=== PATIENT | female | born 1960 | race Caucasian/White ===

== ENCOUNTER 2018-09-18 18:58 | Emergency (ER) | payer OTHER ==
[2018-09-18 19:18] VITALS: BP 150/79; PULSE 96; RESP 16; TEMP 99.1
[2018-09-18] MEDS ORDERED: SODIUM CHLORIDE 0.9% 1,000 ML IV STA (19:29)
[2018-09-18 19:33] LABS: Glucose,Whole Blood 245 mg/dL (75-99)
[2018-09-18] MEDS ORDERED: MORPHINE SULFATE 4 MG/ML SYRINGE IV STA (19:56)
[2018-09-18 19:59] LABS: Basophils % (A) 1 %; Eosinophils # (A) 0.1 k/uL (0-0.7); Eosinophils % (A) 3 %; HCT 38.8 % (34.0-46.0); HGB 12.9 gm/dL (11.4-16.0); Lymphocytes # (A) 1.1 k/uL (1.0-4.8); Lymphocytes % (A) 27 %; MCH 29.6 pg (25.0-35.0); MCHC 33.2 g/dL (31.0-37.0); Mean Platelet Volume 8.7; Monocytes # (A) 0.3 k/uL (0-1.0); Monocytes % (A) 7 %; Neutrophils # (A) 2.4 k/uL (1.3-7.7); Neutrophils % (A) 61 %; Poikilocytosis Slight; RBC 4.36 m/uL (3.80-5.40); RDW 15.7 % (11.5-15.5)
[2018-09-18 20:00] LABS: Albumin 3.3 g/dL (3.5-5.0); Calcium 8.5 mg/dL (8.4-10.2); Total Bilirubin 2.8 mg/dL (0.2-1.3); Total Protein 7.2 g/dL (6.3-8.2)
--- NOTE | 2018-09-18 20:00 | ED ---
General Adult HPI - General Chief complaint: Extremity Injury, Lower Stated complaint: Cramping lower extremities Time Seen by Provider: 09/18/18 19:01 Source: patient, RN notes reviewed, old records reviewed Mode of arrival: EMS Limitations: no limitations - History of Present Illness Initial comments: 58-year-old female patient past medical history of type 2 diabetes, hyperlipidemia, hypertension, CKD presents to ED for bilateral cramping in her lower extremities distal to her knee. Patient denies any other complaints. Patient states that this is an ongoing for approximately 6 hours. Patient denies any previous history of any blood clots. Patient denies any chest pain, shortness breath, abdominal pain, nausea vomiting diarrhea, fevers chills. Systemic: Pt denies fatigue, fever/chills, rash. Pt denies weakness, night sweats, weight loss. Neuro: Pt denies headache, visual disturbances, syncope or pre-syncope. HEENT: Pt denies ocular discharge or irritation, otalgia, rhinorrhea, pharyngitis or notable lymphadenopathy. Cardiopulmonary: Pt denies chest pain, SOB, heart palpitations, dyspnea on exertion. Abdominal/GI: Pt denies abdominal pain, n/v/d. : Pt denies dysuria, burning w/ urination, frequency/urgency. Denies new onset urinary or bowel incontinence. MSK: Pt denies loss of strength or function in extremities. Neuro: Pt denies new onset weakness, paresthesias. - Related Data Home Medications Medication Instructions Recorded Confirmed Allopurinol [Zyloprim] 100 mg PO BID 09/18/18 09/18/18 Amitriptyline HCl [Elavil] 25 mg PO DAILY 09/18/18 09/18/18 Losartan [Cozaar] 50 mg PO DAILY 09/18/18 09/18/18 Simvastatin [Zocor] 20 mg PO HS 09/18/18 09/18/18 Previous Rx's Medication Instructions Recorded glyBURIDE [Diabeta] 5 mg PO Q12HR 14 Days #24 09/18/18 metFORMIN HCL [Glucophage] 500 mg PO BID 14 Days #28 tab 09/18/18 Allergies Allergy/AdvReac Type Severity Reaction Status Date / Time No Known Allergies Allergy Verified 09/18/18 20:35 Review of Systems ROS Statement: Those systems with pertinent positive or pertinent negative responses have been documented in the HPI. ROS Other: All systems not noted in ROS Statement are negative. Past Medical History Past Medical History: Diabetes Mellitus, Hyperlipidemia, Hypertension, Renal Disease History of Any Multi-Drug Resistant Organisms: None Reported Past Surgical History: Section Past Psychological History: No Psychological Hx Reported Smoking Status: Never smoker Past Alcohol Use History: None Reported Past Drug Use History: None Reported General Exam - General Exam Comments Initial Comments: Constitutional: NAD, AOX3, Pt has pleasant affect. HEENT: NC/AT, trachea midline, neck supple, no lymphadenopathy. Posterior pharynx non erythematous, without exudates. External ears appear normal, without discharge. Mucous membranes moist. Eyes PERRLA, EOM intact. There is no scleral icterus. No pallor noted. Cardiopulmonary: RRR, no murmurs, rubs or gallops, no JVD noted. Lungs CTAB in a nterior and posterior fregoso. No peripheral edema. Abdominal exam: Abdomen soft and non-distended. Abdomen non-tender to palpation in all 4 quadrants. Bowel sounds active in LLQ. No hepatosplenomegaly. No ecchymosis Neuro: CN II-XII grossly intact. No nuchal rigidity. MSK: Mild amount of posterior calf tenderness bilaterally. Posterior tibialis and radial pulse +2 bilaterally. Sensation intact in upper and lower extremities. Full active ROM in upper and lower extremities, 5/5 stregnth. Limitations: no limitations Course Vital Signs 09/18/18 19:12 Temperature 99.1 F Pulse Rate 96 Respiratory 16 Rate Blood Pressure 150/79 O2 Sat by Pulse 96 Oximetry Medical Decision Making - Medical Decision Making 58-year-old female patient past medical history of type 2 diabetes, hyperlipidemia, hypertension, CKD presents to ED for bilateral cramping in her lower extremities distal to her knee. Patient denies any other complaints. Pat ient states that this is an ongoing for approximately 6 hours. Patient denies any previous history of any blood clots. Patient denies any chest pain, shortness breath, abdominal pain, nausea vomiting diarrhea, fevers chills. Pt VSS, afebrile. Physical exam displayed: Mild amount of posterior calf tenderness bilaterally. Posterior tibialis and radial pulse +2 bilaterally. CBC nonimpressive. CMP displayed mildly elevated 1.28 Cr. Pt had mild hyperglycemia. Liver enzymes elevated. UA displayed +4 urine. Ultrasound of lower extremities bilaterally did not display any signs of DVT. Patient cramping resolved with the fluid administration, pain medication. Cramping likely secondary to dehydration. Patient was understanding. Patient also verbalizes that she is out her diabetes medication and her prior primary care provider in [place] will not refill them. Patient's medications refilled, patient assures that she will call her new pcp tomorrow. Patient to return to ER if new signs symptoms develop or condition worsens in any way. Case discussed in depth with Dr. Payne. - Lab Data Result diagrams: 09/18/18 19:32 09/18/18 19:32 Lab Results 09/18/18 09/18/18 09/18/18 Range/Units 19:30 19:32 19:32 WBC 4.0 (3.8-10.6) k/uL RBC 4.36 (3.80-5.40) m/uL Hgb 12.9 (11.4-16.0) gm/dL Hct 38.8 (34.0-46.0) % MCV 89.0 (80.0-100.0) fL MCH 29.6 (25.0-35.0) pg MCHC 33.2 (31.0-37.0) g/dL RDW 15.7 H (11.5-15.5) % Plt Count 86 L (150-450) k/uL Neutrophils % 61 % Lymphocytes % 27 % Monocytes % 7 % Eosinophils % 3 % Basophils % 1 % Neutrophils # 2.4 (1.3-7.7) k/uL Lymphocytes # 1.1 (1.0-4.8) k/uL Monocytes # 0.3 (0-1.0) k/uL Eosinophils # 0.1 (0-0.7) k/uL Basophils # 0.0 (0-0.2) k/uL Manual Slide Review Performed Poikilocytosis Slight Sodium 135 L (137-145) mmol/L Potassium 4.9 (3.5-5.1) mmol/L Chloride 103 (98-107) mmol/L Carbon Dioxide 22 (22-30) mmol/L Anion Gap 10 mmol/L BUN 20 H (7-17) mg/dL Creatinine 1.28 H (0.52-1.04) mg/dL Est GFR (CKD-EPI)AfAm 54 (>60 ml/min/1.73 sqM) Est GFR (CKD-EPI)NonAf 46 (>60 ml/min/1.73 sqM) Glucose 317 H (74-99) mg/dL POC Glucose (mg/dL) 245 H (75-99) mg/dL POC Glu Shell Assembler ID Yung Mast Calcium 8.5 (8.4-10.2) mg/dL Total Bilirubin 2.8 H (0.2-1.3) mg/dL AST 109 H (14-36) U/L ALT 72 H (9-52) U/L Alkaline Phosphatase 136 H (38-126) U/L Total Protein 7.2 (6.3-8.2) g/dL Albumin 3.3 L (3.5-5.0) g/dL Urine Color Urine Appearance (Clear) Urine pH (5.0-8.0) Ur Specific Manning (1.001-1.035) Urine Protein (Negative) Urine Glucose (UA) (Negative) Urine Ketones (Negative) Urine Blood (Negative) Urine Nitrite (Negative) Urine Bilirubin (Negative) Urine Urobilinogen (<2.0) mg/dL Ur Leukocyte Esterase (Negative) Acetone, Qual (Negative) 09/18/18 09/18/18 Range/Units 20:40 21:27 WBC (3.8-10.6) k/uL RBC (3.80-5.40) m/uL Hgb (11.4-16.0) gm/dL Hct (34.0-46.0) % MCV (80.0-100.0) fL MCH (25.0-35.0) pg MCHC (31.0-37.0) g/dL RDW (11.5-15.5) % Plt Count (150-450) k/uL Neutrophils % % Lymphocytes % % Monocytes % % Eosinophils % % Basophils % % Neutrophils # (1.3-7.7) k/uL Lymphocytes # (1.0-4.8) k/uL Monocytes # (0-1.0) k/uL Eosinophils # (0-0.7) k/uL Basophils # (0-0.2) k/uL Manual Slide Review Poikilocytosis Sodium (137-145) mmol/L Potassium (3.5-5.1) mmol/L Chloride (98-107) mmol/L Carbon Dioxide (22-30) mmol/L Anion Gap mmol/L BUN (7-17) mg/dL Creatinine (0.52-1.04) mg/dL Est GFR (CKD-EPI)AfAm (>60 ml/min/1.73 sqM) Est GFR (CKD-EPI)NonAf (>60 ml/min/1.73 sqM) Glucose (74-99) mg/dL POC Glucose (mg/dL) 255 H (75-99) mg/dL POC Glu Shell Assembler ID Yung Mast Calcium (8.4-10.2) mg/dL Total Bilirubin (0.2-1.3) mg/dL AST (14-36) U/L ALT (9-52) U/L Alkaline Phosphatase (38-126) U/L Total Protein (6.3-8.2) g/dL Albumin (3.5-5.0) g/dL Urine Color Yellow Urine Appearance Clear (Clear) Urine pH 6.0 (5.0-8.0) Ur Specific Manning 1.009 (1.001-1.035) Urine Protein Negative (Negative) Urine Glucose (UA) 4+ H (Negative) Urine Ketones Negative (Negative) Urine Blood Negative (Negative) Urine Nitrite Negative (Negative) Urine Bilirubin Negative (Negative) Urine Urobilinogen >12.0 (<2.0) mg/dL Ur Leukocyte Esterase Negative (Negative) Acetone, Qual (Negative) Disposition Clinical Impression: Myalgia, Muscle cramp Disposition: HOME SELF-CARE Condition: Stable Instructions (If sedation given, give patient instructions): Diabetic Hyperglycemia (ED) Additional Instructions: Patient to adhere to previously discussed treatment plan and will take medication(s) as directed. Patient to follow up with PCP in 1-2 days. Patient to return to ED if symptoms do not improve. Please call PCP tomorrow Prescriptions: glyBURIDE [Diabeta] 5 mg PO Q12HR 14 Days #24 metFORMIN HCL [Glucophage] 500 mg PO BID 14 Days #28 tab Is patient prescribed a controlled substance at d/c from ED?: No Referrals: Tmo Lucas MD [Primary Care Provider] - 1-2 days
[2018-09-18 20:01] LABS: Potassium 4.9 mmol/L (3.5-5.1)
[2018-09-18 20:18] LABS: Platelet Count 86 k/uL (150-450)
--- NOTE | 2018-09-18 20:30 | US ---
EXAMINATION TYPE: US venous doppler duplex LE DATE OF EXAM: 09/18/2018 8:15 PM COMPARISON: NONE CLINICAL HISTORY: Pain. pain, no hx of blood clots, not on blood thinners, no redness SIDE PERFORMED: Bilateral TECHNIQUE: The lower extremity deep venous system is examined utilizing real time linear array sonog mary with graded compression, doppler sonography and color-flow sonography. VESSELS IMAGED: External Iliac Vein (EIV) Common Femoral Vein Deep Femoral Vein Greater Saphenous Vein * Femoral Vein Popliteal Vein Small Saphenous Vein * Proximal Calf Veins (* superficial vessels) Limited exam due to patient body habitus Right Leg: Negative for acute DVT Left Leg: Negative for acute DVT IMPRESSION: No evidence of deep venous thrombosis in both legs.
[2018-09-18 20:51] LABS: Appearance,Urine Clear (Clear); Bilirubin,Urine Negative (Negative); Blood,Urine Negative (Negative); Color,Urine Yellow; Glucose,Urine (UA) 4+ (Negative); Ketones,Urine Negative (Negative); Leukocyte Esterase,Urine Negative (Negative); Nitrite,Urine Negative (Negative); Protein,Urine Negative (Negative); Specific Gravity,Urine 1.009 (1.001-1.035); Urobilinogen,Urine >12.0 mg/dL (<2.0)
[2018-09-18 21:28] LABS: Glucose,Whole Blood 255 mg/dL (75-99)
== END 2018-09-18 22:05 | disposition home or self-care (01) ==
LOC: EC 18:58
DX: M79.18 Myalgia, other site (principal); R79.89 Other specified abnormal findings of blood chemistry; Z76.0 Encounter for issue of repeat prescription; R74.8 Abnormal levels of other serum enzymes; E11.65 Type 2 diabetes mellitus with hyperglycemia; E78.5 Hyperlipidemia, unspecified; I12.9 Hypertensive chronic kidney disease with stage 1 through stage 4 chronic kidney disease, or unspecified chronic kidney disease; N18.9 Chronic kidney disease, unspecified; E11.22 Type 2 diabetes mellitus with diabetic chronic kidney disease; Z79.899 Other long term (current) drug therapy
CPT/HCPCS: 99285; 96374; 96361; 36415; 80053; 82009; 85025; 81003; 93970; J2270

== ENCOUNTER 2018-12-05 23:43 | Inpatient (IN) | payer OTHER ==
[2018-12-06 00:34] LABS: Basophils # (A) 0.1 k/uL (0-0.2); Basophils % (A) 1 %; Eosinophils # (A) 0.1 k/uL (0-0.7); Eosinophils % (A) 2 %; HCT 43.6 % (34.0-46.0); HGB 13.5 gm/dL (11.4-16.0); Hypochromasia Slight; Lymphocytes # (A) 1.2 k/uL (1.0-4.8); Lymphocytes % (A) 21 %; MCH 27.8 pg (25.0-35.0); MCV 89.6 fL (80.0-100.0); Mean Platelet Volume 8.4; Monocytes # (A) 0.3 k/uL (0-1.0); Monocytes % (A) 5 %; Neutrophils # (A) 4.1 k/uL (1.3-7.7); Neutrophils % (A) 70 %; Platelet Count 104 k/uL (150-450); Poikilocytosis Slight; RBC 4.86 m/uL (3.80-5.40); WBC 5.8 k/uL (3.8-10.6)
[2018-12-06 00:40] LABS: INR 1.1 (<1.2); Partial Thromboplastin Time 23.6 sec (22.0-30.0); Prothrombin Time 11.8 sec (9.0-12.0)
--- NOTE | 2018-12-06 00:53 | ED ---
General Adult HPI - General Source: patient, family, EMS, RN notes reviewed, old records reviewed Mode of arrival: EMS Limitations: physical limitation <Brandon Burch - Last Filed: 12/06/18 00:56> <Berhane Garcia - Last Filed: 12/06/18 08:51> - General Chief complaint: Fall Stated complaint: Hyperglycemia, Fall Time Seen by Provider: 12/06/18 00:28 - History of Present Illness Initial comments: If chief complaint and history of present illness a 58-year-old female brought in by ambulance because of having had either a syncopal episode then a seizure. Son reports that his mother was in the bathroom and called him because she wasn't feeling well. He said she was shaking then turned blue he started CPR she fell to the side into the bathtub. She denies any significant neck pain mild discomfort to her head. Patient denies any other pain. Patient reports that she's not been on her diabetic medications for several days. She takes glyburide and metformin. Yesterday's glucose was over 500. Patient states she's not good about a diabetic diet. (Brandon Burch) - Related Data Home Medications Medication Instructions Recorded Confirmed Allopurinol [Zyloprim] 100 mg PO BID 09/18/18 12/06/18 Amitriptyline HCl [Elavil] 25 mg PO DAILY 09/18/18 12/06/18 Losartan [Cozaar] 50 mg PO DAILY 09/18/18 12/06/18 Simvastatin [Zocor] 20 mg PO HS 09/18/18 12/06/18 Aspirin [Adult Low Dose Aspirin EC] 81 mg PO DAILY 12/06/18 12/06/18 Pregabalin [Lyrica] 100 mg PO BID 12/06/18 12/06/18 Previous Rx's Medication Instructions Recorded glyBURIDE [Diabeta] 5 mg PO Q12HR 14 Days #24 09/18/18 metFORMIN HCL [Glucophage] 500 mg PO BID 14 Days #28 tab 09/18/18 Allergies Allergy/AdvReac Type Severity Reaction Status Date / Time No Known Allergies Allergy Verified 12/05/18 23:50 Review of Systems ROS Other: All systems not noted in ROS Statement are negative. <Brandon Burch - Last Filed: 12/06/18 00:56> ROS Other: All systems not noted in ROS Statement are negative. <Berhane Garcia - Last Filed: 12/06/18 08:51> ROS Statement: Those systems with pertinent positive or pertinent negative responses have been documented in the HPI. Patient complains of mild headache. No visual acuity changes no neck pain. No chest pain shortness breath GI/ complaints or problems. Patient denies ever having had a seizure in the past or syncopal episode. States she's taking oral antidiabetic's only. Has not been on them for 4 days. Her blood sugars been elevated. The patient's other medical problems include hyperlipidemia hypertension and renal disease which she reports is improved over last year. Her surgeries include cataracts and . Family history of father had skin cancer. Patient denies smoking or drinking. Patient denies any ALLERGIES. (Brandon Burch) Past Medical History Past Medical History: Diabetes Mellitus, Hyperlipidemia, Hypertension, Renal Disease History of Any Multi-Drug Resistant Organisms: None Reported Past Surgical History: Section Past Psychological History: No Psychological Hx Reported Smoking Status: Never smoker Past Alcohol Use History: None Reported Past Drug Use History: None Reported <Brandon Burch - Last Filed: 12/06/18 00:56> - Past Family History Mother Family Medical History: Congestive Heart Failure (CHF), Hypertension <Berhane Garcia - Last Filed: 12/06/18 08:51> General Exam Limitations: physical limitation <Brandon Burch - Last Filed: 12/06/18 00:56> - General Exam Comments Initial Comments: General: The patient is awake and alert, in no distress, and does not appear acutely ill. Here because she had a syncopal episode followed by a seizure per her son who is an adult. He states he did CPR on her because her face looked purple. She has no recollection of the whole event. Eye: Pupils are equal, round and reactive to light, extra-ocular movements are intact; there is normal conjunctiva bilaterally. No signs of icterus. Patient has had cataract surgery. Ears, nose, mouth and throat: There are moist mucous membranes and no oral lesions. Neck: The neck is supple, there is no tenderness. Mild headache. No bumps or bruises noted. Cardiovascular: There is a regular rate and rhythm. No murmur, rub or gallop is appreciated. Respiratory: Lungs are clear to auscultation, respirations are non-labored, breath sounds are equal. No wheezes, stridor, rales, or rhonchi. Gastrointestinal: Mild tenderness along the right upper quadrant. No rebound or referred pain no organomegaly appreciated.. Back: There is no tenderness to palpation in the midline. There is no obvious deformity. No rashes noted. Musculoskeletal: Was upper or lower extremities but complains discomfort due to arthritic changes to her knee. Denies new injury or new pain.. Neurological: CN II-XII intact, There are no obvious motor or sensory deficits. Coordination appears grossly intact. Speech is normal. No focal or lateralizing findings. No focal or lateralizing findings Skin: Skin is warm and dry and no rashes or lesions are noted. Psychiatric: Cooperative, appropriate mood & affect, normal judgment. (Brandon Burch) Course Vital Signs 12/05/18 12/05/18 12/06/18 23:45 23:46 00:31 Temperature 100.4 F H Pulse Rate 128 H 128 H Respiratory 22 18 Rate Blood Pressure 156/90 143/74 O2 Sat by Pulse 96 97 97 Oximetry 12/06/18 12/06/18 12/06/18 02:36 04:06 04:41 Temperature 99.1 F 98.2 F 98.2 F Pulse Rate 115 H 102 H Respiratory 18 16 19 Rate Blood Pressure 137/70 159/86 O2 Sat by Pulse 96 95 98 Oximetry 12/06/18 12/06/18 05:00 05:01 Temperature 98.2 F 97.7 F Pulse Rate 101 H 101 H Respiratory 20 18 Rate Blood Pressure 121/66 126/67 O2 Sat by Pulse 94 L 93 L Oximetry EKG Findings - EKG Comments: EKG Findings:: EKG was done and reviewed it 2358 showing sinus tachycardia no acute ST elevation no ectopy. Patient's heart rate is 123 LA interval is 150 QRS 80 QT 322 QTc 460. No old EKG available to compare to at this time. <Brandon Burch - Last Filed: 12/06/18 00:56> Medical Decision Making - Lab Data Result diagrams: 12/05/18 23:50 <Brandon Burch - Last Filed: 12/06/18 00:56> - Lab Data Result diagrams: 12/05/18 23:50 12/06/18 08:27 <Berhane Garcia - Last Filed: 12/06/18 08:51> - Medical Decision Making Medical decision making; is a 58-year-old female who according to the son had what appeared to be a seizure and then fell off the toilet. At this time the patient is alert and oriented. She has no memory for the event. EMS reports that when they got there she was not postictal. Patient will be worked up with a CAT scan and cardiac evaluation as well. She also presents with a fever of 100.4 which was unknown to her. She denies any sore throat earache or cough. Case endorsed for final disposition to Dr. Garcia (Brandon Burch) Receive this case as a sign out pending the results of some patient's studies. The patient's studies reveal significant hyperglycemia as well as lactic acidosis, but acetone negative. Patient is started on fluids, insulin, she did receive a dose of antibiotics result of urine and also a blood culture. Case is discussed with Dr. Berman and history of recommendations are incorporated. (Berhane Garcia) - Lab Data Lab Results 12/05/18 12/05/18 12/05/18 Range/Units 23:50 23:50 23:50 WBC 5.8 (3.8-10.6) k/uL RBC 4.86 (3.80-5.40) m/uL Hgb 13.5 (11.4-16.0) gm/dL Hct 43.6 (34.0-46.0) % MCV 89.6 (80.0-100.0) fL MCH 27.8 (25.0-35.0) pg MCHC 31.0 (31.0-37.0) g/dL RDW 15.0 (11.5-15.5) % Plt Count 104 L (150-450) k/uL Neutrophils % 70 % Lymphocytes % 21 % Monocytes % 5 % Eosinophils % 2 % Basophils % 1 % Neutrophils # 4.1 (1.3-7.7) k/uL Lymphocytes # 1.2 (1.0-4.8) k/uL Monocytes # 0.3 (0-1.0) k/uL Eosinophils # 0.1 (0-0.7) k/uL Basophils # 0.1 (0-0.2) k/uL Hypochromasia Slight Poikilocytosis Slight PT (9.0-12.0) sec INR (<1.2) APTT (22.0-30.0) sec Sodium 130 L (137-145) mmol/L Potassium 3.8 (3.5-5.1) mmol/L Chloride 96 L (98-107) mmol/L Carbon Dioxide 17 L (22-30) mmol/L Anion Gap 17 mmol/L BUN 11 (7-17) mg/dL Creatinine 1.05 H (0.52-1.04) mg/dL Est GFR (CKD-EPI)AfAm 68 (>60 ml/min/1.73 sqM) Est GFR (CKD-EPI)NonAf 59 (>60 ml/min/1.73 sqM) Glucose 665 H* (74-99) mg/dL POC Glucose (mg/dL) (75-99) mg/dL POC Glu Child Care Team Lead ID Lactic Ac Sepsis Rflx Plasma Lactic Acid Raymundo (0.7-2.0) mmol/L Calcium 9.1 (8.4-10.2) mg/dL Total Bilirubin 1.8 H (0.2-1.3) mg/dL AST 47 H (14-36) U/L ALT 33 (9-52) U/L Alkaline Phosphatase 232 H (38-126) U/L Creatine Kinase (30-135) U/L CK-MB (CK-2) 0.3 (0.0-2.4) ng/mL Troponin I <0.012 (0.000-0.034) ng/mL Total Protein 7.2 (6.3-8.2) g/dL Albumin 3.5 (3.5-5.0) g/dL Acetone, Qual (Negative) 12/05/18 12/05/18 12/05/18 Range/Units 23:50 23:50 23:50 WBC (3.8-10.6) k/uL RBC (3.80-5.40) m/uL Hgb (11.4-16.0) gm/dL Hct (34.0-46.0) % MCV (80.0-100.0) fL MCH (25.0-35.0) pg MCHC (31.0-37.0) g/dL RDW (11.5-15.5) % Plt Count (150-450) k/uL Neutrophils % % Lymphocytes % % Monocytes % % Eosinophils % % Basophils % % Neutrophils # (1.3-7.7) k/uL Lymphocytes # (1.0-4.8) k/uL Monocytes # (0-1.0) k/uL Eosinophils # (0-0.7) k/uL Basophils # (0-0.2) k/uL Hypochromasia Poikilocytosis PT 11.8 (9.0-12.0) sec INR 1.1 (<1.2) APTT 23.6 (22.0-30.0) sec Sodium (137-145) mmol/L Potassium (3.5-5.1) mmol/L Chloride (98-107) mmol/L Carbon Dioxide (22-30) mmol/L Anion Gap mmol/L BUN (7-17) mg/dL Creatinine (0.52-1.04) mg/dL Est GFR (CKD-EPI)AfAm (>60 ml/min/1.73 sqM) Est GFR (CKD-EPI)NonAf (>60 ml/min/1.73 sqM) Glucose (74-99) mg/dL POC Glucose (mg/dL) (75-99) mg/dL POC Glu Child Care Team Lead ID Lactic Ac Sepsis Rflx Plasma Lactic Acid Raymundo 11.7 H* (0.7-2.0) mmol/L Calcium (8.4-10.2) mg/dL Total Bilirubin (0.2-1.3) mg/dL AST (14-36) U/L ALT (9-52) U/L Alkaline Phosphatase (38-126) U/L Creatine Kinase (30-135) U/L CK-MB (CK-2) (0.0-2.4) ng/mL Troponin I (0.000-0.034) ng/mL Total Protein (6.3-8.2) g/dL Albumin (3.5-5.0) g/dL Acetone, Qual Negative (Negative) 12/05/18 12/06/18 12/06/18 Range/Units 23:50 01:22 03:00 WBC (3.8-10.6) k/uL RBC (3.80-5.40) m/uL Hgb (11.4-16.0) gm/dL Hct (34.0-46.0) % MCV (80.0-100.0) fL MCH (25.0-35.0) pg MCHC (31.0-37.0) g/dL RDW (11.5-15.5) % Plt Count (150-450) k/uL Neutrophils % % Lymphocytes % % Monocytes % % Eosinophils % % Basophils % % Neutrophils # (1.3-7.7) k/uL Lymphocytes # (1.0-4.8) k/uL Monocytes # (0-1.0) k/uL Eosinophils # (0-0.7) k/uL Basophils # (0-0.2) k/uL Hypochromasia Poikilocytosis PT (9.0-12.0) sec INR (<1.2) APTT (22.0-30.0) sec Sodium (137-145) mmol/L Potassium (3.5-5.1) mmol/L Chloride (98-107) mmol/L Carbon Dioxide (22-30) mmol/L Anion Gap mmol/L BUN (7-17) mg/dL Creatinine (0.52-1.04) mg/dL Est GFR (CKD-EPI)AfAm (>60 ml/min/1.73 sqM) Est GFR (CKD-EPI)NonAf (>60 ml/min/1.73 sqM) Glucose (74-99) mg/dL POC Glucose (mg/dL) 467 H (75-99) mg/dL POC Glu Child Care Team Lead ID Louise Chandler Lactic Ac Sepsis Rflx Y Plasma Lactic Acid Raymundo (0.7-2.0) mmol/L Calcium (8.4-10.2) mg/dL Total Bilirubin (0.2-1.3) mg/dL AST (14-36) U/L ALT (9-52) U/L Alkaline Phosphatase (38-126) U/L Creatine Kinase 39 (30-135) U/L CK-MB (CK-2) (0.0-2.4) ng/mL Troponin I (0.000-0.034) ng/mL Total Protein (6.3-8.2) g/dL Albumin (3.5-5.0) g/dL Acetone, Qual (Negative) Critical Care Time Critical Care Time: Yes (35 minutes) <Trachy,Berhane - Last Filed: 12/06/18 08:51> Disposition <Brandon Burch - Last Filed: 12/06/18 00:56> Is patient prescribed a controlled substance at d/c from ED?: No <Berhane Garcia - Last Filed: 12/06/18 08:51> Clinical Impression: Syncope, Fall, Hyperglycemia, Lactic acidosis Disposition: ADMITTED IP TO THIS HOSP Condition: Serious
[2018-12-06] MEDS ORDERED: ACETAMINOPHEN TAB 500 MG TAB PO STA (00:56)
[2018-12-06 01:09] LABS: Albumin 3.5 g/dL (3.5-5.0); Calcium 9.1 mg/dL (8.4-10.2); Potassium 3.8 mmol/L (3.5-5.1); Total Bilirubin 1.8 mg/dL (0.2-1.3); Total Protein 7.2 g/dL (6.3-8.2)
[2018-12-06 01:18] LABS: Creatine Kinase MB 0.3 ng/mL (0.0-2.4); Troponin I <0.012 ng/mL (0.000-0.034)
[2018-12-06] MEDS ORDERED: SODIUM CHLORIDE 0.9% 2,000 ML IV ONE (01:58)
[2018-12-06] MEDS ORDERED: INSULIN REGULAR BOLUS (FROM DRIP BAG) IV ONE (01:59)
[2018-12-06] MEDS ORDERED: ONDANSETRON 4 MG/2 ML VIAL IVP STA (02:03)
[2018-12-06] MEDS: INSULIN REGULAR 100 UNIT in SODIUM CHLORIDE 0.9% 100 ML IV SCH ×2 (02:30→10:22)
[2018-12-06] MEDS ORDERED: cefTRIAXone IN SWFI 1,000 MG/10 ML SYRINGE IVP STA (02:36)
[2018-12-06 03:01] LABS: Glucose,Whole Blood 467 mg/dL (75-99)
--- NOTE | 2018-12-06 03:11 | CT ---
EXAM: CT Head Without Intravenous Contrast CLINICAL HISTORY: ITS.REASON CT Reason: Syncopal episode, bumped head TECHNIQUE: Axial computed tomography images of the head/brain without intravenous contrast. CTDI is 45 mGy and DLP is 1044 mGy-cm. This CT exam was performed using one or more of the following dose reduction techniques: automated exposure control, adjustment of the mA and/or kV according to patient size, and/or use of iterative reconstruction technique. COMPARISON: No relevant prior studies available. FINDINGS: Brain: No hemorrhage, large hypodensity, or mass effect. Ventricles: No hydrocephalus. Bones/joints: Unremarkable. Soft tissues: Unremarkable. Sinuses: Unremarkable. Mastoid air cells: Clear. IMPRESSION: No acute hemorrhage, hydrocephalus, or mass effect. EXAM: CT Cervical Spine Without Intravenous Contrast CLINICAL HISTORY: ITS.REASON CT Reason: Syncopal episode, bumped head TECHNIQUE: Axial computed tomography images of the cervical spine without intravenous contrast. CTDI is 37 mGy and DLP is 836 mGy-cm. This CT exam was performed using one or more of the following dose reduction techniques: automated exposure control, adjustment of the mA and/or kV according to patient size, and/or use of iterative reconstruction technique. COMPARISON: No relevant prior studies available. FINDINGS: Vertebrae: No acute fracture. Discs/spinal canal/neural foramina: No high grade spinal canal stenosis. Soft tissues: Unremarkable. IMPRESSION: No acute fracture or subluxation.
--- NOTE | 2018-12-06 03:12 | XR ---
EXAM: XR Chest, 2 Views CLINICAL HISTORY: ITS.REASON XR Reason: Pain TECHNIQUE: Frontal and lateral views of the chest. COMPARISON: No relevant prior studies available. FINDINGS: Lungs: No consolidation or mass. Pleural space: No effusion. Heart: No cardiomegaly. Mediastinum: Unremarkable. Bones/joints: No acute findings. IMPRESSION: No acute cardiopulmonary process.
[2018-12-06] MEDS ORDERED: ACETAMINOPHEN TAB 325 MG TAB PO PRN (03:22)
[2018-12-06] MEDS ORDERED: NALOXONE 0.4 MG/ML 1 ML VIAL IV PRN (03:22)
[2018-12-06 04:03] LABS: Glucose,Whole Blood 435 mg/dL (75-99)
[2018-12-06] MEDS: SODIUM CHLORIDE 0.9% 1,000 ML IV SCH ×5 (04:08→20:37)
[2018-12-06 05:01] LABS: Glucose,Whole Blood 372 mg/dL (75-99)
[2018-12-06 05:30] LABS: Anion Gap 5 mmol/L; Blood Urea Nitrogen 11 mg/dL (7-17); Carbon Dioxide 24 mmol/L (22-30); Chloride 104 mmol/L (98-107); Glucose 392 mg/dL (74-99); Phosphorus 2.8 mg/dL (2.5-4.5); Potassium 3.5 mmol/L (3.5-5.1); Sodium 133 mmol/L (137-145)
[2018-12-06 05:41] LABS: Glucose,Whole Blood 326 mg/dL (75-99)
[2018-12-06 06:17] LABS: Glucose,Whole Blood 305 mg/dL (75-99)
[2018-12-06 07:16] LABS: Glucose,Whole Blood 267 mg/dL (75-99)
[2018-12-06 08:21] LABS: Glucose,Whole Blood 299 mg/dL (75-99)
[2018-12-06 08:26] LABS: Appearance,Urine Clear (Clear); Bacteria,Urine Rare /hpf; Bilirubin,Urine Negative (Negative); Blood,Urine Small (Negative); Budding Yeast,Urine Occasional /hpf; Color,Urine Light Yellow; Glucose,Urine (UA) 4+ (Negative); Ketones,Urine Negative (Negative); Leukocyte Esterase,Urine Moderate (Negative); Mucus,Urine Rare /hpf; Nitrite,Urine Negative (Negative); Protein,Urine Negative (Negative); RBC,Urine 6 /hpf (0-5); Specific Gravity,Urine 1.035 (1.001-1.035); Squamous Epithelial Cell,Urine 3 /hpf (0-4)
[2018-12-06] MEDS: metFORMIN 500 MG TAB PO SCH ×2 (08:27→17:14)
[2018-12-06] MEDS: glipiZIDE 10 MG TAB PO SCH ×2 (08:27→17:14)
[2018-12-06] MEDS: ALLOPURINOL 100 MG TAB PO SCH ×2 (08:27→20:50)
[2018-12-06] MEDS: FAMOTIDINE 20 MG TAB PO SCH ×2 (08:27→20:50)
[2018-12-06] MEDS: LOSARTAN 50 MG TAB PO SCH (08:27)
[2018-12-06 08:39] LABS: VBG PH 7.35 (7.31-7.41)
[2018-12-06 08:50] LABS: Anion Gap 9 mmol/L; Blood Urea Nitrogen 11 mg/dL (7-17); Carbon Dioxide 22 mmol/L (22-30); Chloride 105 mmol/L (98-107); Glucose 278 mg/dL (74-99); Phosphorus 2.8 mg/dL (2.5-4.5); Potassium 3.5 mmol/L (3.5-5.1); Sodium 136 mmol/L (137-145)
[2018-12-06 09:16] LABS: Glucose,Whole Blood 245 mg/dL (75-99)
[2018-12-06 10:15] LABS: Glucose,Whole Blood 182 mg/dL (75-99)
[2018-12-06] MEDS ORDERED: Potassium Replacement Protocol 1 EACH MISC MISCELLANE PRN (10:39)
[2018-12-06 11:13] LABS: Glucose,Whole Blood 169 mg/dL (75-99)
[2018-12-06 11:58] LABS: Glucose,Whole Blood 148 mg/dL (75-99)
[2018-12-06] MEDS: POTASSIUM CHLORIDE ER 20 MEQ TAB.ER PO SCH ×2 (12:11→12:43)
[2018-12-06 12:15] VITALS: BMI 58.0
[2018-12-06 14:51] LABS: Glucose,Whole Blood >600 mg/dL (75-99)
[2018-12-06 17:09] LABS: Glucose,Whole Blood 223 mg/dL (75-99)
[2018-12-06] MEDS: INSULIN ASPART (NovoLOG) 100 UNIT/ML VIAL SQ SCH ×2 (17:18→20:53)
--- NOTE | 2018-12-06 20:11 | HP ---
HISTORY AND PHYSICAL CHIEF COMPLAINT: Uncontrolled diabetes and syncope. HISTORY OF PRESENT ILLNESS: This is another admission for this noncompliant, obese 58-year-old white female. She has not been on her medications for diabetes. She apparently had a syncopal episode at home and was brought to the emergency room. Her blood sugar was over 600. There may have been some seizure activity and it was described that she had some twitching in the left arm. Because her blood sugar and history of syncope, she was admitted. She has no complaints of history of headache, change in vision or hearing, chest pain, cough, hemoptysis, shortness of breath, orthopnea, PND, heart disease, murmurs, rheumatic fever, etc. She denies any abdominal pain, vomiting, diarrhea, hematemesis, melena, hematochezia, colitis, diverticulosis, diverticulitis, hemorrhoids, jaundice, dysuria, frequency, urgency, incontinence, etc. Past medical history, family history, personal and social histories reveal that she does not have any allergies. She does not smoke. MEDICATIONS AT HOME: Include Zyloprim 100 mg twice a day, Elavil 25 once a day, losartan 50 once a day, simvastatin 20 once a day, aspirin, and Lyrica 100 mg b.i.d. She is supposed to be on glyburide 5 mg b.i.d. and metformin 500 mg b.i.d. PHYSICAL EXAM: VITAL SIGNS: Temperature is 100.4 and pulse is 128, respirations are 22, and blood pressure 156/90. In general she appeared to be extremely overweight and slightly short of breath. Skin color is normal. Skin is warm, dry. Lymph nodes not enlarged. Head, ears, eyes, nose, mouth, and throat were normal. Neck veins are not distended. Thyroid was not enlarged. Chest is clear. Cardiac exam demonstrated normal sinus rhythm and no murmurs or extra sounds. The abdomen is protuberant and soft and nontender. There are no masses or visceromegaly. Extremities: Unremarkable. Neurologically she is intact. IMPRESSION: 1. Syncopal episode. 2. Uncontrolled diabetes. 3. Hypertension. 4. Obesity. 5. Elevated alkaline phosphatase. 6. Stage II CKD. PLAN: 1. Bed rest. 2. IV fluids. 3. Nasal oxygen. 4. Control diabetes. 5. Watch for any other neurologic episodes, seizure activity, etc. MMODL / IJN: [id number] /
[2018-12-06 20:50] LABS: Glucose,Whole Blood 222 mg/dL (75-99)
[2018-12-06] MEDS: AMITRIPTYLINE HCL 25 MG TAB PO SCH (20:50)
[2018-12-06] MEDS: ATORVASTATIN 10 MG TAB PO SCH (20:50)
[2018-12-07] MEDS: SODIUM CHLORIDE 0.9% 1,000 ML IV SCH ×5 (05:55→21:24)
[2018-12-07 06:06] LABS: Glucose,Whole Blood 196 mg/dL (75-99)
[2018-12-07] MEDS: glipiZIDE 10 MG TAB PO SCH ×2 (06:26→17:57)
[2018-12-07] MEDS: INSULIN ASPART (NovoLOG) 100 UNIT/ML VIAL SQ SCH ×4 (06:26→21:14)
[2018-12-07] MEDS: metFORMIN 500 MG TAB PO SCH ×2 (06:27→17:57)
[2018-12-07 06:44] LABS: HCT 37.9 % (34.0-46.0); HGB 11.9 gm/dL (11.4-16.0); Hypochromasia Slight; MCH 27.8 pg (25.0-35.0); MCHC 31.5 g/dL (31.0-37.0); MCV 88.2 fL (80.0-100.0); Mean Platelet Volume 8.2; Platelet Count 105 k/uL (150-450); Poikilocytosis Slight; RDW 15.5 % (11.5-15.5); WBC 5.4 k/uL (3.8-10.6)
[2018-12-07 06:56] LABS: Calcium 7.6 mg/dL (8.4-10.2); Potassium 3.7 mmol/L (3.5-5.1)
[2018-12-07] MEDS: FAMOTIDINE 20 MG TAB PO SCH ×2 (08:17→21:14)
[2018-12-07] MEDS: LOSARTAN 50 MG TAB PO SCH (08:17)
[2018-12-07] MEDS: ALLOPURINOL 100 MG TAB PO SCH ×2 (08:17→21:14)
[2018-12-07 11:35] LABS: Albumin 2.5 g/dL (3.5-5.0); Total Bilirubin 1.3 mg/dL (0.2-1.3); Total Protein 5.9 g/dL (6.3-8.2)
[2018-12-07 11:54] LABS: Glucose,Whole Blood 282 mg/dL (75-99)
[2018-12-07 12:25] LABS: Band Neutrophils % 1 %; Eosinophils # (M) 0.11 k/uL (0-0.7); Lymphocytes # (M) 1.46 k/uL (1.0-4.8); Monocytes # (M) 0.65 k/uL (0-1.0); Neutrophils % (M) 58 %; Nucleated Red Blood Cells 0 /100 WBC (0-0); Total Cells Counted 100
--- NOTE | 2018-12-07 12:49 | PN ---
PROGRESS NOTE CHIEF COMPLAINT: Syncope and uncontrolled diabetes. HISTORY OF PRESENT ILLNESS: This lady seems to be doing well and not having any problems now. She has no focal neurologic deficits, chest pain, palpitations, lightheadedness, etc. Blood sugars are coming down into acceptable range. PHYSICAL EXAM: Chest is clear. The cardiac exam is normal. The abdomen is soft and nontender. IMPRESSION: 1. Syncopal event, etiology unknown. 2. Uncontrolled diabetes with blood sugar over 600. PLAN: 1. Increase activity. 2. Monitor blood sugars over the next day and if everything remains stable, she can go home tomorrow. MMODL / IJN: [id number] /
[2018-12-07 14:10] LABS: Hemoglobin A1C 10.3 % (4.0-6.0)
[2018-12-07 16:54] LABS: Glucose,Whole Blood 265 mg/dL (75-99)
[2018-12-07 20:14] LABS: Glucose,Whole Blood 281 mg/dL (75-99)
[2018-12-07] MEDS: ATORVASTATIN 10 MG TAB PO SCH (21:14)
[2018-12-07] MEDS: AMITRIPTYLINE HCL 25 MG TAB PO SCH (21:14)
[2018-12-07 23:16] VITALS: RESP 18
[2018-12-08] MEDS: SODIUM CHLORIDE 0.9% 1,000 ML IV SCH ×2 (05:04→07:54)
[2018-12-08] MEDS: INSULIN ASPART (NovoLOG) 100 UNIT/ML VIAL SQ SCH ×2 (06:27→12:40)
[2018-12-08] MEDS: metFORMIN 500 MG TAB PO SCH (06:27)
[2018-12-08] MEDS: glipiZIDE 10 MG TAB PO SCH (06:27)
[2018-12-08 06:34] LABS: Glucose,Whole Blood 182 mg/dL (75-99)
[2018-12-08 07:39] VITALS: TEMP 98.1
[2018-12-08] MEDS: ALLOPURINOL 100 MG TAB PO SCH (08:23)
[2018-12-08] MEDS: FAMOTIDINE 20 MG TAB PO SCH (08:23)
[2018-12-08] MEDS: LOSARTAN 50 MG TAB PO SCH (08:23)
[2018-12-08 11:47] VITALS: BP 119/82; PULSE 91
--- NOTE | 2018-12-08 11:57 | CDI ---
Documentation Clarification Form Date: 12/08/2018 11:15:12 AM From: Liliya Langford RN, CCDS Admit Date: 12/06/2018 3:24:00 AM Patient Name: Jayla Wolff Visit Number: [id number] Discharge Date: ATTENTION: The Clinical Documentation Specialists (CDI) and [facility] Coding Staff appreciate your assistance in clarifying documentation. Please respond to the clarification below the line at the bottom and electronically sign. The CDI & [facility] Coding staff will review the response and follow-up if needed. Please note: Queries are made part of the Legal Health Record. If you have any questions, please contact the author of this message via ITS. Dr. Tom Lucas The patient has Uncontrolled diabetes, as indicated in your H/P and progress note 12/06/2018. History/Risk Factors: Diabetes Mellitus, Hypertension, CKD stage II, Obesity Clinical Indicators: 58 year-old female noncompliant with her medication for diabetes. Her blood sugar was over 600. Because of her blood sugar and history of syncope she was admitted. Labs: Glucose 665, 392, 278, Hemoglobin A1c 10.3 Treatment: Monitor blood sugars ([facility]) Glucotrol PO AC-BID Gluophage BID W/Meals In order to capture the severity of Illness and necessary documentation specificity, please clarify: DM Type 1, DM Type 2 Other, please specify Unable to Determine Please document any body system complications or specific uncontrolled DM clarify: Hyperglycemia Hypoglycemia Other condition (Last Revision: April 2017) MTDD
[2018-12-08 12:07] LABS: Glucose,Whole Blood 289 mg/dL (75-99)
--- NOTE | 2018-12-08 22:09 | DS ---
DISCHARGE SUMMARY CHIEF COMPLAINT: Fall with hyperglycemia. HISTORY OF PRESENT ILLNESS AND PHYSICAL EXAMINATION: Details of this lady's history and physical can be found in the initial workup. LABORATORY STUDIES: While she was in the hospital she had laboratory studies, details of which can be found in the laboratory section of her chart. COURSE IN THE HOSPITAL: After admission she was placed on bedrest, started on intravenous fluids and started on insulin management. Her blood sugars came down. She had no further difficulty to explain the fall and she was stabilized. Blood sugars were good. It was felt that she could go home. She will follow up in a few days. FINAL DIAGNOSES: 1. Fall. 2. Hyperglycemia. 3. Uncontrolled diabetes mellitus. 4. Morbid obesity. OPERATIONS: None. CONSULTATIONS: None. She is improved. ARACELIS / KATY: [id number] /
--- NOTE | 2018-12-10 12:58 | MISC ---
MISCELLANOUS REPORT Type 2 diabetes. Hyperglycemia. MMODL / IJN: [id number] /
== END 2018-12-08 12:58 | disposition home health service (06) | DRG 638 ==
LOC: EC 23:43 → 2SICU 12-06 03:24 → 3SCARD 12-06 11:57
PROVIDERS: ADMIT Family Medicine; ATTEND Family Medicine
DX: E11.65 Type 2 diabetes mellitus with hyperglycemia (principal); E87.2 Acidosis; Z68.44 Body mass index [BMI] 60.0-69.9, adult; E11.22 Type 2 diabetes mellitus with diabetic chronic kidney disease; E66.01 Morbid (severe) obesity due to excess calories; R74.8 Abnormal levels of other serum enzymes; R55 Syncope and collapse; E78.5 Hyperlipidemia, unspecified; I00 Rheumatic fever without heart involvement; I12.9 Hypertensive chronic kidney disease with stage 1 through stage 4 chronic kidney disease, or unspecified chronic kidney disease; N18.2 Chronic kidney disease, stage 2 (mild); Z79.82 Long term (current) use of aspirin; Z79.84 Long term (current) use of oral hypoglycemic drugs; Z82.49 Family history of ischemic heart disease and other diseases of the circulatory system; Z91.19 Patient's noncompliance with other medical treatment and regimen
CPT/HCPCS: 36415; 70450; 71046; 72125; 80051; 80053; 81001; 82009; 82550; 82553; 82565; 82803; 82947; 83036; 83605; 83930; 84100; 84484; 84520; 85025; 85027; 85610; 85730; 87040; 87086; 93005; 94760; 96361; 96374; 96375; 99291

== ENCOUNTER → 2019-03-29 | Outpatient (CLI) | payer OTHER ==
[2019-03-29 12:58] LABS: Anisocytosis Slight; HGB 11.9 gm/dL (11.4-16.0); MCH 31.7 pg (25.0-35.0); MCHC 33.1 g/dL (31.0-37.0); MCV 95.8 fL (80.0-100.0); Macrocytosis Slight; Mean Platelet Volume 9.9; RBC 3.76 m/uL (3.80-5.40); RDW 17.4 % (11.5-15.5); WBC 4.6 k/uL (3.8-10.6)
[2019-03-29 13:02] LABS: INR 1.1 (<1.2); Prothrombin Time 11.8 sec (9.0-12.0)
[2019-03-29 13:04] LABS: Platelet Count 77 k/uL (150-450)
[2019-03-29 19:20] LABS: Albumin 3.5 g/dL (3.80-4.90); Albumin/Globulin Ratio 1.13 (1.60-3.17); Bilirubin, Conjugated 0.6 mg/dL (0.20-0.40); Bilirubin,Unconjugated 0.8 mg/dL; Globulin 3.1 g/dL (1.6-3.3); Total Bilirubin 1.4 mg/dL (0.3-1.2); Total Protein 6.6 g/dL (6.2-8.2)
[2019-03-29 19:45] LABS: Alpha Fetoprotein, Tumor Mkr 10.4 ng/mL (0.0-7.9)
[2019-03-31 14:15] LABS: HCV Quant Log 6.71 (<1.08)
== END | disposition home or self-care (01) ==
LOC: LABWHC1 12:05
PROVIDERS: ATTEND Physician Assistant
DX: B18.2 Chronic viral hepatitis C (principal)
CPT/HCPCS: 36415; 80076; 82105; 82728; 83540; 83550; 85027; 85610; 86038; 87522

== ENCOUNTER → 2019-04-16 | Outpatient (CLI) | payer OTHER ==
--- NOTE | 2019-04-16 16:29 | US ---
EXAMINATION TYPE: US abdomen limited DATE OF EXAM: 04/16/2019 COMPARISON: NONE CLINICAL HISTORY: E18.2 Chronic viral Hepatitis C. Chronic Hep C EXAM MEASUREMENTS: Liver Length: 18.2 cm Gallbladder Wall: 0.2 cm CBD: 0.4 cm Right Kidney: 9.2 x 4.9 x 4.4 cm Pt severely, morbidly obese, limited visualization, GB only scanned supine Pancreas: Body wnl, head and tail obscured by overlying bowel gas Liver: Upper limits of normal for size Gallbladder: Multiple folds Evidence for sonographic Samuel's sign: No CBD: wnl Right Kidney: Cortical thinning IMPRESSION: 1. Exam limited due to patient body habitus. 2. Right upper quadrant ultrasound appears essentially within normal limits.
== END | disposition home or self-care (01) ==
LOC: RADUSWWP 08:52
PROVIDERS: ATTEND Internal Medicine Gastroenterology
DX: B18.2 Chronic viral hepatitis C (principal)
CPT/HCPCS: 76705

== ENCOUNTER → 2020-01-13 | Outpatient (CLI) | payer OTHER ==
[2020-01-13 13:40] LABS: Anisocytosis Slight; HCT 33.9 % (34.0-46.0); HGB 10.9 gm/dL (11.4-16.0); Hypochromasia Moderate; MCH 33.1 pg (25.0-35.0); MCHC 32.2 g/dL (31.0-37.0); MCV 102.7 fL (80.0-100.0); Macrocytosis Moderate; Mean Platelet Volume 9.3; RDW 16.5 % (11.5-15.5); WBC 3.9 k/uL (3.8-10.6)
[2020-01-13 13:49] LABS: INR 1.3 (<1.2); Platelet Count 63 k/uL (150-450); Prothrombin Time 12.7 sec (9.0-12.0)
[2020-01-13 14:53] LABS: Albumin 3.3 g/dL (3.5-5.0); Bilirubin, Delta 0.3 mg/dL (0.0-0.2); Bilirubin,Unconjugated 1.3 mg/dL (0.0-1.1); Total Bilirubin 1.6 mg/dL (0.2-1.3); Total Protein 7.5 g/dL (6.3-8.2)
[2020-01-13 18:45] LABS: Alpha Fetoprotein, Tumor Mkr 9.5 ng/mL (0.0-7.9)
== END | disposition home or self-care (01) ==
LOC: RADMRIMAIN 12:56
PROVIDERS: ATTEND Physician Assistant
DX: B18.2 Chronic viral hepatitis C (principal)
CPT/HCPCS: 80076; 82105; 85027; 85610; 87522

== ENCOUNTER → 2020-02-07 | Outpatient (CLI) | payer OTHER ==
[2020-02-07 21:03] LABS: African American GFR (CKD) 34.8 (60.0-200.0); Non-African American GFR(CKD) 30.1 (60.0-200.0)
== END | disposition home or self-care (01) ==
LOC: LABWHC1 11:40
PROVIDERS: ATTEND Physician Assistant
DX: B18.2 Chronic viral hepatitis C (principal)
CPT/HCPCS: 36415; 82565

== ENCOUNTER → 2020-02-23 | Outpatient (CLI) | payer OTHER ==
[2020-02-23 14:34] LABS: Anisocytosis Slight; HCT 28.8 % (34.0-46.0); Hypochromasia Slight; MCH 32.2 pg (25.0-35.0); MCHC 31.6 g/dL (31.0-37.0); MCV 102.1 fL (80.0-100.0); Macrocytosis Moderate; Mean Platelet Volume 10.7; RBC 2.82 m/uL (3.80-5.40); RDW 16.6 % (11.5-15.5); WBC 3.4 k/uL (3.8-10.6)
[2020-02-23 14:35] LABS: HGB 9.1 gm/dL (11.4-16.0)
[2020-02-23 14:46] LABS: Platelet Count 40 k/uL (150-450)
[2020-02-23 19:52] LABS: INR 1.17 (0.90-1.11); Prothrombin Time 12.4 sec (9.9-11.9)
[2020-02-23 19:56] LABS: Albumin 3.3 g/dL (3.80-4.90); Albumin/Globulin Ratio 0.97 (1.60-3.17); Bilirubin, Conjugated 0.5 mg/dL (0.20-0.40); Bilirubin,Unconjugated 0.4 mg/dL; Globulin 3.4 g/dL (1.6-3.3); Total Bilirubin 0.9 mg/dL (0.3-1.2); Total Protein 6.7 g/dL (6.2-8.2)
[2020-02-24 22:12] LABS: Hepatits C Virus RNA DETECTED (Not detected); Hepatits C Virus RNA, Quant 925 IU/mL (<12); LOG HCV IU/mL 2.97 (<1.08)
== END | disposition home or self-care (01) ==
LOC: LABWHC1 12:27
PROVIDERS: ATTEND Physician Assistant
DX: B18.2 Chronic viral hepatitis C (principal)
CPT/HCPCS: 36415; 80076; 85027; 85610; 87522

== ENCOUNTER → 2020-03-24 | Outpatient (CLI) | payer OTHER ==
[2020-03-24 15:05] LABS: Anisocytosis Slight; HCT 27.3 % (34.0-46.0); HGB 8.5 gm/dL (11.4-16.0); Hypochromasia Slight; MCH 31.1 pg (25.0-35.0); MCHC 31.1 g/dL (31.0-37.0); MCV 99.9 fL (80.0-100.0); Macrocytosis Slight; Mean Platelet Volume 10.9; RBC 2.73 m/uL (3.80-5.40); RDW 16.6 % (11.5-15.5); WBC 5.5 k/uL (3.8-10.6)
[2020-03-24 15:07] LABS: INR 1.2 (<1.2); Prothrombin Time 12.2 sec (9.0-12.0)
[2020-03-24 15:09] LABS: Albumin 3.2 g/dL (3.5-5.0); Bilirubin, Delta 0.4 mg/dL (0.0-0.2); Bilirubin,Unconjugated 0.7 mg/dL (0.0-1.1); Total Bilirubin 1.1 mg/dL (0.2-1.3); Total Protein 6.8 g/dL (6.3-8.2)
[2020-03-24 15:13] LABS: Platelet Count 62 k/uL (150-450)
[2020-03-24 20:44] LABS: Alpha Fetoprotein, Tumor Mkr 7.3 ng/mL (0.0-7.9)
== END | disposition home or self-care (01) ==
LOC: LABPAT 13:06
PROVIDERS: ATTEND Physician Assistant
DX: B18.2 Chronic viral hepatitis C (principal)
CPT/HCPCS: 80076; 82105; 85027; 85610; 87522

== ENCOUNTER 2020-04-24 11:13 | Inpatient (IN) | payer OTHER ==
[2020-04-24 11:19] LABS: Glucose,Whole Blood 90 mg/dL (75-99)
[2020-04-24] MEDS ORDERED: SODIUM CHLORIDE 0.9% 1,000 ML IV STA (11:27)
[2020-04-24 11:54] LABS: Anisocytosis Slight; Basophils % (A) 0 %; Eosinophils # (A) 0.1 k/uL (0-0.7); Eosinophils % (A) 1 %; HCT 20.1 % (34.0-46.0); Lymphocytes # (A) 0.8 k/uL (1.0-4.8); Lymphocytes % (A) 11 %; MCH 30.5 pg (25.0-35.0); MCHC 32.3 g/dL (31.0-37.0); MCV 94.6 fL (80.0-100.0); Mean Platelet Volume 9.9; Monocytes # (A) 0.3 k/uL (0-1.0); Monocytes % (A) 3 %; Neutrophils # (A) 6.5 k/uL (1.3-7.7); Neutrophils % (A) 84 %; Platelet Count 89 k/uL (150-450); RBC 2.12 m/uL (3.80-5.40); RDW 16.4 % (11.5-15.5); WBC 7.7 k/uL (3.8-10.6)
[2020-04-24 11:58] LABS: Albumin 2.5 g/dL (3.5-5.0); Calcium 7.7 mg/dL (8.4-10.2); Magnesium 2.1 mg/dL (1.6-2.3); Potassium 4.8 mmol/L (3.5-5.1); Total Bilirubin 0.8 mg/dL (0.2-1.3); Total Protein 5.7 g/dL (6.3-8.2)
[2020-04-24 12:00] LABS: INR 1.2 (<1.2); Partial Thromboplastin Time 35.1 sec (22.0-30.0)
[2020-04-24 12:02] LABS: HGB 6.5 gm/dL (11.4-16.0)
--- NOTE | 2020-04-24 12:18 | ED ---
General Adult HPI <Jayro Patel - Last Filed: 04/24/20 13:51> - General Source: patient, EMS, RN notes reviewed Mode of arrival: EMS Limitations: no limitations <Donnell Lizama - Last Filed: 04/24/20 13:58> - General Chief complaint: Recheck/Abnormal Lab/Rx Stated complaint: Low Blood Sugar Time Seen by Provider: 04/24/20 11:20 - History of Present Illness Initial comments: This a 60-year-old female presents emergency department via EMS chief complaint of generalized weakness. Patient states she's had occult the over the last week with her blood sugar. She states she's had recurrent low blood sugar. Today she found have blood sugar 44 given 1 amp of dextrose by EMS and blood sugar ca me up to 96. Patient states she still feels weak she's been shaky. Patient states her blood pressure also has been low. Patient denies any chest pain or shortness of breath are the usual. No current headache or dizziness. Patient also states that she's had some rectal bleeding during bowel movements. She states she's been straining. No dysuria no hematuria. (Donnell Lizama) - Related Data Home Medications Medication Instructions Recorded Confirmed Losartan [Cozaar] 50 mg PO DAILY 09/18/18 04/24/20 Simvastatin [Zocor] 20 mg PO HS 09/18/18 04/24/20 Albuterol Inhaler [Ventolin Hfa 1 - 2 puff INHALATION RT-QID PRN 04/24/2012/07 Inhaler] Aspirin EC [Ecotrin Low Dose] 81 mg PO DAILY 04/24/20 04/24/20 Ergocalciferol [Vitamin D2] 50,000 unit PO Q30D 04/24/20 04/24/20 Fluticasone Propion/Salmeterol 2 puff INHALATION RT-BID 04/24/20 04/24/20 [Wixela 250-50 Inhub] Furosemide [Lasix] 80 mg PO DAILY 04/24/20 04/24/20 Hydrocortisone Cream 1 applic TOPICAL QID PRN 04/24/20 04/24/20 [Hydrocortisone 2.5% Cream] Nystatin 1 applic TOPICAL QID PRN 04/24/20 04/24/20 Oxybutynin Chloride [Oxybutynin 15 mg PO DAILY 04/24/20 04/24/20 Chloride ER] Pregabalin [Lyrica] 100 mg PO BID 04/24/20 04/24/20 Sofosbuvir/Velpatasvir [Epclusa 1 tab PO DAILY 04/24/20 04/24/20 400 mg-100 mg Tablet] metOLazone [Zaroxolyn] 2.5 mg PO DAILY 04/24/20 04/24/20 traZODone HCL [Desyrel] 100 - 200 mg PO HS 04/24/20 04/24/20 Previous Rx's Medication Instructions Recorded Amitriptyline HCl [Elavil] 25 mg PO HS #30 tab 12/08/18 allopurinoL [Zyloprim] 100 mg PO BID #60 tab 12/08/18 glipiZIDE [Glucotrol] 10 mg PO AC-BID #60 tab 12/08/18 metFORMIN HCL [Glucophage] 500 mg PO BID-W/MEALS #60 tab 12/08/18 Allergies Allergy/AdvReac Type Severity Reaction Status Date / Time No Known Allergies Allergy Verified 04/24/20 11:44 Review of Systems ROS Other: All systems not noted in ROS Statement are negative. <Jayro Patel - Last Filed: 04/24/20 13:51> ROS Other: All systems not noted in ROS Statement are negative. <Donnell Lizama - Last Filed: 04/24/20 13:58> ROS Statement: Those systems with pertinent positive or pertinent negative responses have been documented in the HPI. Past Medical History Past Medical History: COPD, Diabetes Mellitus, Hyperlipidemia, Hypertension, Renal Disease History of Any Multi-Drug Resistant Organisms: None Reported Past Surgical History: Section Additional Past Surgical History / Comment(s): cataracts removed Past Psychological History: No Psychological Hx Reported Smoking Status: Never smoker Past Alcohol Use History: None Reported Past Drug Use History: None Reported - Past Family History Mother Family Medical History: Congestive Heart Failure (CHF), Hypertension <Donnell Lizama - Last Filed: 04/24/20 13:58> General Exam Limitations: no limitations General appearance: alert, in no apparent distress, obese Head exam: Present: atraumatic, normocephalic, normal inspection Neck exam: Present: normal inspection, full ROM. Absent: tenderness, meningismus, lymphadenopathy Respiratory exam: Present: normal lung sounds bilaterally. Absent: respiratory distress, wheezes, rales, rhonchi, stridor Cardiovascular Exam: Present: regular rate, normal rhythm, normal heart sounds. Absent: systolic murmur, diastolic murmur, rubs, gallop, clicks GI/Abdominal exam: Present: soft, normal bowel sounds. Absent: distended, tenderness, guarding, rebound, rigid Back exam: Absent: CVA tenderness (R), CVA tenderness (L) Neurological exam: Present: alert, oriented X3 Skin exam: Present: warm, dry, intact, normal color. Absent: rash <Donnell Lizama - Last Filed: 04/24/20 13:58> Course Vital Signs 04/24/20 04/24/20 04/24/20 11:14 12:18 13:00 Temperature 97.4 F L Pulse Rate 98 96 104 H Respiratory 18 18 18 Rate Blood Pressure 113/81 102/42 92/62 O2 Sat by Pulse 96 97 97 Oximetry 04/24/20 13:32 Temperature Pulse Rate 106 H Respiratory 18 Rate Blood Pressure 106/43 O2 Sat by Pulse 97 Oximetry EKG Findings - EKG Comments: EKG Findings:: EKG performed at 11:18 sinus rhythm with first-degree block rate of 97 [place] 214 QRS 96 QT status QTC 320/416 there is inverted T waves noted in V4 through V6. Nonspecific ST changes noted <Donnell Lizama - Last Filed: 04/24/20 13:58> Medical Decision Making - Lab Data Result diagrams: 04/24/20 12:56 04/24/20 12:56 <Jayro Patel - Last Filed: 04/24/20 13:51> - Lab Data Result diagrams: 04/24/20 12:56 04/24/20 12:56 <Donnell Lizama - Last Filed: 04/24/20 13:58> - Medical Decision Making 60-year-old female presenting with low blood sugar, low blood pressure and generalized weakness for several days. She is a known diabetic currently on oral hypoglycemics and metformin. She is hypoglycemic prior to arrival. She has a low blood pressure. Denies chest pain or abdominal pain. Denies focal numbness or weakness. Denies fever. Workup is initiated, showing significant lab abnormalities including anemia hemoglobin 6.5, thrombocytopenia she is baseline for this patient. She has hyponatremia sodium 108. She has a mild lactic acid of 2.8. She is in acute renal failure with an elevated serum creatinine and BUN. Her stool is heme positive. She is transfused 2 units of packed RBCs, started on Protonix. She is placed on maintenance fluid D5 0.9 at 75 an hour for both renal failure, hyponatremia, and hypoglycemia. Case is been discussed with Dr. Lucas who will admit, case discussed with the slat basket top maker Dr. Hobbs who will accept patient to the ICU. Gastroenterology, cardiology, nephrology involvement placed on consult. (Jayro Patel) - Lab Data Lab Results 04/24/20 04/24/20 04/24/20 Range/Units 11:17 11:32 11:32 WBC 7.7 (3.8-10.6) k/uL RBC 2.12 L (3.80-5.40) m/uL Hgb 6.5 L* D (11.4-16.0) gm/dL Hct 20.1 L (34.0-46.0) % MCV 94.6 D (80.0-100.0) fL MCH 30.5 (25.0-35.0) pg MCHC 32.3 (31.0-37.0) g/dL RDW 16.4 H (11.5-15.5) % Plt Count 89 L (150-450) k/uL Neutrophils % 84 % Lymphocytes % 11 % Monocytes % 3 % Eosinophils % 1 % Basophils % 0 % Neutrophils # 6.5 (1.3-7.7) k/uL Lymphocytes # 0.8 L (1.0-4.8) k/uL Monocytes # 0.3 (0-1.0) k/uL Eosinophils # 0.1 (0-0.7) k/uL Basophils # 0.0 (0-0.2) k/uL Manual Slide Review Performed Poikilocytosis (manual Present Basophilic Stippling Present Anisocytosis Slight PT 12.0 (9.0-12.0) sec INR 1.2 H (<1.2) APTT 35.1 H (22.0-30.0) sec Sodium (137-145) mmol/L Potassium (3.5-5.1) mmol/L Chloride (98-107) mmol/L Carbon Dioxide (22-30) mmol/L Anion Gap mmol/L BUN (7-17) mg/dL Creatinine (0.52-1.04) mg/dL Est GFR (CKD-EPI)AfAm (>60 ml/min/1.73 sqM) Est GFR (CKD-EPI)NonAf (>60 ml/min/1.73 sqM) Glucose (74-99) mg/dL POC Glucose (mg/dL) 90 (75-99) mg/dL POC Glu Cage Maker Henny Esqueda Plasma Lactic Acid Raymundo (0.7-2.0) mmol/L Calcium (8.4-10.2) mg/dL Magnesium (1.6-2.3) mg/dL Total Bilirubin (0.2-1.3) mg/dL AST (14-36) U/L ALT (4-34) U/L Alkaline Phosphatase (38-126) U/L Troponin I (0.000-0.034) ng/mL Total Protein (6.3-8.2) g/dL Albumin (3.5-5.0) g/dL Stool Occult Blood (Negative) 04/24/20 04/24/20 04/24/20 Range/Units 11:32 11:32 11:32 WBC (3.8-10.6) k/uL RBC (3.80-5.40) m/uL Hgb (11.4-16.0) gm/dL Hct (34.0-46.0) % MCV (80.0-100.0) fL MCH (25.0-35.0) pg MCHC (31.0-37.0) g/dL RDW (11.5-15.5) % Plt Count (150-450) k/uL Neutrophils % % Lymphocytes % % Monocytes % % Eosinophils % % Basophils % % Neutrophils # (1.3-7.7) k/uL Lymphocytes # (1.0-4.8) k/uL Monocytes # (0-1.0) k/uL Eosinophils # (0-0.7) k/uL Basophils # (0-0.2) k/uL Manual Slide Review Poikilocytosis (manual Basophilic Stippling Anisocytosis PT (9.0-12.0) sec INR (<1.2) APTT (22.0-30.0) sec Sodium 108 L* (137-145) mmol/L Potassium 4.8 (3.5-5.1) mmol/L Chloride 75 L (98-107) mmol/L Carbon Dioxide 23 (22-30) mmol/L Anion Gap 10 mmol/L BUN 116 H* (7-17) mg/dL Creatinine 3.27 H (0.52-1.04) mg/dL Est GFR (CKD-EPI)AfAm 17 (>60 ml/min/1.73 sqM) Est GFR (CKD-EPI)NonAf 15 (>60 ml/min/1.73 sqM) Glucose 73 L (74-99) mg/dL POC Glucose (mg/dL) (75-99) mg/dL POC Glu Cage Maker ID Plasma Lactic Acid Raymundo 2.8 H* (0.7-2.0) mmol/L Calcium 7.7 L (8.4-10.2) mg/dL Magnesium 2.1 (1.6-2.3) mg/dL Total Bilirubin 0.8 (0.2-1.3) mg/dL AST 57 H (14-36) U/L ALT 25 (4-34) U/L Alkaline Phosphatase 136 H (38-126) U/L Troponin I 0.551 H* (0.000-0.034) ng/mL Total Protein 5.7 L (6.3-8.2) g/dL Albumin 2.5 L (3.5-5.0) g/dL Stool Occult Blood (Negative) 04/24/20 04/24/20 04/24/20 Range/Units 12:18 12:25 12:56 WBC 7.2 (3.8-10.6) k/uL RBC 2.00 L (3.80-5.40) m/uL Hgb 6.1 L* (11.4-16.0) gm/dL Hct 18.7 L* (34.0-46.0) % MCV 93.1 (80.0-100.0) fL MCH 30.3 (25.0-35.0) pg MCHC 32.5 (31.0-37.0) g/dL RDW 15.9 H (11.5-15.5) % Plt Count 84 L (150-450) k/uL Neutrophils % 85 % Lymphocytes % 9 % Monocytes % 4 % Eosinophils % 1 % Basophils % 0 % Neutrophils # 6.2 (1.3-7.7) k/uL Lymphocytes # 0.7 L (1.0-4.8) k/uL Monocytes # 0.3 (0-1.0) k/uL Eosinophils # 0.1 (0-0.7) k/uL Basophils # 0.0 (0-0.2) k/uL Manual Slide Review Poikilocytosis (manual Basophilic Stippling Anisocytosis PT (9.0-12.0) sec INR (<1.2) APTT (22.0-30.0) sec Sodium (137-145) mmol/L Potassium (3.5-5.1) mmol/L Chloride (98-107) mmol/L Carbon Dioxide (22-30) mmol/L Anion Gap mmol/L BUN (7-17) mg/dL Creatinine (0.52-1.04) mg/dL Est GFR (CKD-EPI)AfAm (>60 ml/min/1.73 sqM) Est GFR (CKD-EPI)NonAf (>60 ml/min/1.73 sqM) Glucose (74-99) mg/dL POC Glucose (mg/dL) 67 L (75-99) mg/dL POC Glu Cage Maker ID Tiffanie Villanueva Plasma Lactic Acid Raymundo (0.7-2.0) mmol/L Calcium (8.4-10.2) mg/dL Magnesium (1.6-2.3) mg/dL Total Bilirubin (0.2-1.3) mg/dL AST (14-36) U/L ALT (4-34) U/L Alkaline Phosphatase (38-126) U/L Troponin I (0.000-0.034) ng/mL Total Protein (6.3-8.2) g/dL Albumin (3.5-5.0) g/dL Stool Occult Blood Positive H (Negative) 04/24/20 04/24/20 Range/Units 12:56 13:15 WBC (3.8-10.6) k/uL RBC (3.80-5.40) m/uL Hgb (11.4-16.0) gm/dL Hct (34.0-46.0) % MCV (80.0-100.0) fL MCH (25.0-35.0) pg MCHC (31.0-37.0) g/dL RDW (11.5-15.5) % Plt Count (150-450) k/uL Neutrophils % % Lymphocytes % % Monocytes % % Eosinophils % % Basophils % % Neutrophils # (1.3-7.7) k/uL Lymphocytes # (1.0-4.8) k/uL Monocytes # (0-1.0) k/uL Eosinophils # (0-0.7) k/uL Basophils # (0-0.2) k/uL Manual Slide Review Poikilocytosis (manual Basophilic Stippling Anisocytosis PT (9.0-12.0) sec INR (<1.2) APTT (22.0-30.0) sec Sodium 109 L* (137-145) mmol/L Potassium 4.6 (3.5-5.1) mmol/L Chloride 77 L (98-107) mmol/L Carbon Dioxide 23 (22-30) mmol/L Anion Gap 9 mmol/L BUN 114 H* (7-17) mg/dL Creatinine 3.11 H (0.52-1.04) mg/dL Est GFR (CKD-EPI)AfAm 18 (>60 ml/min/1.73 sqM) Est GFR (CKD-EPI)NonAf 16 (>60 ml/min/1.73 sqM) Glucose 110 H (74-99) mg/dL POC Glucose (mg/dL) 109 H (75-99) mg/dL POC Glu Cage Maker ID Elizabet Linton Plasma Lactic Acid Raymundo (0.7-2.0) mmol/L Calcium 7.4 L (8.4-10.2) mg/dL Magnesium (1.6-2.3) mg/dL Total Bilirubin 0.7 (0.2-1.3) mg/dL AST 54 H (14-36) U/L ALT 24 (4-34) U/L Alkaline Phosphatase 130 H (38-126) U/L Troponin I (0.000-0.034) ng/mL Total Protein 5.4 L (6.3-8.2) g/dL Albumin 2.3 L (3.5-5.0) g/dL Stool Occult Blood (Negative) Critical Care Time Critical Care Time: Yes Total Critical Care Time: 35 <Donnell Lizama - Last Filed: 04/24/20 13:58> Critical Care Time: 35 minutes of critical care used to initially evaluated the patient, reviewed past medical history, the vitals including of labs, EKG. Patient's found to be anemic with hemoglobin of 6.5 repeated at 6.1. Stool is melanotic MG Hemoccult positive. Patient was given Protonix. Type and screen was ordered with 2 units of blood. Patient found to have acute renal failure with hyponatremia. Patient also has hyperglycemia at this point patient was started on maintenance fluids of D5 normal at 75 miles per hour. Patient will have repeat CBC, repeat troponin as it's mildly elevated there is some acute changes from prior EKG. Cardiology will be consulted. GI will be consulted. Case discussed with ICU slat basket top maker Dr. Hobbs. Consult to GI for hyponatremic acute renal failure. (Donnell Lizama) Disposition <Jayro Patel - Last Filed: 04/24/20 13:51> <Donnell Lizama - Last Filed: 04/24/20 13:58> Clinical Impression: Anemia, Hypoglycemia, GI bleed, Elevated troponin, Acute renal failure, Hyponatremia, Hypochloremia, Lactic acidosis Disposition: ADMITTED IP TO THIS HOSP Condition: Serious Referrals: Tom Lucas MD [Primary Care Provider] - 1-2 days
[2020-04-24 12:19] LABS: Basophilic Stippling Present; Poikilocytosis (M) Present
[2020-04-24 12:27] LABS: Glucose,Whole Blood 67 mg/dL (75-99)
[2020-04-24] MEDS ORDERED: DEXTROSE 50% SYRINGE 50 ML IVP STA (12:29)
[2020-04-24] MEDS ORDERED: ONDANSETRON 4 MG/2 ML VIAL IVP STA (12:29)
[2020-04-24] MEDS ORDERED: PANTOPRAZOLE 40 MG/10 ML VIAL IVP STA (12:43)
[2020-04-24 13:18] LABS: Glucose,Whole Blood 109 mg/dL (75-99)
[2020-04-24] MEDS ORDERED: fentaNYL (PF) 50 MCG/ML 2 ML AMP IVP STA (13:25)
[2020-04-24 13:29] LABS: Basophils % (A) 0 %; Eosinophils # (A) 0.1 k/uL (0-0.7); Eosinophils % (A) 1 %; Lymphocytes # (A) 0.7 k/uL (1.0-4.8); Lymphocytes % (A) 9 %; MCH 30.3 pg (25.0-35.0); MCHC 32.5 g/dL (31.0-37.0); MCV 93.1 fL (80.0-100.0); Monocytes # (A) 0.3 k/uL (0-1.0); Monocytes % (A) 4 %; Neutrophils # (A) 6.2 k/uL (1.3-7.7); Neutrophils % (A) 85 %; RDW 15.9 % (11.5-15.5); WBC 7.2 k/uL (3.8-10.6)
[2020-04-24 13:34] LABS: Platelet Count 84 k/uL (150-450)
[2020-04-24 13:36] LABS: HCT 18.7 % (34.0-46.0); HGB 6.1 gm/dL (11.4-16.0)
[2020-04-24 13:40] LABS: Albumin 2.3 g/dL (3.5-5.0); Calcium 7.4 mg/dL (8.4-10.2); Potassium 4.6 mmol/L (3.5-5.1); Total Bilirubin 0.7 mg/dL (0.2-1.3); Total Protein 5.4 g/dL (6.3-8.2)
[2020-04-24] MEDS ORDERED: NALOXONE 0.4 MG/ML 1 ML VIAL IV PRN (13:51)
[2020-04-24] MEDS ORDERED: DEXTROSE 5%-0.9% NACL 1,000 ML IV SCH (14:00)
[2020-04-24 14:47] LABS: Appearance,Urine Clear (Clear); Bilirubin,Urine Negative (Negative); Blood,Urine Negative (Negative); Color,Urine Yellow; Glucose,Urine (UA) Negative (Negative); Ketones,Urine Negative (Negative); Leukocyte Esterase,Urine Negative (Negative); Nitrite,Urine Negative (Negative); Protein,Urine Negative (Negative); Urobilinogen,Urine <2.0 mg/dL (<2.0)
[2020-04-24] MEDS ORDERED: DEXTROSE 50% SYRINGE 50 ML IVP ONE (15:18)
[2020-04-24 15:20] LABS: Glucose,Whole Blood 58 mg/dL (75-99)
[2020-04-24 15:34] LABS: Glucose,Whole Blood 124 mg/dL (75-99)
[2020-04-24] MEDS: INSULIN ASPART (NovoLOG) 100 UNIT/ML VIAL SQ SCH ×2 (16:44→20:55)
--- NOTE | 2020-04-24 16:59 | XR ---
EXAMINATION TYPE: XR chest 1V portable DATE OF EXAM: 04/24/2020 HISTORY: Shortness of breath. COMPARISON: 12/06/2018 TECHNIQUE: Single view of the chest is submitted. FINDINGS: Demonstrated are scattered senescent parenchymal change. There is no evidence for focal infiltrate. The heart is stable. Hilar and mediastinal structures are within normal limits. Degenerative changes are seen of the dorsal spine. IMPRESSION: 1. Chronic changes without evidence for acute pulmonary disease.
--- NOTE | 2020-04-24 17:19 | P.CNPUL ---
History of Present Illness Consult date: 04/24/20 History of present illness: 64-year-old female patient presented to the ED because of generalized weakness and recurrent hypoglycemic events. She apparently was found to have a blood sugar of 44 at home and she received an amp of D50 by EMS and came to the scene and the patient's blood sugar came up to 96. At that time the patient was seen generalized weakness and tiredness and shakiness. No a activity has been noted. The patient was also noted to have low blood pressure. Denied having any shortness of breath. No headaches. No dizziness. No falls. No head trauma. She came into the ED and the patient was found to have a white cell count of 7.2 with a hemoglobin of 6.1 and a recent drop compared to a baseline of 9.1 from 02/23/2020. Her platelet count was at 84 and the patient suffers from chronic thrombocytopenia. Coagulation profile is within normal limits. The sodium level was 108 and this is another new finding with a chloride level of 77 kn owing that her most recent blood work showed normal sodium and chloride levels. The patient began with 114 and a creatinine of 3.11 knowing that her baseline creatinine from 02/07/2020 was 1.8. The patient also had a lactic acid level of 2.3, troponin of 0.468, AST of 54, ALT of 24, total protein of 5.4 with an albumin of 2.3. The patient was further found to be hypothermic with a temperature of 93.9. BNP was 74/33. She was on 2 L of oxygen by nasal cannula with a pulse ox of 97%. EKG showing a sinus rhythm with a first-degree AV block. A chest x-ray was not done. Past Medical History Past Medical History: COPD, Diabetes Mellitus, Hyperlipidemia, Hypertension, Renal Disease Additional Past Medical History / Comment(s): Obesity, hypertension, chronic stage III kidney disease, diabetes mellitus, hepatitis C currently on treatment, hyperlipidemia, History of Any Multi-Drug Resistant Organisms: None Reported Past Surgical History: Section Additional Past Surgical History / Comment(s): cataracts removed Past Psychological History: No Psychological Hx Reported Smoking Status: Never smoker Past Alcohol Use History: None Reported Past Drug Use History: None Reported - Past Family History Mother Family Medical History: Congestive Heart Failure (CHF), Hypertension Medications and Allergies Home Medications Medication Instructions Recorded Confirmed Type Losartan [Cozaar] 50 mg PO DAILY 09/18/18 04/24/20 History Simvastatin [Zocor] 20 mg PO HS 09/18/18 04/24/20 History Amitriptyline HCl [Elavil] 25 mg PO HS #30 tab 12/08/18 04/24/20 Rx allopurinoL [Zyloprim] 100 mg PO BID #60 tab 12/08/18 04/24/20 Rx glipiZIDE [Glucotrol] 10 mg PO AC-BID #60 tab 12/08/18 04/24/20 Rx metFORMIN HCL [Glucophage] 500 mg PO BID-W/MEALS #60 tab 12/08/18 04/24/20 Rx Albuterol Inhaler [Ventolin Hfa 1 - 2 puff INHALATION RT-QID PRN 04/24/20 04/24/20 History Inhaler] Aspirin EC [Ecotrin Low Dose] 81 mg PO DAILY 04/24/20 04/24/20 History Ergocalciferol [Vitamin D2] 50,000 unit PO Q30D 04/24/20 04/24/20 History Fluticasone Propion/Salmeterol 2 puff INHALATION RT-BID 04/24/20 04/24/20 History [Wixela 250-50 Inhub] Furosemide [Lasix] 80 mg PO DAILY 04/24/20 04/24/20 History Hydrocortisone Cream 1 applic TOPICAL QID PRN 04/24/20 04/24/20 History [Hydrocortisone 2.5% Cream] Nystatin 1 applic TOPICAL QID PRN 04/24/20 04/24/20 History Oxybutynin Chloride [Oxybutynin 15 mg PO DAILY 04/24/20 04/24/20 History Chloride ER] Pregabalin [Lyrica] 100 mg PO BID 04/24/20 04/24/20 History Sofosbuvir/Velpatasvir [Epclusa 1 tab PO DAILY 04/24/20 04/24/20 History 400 mg-100 mg Tablet] metOLazone [Zaroxolyn] 2.5 mg PO DAILY 04/24/20 04/24/20 History traZODone HCL [Desyrel] 100 - 200 mg PO HS 04/24/20 04/24/20 History Allergies Allergy/AdvReac Type Severity Reaction Status Date / Time No Known Allergies Allergy Verified 04/24/20 11:44 Physical Exam Vitals: Vital Signs Temp Pulse Resp BP Pulse Ox 04/24/20 16:14 93.9 F L 92 24 74/33 04/24/20 16:04 93.9 F L 93 12 70/35 93 L 04/24/20 14:00 95 18 96/36 97 04/24/20 13:32 106 H 18 106/43 97 04/24/20 13:00 104 H 18 92/62 97 04/24/20 12:18 96 18 102/42 97 04/24/20 11:14 97.4 F L 98 18 113/81 96 Intake and Output 04/24/20 04/24/20 04/24/20 06:59 14:59 22:59 Intake Total 0 Balance 0 Intake: Blood Product 0 Rc Pheresis As-3 Unit 0 [id number] Other: Weight 165.561 kg Results - Laboratory Findings CBC and BMP: 04/24/20 12:56 04/24/20 12:56 PT/INR, D-dimer PT 12.0 sec (9.0-12.0) 04/24/20 11:32 INR 1.2 (<1.2) H 04/24/20 11:32 Abnormal lab findings: Abnormal Labs 04/24/20 04/24/20 04/24/20 11:32 11:32 11:32 RBC 2.12 L Hgb 6.5 L* D Hct 20.1 L RDW 16.4 H Plt Count 89 L Lymphocytes # 0.8 L INR 1.2 H APTT 35.1 H Sodium 108 L* Chloride 75 L BUN 116 H* Creatinine 3.27 H Glucose 73 L POC Glucose (mg/dL) Plasma Lactic Acid Raymundo Calcium 7.7 L AST 57 H Alkaline Phosphatase 136 H Troponin I Total Protein 5.7 L Albumin 2.5 L Stool Occult Blood Crossmatch 04/24/20 04/24/20 04/24/20 11:32 11:32 12:18 RBC Hgb Hct RDW Plt Count Lymphocytes # INR APTT Sodium Chloride BUN Creatinine Glucose POC Glucose (mg/dL) Plasma Lactic Acid Raymundo 2.8 H* Calcium AST Alkaline Phosphatase Troponin I 0.551 H* Total Protein Albumin Stool Occult Blood Positive H Crossmatch 04/24/20 04/24/20 04/24/20 12:25 12:56 12:56 RBC 2.00 L Hgb 6.1 L* Hct 18.7 L* RDW 15.9 H Plt Count 84 L Lymphocytes # 0.7 L INR APTT Sodium 109 L* Chloride 77 L BUN 114 H* Creatinine 3.11 H Glucose 110 H POC Glucose (mg/dL) 67 L Plasma Lactic Acid Raymundo Calcium 7.4 L AST 54 H Alkaline Phosphatase 130 H Troponin I Total Protein 5.4 L Albumin 2.3 L Stool Occult Blood Crossmatch 04/24/20 04/24/20 04/24/20 13:15 13:17 14:43 RBC Hgb Hct RDW Plt Count Lymphocytes # INR APTT Sodium Chloride BUN Creatinine Glucose POC Glucose (mg/dL) 109 H Plasma Lactic Acid Raymundo Calcium AST Alkaline Phosphatase Troponin I 0.468 H* Total Protein Albumin Stool Occult Blood Crossmatch See Detail 04/24/20 04/24/20 04/24/20 14:43 15:17 15:33 RBC Hgb Hct RDW Plt Count Lymphocytes # INR APTT Sodium Chloride BUN Creatinine Glucose POC Glucose (mg/dL) 58 L 124 H Plasma Lactic Acid Raymundo 2.3 H* Calcium AST Alkaline Phosphatase Troponin I Total Protein Albumin Stool Occult Blood Crossmatch - Diagnostic Findings Chest x-ray: image reviewed Assessment and Plan Plan: 1 acute hypoglycemic events, likely secondary to chronic liver disease as the patient has been diagnosed having hepatitis C. 2 hypochloremic hyponatremia with a sodium level of 108 3 acute on chronic kidney disease and the patient has chronic stage III kidney disease at baseline with a creatinine of 1.8 4 acute hypothermia 5 acute blood loss anemia. Consider upper GI bleed as the patient's hemoglobin has dropped down to 6.1 with melanotic stools and Hemoccult positive 6 chronic liver disease/hepatitis C and the patient was receiving Epclusa on outpatient basis 7 diabetes mellitus maintained on oral hypoglycemics on outpatient basis 8 hypertension 9 generalized weakness secondary to above 10 mild lactic acidosis 11 troponin leak without any acute EKG changes 12 morbid obesity Plan We'll transfuse this patient with 2 units of packed RBC IV Protonix Start the patient on fluids with D5/normal saline at the rate of 75 mL an hour and monitor the patient's sodium level. The patient has already received a liter bolus of normal saline. Gradual correction of the sodium not to exceed 6- 8 mEq on a 24-hour basis and for that reason the sodium will be very closely monitored in ICU Monitor the blood sugars and use sliding scale coverage if needed Obtain a baseline chest x-ray External warming Assessment poorly catheter Monitor renal function Nephrology and GI consultation Hold metformin, Zaroxolyn and Lasix for now Check an ammonia level We'll continue to follow
--- NOTE | 2020-04-24 17:53 | US ---
EXAMINATION TYPE: US abdomen comp/pelvis limited DATE OF EXAM: 04/24/2020 COMPARISON: US 04/16/2019 CLINICAL HISTORY: abdominal pain. Patient is morbidly obese, cannot hold her breath or roll onto her sides. ICU patient. Non-diagnostic exam. 5ft 3 in, 365lbs EXAM MEASUREMENTS: Gallbladder Wall: 0.3 cm CBD: 0.6 cm Spleen: 13.9 cm Left Kidney: 4.1 cm Pancreas: Obscured by bowel gas, not well seen Liver: Obscured by overlying bowel gas, not well seen Gallbladder: No stones visualized CBD: wnl as visualized, distal portion obscured by bowel gas Spleen: Measuring upper limits of normal Right Kidney: Surgically absent Left Kidney: Only limited views visualized. No hydronephrosis visualized in limited view Upper IVC: wnl as visualized Abd Aorta: Obscured by overlying bowel gas Bladder: Not distended, patient has rosado IMPRESSION: Exam is limited by patient body habitus. Splenomegaly.
[2020-04-24 18:41] LABS: Glucose,Whole Blood 138 mg/dL (75-99)
[2020-04-24 19:09] LABS: Calcium 7.6 mg/dL (8.4-10.2); Potassium 4.8 mmol/L (3.5-5.1)
[2020-04-24] MEDS ORDERED: SODIUM CHLORIDE 3%(HYPERTONIC) 500 ML IV SCH (20:00)
[2020-04-24 20:56] LABS: Glucose,Whole Blood 82 mg/dL (75-99)
[2020-04-24] MEDS: PANTOPRAZOLE 40 MG/10 ML VIAL IVP SCH (21:35)
[2020-04-24 23:43] LABS: Anisocytosis Slight; Basophils % (A) 0 %; Eosinophils # (A) 0.2 k/uL (0-0.7); Eosinophils % (A) 2 %; HCT 23.5 % (34.0-46.0); Lymphocytes # (A) 1.2 k/uL (1.0-4.8); Lymphocytes % (A) 15 %; MCH 29.8 pg (25.0-35.0); MCHC 32.2 g/dL (31.0-37.0); MCV 92.6 fL (80.0-100.0); Mean Platelet Volume 9.9; Monocytes # (A) 0.3 k/uL (0-1.0); Monocytes % (A) 4 %; Neutrophils # (A) 6.2 k/uL (1.3-7.7); Neutrophils % (A) 77 %; RBC 2.54 m/uL (3.80-5.40); RDW 16.4 % (11.5-15.5); WBC 8.1 k/uL (3.8-10.6)
[2020-04-25 00:18] LABS: HGB 7.6 gm/dL (11.4-16.0); Platelet Count 87 k/uL (150-450)
[2020-04-25 00:33] LABS: Glucose,Whole Blood 67 mg/dL (75-99)
[2020-04-25] MEDS ORDERED: DEXTROSE 50% SYRINGE 50 ML IVP STA (00:34)
[2020-04-25] MEDS: INSULIN ASPART (NovoLOG) 100 UNIT/ML VIAL SQ SCH ×6 (00:46→20:00)
[2020-04-25 01:19] LABS: Glucose,Whole Blood 116 mg/dL (75-99)
[2020-04-25 01:19] LABS: Glucose,Whole Blood >600 mg/dL (75-99)
[2020-04-25] MEDS: NOREPINEPHRINE 4 MG in SODIUM CHLORIDE 0.9% 250 ML IV SCH ×2 (01:51→04:25)
[2020-04-25 02:23] LABS: Anisocytosis Slight; HCT 23.2 % (34.0-46.0); Hypochromasia Marked; MCH 31.2 pg (25.0-35.0); Macrocytosis Marked; Mean Platelet Volume 10.8; RBC 2.16 m/uL (3.80-5.40); RDW 16.6 % (11.5-15.5); WBC 6.5 k/uL (3.8-10.6)
[2020-04-25 02:27] LABS: HGB 6.7 gm/dL (11.4-16.0); MCV 107.3 fL (80.0-100.0); Platelet Count 78 k/uL (150-450)
[2020-04-25 03:44] LABS: Albumin 2.3 g/dL (3.5-5.0); Calcium 7.6 mg/dL (8.4-10.2); Potassium 5.2 mmol/L (3.5-5.1); Total Bilirubin 1.8 mg/dL (0.2-1.3); Total Protein 5.3 g/dL (6.3-8.2)
[2020-04-25 03:46] LABS: Anisocytosis Slight; Basophils % (A) 0 %; Eosinophils # (A) 0.2 k/uL (0-0.7); Eosinophils % (A) 2 %; HCT 23.6 % (34.0-46.0); Lymphocytes # (A) 1.3 k/uL (1.0-4.8); Lymphocytes % (A) 15 %; MCH 32.2 pg (25.0-35.0); Mean Platelet Volume 10.3; Monocytes # (A) 0.5 k/uL (0-1.0); Monocytes % (A) 6 %; Neutrophils # (A) 6.6 k/uL (1.3-7.7); Neutrophils % (A) 75 %; Platelet Count 102 k/uL (150-450); RBC 2.49 m/uL (3.80-5.40); RDW 16.3 % (11.5-15.5); WBC 8.8 k/uL (3.8-10.6)
[2020-04-25 03:47] LABS: MCV 94.7 fL (80.0-100.0)
[2020-04-25] MEDS ORDERED: SODIUM CHLORIDE 0.9% 1,000 ML IV ONE (05:08)
[2020-04-25] MEDS: ACETAMINOPHEN TAB 325 MG TAB PO PRN (05:14)
[2020-04-25 05:24] LABS: Glucose,Whole Blood 96 mg/dL (75-99)
[2020-04-25 05:36] LABS: Anisocytosis Slight; HCT 24.9 % (34.0-46.0); HGB 8.3 gm/dL (11.4-16.0); MCH 31.4 pg (25.0-35.0); MCHC 33.3 g/dL (31.0-37.0); MCV 94.4 fL (80.0-100.0); Mean Platelet Volume 10.2; Platelet Count 118 k/uL (150-450); RBC 2.64 m/uL (3.80-5.40); RDW 16.2 % (11.5-15.5)
[2020-04-25 06:24] LABS: ABG Base Excess -5.2 mmol/L; ABG HCO3 22 mmol/L (21-25); ABG Oxygen Saturation 99.5 % (94-97); ABG PCO2 49 mmHg (35-45); ABG PH 7.26 (7.35-7.45); ABG PO2 131 mmHg (83-108); ABG TCO2 23 mmol/L (19-24); Allen Test Performed? Yes
[2020-04-25] MEDS: SODIUM CHLORIDE 0.9% 1,000 ML IV SCH ×5 (07:18→23:38)
[2020-04-25] MEDS ORDERED: VANCOMYCIN IV PER PHARMACY 1 EACH MISC MISCELLANE PRN (07:49)
--- NOTE | 2020-04-25 08:11 | XR ---
EXAMINATION TYPE: XR chest 1V confirm line [facility] DATE OF EXAM: 04/25/2020 COMPARISON: 04/25/2020 INDICATION: Line placement TECHNIQUE: Single frontal view of the chest is obtained. FINDINGS: The heart size is mildly prominent. The pulmonary vasculature is upper limits of normal. Mild bibasilar infiltrates are present. This is nonspecific. Correlate for subsegmental atelectasis. There is been placement of a left central venous catheter, tip is in the distal superior vena cava re gion. No pneumothorax is evident. IMPRESSION: 1. No pneumothorax post line placement. Tip in distal superior vena cava region.
[2020-04-25] MEDS: SODIUM CHLORIDE 0.9% 50 ML with VASOPRESSIN 20 UNIT IVPB SCH ×4 (08:26→16:49)
[2020-04-25] MEDS: PIPERACILLIN-TAZOBACTAM 3.375 GM in SODIUM CHLORIDE 0.9% 100 ML IVPB SCH ×2 (08:37→20:00)
[2020-04-25] MEDS: HYDROCORTISONE SUCCINATE 100 MG/2 ML VIAL IV SCH ×2 (08:37→16:28)
[2020-04-25] MEDS: PANTOPRAZOLE 40 MG/10 ML VIAL IVP SCH ×2 (08:37→20:00)
--- NOTE | 2020-04-25 08:44 | XR ---
EXAMINATION TYPE: XR chest 1V portable DATE OF EXAM: 04/25/2020 COMPARISON: 04/24/2020 HISTORY: Shortness of breath TECHNIQUE: Single frontal view of the chest is obtained. FINDINGS: Coarsened interstitium with subsegmental consolidation. Tiny bilateral effusions. Heart pr ominent. No pneumothorax. Biapical pleural thickening. IMPRESSION: 1. Correlate for interstitial pneumonitis or mild venous congestion.
[2020-04-25] MEDS: NOREPINEPHRINE 32 MG in SODIUM CHLORIDE 0.9% 218 ML IV SCH ×2 (08:55→20:37)
[2020-04-25] MEDS ORDERED: VANCOMYCIN 2,500 MG in SODIUM CHLORIDE 0.9% 500 ML 500 ML IVPB ONE (09:00)
[2020-04-25 09:06] LABS: Glucose,Whole Blood 74 mg/dL (75-99)
[2020-04-25] MEDS ORDERED: SODIUM CHLORIDE 3%(HYPERTONIC) 500 ML IV SCH (09:15)
--- NOTE | 2020-04-25 10:02 | P.NPCON ---
History of Present Illness - Reason for Consult acute renal failure, hyponatremia - History of Present Illness Reason for consultation: Acute kidney injury and hyponatremia History of present illness: Patient is a 60-year-old female seen in consultation for acute kidney injury and hyponatremia. Patient presented to the hospital after she sustained a fall and had to call the ambulance to bring her to the hospital. She complains of generalized weakness. Patient states her blood sugars have also been running low. Her blood pressure has been in the systolic 60s to 80s this admission. She did receive 2 L bolus of normal saline and is currently maintained on normal saline at 1 30 mL an hour. Her sodium level was 108 on admission and was up to 111 this morning. She did receive short duration of 3% saline overnight. Hemoglobin was 6.7 on admission. Patient does admit to rectal bleeding. She has received 2 units of packed red cell transfusion. Hemoglobin improved. No active bleeding at this time. Creatinine was 3.27 on admission and is fairly stable at 3.19 this morning. Urine output is 30-50 mL an hour. She is currently on max dose Levophed as well as vasopressin. Denies chest pain or shortness of breath. She does have history of diabetes mellitus and was taking metformin at home. Also has long-standing history of high blood pressure and was maintained on medications including losartan. Additionally she was also taking Lasix 80 mg daily at home. Vital signs are stable. Not sure if the blood pressure is accurate. Currently on Levophed and vasopressin. General: The patient appeared well nourished and normally developed. HEENT: Head exam is unremarkable. Neck is without jugular venous distension. LUNGS: Breath sounds decreased. HEART: Rate and Rhythm are regular. ABDOMEN: Soft, nontender. EXTREMITITES: No edema. Past Medical History Past Medical History: COPD, Diabetes Mellitus, Hyperlipidemia, Hypertension, Renal Disease Additional Past Medical History / Comment(s): Obesity, hypertension, chronic stage III kidney disease, diabetes mellitus, hepatitis C currently on treatment, hyperlipidemia, History of Any Multi-Drug Resistant Organisms: None Reported Past Surgical History: Section Additional Past Surgical History / Comment(s): cataracts removed Past Psychological History: No Psychological Hx Reported Smoking Status: Never smoker Past Alcohol Use History: None Reported Past Drug Use History: None Reported - Past Family History Mother Family Medical History: Congestive Heart Failure (CHF), Hypertension Medications and Allergies Home Medications Medication Instructions Recorded Confirmed Type Losartan [Cozaar] 50 mg PO DAILY 09/18/18 04/24/20 History Simvastatin [Zocor] 20 mg PO HS 09/18/18 04/24/20 History Amitriptyline HCl [Elavil] 25 mg PO HS #30 tab 12/08/18 04/24/20 Rx allopurinoL [Zyloprim] 100 mg PO BID #60 tab 12/08/18 04/24/20 Rx glipiZIDE [Glucotrol] 10 mg PO AC-BID #60 tab 12/08/18 04/24/20 Rx metFORMIN HCL [Glucophage] 500 mg PO BID-W/MEALS #60 tab 12/08/18 04/24/20 Rx Albuterol Inhaler [Ventolin Hfa 1 - 2 puff INHALATION RT-QID PRN 04/24/20 04/24/20 History Inhaler] Aspirin EC [Ecotrin Low Dose] 81 mg PO DAILY 04/24/20 04/24/20 History Ergocalciferol [Vitamin D2] 50,000 unit PO Q30D 04/24/20 04/24/20 History Fluticasone Propion/Salmeterol 2 puff INHALATION RT-BID 04/24/20 04/24/20 History [Wixela 250-50 Inhub] Furosemide [Lasix] 80 mg PO DAILY 04/24/20 04/24/20 History Hydrocortisone Cream 1 applic TOPICAL QID PRN 04/24/20 04/24/20 History [Hydrocortisone 2.5% Cream] Nystatin 1 applic TOPICAL QID PRN 04/24/20 04/24/20 History Oxybutynin Chloride [Oxybutynin 15 mg PO DAILY 04/24/20 04/24/20 History Chloride ER] Pregabalin [Lyrica] 100 mg PO BID 04/24/20 04/24/20 History Sofosbuvir/Velpatasvir [Epclusa 1 tab PO DAILY 04/24/20 04/24/20 History 400 mg-100 mg Tablet] metOLazone [Zaroxolyn] 2.5 mg PO DAILY 04/24/20 04/24/20 History traZODone HCL [Desyrel] 100 - 200 mg PO HS 04/24/20 04/24/20 History Allergies Allergy/AdvReac Type Severity Reaction Status Date / Time No Known Allergies Allergy Verified 04/24/20 11:44 Physical Exam Vitals: Vital Signs Temp Pulse Resp BP Pulse Ox 04/25/20 09:30 115 H 15 88/46 99 04/25/20 09:15 117 H 5 L 93/55 98 04/25/20 09:00 114 H 6 L 67/41 98 04/25/20 08:45 120 H 11 L 99 04/25/20 08:30 129 H 35 H 85/43 98 04/25/20 08:15 123 H 6 L 96 04/25/20 08:00 97.2 F L 120 H 11 L 98 04/25/20 07:45 15 65/28 95 04/25/20 07:30 124 H 99 04/25/20 07:15 131 H 97/39 99 04/25/20 07:00 118 H 20 89/46 99 04/25/20 06:50 124 H 97/43 98 04/25/20 06:40 124 H 86/36 99 04/25/20 06:30 124 H 89/38 99 04/25/20 06:20 124 H 91/37 99 04/25/20 06:10 125 H 98/46 99 04/25/20 06:00 125 H 89/39 99 04/25/20 05:50 126 H 94/36 98 04/25/20 05:40 126 H 93/47 99 04/25/20 05:30 128 H 98/36 99 04/25/20 05:20 129 H 91/36 99 04/25/20 05:10 125 H 96/42 99 04/25/20 05:00 129 H 98/39 99 04/25/20 04:50 128 H 102/39 99 04/25/20 04:40 128 H 106/43 98 04/25/20 04:30 131 H 101/39 99 04/25/20 04:20 125 H 90/40 99 04/25/20 04:10 123 H 102/41 100 04/25/20 04:00 97.8 F 122 H 96/56 99 04/25/20 03:50 122 H 88/44 99 04/25/20 03:40 121 H 102/45 99 04/25/20 03:30 121 H 107/42 100 04/25/20 03:20 120 H 101/41 100 04/25/20 03:10 125 H 100/41 99 04/25/20 03:00 114 H 83/51 99 04/25/20 02:50 112 H 92/52 100 04/25/20 02:40 103 H 95/34 100 04/25/20 02:30 101 H 91/40 100 04/25/20 02:20 101 H 91/37 100 04/25/20 02:10 99 86/33 100 04/25/20 02:00 97.2 F L 93 75/35 100 04/25/20 01:50 93 74/30 100 04/25/20 01:40 87 69/30 100 04/25/20 01:30 86 75/28 100 04/25/20 01:20 90 74/31 100 04/25/20 01:10 88 78/21 100 04/25/20 01:00 96.3 F L 87 65/33 100 04/25/20 00:50 89 72/32 100 04/25/20 00:40 88 68/35 100 04/25/20 00:30 86 73/34 100 04/25/20 00:24 86 73/34 99 04/25/20 00:20 88 78/39 99 04/25/20 00:10 92 76/30 99 04/25/20 00:00 95.7 F L 90 82/36 100 04/24/20 23:50 92 87/42 97 04/24/20 23:40 101 H 14 80/39 91 L 04/24/20 23:30 95 11 L 90/34 93 L 04/24/20 23:20 97 11 L 90/33 91 L 04/24/20 23:10 106 H 13 101/35 91 L 04/24/20 23:00 95 F L 107 H 18 96/40 96 04/24/20 22:50 90 10 L 96 04/24/20 22:40 80 7 L 78/30 100 04/24/20 22:30 79 8 L 77/46 100 04/24/20 22:20 82 6 L 68/41 98 04/24/20 22:10 80 7 L 83/37 99 04/24/20 22:00 84 9 L 92/64 97 04/24/20 21:50 84 76/46 99 04/24/20 21:40 80 83/34 99 04/24/20 21:30 82 82/38 98 04/24/20 21:20 82 91/35 99 04/24/20 21:10 86 82/30 95 04/24/20 21:00 86 93/45 93 L 04/24/20 20:50 87 98/38 93 L 04/24/20 20:40 90 90/70 94 L 04/24/20 20:30 91 94/42 91 L 04/24/20 20:20 92 93/44 90 L 04/24/20 20:10 96 84/43 88 L 04/24/20 20:03 94.1 F L 85 12 78/43 94 L 04/24/20 20:00 93.9 F L 95 71/46 93 L 04/24/20 19:50 87 91/36 94 L 04/24/20 19:40 84 72/36 94 L 04/24/20 19:30 86 77/23 94 L 04/24/20 19:20 85 85/26 94 L 04/24/20 19:10 87 83/36 95 04/24/20 19:00 82 79/29 96 04/24/20 18:50 85 82/38 96 04/24/20 18:40 86 80/43 95 04/24/20 18:30 84 5 L 72/31 94 L 04/24/20 18:25 94.3 F L 85 15 80/43 94 L 04/24/20 18:20 86 8 L 73/33 96 04/24/20 18:10 82 10 L 73/35 89 L 04/24/20 18:00 94.3 F L 86 11 L 91/38 92 L 04/24/20 17:55 94.3 F L 84 14 82/30 94 L 04/24/20 17:50 92 8 L 59/40 90 L 04/24/20 17:45 94.3 F L 94 18 59/40 90 L 04/24/20 17:40 93 12 64/42 91 L 04/24/20 17:30 93 12 69/37 94 L 04/24/20 17:28 94.1 F L 92 18 70/37 94 L 04/24/20 17:20 92 17 61/48 91 L 04/24/20 17:10 93 10 L 72/38 92 L 04/24/20 17:00 96 13 94/40 92 L 04/24/20 16:50 92 9 L 80/52 94 L 04/24/20 16:44 94.1 F L 94 18 72/38 92 L 04/24/20 16:40 87 5 L 73/31 92 L 04/24/20 16:30 90 9 L 60/37 92 L 04/24/20 16:20 91 8 L 73/33 92 L 04/24/20 16:14 93.9 F L 92 24 74/33 04/24/20 16:10 92 9 L 70/35 94 L 04/24/20 16:04 93.9 F L 93 12 70/35 93 L 04/24/20 16:00 90 13 92 L 04/24/20 15:50 92 9 L 58/27 93 L 04/24/20 15:40 99 19 80/23 92 L 04/24/20 15:30 93.9 F L 98 13 81/62 92 L 04/24/20 15:20 93 11 L 81/62 79 L 04/24/20 15:12 97 18 96 04/24/20 14:00 95 18 96/36 97 04/24/20 13:32 106 H 18 106/43 97 04/24/20 13:00 104 H 18 92/62 97 04/24/20 12:18 96 18 102/42 97 04/24/20 11:14 97.4 F L 98 18 113/81 96 Intake and Output 04/24/20 04/25/20 04/25/20 22:59 06:59 14:59 Intake Total 1670 395.410 1316 Output Total 725 220 Balance 945 727.146 7751 Intake: IV 778 039 2147 Dextrose 5%-0.9% NaCl 1, 75 000 ml @ 75 mls/hr IV . [id number] [facility] Rx#:[id number] Sodium Chloride 0.9% 1, 1000 000 ml @ 999 mls/hr IV . Q1H1M [facility] Rx#:[id number] Sodium Chloride 3%( 25 200 Hypertonic) 500 ml @ 25 mls/hr IV .Q20H [facility] Rx#: [id number] Intake, IV Titration 300 254.000 Amount Dextrose 5%-0.9% NaCl 1, 300 000 ml @ 75 mls/hr IV . [id number] [facility] Rx#:[id number] Norepinephrine 4 mg In 254.000 Sodium Chloride 0.9% 250 ml @ 0.05 MCG/KG/MIN 31. 539 mls/hr IV .Q8H4M [facility] Rx#:[id number] Blood Product 1270 Rc As-1 Unit 310 [id number] Rc Pheresis As-3 Unit 310 [id number] Output: Urine 725 220 Other: Voiding Method Indwelling Catheter Indwelling Catheter Weight 170 kg ABP, PAP, CO, CI - Last 8 Hours Arterial Blood Pressure 58/21 Arterial Blood Pressure 68/22 Arterial Blood Pressure 63/21 Arterial Blood Pressure 53/19 Arterial Blood Pressure 52/28 Arterial Blood Pressure 65/22 Arterial Blood Pressure 70/22 Arterial Blood Pressure 74/33 Arterial Blood Pressure 72/29 Arterial Blood Pressure 74/30 Arterial Blood Pressure 67/24 Arterial Blood Pressure 67/24 Arterial Blood Pressure 64/23 Arterial Blood Pressure 65/24 Arterial Blood Pressure 65/24 Arterial Blood Pressure 68/24 Arterial Blood Pressure 67/25 Arterial Blood Pressure 69/25 Arterial Blood Pressure 70/35 Arterial Blood Pressure 69/36 Arterial Blood Pressure 135/28 Arterial Blood Pressure 74/35 Arterial Blood Pressure 75/36 Arterial Blood Pressure 80/37 Arterial Blood Pressure 77/36 Arterial Blood Pressure 92/44 Arterial Blood Pressure 78/30 Arterial Blood Pressure 74/29 Arterial Blood Pressure 69/30 Arterial Blood Pressure 76/30 Arterial Blood Pressure 71/29 Arterial Blood Pressure 81/31 Arterial Blood Pressure 92/32 Arterial Blood Pressure 109/17 Arterial Blood Pressure 103/30 Arterial Blood Pressure 110/33 Arterial Blood Pressure 96/28 Arterial Blood Pressure 92/31 Arterial Blood Pressure 95/32 Arterial Blood Pressure 87/32 Arterial Blood Pressure 72/30 Results - Lab Results Most recent lab results ABG pH 7.26 (7.35-7.45) L 04/25/20 06:20 ABG pCO2 49 mmHg (35-45) H 04/25/20 06:20 ABG pO2 131 mmHg (83-108) H 04/25/20 06:20 ABG HCO3 22 mmol/L (21-25) 04/25/20 06:20 ABG O2 Saturation 99.5 % (94-97) H 04/25/20 06:20 Calcium 7.6 mg/dL (8.4-10.2) L 04/25/20 03:13 Magnesium 2.1 mg/dL (1.6-2.3) 04/24/20 11:32 04/25/20 05:23 04/25/20 05:23 Assessment and Plan Plan: Assessment: 1. Acute kidney injury secondary to ATN secondary to septic shock. Creatinine 3.27 on admission and is 3.19 this morning. UA benign. Urine output 30-50 mL an hour. 2. Chronic kidney disease stage III. Patient's creatinine was near 1.8 in November 2018 and January 2020. 3. Hypovolemic hyponatremia. TSH and cortisol level normal. 4. Septic shock maintained on Levophed and vasopressin. Maintained on antibiotics. Also on IV steroids. 5. GI bleed status post 2 units blood transfusion. Hemoglobin improved. 6. Diabetes mellitus. Plan: Maintain normal saline. Start 3% at 25 mL an hour for the next 2 hours. Repeat sodium level at 11 AM. Wean vasopressors. Avoid nephrotoxins. Continue to monitor renal function and urine output closely. Check serum and urine osmolality. Check urine sodium. Check renal ultrasound. Follow-up echocardiogram Thank you for the consultation. I will continue to follow the patient with you during her hospital stay.
--- NOTE | 2020-04-25 10:23 | P.CRDCN ---
History of Present Illness History of present illness: HISTORY OF PRESENTING ILLNESS This is a pleasant 60-year-old female past medical history significant for diabetes mellitus, COPD, hypertension, dyslipidemia, hepatitis, chronic kid liv disease and morbid obesity. She denies prior history of coronary artery disease and does not follow with a ply cutter for any reason. We have been asked to see in consultation for elevated troponin. She presented to the hospital with symptoms of shortness of breath, generalized weakness, GI bleeding and hypoglycemia. She is seen and examined sitting up in bed in the intensive care unit. She continues to feel short of breath with minimal activity or exertion such as sitting forward in bed. Hemoglobin on admission was 6.5. She received 2 units of packed red blood cells. Hemoglobin this morning is up to 8.3. She has had no bowel movement since admission. She denies symptoms of ch est pain, dizziness or palpitations. Blood pressures running low since admission, currently on norepinephrine and vasopressin. DIAGNOSTICS EKG reveals sinus mechanism with first-degree AV block, T-wave inversions noted inferiorly laterally that appear new compared to previous EKG from last year. Chest xray reveals chronic changes with no evidence for an acute cardiopulmonary process. Repeat this morning reveals interstitial pneumonitis or mild venous congestion with biapical pleural thickening and tiny bilateral effusions. Abdominal ultrasound is unremarkable. Laboratory reviewed, WBC 13, hemoglobin 8.3, platelets 118, pH 7.26, pCO2 49, pO2 131, potassium 5.2, sodium 114, creatinine 3.19, TSH 3.66, cortisol 12, troponin 0.551, 0.468 and 0.400. Current cardiac medications include aspirin 81 mg daily, Lasix 80 mg daily, losartan 50 mg daily, simvastatin 20 mg daily and Zaroxolyn 2.5 mg daily. REVIEW OF SYSTEMS At the time of my exam: CONSTITUTIONAL: Denies fever or chills. CARDIOVASCULAR: Denies chest pain, shortness of breath, orthopnea, PND or palpitations. RESPIRATORY: Denies cough. GASTROINTESTINAL: Denies abdominal pain, diarrhea, constipation, nausea or vomiting. MUSCULOSKELETAL: Denies myalgias. NEUROLOGIC: Denies numbness, tingling or weakness. ENDOCRINE: Denies fatigue, weight change, polydipsia or polyurina. GENITOURINARY: Denies burning, hematuria or urgency with micturation. HEMATOLOGIC: Denies history of anemia or bleeding. PHYSICAL EXAMINATION Blood pressure 88/46 heart rate 115 afebrile and maintaining oxygen saturation on nasal cannula. CONSTITUTIONAL: No apparent distress. Morbidly obese. HEENT: Head is normocephalic. Pupils are equal, round. Sclerae anicteric. Mucous membranes of the mouth are moist. No JVD. No carotid bruit. CHEST EXAMINATION: Lungs are clear to auscultation. No chest wall tenderness is noted on palpation or with deep breathing. Diminished bilaterally. HEART EXAMINATION: Regular rate and rhythm. S1, S2 heard. No murmurs, gallops or rub. Distant heart sounds. ABDOMEN: Soft, nontender. Positive bowel sounds. EXTREMITIES: 2+ peripheral pulses, no lower extremity edema and no calf tenderness. NEUROLOGIC EXAMINATION: Patient is awake, alert and oriented x3. ASSESSMENT Troponin elevation secondary to supply demand mismatch, no acute coronary syndrome Acute anemia secondary to GI bleeding. Hypoglycemia Hyponatremia Hypotension Acute on chronic kidney disease Hepatitis C Diabetes mellitus COPD History of hypertension COPD Dyslipidemia PLAN Troponin elevation secondary to supply demand mismatch as well as acute kidney injury. Obtain 2-D echocardiogram and Doppler study to assess cardiac structure and function. Hold aspirin given GI bleeding. Await GI evaluation. Thank you kindly for this consultation. Nurse Practitioner note has been reviewed, I agree with a documented findings and plan of care. Patient was seen and examined. Past Medical History Past Medical History: COPD, Diabetes Mellitus, Hyperlipidemia, Hypertension, Renal Disease Additional Past Medical History / Comment(s): Obesity, hypertension, chronic stage III kidney disease, diabetes mellitus, hepatitis C currently on treatment, hyperlipidemia, History of Any Multi-Drug Resistant Organisms: None Reported Past Surgical History: Section Additional Past Surgical History / Comment(s): cataracts removed Past Psychological History: No Psychological Hx Reported Smoking Status: Never smoker Past Alcohol Use History: None Reported Past Drug Use History: None Reported - Past Family History Mother Family Medical History: Congestive Heart Failure (CHF), Hypertension Medications and Allergies Home Medications Medication Instructions Recorded Confirmed Type Losartan [Cozaar] 50 mg PO DAILY 09/18/18 04/24/20 History Simvastatin [Zocor] 20 mg PO HS 09/18/18 04/24/20 History Amitriptyline HCl [Elavil] 25 mg PO HS #30 tab 12/08/18 04/24/20 Rx allopurinoL [Zyloprim] 100 mg PO BID #60 tab 12/08/18 04/24/20 Rx glipiZIDE [Glucotrol] 10 mg PO AC-BID #60 tab 12/08/18 04/24/20 Rx metFORMIN HCL [Glucophage] 500 mg PO BID-W/MEALS #60 tab 12/08/18 04/24/20 Rx Albuterol Inhaler [Ventolin Hfa 1 - 2 puff INHALATION RT-QID PRN 04/24/20 04/24/20 History Inhaler] Aspirin EC [Ecotrin Low Dose] 81 mg PO DAILY 04/24/20 04/24/20 History Ergocalciferol [Vitamin D2] 50,000 unit PO Q30D 04/24/20 04/24/20 History Fluticasone Propion/Salmeterol 2 puff INHALATION RT-BID 04/24/20 04/24/20 History [Wixela 250-50 Inhub] Furosemide [Lasix] 80 mg PO DAILY 04/24/20 04/24/20 History Hydrocortisone Cream 1 applic TOPICAL QID PRN 04/24/20 04/24/20 History [Hydrocortisone 2.5% Cream] Nystatin 1 applic TOPICAL QID PRN 04/24/20 04/24/20 History Oxybutynin Chloride [Oxybutynin 15 mg PO DAILY 04/24/20 04/24/20 History Chloride ER] Pregabalin [Lyrica] 100 mg PO BID 04/24/20 04/24/20 History Sofosbuvir/Velpatasvir [Epclusa 1 tab PO DAILY 04/24/20 04/24/20 History 400 mg-100 mg Tablet] metOLazone [Zaroxolyn] 2.5 mg PO DAILY 04/24/20 04/24/20 History traZODone HCL [Desyrel] 100 - 200 mg PO HS 04/24/20 04/24/20 History Allergies Allergy/AdvReac Type Severity Reaction Status Date / Time No Known Allergies Allergy Verified 04/24/20 11:44 Physical Exam Vitals: Vital Signs Temp Pulse Resp BP Pulse Ox 04/25/20 07:00 118 H 20 89/46 99 04/25/20 06:50 124 H 97/43 98 04/25/20 06:40 124 H 86/36 99 04/25/20 06:30 124 H 89/38 99 04/25/20 06:20 124 H 91/37 99 04/25/20 06:10 125 H 98/46 99 04/25/20 06:00 125 H 89/39 99 04/25/20 05:50 126 H 94/36 98 04/25/20 05:40 126 H 93/47 99 04/25/20 05:30 128 H 98/36 99 04/25/20 05:20 129 H 91/36 99 04/25/20 05:10 125 H 96/42 99 04/25/20 05:00 129 H 98/39 99 04/25/20 04:50 128 H 102/39 99 04/25/20 04:40 128 H 106/43 98 04/25/20 04:30 131 H 101/39 99 04/25/20 04:20 125 H 90/40 99 04/25/20 04:10 123 H 102/41 100 04/25/20 04:00 97.8 F 122 H 96/56 99 04/25/20 03:50 122 H 88/44 99 04/25/20 03:40 121 H 102/45 99 04/25/20 03:30 121 H 107/42 100 04/25/20 03:20 120 H 101/41 100 04/25/20 03:10 125 H 100/41 99 04/25/20 03:00 114 H 83/51 99 04/25/20 02:50 112 H 92/52 100 04/25/20 02:40 103 H 95/34 100 04/25/20 02:30 101 H 91/40 100 04/25/20 02:20 101 H 91/37 100 04/25/20 02:10 99 86/33 100 04/25/20 02:00 97.2 F L 93 75/35 100 04/25/20 01:50 93 74/30 100 04/25/20 01:40 87 69/30 100 04/25/20 01:30 86 75/28 100 04/25/20 01:20 90 74/31 100 04/25/20 01:10 88 78/21 100 04/25/20 01:00 96.3 F L 87 65/33 100 04/25/20 00:50 89 72/32 100 04/25/20 00:40 88 68/35 100 04/25/20 00:30 86 73/34 100 04/25/20 00:24 86 73/34 99 04/25/20 00:20 88 78/39 99 04/25/20 00:10 92 76/30 99 04/25/20 00:00 95.7 F L 90 82/36 100 04/24/20 23:50 92 87/42 97 04/24/20 23:40 101 H 14 80/39 91 L 04/24/20 23:30 95 11 L 90/34 93 L 04/24/20 23:20 97 11 L 90/33 91 L 04/24/20 23:10 106 H 13 101/35 91 L 04/24/20 23:00 95 F L 107 H 18 96/40 96 04/24/20 22:50 90 10 L 96 04/24/20 22:40 80 7 L 78/30 100 04/24/20 22:30 79 8 L 77/46 100 04/24/20 22:20 82 6 L 68/41 98 04/24/20 22:10 80 7 L 83/37 99 04/24/20 22:00 84 9 L 92/64 97 04/24/20 21:50 84 76/46 99 04/24/20 21:40 80 83/34 99 04/24/20 21:30 82 82/38 98 04/24/20 21:20 82 91/35 99 04/24/20 21:10 86 82/30 95 04/24/20 21:00 86 93/45 93 L 04/24/20 20:50 87 98/38 93 L 04/24/20 20:40 90 90/70 94 L 04/24/20 20:30 91 94/42 91 L 04/24/20 20:20 92 93/44 90 L 04/24/20 20:10 96 84/43 88 L 04/24/20 20:03 94.1 F L 85 12 78/43 94 L 04/24/20 20:00 93.9 F L 95 71/46 93 L 04/24/20 19:50 87 91/36 94 L 04/24/20 19:40 84 72/36 94 L 04/24/20 19:30 86 77/23 94 L 04/24/20 19:20 85 85/26 94 L 04/24/20 19:10 87 83/36 95 04/24/20 19:00 82 79/29 96 04/24/20 18:50 85 82/38 96 04/24/20 18:40 86 80/43 95 04/24/20 18:30 84 5 L 72/31 94 L 04/24/20 18:25 94.3 F L 85 15 80/43 94 L 04/24/20 18:20 86 8 L 73/33 96 04/24/20 18:10 82 10 L 73/35 89 L 04/24/20 18:00 94.3 F L 86 11 L 91/38 92 L 04/24/20 17:55 94.3 F L 84 14 82/30 94 L 04/24/20 17:50 92 8 L 59/40 90 L 04/24/20 17:45 94.3 F L 94 18 59/40 90 L 04/24/20 17:40 93 12 64/42 91 L 04/24/20 17:30 93 12 69/37 94 L 04/24/20 17:28 94.1 F L 92 18 70/37 94 L 04/24/20 17:20 92 17 61/48 91 L 04/24/20 17:10 93 10 L 72/38 92 L 04/24/20 17:00 96 13 94/40 92 L 04/24/20 16:50 92 9 L 80/52 94 L 04/24/20 16:44 94.1 F L 94 18 72/38 92 L 04/24/20 16:40 87 5 L 73/31 92 L 04/24/20 16:30 90 9 L 60/37 92 L 04/24/20 16:20 91 8 L 73/33 92 L 04/24/20 16:14 93.9 F L 92 24 74/33 04/24/20 16:10 92 9 L 70/35 94 L 04/24/20 16:04 93.9 F L 93 12 70/35 93 L 04/24/20 16:00 90 13 92 L 04/24/20 15:50 92 9 L 58/27 93 L 04/24/20 15:40 99 19 80/23 92 L 04/24/20 15:30 93.9 F L 98 13 81/62 92 L 04/24/20 15:20 93 11 L 81/62 79 L 04/24/20 15:12 97 18 96 10/05/20 14:00 95 18 96/36 97 04/24/20 13:32 106 H 18 106/43 97 04/24/20 13:00 104 H 18 92/62 97 04/24/20 12:18 96 18 102/42 97 04/24/20 11:14 97.4 F L 98 18 113/81 96 Intake and Output 04/24/20 04/25/20 04/25/20 22:59 06:59 14:59 Intake Total 1670 726.381 0062 Output Total 725 220 Balance 945 993.343 8300 Intake: IV 519 205 8301 Dextrose 5%-0.9% NaCl 1, 75 000 ml @ 75 mls/hr IV . [id number] [facility] Rx#:[id number] Sodium Chloride 0.9% 1, 1000 000 ml @ 999 mls/hr IV . Q1H1M [facility] Rx#:[id number] Sodium Chloride 3%( 25 200 Hypertonic) 500 ml @ 25 mls/hr IV .Q20H [facility] Rx#: [id number] Intake, IV Titration 300 254.000 Amount Dextrose 5%-0.9% NaCl 1, 300 000 ml @ 75 mls/hr IV . [id number] [facility] Rx#:[id number] Norepinephrine 4 mg In 254.000 Sodium Chloride 0.9% 250 ml @ 0.05 MCG/KG/MIN 31. 539 mls/hr IV .Q8H4M [facility] Rx#:[id number] Blood Product 1270 Rc As-1 Unit 310 [id number] Rc Pheresis As-3 Unit 310 [id number] Output: Urine 725 220 Other: Voiding Method Indwelling Catheter Indwelling Catheter Weight 170 kg ABP, PAP, CO, CI - Last 8 Hours Arterial Blood Pressure 67/24 Arterial Blood Pressure 67/24 Arterial Blood Pressure 64/23 Arterial Blood Pressure 65/24 Arterial Blood Pressure 65/24 Arterial Blood Pressure 68/24 Arterial Blood Pressure 67/25 Arterial Blood Pressure 69/25 Arterial Blood Pressure 70/35 Arterial Blood Pressure 69/36 Arterial Blood Pressure 135/28 Arterial Blood Pressure 74/35 Arterial Blood Pressure 75/36 Arterial Blood Pressure 80/37 Arterial Blood Pressure 77/36 Arterial Blood Pressure 92/44 Arterial Blood Pressure 78/30 Arterial Blood Pressure 74/29 Arterial Blood Pressure 69/30 Arterial Blood Pressure 76/30 Arterial Blood Pressure 71/29 Arterial Blood Pressure 81/31 Arterial Blood Pressure 92/32 Arterial Blood Pressure 109/17 Arterial Blood Pressure 103/30 Arterial Blood Pressure 110/33 Arterial Blood Pressure 96/28 Arterial Blood Pressure 92/31 Arterial Blood Pressure 95/32 Arterial Blood Pressure 87/32 Arterial Blood Pressure 72/30 Results 04/25/20 05:23 04/25/20 09:30 Cardiac Enzymes 04/24/20 04/24/20 04/24/20 Range/Units 11:32 11:32 12:56 AST 57 H 54 H (14-36) U/L Troponin I 0.551 H* (0.000-0.034) ng/mL 04/24/20 04/24/20 04/25/20 Range/Units 14:43 23:30 03:13 AST 54 H (14-36) U/L Troponin I 0.468 H* 0.400 H* (0.000-0.034) ng/mL Coagulation 04/24/20 Range/Units 11:32 PT 12.0 (9.0-12.0) sec APTT 35.1 H (22.0-30.0) sec CBC 04/24/20 04/24/20 04/24/20 Range/Units 11:32 12:56 23:30 WBC 7.7 7.2 8.1 (3.8-10.6) k/uL RBC 2.12 L 2.00 L 2.54 L (3.80-5.40) m/uL Hgb 6.5 L* D 6.1 L* 7.6 L D (11.4-16.0) gm/dL Hct 20.1 L 18.7 L* 23.5 L (34.0-46.0) % Plt Count 89 L 84 L 87 L (150-450) k/uL 04/25/20 04/25/20 04/25/20 Range/Units 01:20 03:13 05:23 WBC 6.5 8.8 13.0 H (3.8-10.6) k/uL RBC 2.16 L 2.49 L 2.64 L (3.80-5.40) m/uL Hgb 6.7 L* 8.0 L 8.3 L (11.4-16.0) gm/dL Hct 23.2 L 23.6 L 24.9 L (34.0-46.0) % Plt Count 78 L 102 L 118 L (150-450) k/uL Comprehensive Metabolic Panel 04/24/20 04/24/20 04/24/20 Range/Units 11:32 12:56 18:36 Sodium 108 L* 109 L* 109 L* (137-145) mmol/L Potassium 4.8 4.6 4.8 (3.5-5.1) mmol/L Chloride 75 L 77 L 80 L (98-107) mmol/L Carbon Dioxide 23 23 20 L (22-30) mmol/L BUN 116 H* 114 H* 114 H* (7-17) mg/dL Creatinine 3.27 H 3.11 H 3.03 H (0.52-1.04) mg/dL Glucose 73 L 110 H 90 (74-99) mg/dL Calcium 7.7 L 7.4 L 7.6 L (8.4-10.2) mg/dL AST 57 H 54 H (14-36) U/L ALT 25 24 (4-34) U/L Alkaline Phosphatase 136 H 130 H (38-126) U/L Total Protein 5.7 L 5.4 L (6.3-8.2) g/dL Albumin 2.5 L 2.3 L (3.5-5.0) g/dL 04/24/20 04/25/20 04/25/20 Range/Units 23:30 03:13 05:23 Sodium 109 L* 111 L* 111 L* (137-145) mmol/L Potassium 5.2 H (3.5-5.1) mmol/L Chloride 80 L (98-107) mmol/L Carbon Dioxide 24 (22-30) mmol/L BUN 112 H* (7-17) mg/dL Creatinine 3.19 H (0.52-1.04) mg/dL Glucose 90 (74-99) mg/dL Calcium 7.6 L (8.4-10.2) mg/dL AST 54 H (14-36) U/L ALT 25 (4-34) U/L Alkaline Phosphatase 129 H (38-126) U/L Total Protein 5.3 L (6.3-8.2) g/dL Albumin 2.3 L (3.5-5.0) g/dL Current Medications Generic Name Dose Route Start Last Admin Trade Name Freq PRN Reason Stop Dose Admin Acetaminophen 650 mg 04/24/20 13:51 04/25/20 05:14 Acetaminophen Tab 325 Mg Tab PO 650 mg Q4HR PRN Administration Fever and/or Mild Pain Hydrocortisone Sodium Succinate 100 mg 04/25/20 08:00 Hydrocortisone Succinate 100 Mg/2 Ml Vial IV Q8HR [facility] Norepinephrine Bitartrate 4 mg 254 mls @ 31.539 mls/hr 04/25/20 01:45 04/25/20 04:25 / Sodium Chloride IV 0.3 mcg/kg/min .Q8H4M [facility] 189.236 mls/hr Administration Protocol 0.05 MCG/KG/MIN Sodium Chloride 1,000 mls @ 999 mls/hr 04/25/20 06:50 04/25/20 07:18 Saline 0.9% IV 04/25/20 08:50 999 mls/hr .Q1H1M [facility] Administration Piperacillin Sod/Tazobactam 100 mls @ 25 mls/hr 04/25/20 09:00 Sod 3.375 gm/ Sodium Chloride IVPB Q12HR [facility] Vasopressin 20 unit/ Sodium 51 mls @ 4.59 mls/hr 04/25/20 08:00 Chloride IVPB .Q11H7M [facility] 0.03 UNITS/MIN Sodium Chloride 1,000 mls @ 130 mls/hr 04/25/20 08:00 Saline 0.9% IV .Q7H42M [facility] Vancomycin HCl 2,500 mg/ 500 mls @ 167 mls/hr 04/25/20 09:00 Sodium Chloride IVPB 04/25/20 11:59 ONCE ONE Vancomycin HCl 2,500 mg/ 500 mls @ 167 mls/hr 04/26/20 08:00 Sodium Chloride IVPB 04/26/20 10:59 ONCE ONE Insulin Aspart 0 unit 04/24/20 16:45 04/25/20 05:26 Insulin Aspart (Novolog) 100 Unit/Ml Vial SQ Not Given Q4H [facility] Protocol Miscellaneous Information 1 each 04/25/20 07:49 Vancomycin Iv Per Pharmacy 1 Each Misc MISCELLANE DIRECTED PRN Per Protocol Protocol Naloxone HCl 0.2 mg 04/24/20 13:51 Naloxone 0.4 Mg/Ml 1 Ml Vial IV Q2M PRN Opioid Reversal Pantoprazole Sodium 40 mg 04/24/20 21:00 04/24/20 21:35 Pantoprazole 40 Mg/10 Ml Vial IVP 40 mg BID [facility] Administration Intake and Output 04/24/20 04/25/20 04/25/20 22:59 06:59 14:59 Intake Total 1670 819.333 6747 Output Total 725 220 Balance 945 064.549 2230 Intake: IV 439 301 5084 Dextrose 5%-0.9% NaCl 1, 75 000 ml @ 75 mls/hr IV . [id number] [facility] Rx#:[id number] Sodium Chloride 0.9% 1, 1000 000 ml @ 999 mls/hr IV . Q1H1M [facility] Rx#:[id number] Sodium Chloride 3%( 25 200 Hypertonic) 500 ml @ 25 mls/hr IV .Q20H [facility] Rx#: [id number] Intake, IV Titration 300 254.000 Amount Dextrose 5%-0.9% NaCl 1, 300 000 ml @ 75 mls/hr IV . [id number] [facility] Rx#:[id number] Norepinephrine 4 mg In 254.000 Sodium Chloride 0.9% 250 ml @ 0.05 MCG/KG/MIN 31. 539 mls/hr IV .Q8H4M [facility] Rx#:[id number] Blood Product 1270 As-1 Unit 310 [id number] Pheresis As-3 Unit 310 [id number] Output: Urine 725 220 Other: Voiding Method Indwelling Catheter Indwelling Catheter Weight 170 kg 04/25/20 05:23 04/25/20 05:23
--- NOTE | 2020-04-25 11:42 | ECHOF ---
Referral Reason:elev trop, ekg changes MEASUREMENTS -------- HEIGHT: 152.4 cm WEIGHT: 165.6 kg BP: RVIDd: 3.6 cm (< 3.3) IVSd: 1.3 cm (0.6 - 1.1) LVIDd: 4.4 cm (3.9 - 5.3) LVPWd: 1.2 cm (0.6 - 1.1) IVSs: 1.6 cm LVIDs: 2.4 cm LVPWs: 1.9 cm MV E Hudson: 1.85 m/s MV DecT: 189 ms MV A Hudson: 2.54 m/s MV E/A Ratio: 0.73 AV maxP.73 mmHg AV maxP.73 mmHg AV meanP.24 mmHg FINDINGS -------- Undetermined rhythm. Morbid Obesity This was a techncally difficult study with suboptimal views, , Lumason utilized for enhancement of im ages. The left ventricular size is normal. There is mild concentric left ventricular hypertrophy. Overa ll left ventricular systolic function is normal with, an EF between 60 - 65 %. The right ventricle is normal in size. The left atrial size is normal. The right atrial size is normal. 5.0mg OF Lumason UTLIZED: 2 OR MORE WALL SEGMENTS NOT VISUALIZED. The aortic valve was not well visualized. There is mild aortic stenosis present. Peak/mean gradie nt across the Aortic Valve is 26.73mmHg / 15.24mmHg. The mitral valve was not well visualized. The peak and mean MV gradients are 24.55mmHg 9.57mmHg as measured by doppler. The tricuspid valve was not well visualized. Unable to estimate RVSP due to inadequate TR jet spect ral doppler profile. The pulmonic valve was not well visualized. The aortic root size is normal. There is no pericardial effusion. CONCLUSIONS -------- 1. Morbid Obesity 2. This was a techncally difficult study with suboptimal views, , Lumason utilized for enhancement of images. 3. The left ventricular size is normal. 4. There is mild concentric left ventricular hypertrophy. 5. Overall left ventricular systolic function is normal with, an EF between 60 - 65 %. 6. The right ventricle is normal in size. 7. The left atrial size is normal. 8. The right atrial size is normal. 9. 5.0mg OF Lumason UTLIZED: 2 OR MORE WALL SEGMENTS NOT VISUALIZED. 10. The aortic valve was not well visualized. 11. There is mild aortic stenosis present. 12. Peak/mean gradient across the Aortic Valve is 26.73mmHg / 15.24mmHg. 13. The mitral valve was not well visualized. 14. The peak and mean MV gradients are 24.55mmHg 9.57mmHg as measured by doppler. 15. The tricuspid valve was not well visualized. 16. Unable to estimate RVSP due to inadequate TR jet spectral doppler profile. 17. The pulmonic valve was not well visualized. 18. There is no pericardial effusion. LAUNDRY OPERATOR: Tereza Rock RDCS
--- NOTE | 2020-04-25 11:55 | P.PN ---
Subjective Progress Note Date: 04/25/20 64-year-old female patient presented to the ED because of generalized weakness and recurrent hypoglycemic events. She apparently was found to have a blood sugar of 44 at home and she received an amp of D50 by EMS and came to the scene and the patient's blood sugar came up to 96. At that time the patient was seen generalized weakness and tiredness and shakiness. No a activity has been noted. The patient was also noted to have low blood pressure. Denied having any shortness of breath. No headaches. No dizziness. No falls. No head trauma. She came into the ED and the patient was found to have a white cell count of 7.2 with a hemoglobin of 6.1 and a recent drop compared to a baseline of 9.1 from 02/23/2020. Her platelet count was at 84 and the patient suffers from chronic thrombocytopenia. Coagulation profile is within normal limits. The sodium level was 108 and this is another new finding with a chloride level of 77 knowing that her most recent blood work showed normal sodium and chloride levels. The patient began with 114 and a creatinine of 3.11 knowing that her baseline creatinine from 02/07/2020 was 1.8. The patient also had a lactic acid level of 2.3, troponin of 0.468, AST of 54, ALT of 24, total protein of 5.4 with an albumin of 2.3. The patient was further found to be hypothermic with a temperature of 93.9. BNP was 74/33. She was on 2 L of oxygen by nasal cannula with a pulse ox of 97%. EKG showing a sinus rhythm with a first-degree AV block. A chest x-ray was not done. On 04/25/2020, the patient is being seen for a follow-up in the intensive care unit. Note that the patient was seen yesterday and overnight it has been significant changes condition mainly significant drop in her blood pressure. Mother the patient presented to us with a suspicion of GI bleed in addition to hyponatremia. The patient got transfused with a total of 2 units of packed RBC. I initially had the patient on normal saline infusion for fluid resuscitation. However, overnight the patient was placed at 3% normal saline by nephrology. The patient was getting minimal amount of volume. The patient became hypotensive. The patient was started on pressors and earlier this morning the norepinephrine infusion was running at 0.3 g per KG per minute which is quite a high dose. At that point, immediately start the patient on normal saline infusion at 2 L of bolus was given. Serum cortisol was low at 12. The patient was started on IV hydrocortisone. The patient was also started on vasopressin. A triple lumen catheter was inserted and the patient's CVP was only a 6 via triple lumen catheter that was inserted in left IJ. The patient is afebrile. White cell count is 13.0 with a hemoglobin of 8.3. Platelet count is at 118. The sodium level is up to 116. The patient also had no major improvement in renal failure and the creatinine was at 3.19 with a BUN of 112. Troponin is a 0.4. Liver function tests showed an AST of 54, ALT of 25, alk phos is at 129. The echocardiogram showed a preserved LV function with an EF of around 60-65%. The ultrasound of the abdomen showed no significant abnormalities. There is splenomegaly. No signs of any cholecystitis. Gallbladder and the common bile duct were all within normal limits. Objective - Vital Signs Vital signs: Vital Signs Temp 97.2 F L 04/25/20 08:00 Pulse 123 H 04/25/20 11:00 Resp 10 L 04/25/20 11:00 BP 87/45 04/25/20 11:00 Pulse Ox 99 04/25/20 11:00 Intake & Output 04/24/20 04/25/20 04/25/20 18:59 06:59 18:59 Intake Total 1185 769.465 7268.514 Output Total 600 345 40 Balance 585 205.524 6914.514 Weight 165.561 kg 170 kg Intake: IV 300 2310 Dextrose 5%-0.9% NaCl 1, 75 000 ml @ 75 mls/hr IV . [id number] [facility] Rx#:[id number] Sodium Chloride 0.9% 1, 260 000 ml @ 130 mls/hr IV . Q7H42M [facility] Rx#:[id number] Sodium Chloride 0.9% 1, 2000 000 ml @ 999 mls/hr IV . Q1H1M ONE Rx#:[id number] Sodium Chloride 3%( 225 50 Hypertonic) 500 ml @ 25 mls/hr IV .Q20H [facility] Rx#: [id number] Intake, IV Titration 225 329.000 35.514 Amount Dextrose 5%-0.9% NaCl 1, 225 75 000 ml @ 75 mls/hr IV . [id number] [facility] Rx#:[id number] Norepinephrine 32 mg In 35.514 Sodium Chloride 0.9% 218 ml @ 0.05 MCG/KG/MIN 3. 984 mls/hr IV .Q24H [facility] Rx#:[id number] Norepinephrine 4 mg In 254.000 Sodium Chloride 0.9% 250 ml @ 0.05 MCG/KG/MIN 31. 539 mls/hr IV .Q8H4M [facility] Rx#:[id number] Blood Product 960 310 Rc As-1 Unit 0 310 [id number] Rc Pheresis As-3 Unit 310 [id number] Output: Urine 600 345 40 Other: Voiding Method Indwelling Catheter Indwelling Catheter Indwelling Catheter ABP, PAP, CO, CI - Last Documented Arterial Blood Pressure 63/24 - Exam Gen. appearance morbidly obese, comfortable and the patient is not in acute respiratory distress, the patient has a left IJ triple-lumen catheter in place. Head exam was generally normal. There was no scleral icterus or corneal arcus. Mucous membranes were moist. Neck was supple and without jugular venous distension, thyromegaly, or carotid bruits. Carotids were easily palpable bilaterally. There was no adenopathy. Mallampati class IV lung sounds are diminished bilaterally especially lung bases otherwise clear. Cardiac exam revealed the PMI to be normally situated and sized. The rhythm was regular and no extrasystoles were noted during several minutes of auscultation. The first and second heart sounds were normal and physiologic splitting of the second heart sound was noted. There were no murmurs, rubs, clicks, or gallops. abdomen is morbidly obese soft nontender. There is no ascites. Organs cannot be accurately palpated as the patient has morbid obesity. No direct tenderness. No rebound tenderness. No guarding. Extremities revealed trace edema and there is no cyanosis or clubbing. Neurological awake and alert and is no focal neurological deficits. The patient has a Artline catheter in the left radial artery. - Labs CBC & Chem 7: 04/25/20 05:23 04/25/20 09:30 Labs: Abnormal Lab Results - Last 24 Hours (Table) 04/24/20 04/24/20 04/24/20 Range/Units 11:32 11:32 11:32 WBC (3.8-10.6) k/uL RBC 2.12 L (3.80-5.40) m/uL Hgb 6.5 L* D (11.4-16.0) gm/dL Hct 20.1 L (34.0-46.0) % MCV (80.0-100.0) fL MCHC (31.0-37.0) g/dL RDW 16.4 H (11.5-15.5) % Plt Count 89 L (150-450) k/uL Lymphocytes # 0.8 L (1.0-4.8) k/uL Macrocytosis INR 1.2 H (<1.2) APTT 35.1 H (22.0-30.0) sec ABG pH (7.35-7.45) ABG pCO2 (35-45) mmHg ABG pO2 (83-108) mmHg ABG O2 Saturation (94-97) % Sodium 108 L* (137-145) mmol/L Potassium (3.5-5.1) mmol/L Chloride 75 L (98-107) mmol/L Carbon Dioxide (22-30) mmol/L BUN 116 H* (7-17) mg/dL Creatinine 3.27 H (0.52-1.04) mg/dL Glucose 73 L (74-99) mg/dL POC Glucose (mg/dL) (75-99) mg/dL Osmolality (280-301) mosm/kg Plasma Lactic Acid Raymundo (0.7-2.0) mmol/L Calcium 7.7 L (8.4-10.2) mg/dL Total Bilirubin (0.2-1.3) mg/dL AST 57 H (14-36) U/L Alkaline Phosphatase 136 H (38-126) U/L Troponin I (0.000-0.034) ng/mL Total Protein 5.7 L (6.3-8.2) g/dL Albumin 2.5 L (3.5-5.0) g/dL Stool Occult Blood (Negative) Crossmatch 04/24/20 04/24/20 04/24/20 Range/Units 11:32 11:32 12:18 WBC (3.8-10.6) k/uL RBC (3.80-5.40) m/uL Hgb (11.4-16.0) gm/dL Hct (34.0-46.0) % MCV (80.0-100.0) fL MCHC (31.0-37.0) g/dL RDW (11.5-15.5) % Plt Count (150-450) k/uL Lymphocytes # (1.0-4.8) k/uL Macrocytosis INR (<1.2) APTT (22.0-30.0) sec ABG pH (7.35-7.45) ABG pCO2 (35-45) mmHg ABG pO2 (83-108) mmHg ABG O2 Saturation (94-97) % Sodium (137-145) mmol/L Potassium (3.5-5.1) mmol/L Chloride (98-107) mmol/L Carbon Dioxide (22-30) mmol/L BUN (7-17) mg/dL Creatinine (0.52-1.04) mg/dL Glucose (74-99) mg/dL POC Glucose (mg/dL) (75-99) mg/dL Osmolality (280-301) mosm/kg Plasma Lactic Acid Raymundo 2.8 H* (0.7-2.0) mmol/L Calcium (8.4-10.2) mg/dL Total Bilirubin (0.2-1.3) mg/dL AST (14-36) U/L Alkaline Phosphatase (38-126) U/L Troponin I 0.551 H* (0.000-0.034) ng/mL Total Protein (6.3-8.2) g/dL Albumin (3.5-5.0) g/dL Stool Occult Blood Positive H (Negative) Crossmatch 04/24/20 04/24/20 04/24/20 Range/Units 12:25 12:56 12:56 WBC (3.8-10.6) k/uL RBC 2.00 L (3.80-5.40) m/uL Hgb 6.1 L* (11.4-16.0) gm/dL Hct 18.7 L* (34.0-46.0) % MCV (80.0-100.0) fL MCHC (31.0-37.0) g/dL RDW 15.9 H (11.5-15.5) % Plt Count 84 L (150-450) k/uL Lymphocytes # 0.7 L (1.0-4.8) k/uL Macrocytosis INR (<1.2) APTT (22.0-30.0) sec ABG pH (7.35-7.45) ABG pCO2 (35-45) mmHg ABG pO2 (83-108) mmHg ABG O2 Saturation (94-97) % Sodium 109 L* (137-145) mmol/L Potassium (3.5-5.1) mmol/L Chloride 77 L (98-107) mmol/L Carbon Dioxide (22-30) mmol/L BUN 114 H* (7-17) mg/dL Creatinine 3.11 H (0.52-1.04) mg/dL Glucose 110 H (74-99) mg/dL POC Glucose (mg/dL) 67 L (75-99) mg/dL Osmolality (280-301) mosm/kg Plasma Lactic Acid Raymundo (0.7-2.0) mmol/L Calcium 7.4 L (8.4-10.2) mg/dL Total Bilirubin (0.2-1.3) mg/dL AST 54 H (14-36) U/L Alkaline Phosphatase 130 H (38-126) U/L Troponin I (0.000-0.034) ng/mL Total Protein 5.4 L (6.3-8.2) g/dL Albumin 2.3 L (3.5-5.0) g/dL Stool Occult Blood (Negative) Crossmatch 04/24/20 04/24/20 04/24/20 Range/Units 13:15 13:17 14:43 WBC (3.8-10.6) k/uL RBC (3.80-5.40) m/uL Hgb (11.4-16.0) gm/dL Hct (34.0-46.0) % MCV (80.0-100.0) fL MCHC (31.0-37.0) g/dL RDW (11.5-15.5) % Plt Count (150-450) k/uL Lymphocytes # (1.0-4.8) k/uL Macrocytosis INR (<1.2) APTT (22.0-30.0) sec ABG pH (7.35-7.45) ABG pCO2 (35-45) mmHg ABG pO2 (83-108) mmHg ABG O2 Saturation (94-97) % Sodium (137-145) mmol/L Potassium (3.5-5.1) mmol/L Chloride (98-107) mmol/L Carbon Dioxide (22-30) mmol/L BUN (7-17) mg/dL Creatinine (0.52-1.04) mg/dL Glucose (74-99) mg/dL POC Glucose (mg/dL) 109 H (75-99) mg/dL Osmolality (280-301) mosm/kg Plasma Lactic Acid Raymundo (0.7-2.0) mmol/L Calcium (8.4-10.2) mg/dL Total Bilirubin (0.2-1.3) mg/dL AST (14-36) U/L Alkaline Phosphatase (38-126) U/L Troponin I 0.468 H* (0.000-0.034) ng/mL Total Protein (6.3-8.2) g/dL Albumin (3.5-5.0) g/dL Stool Occult Blood (Negative) Crossmatch See Detail 04/24/20 04/24/20 04/24/20 Range/Units 14:43 15:17 15:33 WBC (3.8-10.6) k/uL RBC (3.80-5.40) m/uL Hgb (11.4-16.0) gm/dL Hct (34.0-46.0) % MCV (80.0-100.0) fL MCHC (31.0-37.0) g/dL RDW (11.5-15.5) % Plt Count (150-450) k/uL Lymphocytes # (1.0-4.8) k/uL Macrocytosis INR (<1.2) APTT (22.0-30.0) sec ABG pH (7.35-7.45) ABG pCO2 (35-45) mmHg ABG pO2 (83-108) mmHg ABG O2 Saturation (94-97) % Sodium (137-145) mmol/L Potassium (3.5-5.1) mmol/L Chloride (98-107) mmol/L Carbon Dioxide (22-30) mmol/L BUN (7-17) mg/dL Creatinine (0.52-1.04) mg/dL Glucose (74-99) mg/dL POC Glucose (mg/dL) 58 L 124 H (75-99) mg/dL Osmolality (280-301) mosm/kg Plasma Lactic Acid Raymundo 2.3 H* (0.7-2.0) mmol/L Calcium (8.4-10.2) mg/dL Total Bilirubin (0.2-1.3) mg/dL AST (14-36) U/L Alkaline Phosphatase (38-126) U/L Troponin I (0.000-0.034) ng/mL Total Protein (6.3-8.2) g/dL Albumin (3.5-5.0) g/dL Stool Occult Blood (Negative) Crossmatch 04/24/20 04/24/20 04/24/20 Range/Units 18:36 18:40 23:30 WBC (3.8-10.6) k/uL RBC (3.80-5.40) m/uL Hgb (11.4-16.0) gm/dL Hct (34.0-46.0) % MCV (80.0-100.0) fL MCHC (31.0-37.0) g/dL RDW (11.5-15.5) % Plt Count (150-450) k/uL Lymphocytes # (1.0-4.8) k/uL Macrocytosis INR (<1.2) APTT (22.0-30.0) sec ABG pH (7.35-7.45) ABG pCO2 (35-45) mmHg ABG pO2 (83-108) mmHg ABG O2 Saturation (94-97) % Sodium 109 L* (137-145) mmol/L Potassium (3.5-5.1) mmol/L Chloride 80 L (98-107) mmol/L Carbon Dioxide 20 L (22-30) mmol/L BUN 114 H* (7-17) mg/dL Creatinine 3.03 H (0.52-1.04) mg/dL Glucose (74-99) mg/dL POC Glucose (mg/dL) 138 H (75-99) mg/dL Osmolality (280-301) mosm/kg Plasma Lactic Acid Raymundo (0.7-2.0) mmol/L Calcium 7.6 L (8.4-10.2) mg/dL Total Bilirubin (0.2-1.3) mg/dL AST (14-36) U/L Alkaline Phosphatase (38-126) U/L Troponin I 0.400 H* (0.000-0.034) ng/mL Total Protein (6.3-8.2) g/dL Albumin (3.5-5.0) g/dL Stool Occult Blood (Negative) Crossmatch 04/24/20 04/24/20 04/25/20 Range/Units 23:30 23:30 00:32 WBC (3.8-10.6) k/uL RBC 2.54 L (3.80-5.40) m/uL Hgb 7.6 L D (11.4-16.0) gm/dL Hct 23.5 L (34.0-46.0) % MCV (80.0-100.0) fL MCHC (31.0-37.0) g/dL RDW 16.4 H (11.5-15.5) % Plt Count 87 L (150-450) k/uL Lymphocytes # (1.0-4.8) k/uL Macrocytosis INR (<1.2) APTT (22.0-30.0) sec ABG pH (7.35-7.45) ABG pCO2 (35-45) mmHg ABG pO2 (83-108) mmHg ABG O2 Saturation (94-97) % Sodium 109 L* (137-145) mmol/L Potassium (3.5-5.1) mmol/L Chloride (98-107) mmol/L Carbon Dioxide (22-30) mmol/L BUN (7-17) mg/dL Creatinine (0.52-1.04) mg/dL Glucose (74-99) mg/dL POC Glucose (mg/dL) 67 L (75-99) mg/dL Osmolality (280-301) mosm/kg Plasma Lactic Acid Raymundo (0.7-2.0) mmol/L Calcium (8.4-10.2) mg/dL Total Bilirubin (0.2-1.3) mg/dL AST (14-36) U/L Alkaline Phosphatase (38-126) U/L Troponin I (0.000-0.034) ng/mL Total Protein (6.3-8.2) g/dL Albumin (3.5-5.0) g/dL Stool Occult Blood (Negative) Crossmatch 04/25/20 04/25/20 04/25/20 Range/Units 01:13 01:17 01:20 WBC (3.8-10.6) k/uL RBC 2.16 L (3.80-5.40) m/uL Hgb 6.7 L* (11.4-16.0) gm/dL Hct 23.2 L (34.0-46.0) % MCV 107.3 H D (80.0-100.0) fL MCHC 29.0 L (31.0-37.0) g/dL RDW 16.6 H (11.5-15.5) % Plt Count 78 L (150-450) k/uL Lymphocytes # (1.0-4.8) k/uL Macrocytosis Marked A INR (<1.2) APTT (22.0-30.0) sec ABG pH (7.35-7.45) ABG pCO2 (35-45) mmHg ABG pO2 (83-108) mmHg ABG O2 Saturation (94-97) % Sodium (137-145) mmol/L Potassium (3.5-5.1) mmol/L Chloride (98-107) mmol/L Carbon Dioxide (22-30) mmol/L BUN (7-17) mg/dL Creatinine (0.52-1.04) mg/dL Glucose (74-99) mg/dL POC Glucose (mg/dL) >600 H 116 H (75-99) mg/dL Osmolality (280-301) mosm/kg Plasma Lactic Acid Raymundo (0.7-2.0) mmol/L Calcium (8.4-10.2) mg/dL Total Bilirubin (0.2-1.3) mg/dL AST (14-36) U/L Alkaline Phosphatase (38-126) U/L Troponin I (0.000-0.034) ng/mL Total Protein (6.3-8.2) g/dL Albumin (3.5-5.0) g/dL Stool Occult Blood (Negative) Crossmatch 10/06/20 10/06/20 10/06/20 Range/Units 03:13 03:13 05:23 WBC (3.8-10.6) k/uL RBC 2.49 L (3.80-5.40) m/uL Hgb 8.0 L (11.4-16.0) gm/dL Hct 23.6 L (34.0-46.0) % MCV (80.0-100.0) fL MCHC (31.0-37.0) g/dL RDW 16.3 H (11.5-15.5) % Plt Count 102 L (150-450) k/uL Lymphocytes # (1.0-4.8) k/uL Macrocytosis INR (<1.2) APTT (22.0-30.0) sec ABG pH (7.35-7.45) ABG pCO2 (35-45) mmHg ABG pO2 (83-108) mmHg ABG O2 Saturation (94-97) % Sodium 111 L* 111 L* (137-145) mmol/L Potassium 5.2 H (3.5-5.1) mmol/L Chloride 80 L (98-107) mmol/L Carbon Dioxide (22-30) mmol/L BUN 112 H* (7-17) mg/dL Creatinine 3.19 H (0.52-1.04) mg/dL Glucose (74-99) mg/dL POC Glucose (mg/dL) (75-99) mg/dL Osmolality (280-301) mosm/kg Plasma Lactic Acid Raymundo (0.7-2.0) mmol/L Calcium 7.6 L (8.4-10.2) mg/dL Total Bilirubin 1.8 H (0.2-1.3) mg/dL AST 54 H (14-36) U/L Alkaline Phosphatase 129 H (38-126) U/L Troponin I (0.000-0.034) ng/mL Total Protein 5.3 L (6.3-8.2) g/dL Albumin 2.3 L (3.5-5.0) g/dL Stool Occult Blood (Negative) Crossmatch 04/25/20 04/25/20 04/25/20 Range/Units 05:23 06:20 09:05 WBC 13.0 H (3.8-10.6) k/uL RBC 2.64 L (3.80-5.40) m/uL Hgb 8.3 L (11.4-16.0) gm/dL Hct 24.9 L (34.0-46.0) % MCV (80.0-100.0) fL MCHC (31.0-37.0) g/dL RDW 16.2 H (11.5-15.5) % Plt Count 118 L (150-450) k/uL Lymphocytes # (1.0-4.8) k/uL Macrocytosis INR (<1.2) APTT (22.0-30.0) sec ABG pH 7.26 L (7.35-7.45) ABG pCO2 49 H (35-45) mmHg ABG pO2 131 H (83-108) mmHg ABG O2 Saturation 99.5 H (94-97) % Sodium (137-145) mmol/L Potassium (3.5-5.1) mmol/L Chloride (98-107) mmol/L Carbon Dioxide (22-30) mmol/L BUN (7-17) mg/dL Creatinine (0.52-1.04) mg/dL Glucose (74-99) mg/dL POC Glucose (mg/dL) 74 L (75-99) mg/dL Osmolality (280-301) mosm/kg Plasma Lactic Acid Raymundo (0.7-2.0) mmol/L Calcium (8.4-10.2) mg/dL Total Bilirubin (0.2-1.3) mg/dL AST (14-36) U/L Alkaline Phosphatase (38-126) U/L Troponin I (0.000-0.034) ng/mL Total Protein (6.3-8.2) g/dL Albumin (3.5-5.0) g/dL Stool Occult Blood (Negative) Crossmatch 04/25/20 04/25/20 Range/Units 09:30 09:30 WBC (3.8-10.6) k/uL RBC (3.80-5.40) m/uL Hgb (11.4-16.0) gm/dL Hct (34.0-46.0) % MCV (80.0-100.0) fL MCHC (31.0-37.0) g/dL RDW (11.5-15.5) % Plt Count (150-450) k/uL Lymphocytes # (1.0-4.8) k/uL Macrocytosis INR (<1.2) APTT (22.0-30.0) sec ABG pH (7.35-7.45) ABG pCO2 (35-45) mmHg ABG pO2 (83-108) mmHg ABG O2 Saturation (94-97) % Sodium 114 L* (137-145) mmol/L Potassium (3.5-5.1) mmol/L Chloride (98-107) mmol/L Carbon Dioxide (22-30) mmol/L BUN (7-17) mg/dL Creatinine (0.52-1.04) mg/dL Glucose (74-99) mg/dL POC Glucose (mg/dL) (75-99) mg/dL Osmolality 279 L (280-301) mosm/kg Plasma Lactic Acid Raymundo (0.7-2.0) mmol/L Calcium (8.4-10.2) mg/dL Total Bilirubin (0.2-1.3) mg/dL AST (14-36) U/L Alkaline Phosphatase (38-126) U/L Troponin I (0.000-0.034) ng/mL Total Protein (6.3-8.2) g/dL Albumin (3.5-5.0) g/dL Stool Occult Blood (Negative) Crossmatch Assessment and Plan Plan: 1 acute hypotension with significant drop in blood pressure overnight. Rule out intravascular volume depletion/dehydration and possibly component of sepsis. The patient was suspected IV fluids. The patient was given a total of 2 units of packed RBC. The patient is in the process of getting 2 L of normal saline at this point in time. The patient is on high-dose pressors. Serum cortisol is low. Vasopressin will be also added to augment the blood pressure. Central line was established and the patient's CVP is at 6. Artline Was also established. 2 hypochloremic hyponatremia with a sodium level is gradually improving 3 acute on chronic kidney disease and the patient has chronic stage III kidney disease at baseline with a creatinine of 1.8 4 acute hypothermia, improved 5 acute blood loss anemia. Consider upper GI bleed as the patient's hemoglobin has dropped down to 6.1 with melanotic stools and Hemoccult positive, the patient has not had any further episodes of GI bleeding and the patient got transfused with a 2 units of packed RBC. 6 chronic liver disease/hepatitis C and the patient was receiving Epclusa on outpatient basis, and the patient was having episodes of hypoglycemia, but admission. 7 diabetes mellitus maintained on oral hypoglycemics on outpatient basis 8 hypertension 9 generalized weakness secondary to above 10 mild lactic acidosis 11 troponin leak without any acute EKG changes 12 morbid obesity Plan Give 2 L of normal saline infusion and a formidable bolus. The patient will also be maintained on IV fluids at the rate of 130 she is an hour. Monitor the sodium level and gradually raise the sodium level not to exceed 6-8 mEq on a daily basis. Echocardiogram showed no evidence of any LV dysfunction Robison catheter is in place *Patient a combination of Zosyn and Achromycin Start the patient IV hydrocortisone Start the patient on vasopressin physiologic dose to augment the blood pressure Triple-lumen catheter is in established Monitor the blood sugars and use sliding scale coverage if needed Condition remains critical. We'll continue to follow
--- NOTE | 2020-04-25 11:56 | P.PCN ---
Date of Procedure: 04/25/20 Preoperative Diagnosis: Hypotension Postoperative Diagnosis: Hypotension Procedure(s) Performed: Insertion of a triple-lumen catheter Anesthesia: local Surgeon: Chel Hobbs Estimated Blood Loss (ml): 0 Pathology: none sent Condition: critical Disposition: ICU Operative Findings: Indication: Hemodynamic monitoring/Intravenous access. A time-out was completed verifying correct patient, procedure, site, positioning, and implant(s) or special equipment if applicable. The patient was placed in a dependent position appropriate for central line placement based on the vein to be cannulated. The patients left neck [or right/left] groin was prepped and draped in sterile fashion. 1% Lidocaine was used to anesthetize the surrounding skin area. A triple lumen 9F Cordis catheter was introduced into the left internal jugular vein using Seldinger technique. The catheter was threaded smoothly over the guide wire and appropriate blood return was obtained. Each lumen of the catheter was evacuated of air and flushed with sterile saline. The catheter was then sutured in place to the skin and a sterile dressing applied. Perfusion to the extremity distal to the point of catheter insertion was checked and found to be adequate. The patient tolerated the procedure well and there were no complications.
[2020-04-25 12:15] LABS: Glucose,Whole Blood 86 mg/dL (75-99)
[2020-04-25 12:57] LABS: Glucose,Whole Blood 81 mg/dL (75-99)
[2020-04-25 14:10] LABS: Hemoglobin A1C 4.9 % (4.0-6.0)
--- NOTE | 2020-04-25 14:33 | US ---
EXAMINATION TYPE: US kidneys/renal and bladder DATE OF EXAM: 04/25/2020 COMPARISON: US CLINICAL HISTORY: [email or web address] US exam is technically limited due to large patient body habitus and patient's inability to move. EXAM MEASUREMENTS: Right Kidney: 10.0 x 5.4 x 5.2 cm Left Kidney: 9.2 x 4.4 x 4.9 cm Post Void Residual Volume: not assessed Right Kidney: No hydronephrosis or masses seen Left Kidney: No hydronephrosis or masses seen Bladder: not seen; Robison catheter bag present at bedside. IMPRESSION: No hydronephrosis or nephrolithiasis. Cortical thinning on the right suggest chronic medical renal di sease correlate clinically.
[2020-04-25 15:35] LABS: Calcium 7.7 mg/dL (8.4-10.2); Potassium 5.5 mmol/L (3.5-5.1)
[2020-04-25 16:26] LABS: Glucose,Whole Blood 109 mg/dL (75-99)
[2020-04-25 19:39] LABS: Glucose,Whole Blood 145 mg/dL (75-99)
--- NOTE | 2020-04-25 20:10 | HP ---
HISTORY AND PHYSICAL CHIEF COMPLAINT: Hypotension, anemia, elevated troponin and GI bleed. HISTORY OF PRESENT ILLNESS: This is another admission for this morbidly obese 60-year-old white female. She presented to the emergency room with weakness and had a hemoglobin of 6. She had a positive FOB. Creatinine was 3.27 and her troponin was elevated. Lactic acid was also up. EKG demonstrated some ischemic changes. Her sodium was 108. REVIEW OF SYSTEMS: She is somewhat lethargic, but she denies headaches, neurologic problems, chest pain, shortness of breath, abdominal pain, etc. Past medical history, family history, and personal and social histories reveal that she is on trazodone, low-dose aspirin, allopurinol 100 mg twice a day, simvastatin 20 mg once a day, oxybutynin extended-release 15 mg once a day, glipizide 10 mg twice a day, losartan 50 mg once a day, amitriptyline 25 mg at bedtime, metolazone 2.5 mg once a day, furosemide 80 in the morning and 40 at night, updrafts with albuterol, vitamin D and Lyrica 100 mg twice a day. Because of her obesity, she has been being followed for congestive heart failure. She has been very noncompliant about coming in, especially during the COVID-19 epidemic, and has been getting most of her care through [facility]. In January she had laboratory studies revealing GFR of 30, BUN of 80 and creatinine of 2.05. At that time her hemoglobin was 10. PHYSICAL EXAMINATION: Blood pressure is 90/40 with a pulse of 85 and regular, respirations of 33, and she is afebrile. In general she appeared to be morbidly obese, but she was awake and alert. Head, ears, eyes, nose, mouth and throat were normal. Neck veins could not be assessed. Breath sounds were decreased on both sides with scattered rales and rhonchi. Cardiac exam demonstrated sinus rhythm and there was no murmur heard. The abdomen was protuberant, soft and nontender. Extremities were unremarkable except for some stasis edema and cellulitis. Neurologically she was intact. She was admitted to the hospital with the diagnoses: 1. Gastrointestinal bleed. 2. Blood-loss anemia. 3. Chronic renal failure. 4. Elevated troponin. 5. Hyponatremia. PLAN: 1. Bed rest. 2. Treatment and care in ICU. 3. Consult with investigative research specialist. 4. GI consult. 5. Cardiology consult. MMRADHAL / IJN: [id number] /
--- NOTE | 2020-04-25 20:16 | PN ---
PROGRESS NOTE DATE OF SERVICE: 04/25/2020 CHIEF COMPLAINT: Blood-loss anemia, hypotension, elevated troponin, renal failure. HISTORY OF PRESENT ILLNESS: This lady is on pressors at this time but remains awake and alert. She is being followed by Cardiology and Intensive Medicine. PHYSICAL EXAMINATION: Blood pressure is running around 100 systolically. She remains awake and alert. Skin color is normal and skin is dry. Head, ears, eyes, nose and mouth are normal. Breath sounds are heard on both sides with scattered rales. Cardiac exam demonstrates sinus rhythm and no definite extra sounds. Abdomen is protuberant soft without masses. Extremities are normal. IMPRESSION: 1. Hypotension. 2. Gastrointestinal bleed. 3. Blood-loss anemia. 4. Renal failure. 5. Elevated troponin. 6. Congestive heart failure. 7. Morbid obesity. 8. Electrolyte imbalance. PLAN: Continue to follow in ICU with software product manager and Cardiology until she stabilizes. MMODL / IJN: [id number] /
[2020-04-26 00:12] LABS: Glucose,Whole Blood 170 mg/dL (75-99)
[2020-04-26] MEDS: HYDROCORTISONE SUCCINATE 100 MG/2 ML VIAL IV SCH ×4 (00:22→23:55)
[2020-04-26] MEDS: INSULIN ASPART (NovoLOG) 100 UNIT/ML VIAL SQ SCH ×7 (00:22→23:55)
[2020-04-26 04:28] LABS: Glucose,Whole Blood 199 mg/dL (75-99)
[2020-04-26 04:44] LABS: INR 1.3 (<1.2); Prothrombin Time 12.9 sec (9.0-12.0)
[2020-04-26] MEDS: SODIUM CHLORIDE 0.9% 50 ML with VASOPRESSIN 20 UNIT IVPB SCH ×4 (06:19→16:35)
[2020-04-26] MEDS: SODIUM CHLORIDE 0.9% 1,000 ML IV SCH ×2 (06:49→15:48)
--- NOTE | 2020-04-26 07:58 | XR ---
EXAMINATION TYPE: XR chest 1V portable DATE OF EXAM: 04/26/2020 CLINICAL HISTORY: Pneumonia. ICU management. TECHNIQUE: Semiupright portable view of the chest COMPARISON: 04/25/2020 chest radiograph FINDINGS: Low lung volumes. Left-sided internal jugular central venous catheter distal tip over the c avoatrial junction. Cardiomegaly. Pulmonary vascular congestion redemonstrated. Small bilateral pleur al effusions and bibasilar airspace opacities. No pneumothorax. IMPRESSION: Cardiomegaly, pulmonary vascular congestion, and small bilateral pleural effusions.
[2020-04-26] MEDS ORDERED: VANCOMYCIN 2,500 MG in SODIUM CHLORIDE 0.9% 500 ML 500 ML IVPB ONE (08:00)
[2020-04-26 08:22] LABS: Anisocytosis Slight; HGB 7.9 gm/dL (11.4-16.0); Hypochromasia Slight; MCH 30.3 pg (25.0-35.0); MCHC 31.5 g/dL (31.0-37.0); MCV 96.2 fL (80.0-100.0); Mean Platelet Volume 11.5; Platelet Count 138 k/uL (150-450); RDW 16.5 % (11.5-15.5); WBC 18.3 k/uL (3.8-10.6)
[2020-04-26 08:35] LABS: Albumin 2.3 g/dL (3.5-5.0); Calcium 8.1 mg/dL (8.4-10.2); Potassium 5.8 mmol/L (3.5-5.1); Total Protein 5.4 g/dL (6.3-8.2)
[2020-04-26] MEDS: EPINEPHrine 4 MG in DEXTROSE 5% IN WATER 250 ML IV SCH ×12 (08:56→23:10)
[2020-04-26 09:08] LABS: Glucose,Whole Blood 194 mg/dL (75-99)
[2020-04-26] MEDS: PANTOPRAZOLE 40 MG/10 ML VIAL IVP SCH ×2 (09:10→20:12)
[2020-04-26] MEDS: PIPERACILLIN-TAZOBACTAM 3.375 GM in SODIUM CHLORIDE 0.9% 100 ML IVPB SCH ×2 (09:10→20:10)
[2020-04-26] MEDS: LACTULOSE 20 GM/30 ML CUP PO SCH ×2 (09:10→20:06)
[2020-04-26] MEDS ORDERED: FUROSEMIDE 10 MG/ML 10 ML VIAL IV STA (09:24)
[2020-04-26] MEDS ORDERED: SODIUM BICARB 8.4% 50 ML SYR (1 MEQ/ML) IV STA ×2 (09:27→15:43)
[2020-04-26] MEDS ORDERED: INSULIN REGULAR 100 UNIT/ML VIAL IV ONE ×2 (09:28→15:37)
[2020-04-26] MEDS ORDERED: DEXTROSE 50% SYRINGE 50 ML IVP STA (09:28)
--- NOTE | 2020-04-26 09:34 | P.PN ---
Subjective HISTORY OF PRESENTING ILLNESS This is a pleasant 60-year-old female past medical history significant for diabetes mellitus, COPD, hypertension, dyslipidemia, hepatitis, chronic kidney disease and morbid obesity. She denies prior history of coronary artery disease and does not follow with a rigger for any reason. She is seen and examined sitting up sleeping comfortably in bed. She is arousable but more lethargic today. She states she is having intermittent stabbing pain in he chest that is reproducible on palpation. She denies shortness of breath, dizziness or palpitations. Blood pressure has remained low all night, current reading on art line 65/35, cuff pressure 81/42. Doubt accuracy of the arterial line pressure. CVP is 11. Heart rates 115-120 and regular. Laboratory data reviewed, WBC 18.3, hemoglobin 7.9, INR 1.3, sodium 118, potassium 5.8, creatinine 3.13 and ammonia 109. Echocardiogram revealed preserved LV systolic function with ejection fraction 60-65%, mild aortic stenosis with a mean gradient of 15 mmHg and a gradient across the mitral valve of 9 mmHg, tricuspid valve not well visualized and unable to estimate RVSP. Chest x-ray this morning reveals pulmonary vascular congestion with small bilateral pleural effusions. She continues to be on vasopressin and norepinephrine for blood pressure support. She is also receiving IV fluids and IV antibiotics. She has a positive fluid balance of over 4K. PHYSICAL EXAMINATION CONSTITUTIONAL: No apparent distress. Morbidly obese. HEENT: Head is normocephalic. Pupils are equal, round. Sclerae anicteric. Mucous membranes of the mouth are moist. No JVD. No carotid bruit. CHEST EXAMINATION: Lungs are clear to auscultation. No chest wall tenderness is noted on palpation or with deep breathing. Diminished bilaterally. HEART EXAMINATION: Regular rate and rhythm. S1, S2 heard. No murmurs, gallops or rub. Distant heart sounds. EXTREMITIES: 2+ peripheral pulses, no lower extremity edema and no calf tenderness. ASSESSMENT Troponin elevation secondary to supply demand mismatch, no acute coronary syndrome Acute anemia secondary to GI bleeding. Hypoglycemia Hyponatremia Hypotension Acute on chronic kidney disease Hepatitis C Diabetes mellitus COPD History of hypertension COPD Dyslipidemia PLAN Recommend decreasing her fluid intake and possibly a dose of diuretic. We will defer to nephrology for specific orders given her significant electrolyte imbalance and renal impairment. Consider replacing her arterial line. Nurse Practitioner note has been reviewed, I agree with a documented findings and plan of care. Patient was seen and examined. Objective - Vital Signs Vital signs: Vital Signs Temp 98.2 F 04/26/20 08:00 Pulse 116 H 04/26/20 09:00 Resp 9 L 04/26/20 09:00 BP 81/42 04/26/20 09:00 Pulse Ox 99 04/26/20 09:00 Intake & Output 04/25/20 04/26/20 04/26/20 18:59 06:59 18:59 Intake Total 3540.505 1598.048 155 Output Total 395 355 45 Balance 3145.505 1243.048 110 Weight 172 kg Intake: IV 3350 1530 130 Piperacillin-Tazobactam 3 100 .375 gm In Sodium Chloride 0.9% 100 ml @ 25 mls/hr IVPB Q12HR [facility] Rx #:[id number] Sodium Chloride 0.9% 1, 1300 1430 130 000 ml @ 130 mls/hr IV . Q7H42M [facility] Rx#:[id number] Sodium Chloride 0.9% 1, 2000 000 ml @ 999 mls/hr IV . Q1H1M ONE Rx#:[id number] Sodium Chloride 3%( 50 Hypertonic) 500 ml @ 25 mls/hr IV .Q20H [facility] Rx#: [id number] Intake, IV Titration 190.505 68.048 25 Amount Norepinephrine 32 mg In 190.505 68.048 Sodium Chloride 0.9% 218 ml @ 0.05 MCG/KG/MIN 3. 984 mls/hr IV .Q24H [facility] Rx#:[id number] Sodium Chloride 3%( 25 Hypertonic) 500 ml @ 25 mls/hr IV .Q20H [facility] Rx#: [id number] Output: Urine 395 355 45 Other: Voiding Method Indwelling Catheter Indwelling Catheter Indwelling Catheter ABP, PAP, CO, CI - Last Documented Arterial Blood Pressure 70/37 - Labs CBC & Chem 7: 04/26/20 04:25 04/26/20 04:25 Labs: Abnormal Lab Results - Last 24 Hours (Table) 04/25/20 04/25/20 04/25/20 Range/Units 09:30 09:30 15:13 WBC (3.8-10.6) k/uL RBC (3.80-5.40) m/uL Hgb (11.4-16.0) gm/dL Hct (34.0-46.0) % RDW (11.5-15.5) % Plt Count (150-450) k/uL PT (9.0-12.0) sec INR (<1.2) Sodium 114 L* 115 L* (137-145) mmol/L Potassium 5.5 H (3.5-5.1) mmol/L Chloride 88 L (98-107) mmol/L Carbon Dioxide 19 L (22-30) mmol/L BUN 105 H* (7-17) mg/dL Creatinine 3.08 H (0.52-1.04) mg/dL Glucose 122 H (74-99) mg/dL POC Glucose (mg/dL) (75-99) mg/dL Osmolality 279 L (280-301) mosm/kg Calcium 7.7 L (8.4-10.2) mg/dL AST (14-36) U/L Ammonia (<30) umol/L Total Protein (6.3-8.2) g/dL Albumin (3.5-5.0) g/dL 04/25/20 04/25/20 04/25/20 Range/Units 16:23 18:50 19:37 WBC (3.8-10.6) k/uL RBC (3.80-5.40) m/uL Hgb (11.4-16.0) gm/dL Hct (34.0-46.0) % RDW (11.5-15.5) % Plt Count (150-450) k/uL PT (9.0-12.0) sec INR (<1.2) Sodium 114 L* (137-145) mmol/L Potassium (3.5-5.1) mmol/L Chloride (98-107) mmol/L Carbon Dioxide (22-30) mmol/L BUN (7-17) mg/dL Creatinine (0.52-1.04) mg/dL Glucose (74-99) mg/dL POC Glucose (mg/dL) 109 H 145 H (75-99) mg/dL Osmolality (280-301) mosm/kg Calcium (8.4-10.2) mg/dL AST (14-36) U/L Ammonia (<30) umol/L Total Protein (6.3-8.2) g/dL Albumin (3.5-5.0) g/dL 04/26/20 04/26/20 04/26/20 Range/Units 00:09 00:15 04:25 WBC (3.8-10.6) k/uL RBC (3.80-5.40) m/uL Hgb (11.4-16.0) gm/dL Hct (34.0-46.0) % RDW (11.5-15.5) % Plt Count (150-450) k/uL PT 12.9 H (9.0-12.0) sec INR 1.3 H (<1.2) Sodium 116 L* (137-145) mmol/L Potassium (3.5-5.1) mmol/L Chloride (98-107) mmol/L Carbon Dioxide (22-30) mmol/L BUN (7-17) mg/dL Creatinine (0.52-1.04) mg/dL Glucose (74-99) mg/dL POC Glucose (mg/dL) 170 H (75-99) mg/dL Osmolality (280-301) mosm/kg Calcium (8.4-10.2) mg/dL AST (14-36) U/L Ammonia (<30) umol/L Total Protein (6.3-8.2) g/dL Albumin (3.5-5.0) g/dL 04/26/20 04/26/20 04/26/20 Range/Units 04:25 04:25 04:25 WBC 18.3 H (3.8-10.6) k/uL RBC 2.60 L (3.80-5.40) m/uL Hgb 7.9 L (11.4-16.0) gm/dL Hct 25.0 L (34.0-46.0) % RDW 16.5 H (11.5-15.5) % Plt Count 138 L (150-450) k/uL PT (9.0-12.0) sec INR (<1.2) Sodium 118 L* (137-145) mmol/L Potassium 5.8 H (3.5-5.1) mmol/L Chloride 92 L (98-107) mmol/L Carbon Dioxide 16 L (22-30) mmol/L BUN 106 H* (7-17) mg/dL Creatinine 3.13 H (0.52-1.04) mg/dL Glucose 171 H (74-99) mg/dL POC Glucose (mg/dL) (75-99) mg/dL Osmolality (280-301) mosm/kg Calcium 8.1 L (8.4-10.2) mg/dL AST 47 H (14-36) U/L Ammonia 109 H (<30) umol/L Total Protein 5.4 L (6.3-8.2) g/dL Albumin 2.3 L (3.5-5.0) g/dL 04/26/20 04/26/20 Range/Units 04:27 09:06 WBC (3.8-10.6) k/uL RBC (3.80-5.40) m/uL Hgb (11.4-16.0) gm/dL Hct (34.0-46.0) % RDW (11.5-15.5) % Plt Count (150-450) k/uL PT (9.0-12.0) sec INR (<1.2) Sodium (137-145) mmol/L Potassium (3.5-5.1) mmol/L Chloride (98-107) mmol/L Carbon Dioxide (22-30) mmol/L BUN (7-17) mg/dL Creatinine (0.52-1.04) mg/dL Glucose (74-99) mg/dL POC Glucose (mg/dL) 199 H 194 H (75-99) mg/dL Osmolality (280-301) mosm/kg Calcium (8.4-10.2) mg/dL AST (14-36) U/L Ammonia (<30) umol/L Total Protein (6.3-8.2) g/dL Albumin (3.5-5.0) g/dL
--- NOTE | 2020-04-26 09:45 | P.CONS ---
History of Present Illness - Reason for Consult Consult date: 04/25/20 Anemia Requesting physician: Tom Lucas - Chief Complaint Weakness and low blood sugars - History of Present Illness 64-year-old female with a medical history significant for hepatitis C currently receiving antiviral therapy, dyslipidemia, chronic thrombocytopenia, GERD, obesity, COPD, chronic kidney disease and diabetes mellitus who presented to the hospital due to weakness and recurrent episodes of low blood sugars. The patient reported weakness, tiredness and fatigue. She had been having episodes of hypoglycemia at home. Patient was found to have acute worsening of creatinine on presentation with hyponatremia, hypotension and concerns for possible sepsis. Patient also had an acute fall in her hemoglobin found to be 6.1 on presentation currently 8.3 after transfusion of PRBCs. Patient had stool testing which was positive for occult blood. She denies any gross bleeding either in vomitus or per rectum but had been noting intermittent episodes of maroon-colored stool over the past few months. She denies any history of peptic ulcer disease. She denies any NSAID use, abdominal pain or prior upper endoscopies. She believes her last colonoscopy was approximately 5 years ago. She is seen in the GI clinic for hepatitis C and is receiving antiviral therapy for which she is completed approximately 2 months of therapy. Currently she is in the ICU requiring vasopressor support and broad-spectrum antibiotic therapy. Review of Systems REVIEW OF SYSTEMS: CONSTITUTIONAL: Denies any weight change but does report fatigue and weakness. CARDIOVASCULAR: Denies any chest pain, palpitations high or low blood pressures RESPIRATORY: Denies any shortness of breath, hemoptysis or cough. GENITOURINARY: No dysuria or hematuria. MUSCULOSKELETAL: No focal weakness reported. SKIN: Denies any new rashes or lesions, jaundice or pallor. PSYCHIATRIC: Denies any depression or anxiety. NEUROLOGY: Denies headache, denies any new focal deficits. EARS/NOSE/THROAT: No recent hearing change, congestion, nasal discharge or sore throat. EYES: No pain in eyes, discharge or change in vision. GASTROINTESTINAL: As per HPI. Past Medical History Past Medical History: COPD, Diabetes Mellitus, Hyperlipidemia, Hypertension, Renal Disease Additional Past Medical History / Comment(s): Obesity, hypertension, chronic st age III kidney disease, diabetes mellitus, hepatitis C currently on treatment, hyperlipidemia, History of Any Multi-Drug Resistant Organisms: None Reported Past Surgical History: Section Additional Past Surgical History / Comment(s): cataracts removed Past Psychological History: No Psychological Hx Reported Smoking Status: Never smoker Past Alcohol Use History: None Reported Past Drug Use History: None Reported - Past Family History Mother Family Medical History: Congestive Heart Failure (CHF), Hypertension Medications and Allergies Home Medications Medication Instructions Recorded Confirmed Type Losartan [Cozaar] 50 mg PO DAILY 09/18/18 04/24/20 History Simvastatin [Zocor] 20 mg PO HS 09/18/18 04/24/20 History Amitriptyline HCl [Elavil] 25 mg PO HS #30 tab 12/08/18 04/24/20 Rx allopurinoL [Zyloprim] 100 mg PO BID #60 tab 12/08/18 04/24/20 Rx glipiZIDE [Glucotrol] 10 mg PO AC-BID #60 tab 12/08/18 04/24/20 Rx metFORMIN HCL [Glucophage] 500 mg PO BID-W/MEALS #60 tab 12/08/18 04/24/20 Rx Albuterol Inhaler [Ventolin Hfa 1 - 2 puff INHALATION RT-QID PRN 04/24/20 04/24/20 History Inhaler] Aspirin EC [Ecotrin Low Dose] 81 mg PO DAILY 04/24/20 04/24/20 History Ergocalciferol [Vitamin D2] 50,000 unit PO Q30D 04/24/20 04/24/20 History Fluticasone Propion/Salmeterol 2 puff INHALATION RT-BID 04/24/20 04/24/20 History [Wixela 250-50 Inhub] Furosemide [Lasix] 80 mg PO DAILY 04/24/20 04/24/20 History Hydrocortisone Cream 1 applic TOPICAL QID PRN 04/24/20 04/24/20 History [Hydrocortisone 2.5% Cream] Nystatin 1 applic TOPICAL QID PRN 04/24/20 04/24/20 History Oxybutynin Chloride [Oxybutynin 15 mg PO DAILY 04/24/20 04/24/20 History Chloride ER] Pregabalin [Lyrica] 100 mg PO BID 04/24/20 04/24/20 History Sofosbuvir/Velpatasvir [Epclusa 1 tab PO DAILY 04/24/20 04/24/20 History 400 mg-100 mg Tablet] metOLazone [Zaroxolyn] 2.5 mg PO DAILY 04/24/20 04/24/20 History traZODone HCL [Desyrel] 100 - 200 mg PO HS 04/24/20 04/24/20 History Allergies Allergy/AdvReac Type Severity Reaction Status Date / Time No Known Allergies Allergy Verified 04/24/20 11:44 Physical Exam Vitals: Vital Signs Temp Pulse Resp BP Pulse Ox 04/25/20 11:00 123 H 10 L 87/45 99 04/25/20 10:45 122 H 11 L 81/43 99 04/25/20 10:30 118 H 10 L 80/39 99 04/25/20 10:15 121 H 10 L 84/45 99 04/25/20 10:00 122 H 4 L 82/48 99 04/25/20 09:45 120 H 6 L 83/53 99 04/25/20 09:30 115 H 15 88/46 99 04/25/20 09:15 117 H 5 L 93/55 98 04/25/20 09:00 114 H 6 L 67/41 98 04/25/20 08:45 120 H 11 L 99 04/25/20 08:30 129 H 35 H 85/43 98 04/25/20 08:15 123 H 6 L 96 04/25/20 08:00 97.2 F L 120 H 11 L 98 04/25/20 07:45 15 65/28 95 04/25/20 07:30 124 H 99 04/25/20 07:15 131 H 97/39 99 04/25/20 07:00 118 H 20 89/46 99 04/25/20 06:50 124 H 97/43 98 04/25/20 06:40 124 H 86/36 99 04/25/20 06:30 124 H 89/38 99 04/25/20 06:20 124 H 91/37 99 04/25/20 06:10 125 H 98/46 99 04/25/20 06:00 125 H 89/39 99 04/25/20 05:50 126 H 94/36 98 04/25/20 05:40 126 H 93/47 99 04/25/20 05:30 128 H 98/36 99 04/25/20 05:20 129 H 91/36 99 04/25/20 05:10 125 H 96/42 99 04/25/20 05:00 129 H 98/39 99 04/25/20 04:50 128 H 102/39 99 04/25/20 04:40 128 H 106/43 98 04/25/20 04:30 131 H 101/39 99 04/25/20 04:20 125 H 90/40 99 04/25/20 04:10 123 H 102/41 100 04/25/20 04:00 97.8 F 122 H 96/56 99 04/25/20 03:50 122 H 88/44 99 04/25/20 03:40 121 H 102/45 99 04/25/20 03:30 121 H 107/42 100 04/25/20 03:20 120 H 101/41 100 04/25/20 03:10 125 H 100/41 99 04/25/20 03:00 114 H 83/51 99 04/25/20 02:50 112 H 92/52 100 04/25/20 02:40 103 H 95/34 100 04/25/20 02:30 101 H 91/40 100 04/25/20 02:20 101 H 91/37 100 04/25/20 02:10 99 86/33 100 04/25/20 02:00 97.2 F L 93 75/35 100 04/25/20 01:50 93 74/30 100 04/25/20 01:40 87 69/30 100 04/25/20 01:30 86 75/28 100 04/25/20 01:20 90 74/31 100 04/25/20 01:10 88 78/21 100 04/25/20 01:00 96.3 F L 87 65/33 100 04/25/20 00:50 89 72/32 100 04/25/20 00:40 88 68/35 100 04/25/20 00:30 86 73/34 100 04/25/20 00:24 86 73/34 99 04/25/20 00:20 88 78/39 99 04/25/20 00:10 92 76/30 99 04/25/20 00:00 95.7 F L 90 82/36 100 04/24/20 23:50 92 87/42 97 04/24/20 23:40 101 H 14 80/39 91 L 04/24/20 23:30 95 11 L 90/34 93 L 04/24/20 23:20 97 11 L 90/33 91 L 04/24/20 23:10 106 H 13 101/35 91 L 04/24/20 23:00 95 F L 107 H 18 96/40 96 04/24/20 22:50 90 10 L 96 04/24/20 22:40 80 7 L 78/30 100 04/24/20 22:30 79 8 L 77/46 100 04/24/20 22:20 82 6 L 68/41 98 04/24/20 22:10 80 7 L 83/37 99 04/24/20 22:00 84 9 L 92/64 97 04/24/20 21:50 84 76/46 99 04/24/20 21:40 80 83/34 99 04/24/20 21:30 82 82/38 98 04/24/20 21:20 82 91/35 99 04/24/20 21:10 86 82/30 95 04/24/20 21:00 86 93/45 93 L 04/24/20 20:50 87 98/38 93 L 04/24/20 20:40 90 90/70 94 L 04/24/20 20:30 91 94/42 91 L 04/24/20 20:20 92 93/44 90 L 04/24/20 20:10 96 84/43 88 L 04/24/20 20:03 94.1 F L 85 12 78/43 94 L 04/24/20 20:00 93.9 F L 95 71/46 93 L 04/24/20 19:50 87 91/36 94 L 04/24/20 19:40 84 72/36 94 L 04/24/20 19:30 86 77/23 94 L 04/24/20 19:20 85 85/26 94 L 04/24/20 19:10 87 83/36 95 04/24/20 19:00 82 79/29 96 04/24/20 18:50 85 82/38 96 04/24/20 18:40 86 80/43 95 04/24/20 18:30 84 5 L 72/31 94 L 04/24/20 18:25 94.3 F L 85 15 80/43 94 L 04/24/20 18:20 86 8 L 73/33 96 04/24/20 18:10 82 10 L 73/35 89 L 04/24/20 18:00 94.3 F L 86 11 L 91/38 92 L 04/24/20 17:55 94.3 F L 84 14 82/30 94 L 04/24/20 17:50 92 8 L 59/40 90 L 04/24/20 17:45 94.3 F L 94 18 59/40 90 L 04/24/20 17:40 93 12 64/42 91 L 04/24/20 17:30 93 12 69/37 94 L 04/24/20 17:28 94.1 F L 92 18 70/37 94 L 04/24/20 17:20 92 17 61/48 91 L 04/24/20 17:10 93 10 L 72/38 92 L 04/24/20 17:00 96 13 94/40 92 L 04/24/20 16:50 92 9 L 80/52 94 L 04/24/20 16:44 94.1 F L 94 18 72/38 92 L 04/24/20 16:40 87 5 L 73/31 92 L 04/24/20 16:30 90 9 L 60/37 92 L 04/24/20 16:20 91 8 L 73/33 92 L 04/24/20 16:14 93.9 F L 92 24 74/33 04/24/20 16:10 92 9 L 70/35 94 L 04/24/20 16:04 93.9 F L 93 12 70/35 93 L 04/24/20 16:00 90 13 92 L 04/24/20 15:50 92 9 L 58/27 93 L 04/24/20 15:40 99 19 80/23 92 L 04/24/20 15:30 93.9 F L 98 13 81/62 92 L 04/24/20 15:20 93 11 L 81/62 79 L 04/24/20 15:12 97 18 96 Intake and Output 04/24/20 04/25/20 04/25/20 22:59 06:59 14:59 Intake Total 1670 058.197 0623.514 Output Total 725 220 40 Balance 945 632.187 0631.514 Intake: IV 293 351 9771 Dextrose 5%-0.9% NaCl 1, 75 000 ml @ 75 mls/hr IV . [id number] [facility] Rx#:[id number] Sodium Chloride 0.9% 1, 260 000 ml @ 130 mls/hr IV . Q7H42M [facility] Rx#:[id number] Sodium Chloride 0.9% 1, 2000 000 ml @ 999 mls/hr IV . Q1H1M [facility] Rx#:[id number] Sodium Chloride 3%( 25 200 50 Hypertonic) 500 ml @ 25 mls/hr IV .Q20H [facility] Rx#: [id number] Intake, IV Titration 300 254.000 35.514 Amount Dextrose 5%-0.9% NaCl 1, 300 000 ml @ 75 mls/hr IV . [id number] [facility] Rx#:[id number] Norepinephrine 32 mg In 35.514 Sodium Chloride 0.9% 218 ml @ 0.05 MCG/KG/MIN 3. 984 mls/hr IV .Q24H [facility] Rx#:[id number] Norepinephrine 4 mg In 254.000 Sodium Chloride 0.9% 250 ml @ 0.05 MCG/KG/MIN 31. 539 mls/hr IV .Q8H4M [facility] Rx#:[id number] Blood Product 1270 Rc As-1 Unit 310 [id number] Rc Pheresis As-3 Unit 310 [id number] Output: Urine 725 220 40 Other: Voiding Method Indwelling Catheter Indwelling Catheter Indwelling Catheter Weight 170 kg ABP, PAP, CO, CI - Last 8 Hours Arterial Blood Pressure 63/24 Arterial Blood Pressure 67/25 Arterial Blood Pressure 64/23 Arterial Blood Pressure 62/23 Arterial Blood Pressure 58/25 Arterial Blood Pressure 63/22 Arterial Blood Pressure 58/21 Arterial Blood Pressure 68/22 Arterial Blood Pressure 63/21 Arterial Blood Pressure 53/19 Arterial Blood Pressure 52/28 Arterial Blood Pressure 65/22 Arterial Blood Pressure 70/22 Arterial Blood Pressure 74/33 Arterial Blood Pressure 72/29 Arterial Blood Pressure 74/30 Arterial Blood Pressure 67/24 On physical examination, patient appears comfortable in no apparent distress. HEAD: Normocephalic, atraumatic. EYES: No scleral icterus. No conjunctival injection. MOUTH: No lesions, tongue midline. NECK: Trachea midline, no gross abnormalities. CHEST: Decreased air entry in all lung fregoso. HEART: S1S2 appreciated. ABDOMEN: Soft, obese. Bowel sounds are positive. No organomegaly. No guarding or rigidity. EXTREMITIES: No pedal edema. SKIN: No rashes, no jaundice. NEUROLOGIC: Alert and oriented. No focal deficits. Results CBC & Chem 7: 04/26/20 04:25 04/26/20 04:25 Labs: Abnormal Lab Results - Last 24 Hours (Table) 04/24/20 04/24/20 04/24/20 Range/Units 13:17 14:43 14:43 WBC (3.8-10.6) k/uL RBC (3.80-5.40) m/uL Hgb (11.4-16.0) gm/dL Hct (34.0-46.0) % MCV (80.0-100.0) fL MCHC (31.0-37.0) g/dL RDW (11.5-15.5) % Plt Count (150-450) k/uL Macrocytosis ABG pH (7.35-7.45) ABG pCO2 (35-45) mmHg ABG pO2 (83-108) mmHg ABG O2 Saturation (94-97) % Sodium (137-145) mmol/L Potassium (3.5-5.1) mmol/L Chloride (98-107) mmol/L Carbon Dioxide (22-30) mmol/L BUN (7-17) mg/dL Creatinine (0.52-1.04) mg/dL POC Glucose (mg/dL) (75-99) mg/dL Osmolality (280-301) mosm/kg Plasma Lactic Acid Raymundo 2.3 H* (0.7-2.0) mmol/L Calcium (8.4-10.2) mg/dL Total Bilirubin (0.2-1.3) mg/dL AST (14-36) U/L Alkaline Phosphatase (38-126) U/L Troponin I 0.468 H* (0.000-0.034) ng/mL Total Protein (6.3-8.2) g/dL Albumin (3.5-5.0) g/dL Crossmatch See Detail 04/24/20 04/24/20 04/24/20 Range/Units 15:17 15:33 18:36 WBC (3.8-10.6) k/uL RBC (3.80-5.40) m/uL Hgb (11.4-16.0) gm/dL Hct (34.0-46.0) % MCV (80.0-100.0) fL MCHC (31.0-37.0) g/dL RDW (11.5-15.5) % Plt Count (150-450) k/uL Macrocytosis ABG pH (7.35-7.45) ABG pCO2 (35-45) mmHg ABG pO2 (83-108) mmHg ABG O2 Saturation (94-97) % Sodium 109 L* (137-145) mmol/L Potassium (3.5-5.1) mmol/L Chloride 80 L (98-107) mmol/L Carbon Dioxide 20 L (22-30) mmol/L BUN 114 H* (7-17) mg/dL Creatinine 3.03 H (0.52-1.04) mg/dL POC Glucose (mg/dL) 58 L 124 H (75-99) mg/dL Osmolality (280-301) mosm/kg Plasma Lactic Acid Raymundo (0.7-2.0) mmol/L Calcium 7.6 L (8.4-10.2) mg/dL Total Bilirubin (0.2-1.3) mg/dL AST (14-36) U/L Alkaline Phosphatase (38-126) U/L Troponin I (0.000-0.034) ng/mL Total Protein (6.3-8.2) g/dL Albumin (3.5-5.0) g/dL Crossmatch 04/24/20 04/24/20 04/24/20 Range/Units 18:40 23:30 23:30 WBC (3.8-10.6) k/uL RBC 2.54 L (3.80-5.40) m/uL Hgb 7.6 L D (11.4-16.0) gm/dL Hct 23.5 L (34.0-46.0) % MCV (80.0-100.0) fL MCHC (31.0-37.0) g/dL RDW 16.4 H (11.5-15.5) % Plt Count 87 L (150-450) k/uL Macrocytosis ABG pH (7.35-7.45) ABG pCO2 (35-45) mmHg ABG pO2 (83-108) mmHg ABG O2 Saturation (94-97) % Sodium (137-145) mmol/L Potassium (3.5-5.1) mmol/L Chloride (98-107) mmol/L Carbon Dioxide (22-30) mmol/L BUN (7-17) mg/dL Creatinine (0.52-1.04) mg/dL POC Glucose (mg/dL) 138 H (75-99) mg/dL Osmolality (280-301) mosm/kg Plasma Lactic Acid Raymundo (0.7-2.0) mmol/L Calcium (8.4-10.2) mg/dL Total Bilirubin (0.2-1.3) mg/dL AST (14-36) U/L Alkaline Phosphatase (38-126) U/L Troponin I 0.400 H* (0.000-0.034) ng/mL Total Protein (6.3-8.2) g/dL Albumin (3.5-5.0) g/dL Crossmatch 04/24/20 04/25/20 04/25/20 Range/Units 23:30 00:32 01:13 WBC (3.8-10.6) k/uL RBC (3.80-5.40) m/uL Hgb (11.4-16.0) gm/dL Hct (34.0-46.0) % MCV (80.0-100.0) fL MCHC (31.0-37.0) g/dL RDW (11.5-15.5) % Plt Count (150-450) k/uL Macrocytosis ABG pH (7.35-7.45) ABG pCO2 (35-45) mmHg ABG pO2 (83-108) mmHg ABG O2 Saturation (94-97) % Sodium 109 L* (137-145) mmol/L Potassium (3.5-5.1) mmol/L Chloride (98-107) mmol/L Carbon Dioxide (22-30) mmol/L BUN (7-17) mg/dL Creatinine (0.52-1.04) mg/dL POC Glucose (mg/dL) 67 L >600 H (75-99) mg/dL Osmolality (280-301) mosm/kg Plasma Lactic Acid Raymundo (0.7-2.0) mmol/L Calcium (8.4-10.2) mg/dL Total Bilirubin (0.2-1.3) mg/dL AST (14-36) U/L Alkaline Phosphatase (38-126) U/L Troponin I (0.000-0.034) ng/mL Total Protein (6.3-8.2) g/dL Albumin (3.5-5.0) g/dL Crossmatch 04/25/20 04/25/20 04/25/20 Range/Units 01:17 01:20 03:13 WBC (3.8-10.6) k/uL RBC 2.16 L (3.80-5.40) m/uL Hgb 6.7 L* (11.4-16.0) gm/dL Hct 23.2 L (34.0-46.0) % MCV 107.3 H D (80.0-100.0) fL MCHC 29.0 L (31.0-37.0) g/dL RDW 16.6 H (11.5-15.5) % Plt Count 78 L (150-450) k/uL Macrocytosis Marked A ABG pH (7.35-7.45) ABG pCO2 (35-45) mmHg ABG pO2 (83-108) mmHg ABG O2 Saturation (94-97) % Sodium 111 L* (137-145) mmol/L Potassium 5.2 H (3.5-5.1) mmol/L Chloride 80 L (98-107) mmol/L Carbon Dioxide (22-30) mmol/L BUN 112 H* (7-17) mg/dL Creatinine 3.19 H (0.52-1.04) mg/dL POC Glucose (mg/dL) 116 H (75-99) mg/dL Osmolality (280-301) mosm/kg Plasma Lactic Acid Raymundo (0.7-2.0) mmol/L Calcium 7.6 L (8.4-10.2) mg/dL Total Bilirubin 1.8 H (0.2-1.3) mg/dL AST 54 H (14-36) U/L Alkaline Phosphatase 129 H (38-126) U/L Troponin I (0.000-0.034) ng/mL Total Protein 5.3 L (6.3-8.2) g/dL Albumin 2.3 L (3.5-5.0) g/dL Crossmatch 04/25/20 04/25/20 04/25/20 Range/Units 03:13 05:23 05:23 WBC 13.0 H (3.8-10.6) k/uL RBC 2.49 L 2.64 L (3.80-5.40) m/uL Hgb 8.0 L 8.3 L (11.4-16.0) gm/dL Hct 23.6 L 24.9 L (34.0-46.0) % MCV (80.0-100.0) fL MCHC (31.0-37.0) g/dL RDW 16.3 H 16.2 H (11.5-15.5) % Plt Count 102 L 118 L (150-450) k/uL Macrocytosis ABG pH (7.35-7.45) ABG pCO2 (35-45) mmHg ABG pO2 (83-108) mmHg ABG O2 Saturation (94-97) % Sodium 111 L* (137-145) mmol/L Potassium (3.5-5.1) mmol/L Chloride (98-107) mmol/L Carbon Dioxide (22-30) mmol/L BUN (7-17) mg/dL Creatinine (0.52-1.04) mg/dL POC Glucose (mg/dL) (75-99) mg/dL Osmolality (280-301) mosm/kg Plasma Lactic Acid Raymundo (0.7-2.0) mmol/L Calcium (8.4-10.2) mg/dL Total Bilirubin (0.2-1.3) mg/dL AST (14-36) U/L Alkaline Phosphatase (38-126) U/L Troponin I (0.000-0.034) ng/mL Total Protein (6.3-8.2) g/dL Albumin (3.5-5.0) g/dL Crossmatch 04/25/20 04/25/20 04/25/20 Range/Units 06:20 09:05 09:30 WBC (3.8-10.6) k/uL RBC (3.80-5.40) m/uL Hgb (11.4-16.0) gm/dL Hct (34.0-46.0) % MCV (80.0-100.0) fL MCHC (31.0-37.0) g/dL RDW (11.5-15.5) % Plt Count (150-450) k/uL Macrocytosis ABG pH 7.26 L (7.35-7.45) ABG pCO2 49 H (35-45) mmHg ABG pO2 131 H (83-108) mmHg ABG O2 Saturation 99.5 H (94-97) % Sodium 114 L* (137-145) mmol/L Potassium (3.5-5.1) mmol/L Chloride (98-107) mmol/L Carbon Dioxide (22-30) mmol/L BUN (7-17) mg/dL Creatinine (0.52-1.04) mg/dL POC Glucose (mg/dL) 74 L (75-99) mg/dL Osmolality (280-301) mosm/kg Plasma Lactic Acid Raymundo (0.7-2.0) mmol/L Calcium (8.4-10.2) mg/dL Total Bilirubin (0.2-1.3) mg/dL AST (14-36) U/L Alkaline Phosphatase (38-126) U/L Troponin I (0.000-0.034) ng/mL Total Protein (6.3-8.2) g/dL Albumin (3.5-5.0) g/dL Crossmatch 04/25/20 Range/Units 09:30 WBC (3.8-10.6) k/uL RBC (3.80-5.40) m/uL Hgb (11.4-16.0) gm/dL Hct (34.0-46.0) % MCV (80.0-100.0) fL MCHC (31.0-37.0) g/dL RDW (11.5-15.5) % Plt Count (150-450) k/uL Macrocytosis ABG pH (7.35-7.45) ABG pCO2 (35-45) mmHg ABG pO2 (83-108) mmHg ABG O2 Saturation (94-97) % Sodium (137-145) mmol/L Potassium (3.5-5.1) mmol/L Chloride (98-107) mmol/L Carbon Dioxide (22-30) mmol/L BUN (7-17) mg/dL Creatinine (0.52-1.04) mg/dL POC Glucose (mg/dL) (75-99) mg/dL Osmolality 279 L (280-301) mosm/kg Plasma Lactic Acid Raymundo (0.7-2.0) mmol/L Calcium (8.4-10.2) mg/dL Total Bilirubin (0.2-1.3) mg/dL AST (14-36) U/L Alkaline Phosphatase (38-126) U/L Troponin I (0.000-0.034) ng/mL Total Protein (6.3-8.2) g/dL Albumin (3.5-5.0) g/dL Crossmatch US - abdomen: report reviewed (Splenomegaly and limited exam on US due to body habitus) Assessment and Plan (1) Anemia, normocytic normochromic Narrative/Plan: 60-year-old female with multiple medical comorbidities who presented to the hospital due to weakness and low blood sugars. Patient found to be hyponatremic, hypochloremic with elevated creatinine from baseline currently being treated for the stated as well as possible sepsis. She is being managed in ICU. No signs or symptoms of GI bleeding since presentation. She denies any history of peptic ulcer disease, excessive NSAID use, abdominal pain, prior EGD with last colonoscopy approximately 5 years ago. She had been noting intermittent blood in stools over the past few months. She was found to be anemic on presentation with a hemoglobin of 6.7 with normochromic, normocytic indices. Stool testing was positive for blood. Hemoglobin currently stable status post transfusion. Patient has a known history of hepatitis C currently receiving treatment. Unclear cause of anemia but likely multifactorial given chronic kidney disease/anemia of chronic disease, cannot rule out a component of acute GI bleed given symptoms of maroon-colored stool and positive testing for occult blood with differential including peptic ulcer disease, portal hypertensive gastropathy, AVM or other etiology. Current Visit: Yes Status: Acute Code(s): D64.9 - ANEMIA, UNSPECIFIED SNOMED Code(s): 42310296 (2) Hypochloremia Current Visit: Yes Status: Acute Code(s): E87.8 - OTH DISORDERS OF ELECTROLYTE AND FLUID BALANCE, NEC SNOMED Code(s): 60604342 (3) Hyponatremia Current Visit: Yes Status: Acute Code(s): E87.1 - HYPO-OSMOLALITY AND HYPONATREMIA SNOMED Code(s): 83710275 Plan: Supportive care Okay for diet as tolerated Continue Protonix therapy Continue to monitor hemoglobin and hematocrit and transfuse as needed Continue broad-spectrum antibiotic therapy Nephrology service following for acute kidney injury as well as hypo-natremia and hypokalemia ICU management by the cardroom attendant service Anemia laboratory investigation ordered Continue to monitor for signs or symptoms of GI bleed Patient high risk for endoscopic evaluation at this time given multiple electrolyte dyscrasias, hypotension and overall clinical status, will consider e valuation when medically stable or if precipitous drop in hemoglobin Thank you for allowing us to participate in the care of the patient
[2020-04-26] MEDS: DEXTROSE 5% IN WATER 1,000 ML with SODIUM BICARB (1 MEQ/ML) 150 ML IV ONE (09:52)
--- NOTE | 2020-04-26 10:13 | P.PN ---
Subjective patient is seen in follow-up for acute kidney injury and hyponatremia. Sodium level up to 118 this morning. Urine output 30-50 mL an hour. Currently maintained on normal saline at 50 mL an hour. potassium level 5.8 and also acidotic with bicarbonate level of 16. she remains on high-dose Levophed and vasopressin. Epinephrine was added this morning. patient is currently sleeping. Vital sign: blood pressure low.on multiple vasopressors. General: The patient appeared well nourished and normally developed. HEENT: Head exam is unremarkable. Neck is without jugular venous distension. LUNGS: Breath sounds decreased. HEART: tachycardic. ABDOMEN: soft, nontender. Obese. EXTREMITITES: 1+ edema. Objective - Vital Signs Vital signs: Vital Signs Temp 98.2 F 04/26/20 08:00 Pulse 116 H 04/26/20 09:00 Resp 9 L 04/26/20 09:00 BP 81/42 04/26/20 09:00 Pulse Ox 99 04/26/20 09:00 Intake & Output 04/25/20 04/26/20 04/26/20 18:59 06:59 18:59 Intake Total 3540.505 1598.048 158.762 Output Total 395 355 45 Balance 3145.505 1243.048 113.762 Weight 172 kg Intake: IV 3350 1530 130 Piperacillin-Tazobactam 3 100 .375 gm In Sodium Chloride 0.9% 100 ml @ 25 mls/hr IVPB Q12HR [facility] Rx #:[id number] Sodium Chloride 0.9% 1, 1300 1430 130 000 ml @ 130 mls/hr IV . Q7H42M [facility] Rx#:[id number] Sodium Chloride 0.9% 1, 2000 000 ml @ 999 mls/hr IV . Q1H1M [facility] Rx#:[id number] Sodium Chloride 3%( 50 Hypertonic) 500 ml @ 25 mls/hr IV .Q20H [facility] Rx#: [id number] Intake, IV Titration 190.505 68.048 28.762 Amount EPINEPHrine 4 mg In 3.762 Dextrose 5% in Water 250 ml @ 0.01 MCG/KG/MIN 6.45 mls/hr IV .Q24H [facility] Rx#: [id number] Norepinephrine 32 mg In 190.505 68.048 Sodium Chloride 0.9% 218 ml @ 0.05 MCG/KG/MIN 3. 984 mls/hr IV .Q24H [facility] Rx#:[id number] Sodium Chloride 3%( 25 Hypertonic) 500 ml @ 25 mls/hr IV .Q20H [facility] Rx#: [id number] Output: Urine 395 355 45 Other: Voiding Method Indwelling Catheter Indwelling Catheter Indwelling Catheter ABP, PAP, CO, CI - Last Documented Arterial Blood Pressure 70/37 - Labs CBC & Chem 7: 04/26/20 04:25 04/26/20 04:25 Labs: Abnormal Lab Results - Last 24 Hours (Table) 04/25/20 04/25/20 04/25/20 Range/Units 09:30 09:30 15:13 WBC (3.8-10.6) k/uL RBC (3.80-5.40) m/uL Hgb (11.4-16.0) gm/dL Hct (34.0-46.0) % RDW (11.5-15.5) % Plt Count (150-450) k/uL PT (9.0-12.0) sec INR (<1.2) Sodium 114 L* 115 L* (137-145) mmol/L Potassium 5.5 H (3.5-5.1) mmol/L Chloride 88 L (98-107) mmol/L Carbon Dioxide 19 L (22-30) mmol/L BUN 105 H* (7-17) mg/dL Creatinine 3.08 H (0.52-1.04) mg/dL Glucose 122 H (74-99) mg/dL POC Glucose (mg/dL) (75-99) mg/dL Osmolality 279 L (280-301) mosm/kg Calcium 7.7 L (8.4-10.2) mg/dL AST (14-36) U/L Ammonia (<30) umol/L Total Protein (6.3-8.2) g/dL Albumin (3.5-5.0) g/dL 04/25/20 04/25/20 04/25/20 Range/Units 16:23 18:50 19:37 WBC (3.8-10.6) k/uL RBC (3.80-5.40) m/uL Hgb (11.4-16.0) gm/dL Hct (34.0-46.0) % RDW (11.5-15.5) % Plt Count (150-450) k/uL PT (9.0-12.0) sec INR (<1.2) Sodium 114 L* (137-145) mmol/L Potassium (3.5-5.1) mmol/L Chloride (98-107) mmol/L Carbon Dioxide (22-30) mmol/L BUN (7-17) mg/dL Creatinine (0.52-1.04) mg/dL Glucose (74-99) mg/dL POC Glucose (mg/dL) 109 H 145 H (75-99) mg/dL Osmolality (280-301) mosm/kg Calcium (8.4-10.2) mg/dL AST (14-36) U/L Ammonia (<30) umol/L Total Protein (6.3-8.2) g/dL Albumin (3.5-5.0) g/dL 04/26/20 04/26/20 04/26/20 Range/Units 00:09 00:15 04:25 WBC (3.8-10.6) k/uL RBC (3.80-5.40) m/uL Hgb (11.4-16.0) gm/dL Hct (34.0-46.0) % RDW (11.5-15.5) % Plt Count (150-450) k/uL PT 12.9 H (9.0-12.0) sec INR 1.3 H (<1.2) Sodium 116 L* (137-145) mmol/L Potassium (3.5-5.1) mmol/L Chloride (98-107) mmol/L Carbon Dioxide (22-30) mmol/L BUN (7-17) mg/dL Creatinine (0.52-1.04) mg/dL Glucose (74-99) mg/dL POC Glucose (mg/dL) 170 H (75-99) mg/dL Osmolality (280-301) mosm/kg Calcium (8.4-10.2) mg/dL AST (14-36) U/L Ammonia (<30) umol/L Total Protein (6.3-8.2) g/dL Albumin (3.5-5.0) g/dL 04/26/20 04/26/2020 Range/Units 04:25 04:25 04:25 WBC 18.3 H (3.8-10.6) k/uL RBC 2.60 L (3.80-5.40) m/uL Hgb 7.9 L (11.4-16.0) gm/dL Hct 25.0 L (34.0-46.0) % RDW 16.5 H (11.5-15.5) % Plt Count 138 L (150-450) k/uL PT (9.0-12.0) sec INR (<1.2) Sodium 118 L* (137-145) mmol/L Potassium 5.8 H (3.5-5.1) mmol/L Chloride 92 L (98-107) mmol/L Carbon Dioxide 16 L (22-30) mmol/L BUN 106 H* (7-17) mg/dL Creatinine 3.13 H (0.52-1.04) mg/dL Glucose 171 H (74-99) mg/dL POC Glucose (mg/dL) (75-99) mg/dL Osmolality (280-301) mosm/kg Calcium 8.1 L (8.4-10.2) mg/dL AST 47 H (14-36) U/L Ammonia 109 H (<30) umol/L Total Protein 5.4 L (6.3-8.2) g/dL Albumin 2.3 L (3.5-5.0) g/dL 04/26/20 04/26/20 Range/Units 04:27 09:06 WBC (3.8-10.6) k/uL RBC (3.80-5.40) m/uL Hgb (11.4-16.0) gm/dL Hct (34.0-46.0) % RDW (11.5-15.5) % Plt Count (150-450) k/uL PT (9.0-12.0) sec INR (<1.2) Sodium (137-145) mmol/L Potassium (3.5-5.1) mmol/L Chloride (98-107) mmol/L Carbon Dioxide (22-30) mmol/L BUN (7-17) mg/dL Creatinine (0.52-1.04) mg/dL Glucose (74-99) mg/dL POC Glucose (mg/dL) 199 H 194 H (75-99) mg/dL Osmolality (280-301) mosm/kg Calcium (8.4-10.2) mg/dL AST (14-36) U/L Ammonia (<30) umol/L Total Protein (6.3-8.2) g/dL Albumin (3.5-5.0) g/dL Assessment and Plan Plan: Assessment: 1. Acute kidney injury secondary to ATN secondary to septic shock. Creatinine 3.27 on admission and is 3.13 this morning. UA benign. no hydronephrosis noted on kidney ultrasound. Urine output 30-50 mL an hour. 2. Chronic kidney disease stage III. Patient's creatinine was near 1.8 in November 2018 and January 2020. 3. Hypovolemic hyponatremia initially, but now hypervolemic. TSH and cortisol level normal. urine sodium less than 10 and urine osmolality 304. 4. Septic shock maintained on Levophed and vasopressin. epinephrine added this morning. Maintained on antibiotics. Also on IV steroids. 5. GI bleed status post 2 units blood transfusion. Hemoglobin improved. 6. Diabetes mellitus. 7. Hyperkalemia secondary to acute kidney injury and metabolic acidosis. 8. Volume overload. Plan: Stop normal saline. Start isotonic bicarbonate drip to be run at 50 mL an hour. Lasix 80 mg IV once today. 10 units IV regular insulin with an amp of D50 now. 2 A of sodium bicarbonate IV push now. add oral sodium bicarb. Wean vasopressors. Avoid nephrotoxins. Continue to monitor renal function and urine output closely. hold 3% for now. Repeat labs pending. Continue to assess daily for need for renal replacement therapy.
[2020-04-26 11:32] LABS: ABG Base Excess -12.9 mmol/L; ABG HCO3 16 mmol/L (21-25); ABG Oxygen Saturation 98.1 % (94-97); ABG PCO2 50 mmHg (35-45); ABG PO2 104 mmHg (83-108); ABG TCO2 18 mmol/L (19-24)
--- NOTE | 2020-04-26 11:32 | P.PN ---
Subjective Progress Note Date: 04/26/20 Principal diagnosis: Weakness and low blood sugar This is a 64-year-old female with an extensive past medical history with multiple comorbidities. The patient presented to the emergency department due to weakness and recurrent episodes of low blood sugars. The patient was admi tted into the ICU, she is status post 1 unit of packed red blood cell transfusion. She had been having intermittent episodes of maroon colored stool over the past few months. She has had no reported bowel movements or nausea or vomiting this admission. She is being followed by Nadeen Parrish for recent diagnosis of hepatitis C and is currently receiving antiviral therapy. The patient seen and examined. She is very drowsy and fatigued, but arousable. She states she does have some abdominal pain, however when palpating and abdomen the patient is falling asleep. She continues to require vasopressor support and broad-spectrum antibiotic therapy. Epinephrine was added this morning. Nephrology is following patient for acute kidney injury and hyponatremia. The patient has a Robison catheter placed with blood tinged urine. Objective - Vital Signs Vital signs: Vital Signs Temp 98.2 F 04/26/20 08:00 Pulse 129 H 04/26/20 10:30 Resp 11 L 04/26/20 10:30 BP 82/37 04/26/20 10:30 Pulse Ox 98 04/26/20 10:30 Intake & Output 04/25/20 04/26/20 04/26/20 18:59 06:59 18:59 Intake Total 3540.505 1598.048 987.219 Output Total 395 355 135 Balance 3145.505 1243.048 852.219 Weight 172 kg Intake: IV 3350 1530 280 Piperacillin-Tazobactam 3 100 100 .375 gm In Sodium Chloride 0.9% 100 ml @ 25 mls/hr IVPB Q12HR [facility] Rx #:[id number] Sodium Chloride 0.9% 1, 1300 1430 180 000 ml @ 50 mls/hr IV . Q20H [facility] Rx#:[id number] Sodium Chloride 0.9% 1, 2000 000 ml @ 999 mls/hr IV . Q1H1M [facility] Rx#:[id number] Sodium Chloride 3%( 50 Hypertonic) 500 ml @ 25 mls/hr IV .Q20H [facility] Rx#: [id number] Intake, IV Titration 190.505 68.048 707.219 Amount Dextrose 5% in Water 1, 100 000 ml @ 50 mls/hr IV . Q23H [facility] with Sodium Bicarb (1 Meq/ml) 150 ml Rx#:[id number] EPINEPHrine 4 mg In 6.772 Dextrose 5% in Water 250 ml @ 0.01 MCG/KG/MIN 6.45 mls/hr IV .Q24H [facility] Rx#: [id number] Norepinephrine 32 mg In 190.505 68.048 241.447 Sodium Chloride 0.9% 218 ml @ 0.05 MCG/KG/MIN 3. 984 mls/hr IV .Q24H [facility] Rx#:[id number] Sodium Chloride 3%( 25 Hypertonic) 500 ml @ 25 mls/hr IV .Q20H [facility] Rx#: [id number] Vancomycin 2,500 mg In 334 Sodium Chloride 0.9% 500 ml 500 ml @ 167 mls/hr IVPB ONCE [facility] Rx#: [id number] Output: Urine 395 355 135 Other: Voiding Method Indwelling Catheter Indwelling Catheter Indwelling Catheter ABP, PAP, CO, CI - Last Documented Arterial Blood Pressure 66/36 - Exam General appearance: The patient is droswy and asleep but arousable, oriented, in no acute distress. Morbidly obese HET: Head is normocephalic and atraumatic. Conjunctiva pink. Sclera and icteric. Neck: Supple without lymphadenopathy. Abdomen: Soft, obeses, nontender, nondistended with bowel sounds. No guarding or rigidity. Extremities: Normal skin color and turgor. No pedal edema Neurological: No focal deficits. Alert and oriented 3. - Labs CBC & Chem 7: 04/26/20 04:25 04/26/20 09:20 Labs: Abnormal Lab Results - Last 24 Hours (Table) 04/25/20 04/25/20 04/25/20 Range/Units 15:13 16:23 18:50 WBC (3.8-10.6) k/uL RBC (3.80-5.40) m/uL Hgb (11.4-16.0) gm/dL Hct (34.0-46.0) % RDW (11.5-15.5) % Plt Count (150-450) k/uL PT (9.0-12.0) sec INR (<1.2) Sodium 115 L* 114 L* (137-145) mmol/L Potassium 5.5 H (3.5-5.1) mmol/L Chloride 88 L (98-107) mmol/L Carbon Dioxide 19 L (22-30) mmol/L BUN 105 H* (7-17) mg/dL Creatinine 3.08 H (0.52-1.04) mg/dL Glucose 122 H (74-99) mg/dL POC Glucose (mg/dL) 109 H (75-99) mg/dL Calcium 7.7 L (8.4-10.2) mg/dL AST (14-36) U/L Ammonia (<30) umol/L Total Protein (6.3-8.2) g/dL Albumin (3.5-5.0) g/dL 04/25/20 04/26/20 04/26/20 Range/Units 19:37 00:09 00:15 WBC (3.8-10.6) k/uL RBC (3.80-5.40) m/uL Hgb (11.4-16.0) gm/dL Hct (34.0-46.0) % RDW (11.5-15.5) % Plt Count (150-450) k/uL PT (9.0-12.0) sec INR (<1.2) Sodium 116 L* (137-145) mmol/L Potassium (3.5-5.1) mmol/L Chloride (98-107) mmol/L Carbon Dioxide (22-30) mmol/L BUN (7-17) mg/dL Creatinine (0.52-1.04) mg/dL Glucose (74-99) mg/dL POC Glucose (mg/dL) 145 H 170 H (75-99) mg/dL Calcium (8.4-10.2) mg/dL AST (14-36) U/L Ammonia (<30) umol/L Total Protein (6.3-8.2) g/dL Albumin (3.5-5.0) g/dL 04/26/20 04/26/20 04/26/20 Range/Units 04:25 04:25 04:25 WBC 18.3 H (3.8-10.6) k/uL RBC 2.60 L (3.80-5.40) m/uL Hgb 7.9 L (11.4-16.0) gm/dL Hct 25.0 L (34.0-46.0) % RDW 16.5 H (11.5-15.5) % Plt Count 138 L (150-450) k/uL PT 12.9 H (9.0-12.0) sec INR 1.3 H (<1.2) Sodium (137-145) mmol/L Potassium (3.5-5.1) mmol/L Chloride (98-107) mmol/L Carbon Dioxide (22-30) mmol/L BUN (7-17) mg/dL Creatinine (0.52-1.04) mg/dL Glucose (74-99) mg/dL POC Glucose (mg/dL) (75-99) mg/dL Calcium (8.4-10.2) mg/dL AST (14-36) U/L Ammonia 109 H (<30) umol/L Total Protein (6.3-8.2) g/dL Albumin (3.5-5.0) g/dL 04/26/20 04/26/20 04/26/20 Range/Units 04:25 04:27 09:06 WBC (3.8-10.6) k/uL RBC (3.80-5.40) m/uL Hgb (11.4-16.0) gm/dL Hct (34.0-46.0) % RDW (11.5-15.5) % Plt Count (150-450) k/uL PT (9.0-12.0) sec INR (<1.2) Sodium 118 L* (137-145) mmol/L Potassium 5.8 H (3.5-5.1) mmol/L Chloride 92 L (98-107) mmol/L Carbon Dioxide 16 L (22-30) mmol/L BUN 106 H* (7-17) mg/dL Creatinine 3.13 H (0.52-1.04) mg/dL Glucose 171 H (74-99) mg/dL POC Glucose (mg/dL) 199 H 194 H (75-99) mg/dL Calcium 8.1 L (8.4-10.2) mg/dL AST 47 H (14-36) U/L Ammonia (<30) umol/L Total Protein 5.4 L (6.3-8.2) g/dL Albumin 2.3 L (3.5-5.0) g/dL 04/26/20 Range/Units 09:20 WBC (3.8-10.6) k/uL RBC (3.80-5.40) m/uL Hgb (11.4-16.0) gm/dL Hct (34.0-46.0) % RDW (11.5-15.5) % Plt Count (150-450) k/uL PT (9.0-12.0) sec INR (<1.2) Sodium 119 L* (137-145) mmol/L Potassium (3.5-5.1) mmol/L Chloride (98-107) mmol/L Carbon Dioxide (22-30) mmol/L BUN (7-17) mg/dL Creatinine (0.52-1.04) mg/dL Glucose (74-99) mg/dL POC Glucose (mg/dL) (75-99) mg/dL Calcium (8.4-10.2) mg/dL AST (14-36) U/L Ammonia (<30) umol/L Total Protein (6.3-8.2) g/dL Albumin (3.5-5.0) g/dL Assessment and Plan (1) Anemia, normocytic normochromic Narrative/Plan: 60-year-old female with multiple medical comorbidities who presented to the hospital due to weakness and low blood sugars. Patient found to be hyponatremic, hypochloremic with elevated creatinine from baseline currently being treated for the stated as well as possible sepsis. She is being managed in ICU. No signs or symptoms of GI bleeding since presentation. She denies any history of peptic ulcer disease, excessive NSAID use, abdominal pain, prior EGD with last colonoscopy approximately 5 years ago. She had been noting intermittent blood in stools over the past few months. She was found to be anemic on presentation with a hemoglobin of 6.7 with normochromic, normocytic indices. Stool testing was positive for blood. Hemoglobin currently stable status post transfusion. Patient has a known history of hepatitis C currently receiving treatment. Unclear cause of anemia but likely multifactorial given chronic kidney disease/anemia of chronic disease, cannot rule out a component of acute GI bleed given symptoms of maroon-colored stool and positive testing for occult blood with differential including peptic ulcer disease, portal hypertensive gastropathy, AVM or other etiology. Current Visit: Yes Status: Acute Code(s): D64.9 - ANEMIA, UNSPECIFIED SNOMED Code(s): 31816373 Plan: Supportive care Okay for diet as tolerated Continue Protonix therapy Continue to monitor hemoglobin and hematocrit and transfuse as needed Continue broad-spectrum antibiotic therapy Nephrology service following for acute kidney injury as well as hypo-natremia and hypokalemia ICU management by the [employer] developer service Anemia laboratory investigation ordered Continue to monitor for signs or symptoms of GI bleed Patient high risk for endoscopic evaluation at this time given multiple electrolyte dyscrasias, hypotension and overall clinical status, will consider evaluation when medically stable or if precipitous drop in hemoglobin Thank you for allowing us to participate in the care of the patient
[2020-04-26 11:36] LABS: ABG PH 7.12 (7.35-7.45); Allen Test Performed? No
[2020-04-26] MEDS ORDERED: propofoL 100 ML IV ONE (11:38)
--- NOTE | 2020-04-26 12:54 | P.PN ---
Subjective Progress Note Date: 04/26/20 64-year-old female patient presented to the ED because of generalized weakness and recurrent hypoglycemic events. She apparently was found to have a blood sugar of 44 at home and she received an amp of D50 by EMS and came to the scene and the patient's blood sugar came up to 96. At that time the patient was seen generalized weakness and tiredness and shakiness. No a activity has been noted. The patient was also noted to have low blood pressure. Denied having any shortness of breath. No headaches. No dizziness. No falls. No head trauma. She came into the ED and the patient was found to have a white cell count of 7.2 with a hemoglobin of 6.1 and a recent drop compared to a baseline of 9.1 from 02/23/2020. Her platelet count was at 84 and the patient suffers from chronic thrombocytopenia. Coagulation profile is within normal limits. The sodium level was 108 and this is another new finding with a chloride level of 77 knowing that her most recent blood work showed normal sodium and chloride levels. The patient began with 114 and a creatinine of 3.11 knowing that her baseline creatinine from 02/07/2020 was 1.8. The patient also had a lactic acid level of 2.3, troponin of 0.468, AST of 54, ALT of 24, total protein of 5.4 with an albumin of 2.3. The patient was further found to be hypothermic with a temperature of 93.9. BNP was 74/33. She was on 2 L of oxygen by nasal cannula with a pulse ox of 97%. EKG showing a sinus rhythm with a first-degree AV block. A chest x-ray was not done. On 04/25/2020, the patient is being seen for a follow-up in the intensive care unit. Note that the patient was seen yesterday and overnight it has been significant changes condition mainly significant drop in her blood pressure. Mother the patient presented to us with a suspicion of GI bleed in addition to hyponatremia. The patient got transfused with a total of 2 units of packed RBC. I initially had the patient on normal saline infusion for fluid resuscitation. However, overnight the patient was placed at 3% normal saline by nephrology. The patient was getting minimal amount of volume. The patient became hypotensive. The patient was started on pressors and earlier this morning the norepinephrine infusion was running at 0.3 g per KG per minute which is quite a high dose. At that point, immediately start patient on normal saline infusion at 2 L of bolus was given. Serum cortisol was low at 12. The patient was started on IV hydrocortisone. The patient was also started on vasopressin. A triple lumen catheter was inserted and the patient's CVP was only a 6 via triple lumen catheter that was inserted in left IJ. The patient is afebrile. White cell count is 13.0 with a hemoglobin of 8.3. Platelet count is at 118. The sodium level is up to 116. The patient also had no major improvement in renal failure and the creatinine was at 3.19 with a BUN of 112. Troponin is a 0.4. Liver function tests showed an AST of 54, ALT of 25, alk phos is at 129. The echocardiogram showed a preserved LV function with an EF of around 60-65%. The ultrasound of the abdomen showed no significant abnormalities. There is splenomegaly. No signs of any cholecystitis. Gallbladder and the common bile duct were all within normal limits. 04/26/2020, the patient is being seen for follow-up in the intensive care unit. The patient is awake although I feel that she is a bit more somnolent compared to yesterday. Unfortunately, I'm still unable to get an accurate blood pressure reading. I think the blood pressure cuff and Artline are quite accurate. I have the patient on high-dose norepinephrine infusion for blood pressure support and norepinephrine is running at 0.29 g per KG per minute. She is also on vasopressin physiologic dose at 0.03 units per minute. The patient is also on stress dose hydrocortisone. The patient is on normal saline at rate of 130s is an hour. She is also receiving 3% hypertonic saline solution per nephrology with a rate of 25 mL an hour. The patient's most recent sodium level is at 160. BP is at 70/39. CVP is at 18. Chest x-ray showing mild pulmonary vascular congestion. I was concerned that the patient may be going into fluid overload especially with her urine output remains low. I cut down the IV fluids to 50 mL an hour. No fever. No chills. She is on broad-spectrum antibiotics for now and she is on a combination of Zosyn and vancomycin. The blood cultures been negative for now. I was informed of the later stages the patient had a blood gas that showed a pH of 7.12 with a pCO2 of 50 and pO2 of 104. This was done and FiO2 28%. At that point, the IV fluids was switched to a bicarb infusion. Subsequent sodium level came in 119. The white cell count is at 18.3 with a hemoglobin of 7.9. Is very much likely the patient would require intubation mechanical ventilation at the later stage. I'm unable to establish a good arterial blood pressure reading his patient. Obviously the femoral arteries can not be used as the patient is morbidly obese and she has a very huge abdominal apron setting over her thighs. The current Artline is in the left radial. We'll may be able to insert a right radial artery for another confirmation of the blood pressure reading. The patient is arousable and she is awake yet somnolence. The patient is not fluid balance over the past 24 hours has been +4.3 L. Objective - Vital Signs Vital signs: Vital Signs Temp 98.2 F 04/26/20 08:00 Pulse 116 H 04/26/20 11:45 Resp 8 L 04/26/20 11:45 BP 64/34 04/26/20 11:45 Pulse Ox 99 04/26/20 11:45 Intake & Output 04/25/20 04/26/20 04/26/20 18:59 06:59 18:59 Intake Total 3540.505 5087.539 4939.219 Output Total 395 355 155 Balance 3145.505 1243.048 882.219 Weight 172 kg Intake: IV 3350 1530 330 Piperacillin-Tazobactam 3 100 150 .375 gm In Sodium Chloride 0.9% 100 ml @ 25 mls/hr IVPB Q12HR [facility] Rx #:[id number] Sodium Chloride 0.9% 1, 1300 1430 180 000 ml @ 50 mls/hr IV . Q20H [facility] Rx#:[id number] Sodium Chloride 0.9% 1, 2000 000 ml @ 999 mls/hr IV . Q1H1M [facility] Rx#:[id number] Sodium Chloride 3%( 50 Hypertonic) 500 ml @ 25 mls/hr IV .Q20H [facility] Rx#: [id number] Intake, IV Titration 190.505 68.048 707.219 Amount Dextrose 5% in Water 1, 100 000 ml @ 50 mls/hr IV . Q23H [facility] with Sodium Bicarb (1 Meq/ml) 150 ml Rx#:[id number] EPINEPHrine 4 mg In 6.772 Dextrose 5% in Water 250 ml @ 0.01 MCG/KG/MIN 6.45 mls/hr IV .Q24H [facility] Rx#: [id number] Norepinephrine 32 mg In 190.505 68.048 241.447 Sodium Chloride 0.9% 218 ml @ 0.05 MCG/KG/MIN 3. 984 mls/hr IV .Q24H [facility] Rx#:[id number] Sodium Chloride 3%( 25 Hypertonic) 500 ml @ 25 mls/hr IV .Q20H [facility] Rx#: [id number] Vancomycin 2,500 mg In 334 Sodium Chloride 0.9% 500 ml 500 ml @ 167 mls/hr IVPB ONCE [facility] Rx#: [id number] Output: Urine 395 355 155 Other: Voiding Method Indwelling Catheter Indwelling Catheter Indwelling Catheter ABP, PAP, CO, CI - Last Documented Arterial Blood Pressure 64/32 - Exam Gen. appearance morbidly obese, comfortable and the patient is not in acute respiratory distress, the patient has a left IJ triple-lumen catheter in place. Head exam was generally normal. There was no scleral icterus or corneal arcus. Mucous membranes were moist. Neck was supple and without jugular venous distension, thyromegaly, or carotid bruits. Carotids were easily palpable bilaterally. There was no adenopathy. Ma llampati class IV lung sounds are diminished bilaterally especially lung bases otherwise clear. Cardiac exam revealed the PMI to be normally situated and sized. The rhythm was regular and no extrasystoles were noted during several minutes of auscultation. The first and second heart sounds were normal and physiologic splitting of the second heart sound was noted. There were no murmurs, rubs, clicks, or gallops. abdomen is morbidly obese soft nontender. There is no ascites. Organs cannot be accurately palpated as the patient has morbid obesity. No direct tenderness. No rebound tenderness. No guarding. Extremities revealed trace edema and there is no cyanosis or clubbing. Neurological awake and alert and is no focal neurological deficits. The patient has a Artline catheter in the left radial artery. - Labs CBC & Chem 7: 04/26/20 04:25 04/26/20 09:20 Labs: Abnormal Lab Results - Last 24 Hours (Table) 1004/25/20 04/25/20 Range/Units 15:13 16:23 18:50 WBC (3.8-10.6) k/uL RBC (3.80-5.40) m/uL Hgb (11.4-16.0) gm/dL Hct (34.0-46.0) % RDW (11.5-15.5) % Plt Count (150-450) k/uL Retic Count (0.5-2.0) % PT (9.0-12.0) sec INR (<1.2) ABG pH (7.35-7.45) ABG pCO2 (35-45) mmHg ABG HCO3 (21-25) mmol/L ABG Total CO2 (19-24) mmol/L ABG O2 Saturation (94-97) % Sodium 115 L* 114 L* (137-145) mmol/L Potassium 5.5 H (3.5-5.1) mmol/L Chloride 88 L (98-107) mmol/L Carbon Dioxide 19 L (22-30) mmol/L BUN 105 H* (7-17) mg/dL Creatinine 3.08 H (0.52-1.04) mg/dL Glucose 122 H (74-99) mg/dL POC Glucose (mg/dL) 109 H (75-99) mg/dL Calcium 7.7 L (8.4-10.2) mg/dL AST (14-36) U/L Ammonia (<30) umol/L Total Protein (6.3-8.2) g/dL Albumin (3.5-5.0) g/dL 04/25/20 04/26/20 04/26/20 Range/Units 19:37 00:09 00:15 WBC (3.8-10.6) k/uL RBC (3.80-5.40) m/uL Hgb (11.4-16.0) gm/dL Hct (34.0-46.0) % RDW (11.5-15.5) % Plt Count (150-450) k/uL Retic Count (0.5-2.0) % PT (9.0-12.0) sec INR (<1.2) ABG pH (7.35-7.45) ABG pCO2 (35-45) mmHg ABG HCO3 (21-25) mmol/L ABG Total CO2 (19-24) mmol/L ABG O2 Saturation (94-97) % Sodium 116 L* (137-145) mmol/L Potassium (3.5-5.1) mmol/L Chloride (98-107) mmol/L Carbon Dioxide (22-30) mmol/L BUN (7-17) mg/dL Creatinine (0.52-1.04) mg/dL Glucose (74-99) mg/dL POC Glucose (mg/dL) 145 H 170 H (75-99) mg/dL Calcium (8.4-10.2) mg/dL AST (14-36) U/L Ammonia (<30) umol/L Total Protein (6.3-8.2) g/dL Albumin (3.5-5.0) g/dL 04/26/20 04/26/20 04/26/20 Range/Units 04:25 04:25 04:25 WBC 18.3 H (3.8-10.6) k/uL RBC 2.60 L (3.80-5.40) m/uL Hgb 7.9 L (11.4-16.0) gm/dL Hct 25.0 L (34.0-46.0) % RDW 16.5 H (11.5-15.5) % Plt Count 138 L (150-450) k/uL Retic Count (0.5-2.0) % PT 12.9 H (9.0-12.0) sec INR 1.3 H (<1.2) ABG pH (7.35-7.45) ABG pCO2 (35-45) mmHg ABG HCO3 (21-25) mmol/L ABG Total CO2 (19-24) mmol/L ABG O2 Saturation (94-97) % Sodium (137-145) mmol/L Potassium (3.5-5.1) mmol/L Chloride (98-107) mmol/L Carbon Dioxide (22-30) mmol/L BUN (7-17) mg/dL Creatinine (0.52-1.04) mg/dL Glucose (74-99) mg/dL POC Glucose (mg/dL) (75-99) mg/dL Calcium (8.4-10.2) mg/dL AST (14-36) U/L Ammonia 109 H (<30) umol/L Total Protein (6.3-8.2) g/dL Albumin (3.5-5.0) g/dL 04/26/20 04/26/20 04/26/20 Range/Units 04:25 04:25 04:27 WBC (3.8-10.6) k/uL RBC (3.80-5.40) m/uL Hgb (11.4-16.0) gm/dL Hct (34.0-46.0) % RDW (11.5-15.5) % Plt Count (150-450) k/uL Retic Count 6.0 H (0.5-2.0) % PT (9.0-12.0) sec INR (<1.2) ABG pH (7.35-7.45) ABG pCO2 (35-45) mmHg ABG HCO3 (21-25) mmol/L ABG Total CO2 (19-24) mmol/L ABG O2 Saturation (94-97) % Sodium 118 L* (137-145) mmol/L Potassium 5.8 H (3.5-5.1) mmol/L Chloride 92 L (98-107) mmol/L Carbon Dioxide 16 L (22-30) mmol/L BUN 106 H* (7-17) mg/dL Creatinine 3.13 H (0.52-1.04) mg/dL Glucose 171 H (74-99) mg/dL POC Glucose (mg/dL) 199 H (75-99) mg/dL Calcium 8.1 L (8.4-10.2) mg/dL AST 47 H (14-36) U/L Ammonia (<30) umol/L Total Protein 5.4 L (6.3-8.2) g/dL Albumin 2.3 L (3.5-5.0) g/dL 04/26/20 04/26/20 04/26/20 Range/Units 09:06 09:20 11:30 WBC (3.8-10.6) k/uL RBC (3.80-5.40) m/uL Hgb (11.4-16.0) gm/dL Hct (34.0-46.0) % RDW (11.5-15.5) % Plt Count (150-450) k/uL Retic Count (0.5-2.0) % PT (9.0-12.0) sec INR (<1.2) ABG pH 7.12 L* (7.35-7.45) ABG pCO2 50 H (35-45) mmHg ABG HCO3 16 L (21-25) mmol/L ABG Total CO2 18 L (19-24) mmol/L ABG O2 Saturation 98.1 H (94-97) % Sodium 119 L* (137-145) mmol/L Potassium (3.5-5.1) mmol/L Chloride (98-107) mmol/L Carbon Dioxide (22-30) mmol/L BUN (7-17) mg/dL Creatinine (0.52-1.04) mg/dL Glucose (74-99) mg/dL POC Glucose (mg/dL) 194 H (75-99) mg/dL Calcium (8.4-10.2) mg/dL AST (14-36) U/L Ammonia (<30) umol/L Total Protein (6.3-8.2) g/dL Albumin (3.5-5.0) g/dL Assessment and Plan Plan: 1 severe shock/hypotension with significant drop in blood pressure. The exact cause is not absolutely clear to me.. Rule out intravascular volume depletion/dehydration and possibly component of sepsis. The patient aggressively resuscitated IV fluids and she is in a positive fluid balance of 4.3 L pH is also on physiologic dose vasopressin and she is also on high-dose norepinephrine infusion. BP remains low. CVP has come up to 16. Cultures of been negative for now. The patient is not showing any signs of GI bleed and the hemoglobin is stable for now.. The most recent hemoglobin level is at 7.9. 2 hypochloremic hyponatremia with a sodium level is gradually improving, and the patient is receiving normal saline in addition to hypertonic saline solution. The patient's sodium level is at 119. The saline solution was switched to bicarb infusion as the patient's serum bicarb is down to 16 and the patient had a component of respiratory and metabolic acidosis. 3 acute on chronic kidney disease and the patient has chronic stage III kidney disease at baseline with a creatinine of 1.8 4 acute hypothermia, improved 5 acute blood loss anemia. Consider upper GI bleed as the patient's hemoglobin has dropped down to 6.1 with melanotic stools and Hemoccult positive, the patient has not had any further episodes of GI bleeding and the patient got transfused with a 2 units of packed RBC. 6 chronic liver disease/hepatitis C and the patient was receiving Epclusa on outpatient basis, and the patient was having episodes of hypoglycemia, but admission. The ammonia level is noted to be elevated today and the patient may have a component of hepatic encephalopathy and she'll restart also on lactulose. 7 diabetes mellitus maintained on oral hypoglycemics on outpatient basis 8 hypertension 9 generalized weakness secondary to above 10 mild lactic acidosis 11 troponin leak without any acute EKG changes 12 morbid obesity 13 leukocytosis 14 metabolic/respiratory acidosis based on the most recent blood gas. Plan Switch this patient's IV fluids to bicarb infusion at the rate of 50 mL an hour Echocardiogram showed no evidence of any LV dysfunction Robison catheter is in place Continue Zosyn and vancomycin Start the patient IV hydrocortisone Start the patient on vasopressin physiologic dose to augment the blood pressure The patient is currently off the hypertonic saline solution. Most recent sodium level isn't 119. Triple-lumen catheter is in established Monitor the blood sugars and use sliding scale coverage if needed add lactulose for the possibility of hepatic encephalopathy and monitor the ammonia level. Condition remains critical. We'll continue to follow. The condition is critical. It's very likely the patient may and output requiring intubation mechanical ventilation. We'll continue to follow.The condition is critical and this evaluation was done and more than 30 minutes. Time with Patient: Greater than 30
--- NOTE | 2020-04-26 13:15 | CDI ---
Documentation Clarification Form Date: 04/26/2020 12:22:47 PM From: Analisa Randall RN CCDS Admit Date: 04/24/2020 01:50:00 PM Patient Name: Jayla Wolff Visit Number: [id number] Discharge Date: ATTENTION: The Clinical Documentation Specialists (CDI) and [facility] Coding Staff appreciate your assistance in clarifying documentation. Please respond to the clarification below the line at the bottom and electronically sign. The CDI & [facility] Coding staff will review the response and follow-up if needed. Please note: Queries are made part of the Legal Health Record. If you have any questions, please contact the author of this message via ITS. Dr. Tom Lucas Acute kidney injury secondary to ATN secondary to Septic Shock documented in Nephrology consult 04/25 History/Risk Factors: 60-year-old female presents to the ED via EMS for generalized weakness, rectal bleeding during bowel movements and low blood sugar. Medical History: COPD; DM; HLD; Renal disease and HTN Clinical Indicators: 04/24 LABS: Wbc 7.7; Hgb 6.5; Na 108; Bun 116; Cr 3.27; Glucose 73; Lactic acid 2.8; Calcium 7.7; Troponin 0.551; 04/26 LABS: Wbc 18.3; Hgb 7.9; Na 118; Bun 106; Cr 3.13, Calcium 8.1; AST 47; Ammonia 109; 04/24 11:14 Vital signs on admission: B/P: 113/81; HR: 98; Temp: 97.4 F Oral; RR: 18; Spo2: 96% 2L nasal cannula 04/24 15:30 B/P: 81/62; Temp: 93.9 F Core; RR: 13; Spo2: 92% 4L nasal cannula 04/24 Abd Ultrasound: Splenomegaly 04/26 CXR: Cardiomegaly, pulmonary vascular congestion and small bilateral pleural effusions. 04/25 Critical Care progress note: Rule out intravascular volume depletion/dehydration and possibly component of sepsis. Treatment: IV Bolus: 04/24 0.9ns 1L bolus; 04/25 0.9ns 3L bolus; Other: 04/24 D50 Ivp x 1;04/24 D5Ns 75cc/hr d/c 04/25; 04/24 Sodium Chl Saline 3% 25 cc/hr for 20 hours; 04/25 Solu Cortef 100mg IV Q 8hr; 10 Norepinephrine IV; 04/25 Zosyn Ivpb Q 12/hr; 04/25 Vancomycin Ivpb ; Epinephrine Ivpb; 04/26 Lasix 80mg Iv x1; 04/26 Dextrose /Water Sodium Bicarb 50cc/hr 23 hours,04/26 Sodium bicarb Iv x1; 04/26 D50 Ivp x1; 04/26 Humulin R 10 units In your professional opinion, please clarify if these findings signify one of the following conditions, whether the condition is POA, and cause, if known: Sepsis POA (please specify source) Severe Sepsis POA (please specify source) Septic Shock POA (please specify source) Sepsis Ruled Out Other, please specify Unable to determine Identify the (suspected) organism Link or clarify if there is associated (due to/with): Organ failure Shock SIRS Criteria (2 or more of the following may indicate SIRS): -Temperature < 96.8F (36C) or > 101.0F (38.3C) -Heart Rate > 90 bpm -Respiratory Rate > 20 breaths/min or PaCO2 < 32 mmHg -White Blood Cell Count > 12,000 or < 4,000 cells/mm3 or > 10% bands -Lactate >2.0 mmol/L (>4.0 is equivalent to septic shock) Documented on [facility] Note 04/27 Severe Sepsis with septic shock, source unknown. Dr. Lucas. (Last Revision: October 2017) PRIMO
[2020-04-26 13:35] LABS: Glucose,Whole Blood 237 mg/dL (75-99)
[2020-04-26] MEDS: SODIUM BICARBONATE TAB 650 MG TAB PO SCH ×2 (13:37→20:06)
--- NOTE | 2020-04-26 13:59 | CDI ---
Documentation Clarification Form Date: 04/26/2020 01:42:10 PM From: Analisa Randall RN CCDS Admit Date: 04/24/2020 01:50:00 PM Patient Name: Jayla Wolff Visit Number: [id number] Discharge Date: ATTENTION: The Clinical Documentation Specialists (CDI) and [facility] Coding Staff appreciate your assistance in clarifying documentation. Please respond to the clarification below the line at the bottom and electronically sign. The CDI & [facility] Coding staff will review the response and follow-up if needed. Please note: Queries are made part of the Legal Health Record. If you have any questions, please contact the author of this message via ITS. Dr. Tom Lucas, Congestive Heart Failure is documented in the H&P 04/25 History/Risk Factors: 60-year-old female presents to the ED via EMS for shortness of breath, generalized weakness, rectal bleeding during bowel movements and low blood sugar. Medical History: COPD; DM; HLD; CHF; Renal disease and HTN Home Meds; Losartan 50mg daily; Lasix 80mg po AM, 40mg HS Clinical Indicators: 04/26 VS/Pulse OX: B/P: 83/46; HR: 124; Temp: 96.4F Core: RR: 13; SpO2 99% 2L nasal cannula BNP: Not available 04/25 Echocardiogram Results: mild concentric left ventricular hypertrophy. Overall left ventricular systolic function is normal with an EF between 60-65% 04/26 Chest X Ray: Cardiomegaly, pulmonary vascular congestion and small bilateral pleural effusions. Treatment: Epinephrine 6.45mls/hr IV; Lasix 80mg Iv x1; In your professional opinion, can you please clarify the acuity of CHF if known? Chronic Diastolic Heart Failure Acute on Chronic Diastolic Heart Failure Unable to Determine Other, please specify Documented on [facility] Note 04/27/20 Acute on chronic diastolic heart failure by Dr. Lucas (Last Revision: October 2017) DINORAD
--- NOTE | 2020-04-26 14:03 | CDI ---
Documentation Clarification Form Date: 04/26/2020 01:15:35 PM From: Analisa Randall RN CCDS Admit Date: 04/24/2020 01:50:00 PM Patient Name: Jayla Wolff Visit Number: [id number] Discharge Date: ATTENTION: The Clinical Documentation Specialists (CDI) and [facility] Coding Staff appreciate your assistance in clarifying documentation. Please respond to the clarification below the line at the bottom and electronically sign. The CDI & [facility] Coding staff will review the response and follow-up if needed. Please note: Queries are made part of the Legal Health Record. If you have any questions, please contact the author of this message via ITS. Dr. Juan C Hess Troponin elevation secondary to supply demand mismatch as well as acute kidney injury is documented in the Cardiology consult 04/25 History/Risk Factors: 60-year-old female presents to the ED via EMS for shortness of breath, generalized weakness, rectal bleeding during bowel movements and low blood sugar. Medical History: COPD; DM; HLD; CHF; Renal disease and HTN Clinical Indicators: 04/24 Troponin: 0.551; 0.468; 0.400 04/24 Creatinine 3.27 04/24 EKG Results: Sinus rhythm with 1st degree AV block; ST & T wave abnormality; consider inferolateral ischemia 04/24 Cardiology progress note: EKG reveals sinus mechanism with first-degree AV block, T-wave inversions noted inferiorly laterally that appear new compared to previous EKG from last year. Treatment: IV Bolus: 04/24 0.9ns 1L bolus; 04/25 0.9ns 3L bolus; 04/24 D50 Ivp x 1;04/24 D5Ns 75cc/hr d/c 04/25; 04/24 Sodium Chl Saline 3% 25 cc/hr for 20 hours;04/25 Solu Cortef 100mg IV Q 8hr; 04/25 Norepinephrine IV In your professional opinion, can you please clarify the clinical significance of the Troponins? Type 2 AL secondary to Acute Kidney Injury Type 2 AL secondary to (please specify) Type 2 AL ruled out Unable to determine Other Condition, please specify (Last Revision: July 2019) Type 2 AL secondary to JUDITH and anemia MTDD
[2020-04-26 14:38] LABS: Calcium 8.4 mg/dL (8.4-10.2); Potassium 5.5 mmol/L (3.5-5.1)
[2020-04-26] MEDS ORDERED: DEXTROSE 50% SYRINGE 50 ML IVP ONE (15:37)
[2020-04-26 15:40] LABS: ABG HCO3 17 mmol/L (21-25); ABG Oxygen Saturation 97.9 % (94-97); ABG PCO2 48 mmHg (35-45); ABG PO2 99 mmHg (83-108); ABG TCO2 18 mmol/L (19-24)
[2020-04-26 15:42] LABS: ABG PH 7.15 (7.35-7.45); Allen Test Performed? no
[2020-04-26] MEDS ORDERED: SODIUM CHLORIDE 3%(HYPERTONIC) 500 ML IV SCH (15:45)
--- NOTE | 2020-04-26 16:23 | P.PCN ---
Date of Procedure: 04/26/20 Preoperative Diagnosis: Shock Postoperative Diagnosis: Shock Procedure(s) Performed: Arterial line Anesthesia: local Surgeon: Chel Hobbs [employer] Manager #1: Molly Grant Estimated Blood Loss (ml): 0 Pathology: other Condition: critical Disposition: ICU Operative Findings: Indication: Hemodynamic monitoring. A time-out was completed verifying correct patient, procedure, site, positioning, and implant(s) or special equipment if applicable. Allens test was performed to ensure adequate perfusion. The patients right arm was prepped and draped in sterile fashion. 1% Lidocaine was used to anesthetize the area. An 18G Arrow arterial line was introduced into the right brachial artery. The catheter was threaded over the guide wire and the needle was removed with appropriate pulsatile blood return. Blood loss was minimal. The catheter was then sutured in place to the skin and a sterile dressing applied. Perfusion to the extremity distal to the point of catheter insertion was checked and found to be adequate. The patient tolerated the procedure well and there were no complications.
[2020-04-26] MEDS ORDERED: SODIUM CHLORIDE 0.9% 2,000 ML IV ONE (16:44)
[2020-04-26] MEDS: NOREPINEPHRINE 32 MG in SODIUM CHLORIDE 0.9% 218 ML IV SCH (16:54)
[2020-04-26 17:11] LABS: Glucose,Whole Blood 268 mg/dL (75-99)
--- NOTE | 2020-04-26 18:24 | PN ---
PROGRESS NOTE DATE OF SERVICE: 04/26/2020 CHIEF COMPLAINT: Hypotension, GI bleed, congestive heart failure, hyperammonemia, electrolyte imbalance and renal failure. HISTORY OF PRESENT ILLNESS: This lady is just about the same. Clinically she seems more stable than her blood pressure would suggest. There is a question as to whether or not blood pressures being obtained are reliable. She is being followed by GI and Cardiology. PHYSICAL EXAMINATION: Blood pressure 72/39 according to the monitor. Hydration seems adequate. Skin color is normal. She does not seem to be in respiratory distress. Breath sounds are heard bilaterally. Cardiac exam is unremarkable, with no murmurs. The abdomen is protuberant. Extremities are normal. IMPRESSION: 1. Hypotension. 2. Gastrointestinal bleed. 3. Blood loss anemia. 4. Renal failure. 5. Elevated troponin. 6. Electrolyte imbalance. 7. Renal failure. 8. Congestive heart failure. PLAN: Continue to follow with Intensive Medicine, Cardiology and GI. MMODL / IJN: [id number] /
[2020-04-26 19:06] LABS: Calcium 7.9 mg/dL (8.4-10.2); Potassium 4.9 mmol/L (3.5-5.1)
[2020-04-26 19:55] LABS: Glucose,Whole Blood 273 mg/dL (75-99)
[2020-04-26] MEDS ORDERED: CHLORHEXIDINE GLUCONATE 15 ML CUP MUCOUS MEM SCH (21:00)
[2020-04-26 23:17] LABS: Hepatitis B Surface AB- Quant 3.5 mIU/mL; Hepatitis B Surface Antibody Non-Reactive (Non-Reactive); Hepatitis B Surface Antigen Non-Reactive (Non-Reactive)
[2020-04-27 00:43] LABS: % Iron Saturation 10.8 (12.00-45.00)
[2020-04-27 00:52] LABS: Ferritin 102.1 ng/mL (10.0-291.0); Folate, Serum 6.5 ng/mL
[2020-04-27] MEDS ORDERED: LORazepam 2 MG/ML INJ IV PRN (02:07)
[2020-04-27] MEDS ORDERED: HALOPERIDOL LACTATE 5 MG/ML 1 ML VIAL IM PRN (02:07)
[2020-04-27] MEDS ORDERED: INSULIN REGULAR 100 UNIT in SODIUM CHLORIDE 0.9% 100 ML IV SCH (02:15)
[2020-04-27] MEDS ORDERED: INSULIN DETEMIR (LEVEMIR) 100 UNIT/ML SYR SQ STA (02:15)
[2020-04-27 02:29] LABS: Glucose,Whole Blood 315 mg/dL (75-99)
[2020-04-27] MEDS: EPINEPHrine 4 MG in DEXTROSE 5% IN WATER 250 ML IV SCH ×4 (02:31→10:55)
[2020-04-27 03:01] LABS: Glucose,Whole Blood 302 mg/dL (75-99)
[2020-04-27 04:03] LABS: Glucose,Whole Blood 259 mg/dL (75-99)
[2020-04-27] MEDS: SODIUM CHLORIDE 0.9% 50 ML with VASOPRESSIN 20 UNIT IVPB SCH ×4 (04:07→15:47)
[2020-04-27 05:03] LABS: Glucose,Whole Blood 238 mg/dL (75-99)
[2020-04-27 05:13] LABS: Anisocytosis Slight; HCT 25.1 % (34.0-46.0); HGB 7.9 gm/dL (11.4-16.0); Hypochromasia Slight; MCHC 31.5 g/dL (31.0-37.0); MCV 95.2 fL (80.0-100.0); Mean Platelet Volume 9.4; Platelet Count 109 k/uL (150-450); RBC 2.63 m/uL (3.80-5.40); RDW 16.5 % (11.5-15.5); WBC 16.3 k/uL (3.8-10.6)
[2020-04-27] MEDS: NOREPINEPHRINE 32 MG in SODIUM CHLORIDE 0.9% 218 ML IV SCH ×2 (05:17→19:06)
[2020-04-27 05:24] LABS: Albumin 2.5 g/dL (3.5-5.0); Calcium 8.1 mg/dL (8.4-10.2); Potassium 4.7 mmol/L (3.5-5.1); Total Protein 5.6 g/dL (6.3-8.2)
[2020-04-27 05:29] LABS: Vancomycin,Random 26.4 ug/mL
[2020-04-27 05:57] LABS: Glucose,Whole Blood 212 mg/dL (75-99)
[2020-04-27] MEDS ORDERED: SODIUM CHLORIDE 3%(HYPERTONIC) 500 ML IV SCH (06:15)
[2020-04-27] MEDS: DEXTROSE 5% IN WATER 1,000 ML with SODIUM BICARB (1 MEQ/ML) 150 ML IV ONE (06:28)
[2020-04-27 07:16] LABS: Glucose,Whole Blood 170 mg/dL (75-99)
[2020-04-27] MEDS ORDERED: SODIUM CHLORIDE 0.9% 2,000 ML IV ONE (08:55)
[2020-04-27 09:01] LABS: ABG Base Excess -4.2 mmol/L; ABG HCO3 22 mmol/L (21-25); ABG Oxygen Saturation 98.5 % (94-97); ABG PCO2 45 mmHg (35-45); ABG PO2 119 mmHg (83-108); ABG TCO2 24 mmol/L (19-24)
[2020-04-27 09:04] LABS: Allen Test Performed? no
[2020-04-27 09:16] LABS: Glucose,Whole Blood 157 mg/dL (75-99)
--- NOTE | 2020-04-27 10:35 | P.PN ---
Subjective patient is seen in follow-up for acute kidney injury and hyponatremia. Sodium level up to 122 this morning. Urine output starting to improve. This last hour she made 150 mL of urine. currently on BiPAP. She is maintained on epinephrine, Levophed as well as vasopressin. blood pressure improved. Vital sign: blood pressure stable. on multiple vasopressors. General: The patient appeared well nourished and normally developed. on BiPAP. HEENT: Head exam is unremarkable. Neck is without jugular venous distension. LUNGS: Breath sounds decreased. HEART: tachycardic. ABDOMEN: soft, nontender. Obese. EXTREMITITES: 1+ edema. Objective - Vital Signs Vital signs: Vital Signs Temp 97.5 F L 04/27/20 07:00 Pulse 117 H 04/27/20 07:00 Resp 19 04/27/20 07:00 BP 104/60 04/27/20 06:00 Pulse Ox 96 04/27/20 07:00 Intake & Output 04/26/20 04/27/20 04/27/20 18:59 06:59 18:59 Intake Total 4019.122 1930.592 281.125 Output Total 390 435 60 Balance 3629.122 1495.592 221.125 Weight 180 kg Intake: IV 2730 625 50 Dextrose 5% in Water 1, 450 400 50 000 ml @ 50 mls/hr IV . Q23H ONE with Sodium Bicarb (1 Meq/ml) 150 ml Rx#:[id number] Piperacillin-Tazobactam 3 100 75 .375 gm In Sodium Chloride 0.9% 100 ml @ 25 mls/hr IVPB Q12HR [facility] Rx #:[id number] Sodium Chloride 0.9% 1, 2180 150 000 ml @ 50 mls/hr IV . Q20H [facility] Rx#:[id number] Intake, IV Titration 9347.150 5174.592 231.125 Amount Dextrose 5% in Water 1, 300 000 ml @ 50 mls/hr IV . Q23H ONE with Sodium Bicarb (1 Meq/ml) 150 ml Rx#:[id number] EPINEPHrine 4 mg In 824.692 6797.175 218.825 Dextrose 5% in Water 250 ml @ 0.01 MCG/KG/MIN 6.45 mls/hr IV .Q24H [facility] Rx#: [id number] Insulin Regular 100 unit 21.417 12.3 In Sodium Chloride 0.9% 100 ml @ Per Protocol IV .Q0M [facility] Rx#:[id number] Norepinephrine 32 mg In 241.447 250.000 Sodium Chloride 0.9% 218 ml @ 0.05 MCG/KG/MIN 3. 984 mls/hr IV .Q24H [facility] Rx#:[id number] Sodium Chloride 3%( 25 Hypertonic) 500 ml @ 25 mls/hr IV .Q20H [facility] Rx#: [id number] Vancomycin 2,500 mg In 334 Sodium Chloride 0.9% 500 ml 500 ml @ 167 mls/hr IVPB ONCE ONE Rx#: [id number] Tube Feeding 3 Output: Urine 390 435 60 Other: Voiding Method Indwelling Catheter Indwelling Catheter ABP, PAP, CO, CI - Last Documented Arterial Blood Pressure 98/42 - Labs CBC & Chem 7: 04/27/20 05:00 04/27/20 05:00 Labs: Abnormal Lab Results - Last 24 Hours (Table) 04/26/20 04/26/20 04/26/20 Range/Units 04:25 04:25 04:25 WBC (3.8-10.6) k/uL RBC (3.80-5.40) m/uL Hgb (11.4-16.0) gm/dL Hct (34.0-46.0) % RDW (11.5-15.5) % Plt Count (150-450) k/uL Retic Count 6.0 H (0.5-2.0) % ABG pH (7.35-7.45) ABG pCO2 (35-45) mmHg ABG pO2 (83-108) mmHg ABG HCO3 (21-25) mmol/L ABG Total CO2 (19-24) mmol/L ABG O2 Saturation (94-97) % Sodium (137-145) mmol/L Potassium (3.5-5.1) mmol/L Chloride (98-107) mmol/L Carbon Dioxide (22-30) mmol/L BUN (7-17) mg/dL Creatinine (0.52-1.04) mg/dL Glucose (74-99) mg/dL POC Glucose (mg/dL) (75-99) mg/dL Calcium (8.4-10.2) mg/dL Iron 35 L (50-170) ug/dL % Saturation 10.80 L (12.00-45.00) AST (14-36) U/L Total Protein (6.3-8.2) g/dL Albumin (3.5-5.0) g/dL Vitamin B12 1172.0 H (200.0-944.0) pg/mL Procalcitonin 0.78 H (0.02-0.09) ng/mL 04/26/20 04/26/20 04/26/20 Range/Units 09:20 11:30 13:32 WBC (3.8-10.6) k/uL RBC (3.80-5.40) m/uL Hgb (11.4-16.0) gm/dL Hct (34.0-46.0) % RDW (11.5-15.5) % Plt Count (150-450) k/uL Retic Count (0.5-2.0) % ABG pH 7.12 L* (7.35-7.45) ABG pCO2 50 H (35-45) mmHg ABG pO2 (83-108) mmHg ABG HCO3 16 L (21-25) mmol/L ABG Total CO2 18 L (19-24) mmol/L ABG O2 Saturation 98.1 H (94-97) % Sodium 119 L* (137-145) mmol/L Potassium (3.5-5.1) mmol/L Chloride (98-107) mmol/L Carbon Dioxide (22-30) mmol/L BUN (7-17) mg/dL Creatinine (0.52-1.04) mg/dL Glucose (74-99) mg/dL POC Glucose (mg/dL) 237 H (75-99) mg/dL Calcium (8.4-10.2) mg/dL Iron (50-170) ug/dL % Saturation (12.00-45.00) AST (14-36) U/L Total Protein (6.3-8.2) g/dL Albumin (3.5-5.0) g/dL Vitamin B12 (200.0-944.0) pg/mL Procalcitonin (0.02-0.09) ng/mL 04/26/20 04/26/20 04/26/20 Range/Units 14:15 15:37 17:10 WBC (3.8-10.6) k/uL RBC (3.80-5.40) m/uL Hgb (11.4-16.0) gm/dL Hct (34.0-46.0) % RDW (11.5-15.5) % Plt Count (150-450) k/uL Retic Count (0.5-2.0) % ABG pH 7.15 L* (7.35-7.45) ABG pCO2 48 H (35-45) mmHg ABG pO2 (83-108) mmHg ABG HCO3 17 L (21-25) mmol/L ABG Total CO2 18 L (19-24) mmol/L ABG O2 Saturation 97.9 H (94-97) % Sodium 120 L (137-145) mmol/L Potassium 5.5 H (3.5-5.1) mmol/L Chloride 92 L (98-107) mmol/L Carbon Dioxide 16 L (22-30) mmol/L BUN 111 H* (7-17) mg/dL Creatinine 3.22 H (0.52-1.04) mg/dL Glucose 229 H (74-99) mg/dL POC Glucose (mg/dL) 268 H (75-99) mg/dL Calcium (8.4-10.2) mg/dL Iron (50-170) ug/dL % Saturation (12.00-45.00) AST (14-36) U/L Total Protein (6.3-8.2) g/dL Albumin (3.5-5.0) g/dL Vitamin B12 (200.0-944.0) pg/mL Procalcitonin (0.02-0.09) ng/mL 04/26/20 04/26/20 04/27/20 Range/Units 18:40 19:55 02:27 WBC (3.8-10.6) k/uL RBC (3.80-5.40) m/uL Hgb (11.4-16.0) gm/dL Hct (34.0-46.0) % RDW (11.5-15.5) % Plt Count (150-450) k/uL Retic Count (0.5-2.0) % ABG pH (7.35-7.45) ABG pCO2 (35-45) mmHg ABG pO2 (83-108) mmHg ABG HCO3 (21-25) mmol/L ABG Total CO2 (19-24) mmol/L ABG O2 Saturation (94-97) % Sodium 122 L (137-145) mmol/L Potassium (3.5-5.1) mmol/L Chloride 93 L (98-107) mmol/L Carbon Dioxide 17 L (22-30) mmol/L BUN 108 H* (7-17) mg/dL Creatinine 3.13 H (0.52-1.04) mg/dL Glucose 264 H (74-99) mg/dL POC Glucose (mg/dL) 273 H 315 H (75-99) mg/dL Calcium 7.9 L (8.4-10.2) mg/dL Iron (50-170) ug/dL % Saturation (12.00-45.00) AST (14-36) U/L Total Protein (6.3-8.2) g/dL Albumin (3.5-5.0) g/dL Vitamin B12 (200.0-944.0) pg/mL Procalcitonin (0.02-0.09) ng/mL 04/27/20 04/27/20 04/27/20 Range/Units 02:59 04:00 05:00 WBC (3.8-10.6) k/uL RBC (3.80-5.40) m/uL Hgb (11.4-16.0) gm/dL Hct (34.0-46.0) % RDW (11.5-15.5) % Plt Count (150-450) k/uL Retic Count (0.5-2.0) % ABG pH (7.35-7.45) ABG pCO2 (35-45) mmHg ABG pO2 (83-108) mmHg ABG HCO3 (21-25) mmol/L ABG Total CO2 (19-24) mmol/L ABG O2 Saturation (94-97) % Sodium 122 L (137-145) mmol/L Potassium (3.5-5.1) mmol/L Chloride 93 L (98-107) mmol/L Carbon Dioxide 20 L (22-30) mmol/L BUN 107 H* (7-17) mg/dL Creatinine 3.21 H (0.52-1.04) mg/dL Glucose 219 H (74-99) mg/dL POC Glucose (mg/dL) 302 H 259 H (75-99) mg/dL Calcium 8.1 L (8.4-10.2) mg/dL Iron (50-170) ug/dL % Saturation (12.00-45.00) AST 51 H (14-36) U/L Total Protein 5.6 L (6.3-8.2) g/dL Albumin 2.5 L (3.5-5.0) g/dL Vitamin B12 (200.0-944.0) pg/mL Procalcitonin (0.02-0.09) ng/mL 04/27/20 04/27/20 04/27/20 Range/Units 05:00 05:00 05:55 WBC 16.3 H (3.8-10.6) k/uL RBC 2.63 L (3.80-5.40) m/uL Hgb 7.9 L (11.4-16.0) gm/dL Hct 25.1 L (34.0-46.0) % RDW 16.5 H (11.5-15.5) % Plt Count 109 L (150-450) k/uL Retic Count (0.5-2.0) % ABG pH (7.35-7.45) ABG pCO2 (35-45) mmHg ABG pO2 (83-108) mmHg ABG HCO3 (21-25) mmol/L ABG Total CO2 (19-24) mmol/L ABG O2 Saturation (94-97) % Sodium (137-145) mmol/L Potassium (3.5-5.1) mmol/L Chloride (98-107) mmol/L Carbon Dioxide (22-30) mmol/L BUN (7-17) mg/dL Creatinine (0.52-1.04) mg/dL Glucose (74-99) mg/dL POC Glucose (mg/dL) 238 H 212 H (75-99) mg/dL Calcium (8.4-10.2) mg/dL Iron (50-170) ug/dL % Saturation (12.00-45.00) AST (14-36) U/L Total Protein (6.3-8.2) g/dL Albumin (3.5-5.0) g/dL Vitamin B12 (200.0-944.0) pg/mL Procalcitonin (0.02-0.09) ng/mL 04/27/20 04/27/20 04/27/20 Range/Units 07:04 08:59 09:14 WBC (3.8-10.6) k/uL RBC (3.80-5.40) m/uL Hgb (11.4-16.0) gm/dL Hct (34.0-46.0) % RDW (11.5-15.5) % Plt Count (150-450) k/uL Retic Count (0.5-2.0) % ABG pH 7.30 L (7.35-7.45) ABG pCO2 (35-45) mmHg ABG pO2 119 H (83-108) mmHg ABG HCO3 (21-25) mmol/L ABG Total CO2 (19-24) mmol/L ABG O2 Saturation 98.5 H (94-97) % Sodium (137-145) mmol/L Potassium (3.5-5.1) mmol/L Chloride (98-107) mmol/L Carbon Dioxide (22-30) mmol/L BUN (7-17) mg/dL Creatinine (0.52-1.04) mg/dL Glucose (74-99) mg/dL POC Glucose (mg/dL) 170 H 157 H (75-99) mg/dL Calcium (8.4-10.2) mg/dL Iron (50-170) ug/dL % Saturation (12.00-45.00) AST (14-36) U/L Total Protein (6.3-8.2) g/dL Albumin (3.5-5.0) g/dL Vitamin B12 (200.0-944.0) pg/mL Procalcitonin (0.02-0.09) ng/mL Assessment and Plan Plan: Assessment: 1. Acute kidney injury secondary to ATN secondary to septic shock. Creatinine 3.27 on admission and is 3.21 this morning. UA benign. no hydronephrosis noted on kidney ultrasound. nonoliguric. Urine output improving - status post IV Lasix 80 mgonce April 26. 2. Chronic kidney disease stage III. Patient's creatinine was near 1.8 in November 2018 and January 2020. 3. Hypovolemic hyponatremia initially, but now hypervolemic. TSH and cortisol level normal. urine sodium less than 10 and urine osmolality 304. 4. Septic shock maintained on epinephrine,Levophed and vasopressin. Maintained on antibiotics. Also on IV steroids. 5. GI bleed status post 2 units blood transfusion. Hemoglobin improved. 6. Diabetes mellitus. 7. Hyperkalemia secondary to acute kidney injury and metabolic acidosis. improved with medical management. 8. Volume overload. Plan: maintain isotonic bicarbonate drip to be run at 50 mL an hour. Wean vasopressors. Avoid nephrotoxins. Continue to monitor renal function and urine output closely. hold 3% for now. Repeat labs pending. sodium level correcting gradually. Continue to assess daily for need for renal replacement therapy - No urgent need at this time. patient is currently hemodynamically very unstable to tolerate oral replacement therapy. case discussed with the family. Hospice being considered.
[2020-04-27] MEDS: LACTULOSE 20 GM/30 ML CUP PO SCH ×2 (10:54→20:46)
[2020-04-27] MEDS: PIPERACILLIN-TAZOBACTAM 3.375 GM in SODIUM CHLORIDE 0.9% 100 ML IVPB SCH ×2 (11:04→20:46)
[2020-04-27] MEDS: HYDROCORTISONE SUCCINATE 100 MG/2 ML VIAL IV SCH ×2 (11:04→17:47)
[2020-04-27] MEDS: PANTOPRAZOLE 40 MG/10 ML VIAL IVP SCH ×2 (11:04→20:46)
--- NOTE | 2020-04-27 11:06 | P.PN ---
Subjective HISTORY OF PRESENTING ILLNESS This is a pleasant 60-year-old female past medical history significant for diabetes mellitus, COPD, hypertension, dyslipidemia, hepatitis, chronic kidney disease and morbid obesity. She denies prior history of coronary artery disease and does not follow with a aligner for any reason. She is seen and examined sleeping in bed with BiPap in place. She is obtunded and not responding to verbal stimuli. Dr. Hobbs is aware of the decline and they are considering hospice with the family. Blood pressure 98/42 heart rate 117 for temperature 97.5F. Laboratory data reviewed, WBC 16.3, hemoglobin 7.9, platelets 109, pH 7.38, pCO2 119, sodium 122, potassium 4.7, creatinine 3.21. She continues to be sinus tach on the monitor. PHYSICAL EXAMINATION CONSTITUTIONAL: No apparent distress. Morbidly obese. HEENT: Head is normocephalic. Pupils are equal, round. Sclerae anicteric. Mucous membranes of the mouth are moist. No JVD. No carotid bruit. CHEST EXAMINATION: Lungs are clear to auscultation. No chest wall tenderness is noted on palpation or with deep breathing. Diminished bilaterally. HEART EXAMINATION: Regular rate and rhythm. S1, S2 heard. No murmurs, gallops or rub. Distant heart sounds. EXTREMITIES: 2+ peripheral pulses, no lower extremity edema and no calf tenderness. ASSESSMENT Troponin elevation secondary to supply demand mismatch. Type II GA. Acute anemia secondary to GI bleeding. Hypoglycemia Hyponatremia Hypotension Acute on chronic kidney disease Hepatitis C Diabetes mellitus COPD History of hypertension COPD Dyslipidemia PLAN No wall motion abnormalities noted. Ongoing medical management. Prognosis guarded. We will follow along as needed. Nurse Practitioner note has been reviewed, I agree with a documented findings and plan of care. Patient was seen and examined. Objective - Vital Signs Vital signs: Vital Signs Temp 97.5 F L 04/27/20 07:00 Pulse 117 H 04/27/20 07:00 Resp 19 04/27/20 07:00 BP 104/60 04/27/20 06:00 Pulse Ox 96 04/27/20 07:00 Intake & Output 04/26/20 04/27/20 04/27/20 18:59 06:59 18:59 Intake Total 4019.122 1930.592 281.233 Output Total 390 435 60 Balance 3629.122 1495.592 221.233 Weight 180 kg Intake: IV 2730 625 50 Dextrose 5% in Water 1, 450 400 50 000 ml @ 50 mls/hr IV . Q23H ONE with Sodium Bicarb (1 Meq/ml) 150 ml Rx#:[id number] Piperacillin-Tazobactam 3 100 75 .375 gm In Sodium Chloride 0.9% 100 ml @ 25 mls/hr IVPB Q12HR [facility] Rx #:[id number] Sodium Chloride 0.9% 1, 2180 150 000 ml @ 50 mls/hr IV . Q20H [facility] Rx#:[id number] Intake, IV Titration 6483.824 9369.592 231.233 Amount Dextrose 5% in Water 1, 300 000 ml @ 50 mls/hr IV . Q23H ONE with Sodium Bicarb (1 Meq/ml) 150 ml Rx#:[id number] EPINEPHrine 4 mg In 459.244 8932.175 218.933 Dextrose 5% in Water 250 ml @ 0.01 MCG/KG/MIN 6.45 mls/hr IV .Q24H [facility] Rx#: [id number] Insulin Regular 100 unit 21.417 12.3 In Sodium Chloride 0.9% 100 ml @ Per Protocol IV .Q0M [facility] Rx#:[id number] Norepinephrine 32 mg In 241.447 250.000 Sodium Chloride 0.9% 218 ml @ 0.05 MCG/KG/MIN 3. 984 mls/hr IV .Q24H [facility] Rx#:[id number] Sodium Chloride 3%( 25 Hypertonic) 500 ml @ 25 mls/hr IV .Q20H [facility] Rx#: [id number] Vancomycin 2,500 mg In 334 Sodium Chloride 0.9% 500 ml 500 ml @ 167 mls/hr IVPB ONCE ONE Rx#: [id number] Tube Feeding 3 Output: Urine 390 435 60 Other: Voiding Method Indwelling Catheter Indwelling Catheter ABP, PAP, CO, CI - Last Documented Arterial Blood Pressure 98/42 - Labs CBC & Chem 7: 04/27/20 05:00 04/27/20 05:00 Labs: Abnormal Lab Results - Last 24 Hours (Table) 04/26/20 04/26/20 04/26/20 Range/Units 04:25 04:25 04:25 WBC (3.8-10.6) k/uL RBC (3.80-5.40) m/uL Hgb (11.4-16.0) gm/dL Hct (34.0-46.0) % RDW (11.5-15.5) % Plt Count (150-450) k/uL Retic Count 6.0 H (0.5-2.0) % ABG pH (7.35-7.45) ABG pCO2 (35-45) mmHg ABG pO2 (83-108) mmHg ABG HCO3 (21-25) mmol/L ABG Total CO2 (19-24) mmol/L ABG O2 Saturation (94-97) % Sodium (137-145) mmol/L Potassium (3.5-5.1) mmol/L Chloride (98-107) mmol/L Carbon Dioxide (22-30) mmol/L BUN (7-17) mg/dL Creatinine (0.52-1.04) mg/dL Glucose (74-99) mg/dL POC Glucose (mg/dL) (75-99) mg/dL Calcium (8.4-10.2) mg/dL Iron 35 L (50-170) ug/dL % Saturation 10.80 L (12.00-45.00) AST (14-36) U/L Total Protein (6.3-8.2) g/dL Albumin (3.5-5.0) g/dL Vitamin B12 1172.0 H (200.0-944.0) pg/mL Procalcitonin 0.78 H (0.02-0.09) ng/mL 04/26/20 04/26/20 04/26/20 Range/Units 11:30 13:32 14:15 WBC (3.8-10.6) k/uL RBC (3.80-5.40) m/uL Hgb (11.4-16.0) gm/dL Hct (34.0-46.0) % RDW (11.5-15.5) % Plt Count (150-450) k/uL Retic Count (0.5-2.0) % ABG pH 7.12 L* (7.35-7.45) ABG pCO2 50 H (35-45) mmHg ABG pO2 (83-108) mmHg ABG HCO3 16 L (21-25) mmol/L ABG Total CO2 18 L (19-24) mmol/L ABG O2 Saturation 98.1 H (94-97) % Sodium 120 L (137-145) mmol/L Potassium 5.5 H (3.5-5.1) mmol/L Chloride 92 L (98-107) mmol/L Carbon Dioxide 16 L (22-30) mmol/L BUN 111 H* (7-17) mg/dL Creatinine 3.22 H (0.52-1.04) mg/dL Glucose 229 H (74-99) mg/dL POC Glucose (mg/dL) 237 H (75-99) mg/dL Calcium (8.4-10.2) mg/dL Iron (50-170) ug/dL % Saturation (12.00-45.00) AST (14-36) U/L Total Protein (6.3-8.2) g/dL Albumin (3.5-5.0) g/dL Vitamin B12 (200.0-944.0) pg/mL Procalcitonin (0.02-0.09) ng/mL 04/26/20 04/26/20 04/26/20 Range/Units 15:37 17:10 18:40 WBC (3.8-10.6) k/uL RBC (3.80-5.40) m/uL Hgb (11.4-16.0) gm/dL Hct (34.0-46.0) % RDW (11.5-15.5) % Plt Count (150-450) k/uL Retic Count (0.5-2.0) % ABG pH 7.15 L* (7.35-7.45) ABG pCO2 48 H (35-45) mmHg ABG pO2 (83-108) mmHg ABG HCO3 17 L (21-25) mmol/L ABG Total CO2 18 L (19-24) mmol/L ABG O2 Saturation 97.9 H (94-97) % Sodium 122 L (137-145) mmol/L Potassium (3.5-5.1) mmol/L Chloride 93 L (98-107) mmol/L Carbon Dioxide 17 L (22-30) mmol/L BUN 108 H* (7-17) mg/dL Creatinine 3.13 H (0.52-1.04) mg/dL Glucose 264 H (74-99) mg/dL POC Glucose (mg/dL) 268 H (75-99) mg/dL Calcium 7.9 L (8.4-10.2) mg/dL Iron (50-170) ug/dL % Saturation (12.00-45.00) AST (14-36) U/L Total Protein (6.3-8.2) g/dL Albumin (3.5-5.0) g/dL Vitamin B12 (200.0-944.0) pg/mL Procalcitonin (0.02-0.09) ng/mL 04/26/20 04/27/20 04/27/20 Range/Units 19:55 02:27 02:59 WBC (3.8-10.6) k/uL RBC (3.80-5.40) m/uL Hgb (11.4-16.0) gm/dL Hct (34.0-46.0) % RDW (11.5-15.5) % Plt Count (150-450) k/uL Retic Count (0.5-2.0) % ABG pH (7.35-7.45) ABG pCO2 (35-45) mmHg ABG pO2 (83-108) mmHg ABG HCO3 (21-25) mmol/L ABG Total CO2 (19-24) mmol/L ABG O2 Saturation (94-97) % Sodium (137-145) mmol/L Potassium (3.5-5.1) mmol/L Chloride (98-107) mmol/L Carbon Dioxide (22-30) mmol/L BUN (7-17) mg/dL Creatinine (0.52-1.04) mg/dL Glucose (74-99) mg/dL POC Glucose (mg/dL) 273 H 315 H 302 H (75-99) mg/dL Calcium (8.4-10.2) mg/dL Iron (50-170) ug/dL % Saturation (12.00-45.00) AST (14-36) U/L Total Protein (6.3-8.2) g/dL Albumin (3.5-5.0) g/dL Vitamin B12 (200.0-944.0) pg/mL Procalcitonin (0.02-0.09) ng/mL 04/27/20 04/27/20 04/27/20 Range/Units 04:00 05:00 05:00 WBC (3.8-10.6) k/uL RBC (3.80-5.40) m/uL Hgb (11.4-16.0) gm/dL Hct (34.0-46.0) % RDW (11.5-15.5) % Plt Count (150-450) k/uL Retic Count (0.5-2.0) % ABG pH (7.35-7.45) ABG pCO2 (35-45) mmHg ABG pO2 (83-108) mmHg ABG HCO3 (21-25) mmol/L ABG Total CO2 (19-24) mmol/L ABG O2 Saturation (94-97) % Sodium 122 L (137-145) mmol/L Potassium (3.5-5.1) mmol/L Chloride 93 L (98-107) mmol/L Carbon Dioxide 20 L (22-30) mmol/L BUN 107 H* (7-17) mg/dL Creatinine 3.21 H (0.52-1.04) mg/dL Glucose 219 H (74-99) mg/dL POC Glucose (mg/dL) 259 H 238 H (75-99) mg/dL Calcium 8.1 L (8.4-10.2) mg/dL Iron (50-170) ug/dL % Saturation (12.00-45.00) AST 51 H (14-36) U/L Total Protein 5.6 L (6.3-8.2) g/dL Albumin 2.5 L (3.5-5.0) g/dL Vitamin B12 (200.0-944.0) pg/mL Procalcitonin (0.02-0.09) ng/mL 04/27/20 04/27/20 04/27/20 Range/Units 05:00 05:55 07:04 WBC 16.3 H (3.8-10.6) k/uL RBC 2.63 L (3.80-5.40) m/uL Hgb 7.9 L (11.4-16.0) gm/dL Hct 25.1 L (34.0-46.0) % RDW 16.5 H (11.5-15.5) % Plt Count 109 L (150-450) k/uL Retic Count (0.5-2.0) % ABG pH (7.35-7.45) ABG pCO2 (35-45) mmHg ABG pO2 (83-108) mmHg ABG HCO3 (21-25) mmol/L ABG Total CO2 (19-24) mmol/L ABG O2 Saturation (94-97) % Sodium (137-145) mmol/L Potassium (3.5-5.1) mmol/L Chloride (98-107) mmol/L Carbon Dioxide (22-30) mmol/L BUN (7-17) mg/dL Creatinine (0.52-1.04) mg/dL Glucose (74-99) mg/dL POC Glucose (mg/dL) 212 H 170 H (75-99) mg/dL Calcium (8.4-10.2) mg/dL Iron (50-170) ug/dL % Saturation (12.00-45.00) AST (14-36) U/L Total Protein (6.3-8.2) g/dL Albumin (3.5-5.0) g/dL Vitamin B12 (200.0-944.0) pg/mL Procalcitonin (0.02-0.09) ng/mL 04/27/20 04/27/20 Range/Units 08:59 09:14 WBC (3.8-10.6) k/uL RBC (3.80-5.40) m/uL Hgb (11.4-16.0) gm/dL Hct (34.0-46.0) % RDW (11.5-15.5) % Plt Count (150-450) k/uL Retic Count (0.5-2.0) % ABG pH 7.30 L (7.35-7.45) ABG pCO2 (35-45) mmHg ABG pO2 119 H (83-108) mmHg ABG HCO3 (21-25) mmol/L ABG Total CO2 (19-24) mmol/L ABG O2 Saturation 98.5 H (94-97) % Sodium (137-145) mmol/L Potassium (3.5-5.1) mmol/L Chloride (98-107) mmol/L Carbon Dioxide (22-30) mmol/L BUN (7-17) mg/dL Creatinine (0.52-1.04) mg/dL Glucose (74-99) mg/dL POC Glucose (mg/dL) 157 H (75-99) mg/dL Calcium (8.4-10.2) mg/dL Iron (50-170) ug/dL % Saturation (12.00-45.00) AST (14-36) U/L Total Protein (6.3-8.2) g/dL Albumin (3.5-5.0) g/dL Vitamin B12 (200.0-944.0) pg/mL Procalcitonin (0.02-0.09) ng/mL
[2020-04-27 11:14] LABS: Glucose,Whole Blood 148 mg/dL (75-99)
[2020-04-27 11:19] LABS: Magnesium 1.9 mg/dL (1.6-2.3); Potassium 4.7 mmol/L (3.5-5.1)
--- NOTE | 2020-04-27 12:42 | P.PN ---
Subjective Progress Note Date: 04/27/20 Principal diagnosis: Weakness and low blood sugar This is a 64-year-old female with an extensive past medical history with multiple comorbidities. The patient presented to the emergency department due to weakness and recurrent episodes of low blood sugars. The patient was admi tted into the ICU, she is status post 1 unit of packed red blood cell transfusion. She had been having intermittent episodes of maroon colored stool over the past few months. She is being followed by Nadeen Parrish for recent diagnosis of hepatitis C and is currently receiving antiviral therapy. The patient seen and examined with Bipap on. She is obtunded, no response with deep abdominal palpation. She continues to require pressor support and broad- spectrum antibiotic therapy. Dr. Hobbs is aware of the decline and they are considering hospice with the family. Blood pressure 98/42 heart rate 117 for temperature 97.5F. Laboratory data reviewed, WBC 16.3, hemoglobin 7.9, platelets 109, pH 7.38, pCO2 119, sodium 122, potassium 4.7, creatinine 3.21. She continues to be sinus tach on the monitor. No reports of any rectal bleeding, melena, or hematemesis. Objective - Vital Signs Vital signs: Vital Signs Temp 96.2 F L 04/27/20 12:00 Pulse 116 H 04/27/20 12:00 Resp 18 04/27/20 12:00 BP 103/61 04/27/20 09:00 Pulse Ox 96 04/27/20 12:00 Intake & Output 04/26/20 04/27/20 04/27/20 18:59 06:59 18:59 Intake Total 4019.122 1930.592 393.583 Output Total 390 435 185 Balance 3629.122 1495.592 208.583 Weight 180 kg Intake: IV 2730 625 150 Dextrose 5% in Water 1, 450 400 100 000 ml @ 50 mls/hr IV . Q23H ONE with Sodium Bicarb (1 Meq/ml) 150 ml Rx#:[id number] Piperacillin-Tazobactam 3 100 75 .375 gm In Sodium Chloride 0.9% 100 ml @ 25 mls/hr IVPB Q12HR [facility] Rx #:[id number] Sodium Chloride 0.9% 1, 2180 150 50 000 ml @ 50 mls/hr IV . Q20H [facility] Rx#:[id number] Intake, IV Titration 6032.218 3874.592 243.583 Amount Dextrose 5% in Water 1, 300 000 ml @ 50 mls/hr IV . Q23H ONE with Sodium Bicarb (1 Meq/ml) 150 ml Rx#:[id number] EPINEPHrine 4 mg In 588.887 1938.175 218.933 Dextrose 5% in Water 250 ml @ 0.01 MCG/KG/MIN 6.45 mls/hr IV .Q24H [facility] Rx#: [id number] Insulin Regular 100 unit 21.417 24.65 In Sodium Chloride 0.9% 100 ml @ Per Protocol IV .Q0M [facility] Rx#:[id number] Norepinephrine 32 mg In 241.447 250.000 Sodium Chloride 0.9% 218 ml @ 0.05 MCG/KG/MIN 3. 984 mls/hr IV .Q24H [facility] Rx#:[id number] Sodium Chloride 3%( 25 Hypertonic) 500 ml @ 25 mls/hr IV .Q20H [facility] Rx#: [id number] Vancomycin 2,500 mg In 334 Sodium Chloride 0.9% 500 ml 500 ml @ 167 mls/hr IVPB ONCE ONE Rx#: [id number] Tube Feeding 3 Output: Urine 390 435 185 Other: Voiding Method Indwelling Catheter Indwelling Catheter ABP, PAP, CO, CI - Last Documented Arterial Blood Pressure 111/44 - Exam General appearance: The patient is obtunded with Bipap in place. Morbidly obese HET: Head is normocephalic and atraumatic. Conjunctiva pink. Sclera and icteric. Neck: Supple without lymphadenopathy. Abdomen: Soft, obeses, nontender, nondistended with bowel sounds. No guarding or rigidity. Extremities: Normal skin color and turgor. Pedal edema Neurological: Obtunded. - Labs CBC & Chem 7: 04/27/20 05:00 04/27/20 10:55 Labs: Abnormal Lab Results - Last 24 Hours (Table) 04/26/20 04/26/20 04/26/20 Range/Units 04:25 04:25 13:32 WBC (3.8-10.6) k/uL RBC (3.80-5.40) m/uL Hgb (11.4-16.0) gm/dL Hct (34.0-46.0) % RDW (11.5-15.5) % Plt Count (150-450) k/uL ABG pH (7.35-7.45) ABG pCO2 (35-45) mmHg ABG pO2 (83-108) mmHg ABG HCO3 (21-25) mmol/L ABG Total CO2 (19-24) mmol/L ABG O2 Saturation (94-97) % Sodium (137-145) mmol/L Potassium (3.5-5.1) mmol/L Chloride (98-107) mmol/L Carbon Dioxide (22-30) mmol/L BUN (7-17) mg/dL Creatinine (0.52-1.04) mg/dL Glucose (74-99) mg/dL POC Glucose (mg/dL) 237 H (75-99) mg/dL Calcium (8.4-10.2) mg/dL Iron 35 L (50-170) ug/dL % Saturation 10.80 L (12.00-45.00) AST (14-36) U/L Total Protein (6.3-8.2) g/dL Albumin (3.5-5.0) g/dL Vitamin B12 1172.0 H (200.0-944.0) pg/mL Procalcitonin 0.78 H (0.02-0.09) ng/mL 04/26/20 04/26/20 04/26/20 Range/Units 14:15 15:37 17:10 WBC (3.8-10.6) k/uL RBC (3.80-5.40) m/uL Hgb (11.4-16.0) gm/dL Hct (34.0-46.0) % RDW (11.5-15.5) % Plt Count (150-450) k/uL ABG pH 7.15 L* (7.35-7.45) ABG pCO2 48 H (35-45) mmHg ABG pO2 (83-108) mmHg ABG HCO3 17 L (21-25) mmol/L ABG Total CO2 18 L (19-24) mmol/L ABG O2 Saturation 97.9 H (94-97) % Sodium 120 L (137-145) mmol/L Potassium 5.5 H (3.5-5.1) mmol/L Chloride 92 L (98-107) mmol/L Carbon Dioxide 16 L (22-30) mmol/L BUN 111 H* (7-17) mg/dL Creatinine 3.22 H (0.52-1.04) mg/dL Glucose 229 H (74-99) mg/dL POC Glucose (mg/dL) 268 H (75-99) mg/dL Calcium (8.4-10.2) mg/dL Iron (50-170) ug/dL % Saturation (12.00-45.00) AST (14-36) U/L Total Protein (6.3-8.2) g/dL Albumin (3.5-5.0) g/dL Vitamin B12 (200.0-944.0) pg/mL Procalcitonin (0.02-0.09) ng/mL 04/26/20 04/26/20 04/27/20 Range/Units 18:40 19:55 02:27 WBC (3.8-10.6) k/uL RBC (3.80-5.40) m/uL Hgb (11.4-16.0) gm/dL Hct (34.0-46.0) % RDW (11.5-15.5) % Plt Count (150-450) k/uL ABG pH (7.35-7.45) ABG pCO2 (35-45) mmHg ABG pO2 (83-108) mmHg ABG HCO3 (21-25) mmol/L ABG Total CO2 (19-24) mmol/L ABG O2 Saturation (94-97) % Sodium 122 L (137-145) mmol/L Potassium (3.5-5.1) mmol/L Chloride 93 L (98-107) mmol/L Carbon Dioxide 17 L (22-30) mmol/L BUN 108 H* (7-17) mg/dL Creatinine 3.13 H (0.52-1.04) mg/dL Glucose 264 H (74-99) mg/dL POC Glucose (mg/dL) 273 H 315 H (75-99) mg/dL Calcium 7.9 L (8.4-10.2) mg/dL Iron (50-170) ug/dL % Saturation (12.00-45.00) AST (14-36) U/L Total Protein (6.3-8.2) g/dL Albumin (3.5-5.0) g/dL Vitamin B12 (200.0-944.0) pg/mL Procalcitonin (0.02-0.09) ng/mL 04/27/20 04/27/20 04/27/20 Range/Units 02:59 04:00 05:00 WBC (3.8-10.6) k/uL RBC (3.80-5.40) m/uL Hgb (11.4-16.0) gm/dL Hct (34.0-46.0) % RDW (11.5-15.5) % Plt Count (150-450) k/uL ABG pH (7.35-7.45) ABG pCO2 (35-45) mmHg ABG pO2 (83-108) mmHg ABG HCO3 (21-25) mmol/L ABG Total CO2 (19-24) mmol/L ABG O2 Saturation (94-97) % Sodium 122 L (137-145) mmol/L Potassium (3.5-5.1) mmol/L Chloride 93 L (98-107) mmol/L Carbon Dioxide 20 L (22-30) mmol/L BUN 107 H* (7-17) mg/dL Creatinine 3.21 H (0.52-1.04) mg/dL Glucose 219 H (74-99) mg/dL POC Glucose (mg/dL) 302 H 259 H (75-99) mg/dL Calcium 8.1 L (8.4-10.2) mg/dL Iron (50-170) ug/dL % Saturation (12.00-45.00) AST 51 H (14-36) U/L Total Protein 5.6 L (6.3-8.2) g/dL Albumin 2.5 L (3.5-5.0) g/dL Vitamin B12 (200.0-944.0) pg/mL Procalcitonin (0.02-0.09) ng/mL 04/27/20 04/27/20 04/27/20 Range/Units 05:00 05:00 05:55 WBC 16.3 H (3.8-10.6) k/uL RBC 2.63 L (3.80-5.40) m/uL Hgb 7.9 L (11.4-16.0) gm/dL Hct 25.1 L (34.0-46.0) % RDW 16.5 H (11.5-15.5) % Plt Count 109 L (150-450) k/uL ABG pH (7.35-7.45) ABG pCO2 (35-45) mmHg ABG pO2 (83-108) mmHg ABG HCO3 (21-25) mmol/L ABG Total CO2 (19-24) mmol/L ABG O2 Saturation (94-97) % Sodium (137-145) mmol/L Potassium (3.5-5.1) mmol/L Chloride (98-107) mmol/L Carbon Dioxide (22-30) mmol/L BUN (7-17) mg/dL Creatinine (0.52-1.04) mg/dL Glucose (74-99) mg/dL POC Glucose (mg/dL) 238 H 212 H (75-99) mg/dL Calcium (8.4-10.2) mg/dL Iron (50-170) ug/dL % Saturation (12.00-45.00) AST (14-36) U/L Total Protein (6.3-8.2) g/dL Albumin (3.5-5.0) g/dL Vitamin B12 (200.0-944.0) pg/mL Procalcitonin (0.02-0.09) ng/mL 04/27/20 04/27/20 04/27/20 Range/Units 07:04 08:59 09:14 WBC (3.8-10.6) k/uL RBC (3.80-5.40) m/uL Hgb (11.4-16.0) gm/dL Hct (34.0-46.0) % RDW (11.5-15.5) % Plt Count (150-450) k/uL ABG pH 7.30 L (7.35-7.45) ABG pCO2 (35-45) mmHg ABG pO2 119 H (83-108) mmHg ABG HCO3 (21-25) mmol/L ABG Total CO2 (19-24) mmol/L ABG O2 Saturation 98.5 H (94-97) % Sodium (137-145) mmol/L Potassium (3.5-5.1) mmol/L Chloride (98-107) mmol/L Carbon Dioxide (22-30) mmol/L BUN (7-17) mg/dL Creatinine (0.52-1.04) mg/dL Glucose (74-99) mg/dL POC Glucose (mg/dL) 170 H 157 H (75-99) mg/dL Calcium (8.4-10.2) mg/dL Iron (50-170) ug/dL % Saturation (12.00-45.00) AST (14-36) U/L Total Protein (6.3-8.2) g/dL Albumin (3.5-5.0) g/dL Vitamin B12 (200.0-944.0) pg/mL Procalcitonin (0.02-0.09) ng/mL 04/27/20 04/27/20 Range/Units 10:55 11:11 WBC (3.8-10.6) k/uL RBC (3.80-5.40) m/uL Hgb (11.4-16.0) gm/dL Hct (34.0-46.0) % RDW (11.5-15.5) % Plt Count (150-450) k/uL ABG pH (7.35-7.45) ABG pCO2 (35-45) mmHg ABG pO2 (83-108) mmHg ABG HCO3 (21-25) mmol/L ABG Total CO2 (19-24) mmol/L ABG O2 Saturation (94-97) % Sodium 125 L (137-145) mmol/L Potassium (3.5-5.1) mmol/L Chloride (98-107) mmol/L Carbon Dioxide (22-30) mmol/L BUN (7-17) mg/dL Creatinine (0.52-1.04) mg/dL Glucose (74-99) mg/dL POC Glucose (mg/dL) 148 H (75-99) mg/dL Calcium (8.4-10.2) mg/dL Iron (50-170) ug/dL % Saturation (12.00-45.00) AST (14-36) U/L Total Protein (6.3-8.2) g/dL Albumin (3.5-5.0) g/dL Vitamin B12 (200.0-944.0) pg/mL Procalcitonin (0.02-0.09) ng/mL Assessment and Plan (1) Anemia, normocytic normochromic Narrative/Plan: 60-year-old female with multiple medical comorbidities who presented to the hospital due to weakness and low blood sugars. Patient found to be hyponatremic, hypochloremic with elevated creatinine from baseline currently being treated for the stated as well as possible sepsis. She is being managed in ICU. No signs or symptoms of GI bleeding since presentation. She denies any history of peptic ulcer disease, excessive NSAID use, abdominal pain, prior EGD with last colonoscopy approximately 5 years ago. She had been noting intermittent blood in stools over the past few months. She was found to be anemic on presentation with a hemoglobin of 6.7 with normochromic, normocytic indices. Stool testing was positive for blood. Hemoglobin currently stable status post transfusion. Patient has a known history of hepatitis C currently receiving treatment. Unclear cause of anemia but likely multifactorial given chronic kidney disease/anemia of chronic disease, cannot rule out a component of acute GI bleed given symptoms of maroon-colored stool and positive testing for occult blood with differential including peptic ulcer disease, portal hypertensive gastropathy, AVM or other etiology. Current Visit: Yes Status: Acute Code(s): D64.9 - ANEMIA, UNSPECIFIED SNOMED Code(s): 65082019 Plan: Supportive care Okay for diet as tolerated Continue Protonix therapy Continue to monitor hemoglobin and hematocrit and transfuse as needed Continue broad-spectrum antibiotic therapy Nephrology service following for acute kidney injury as well as hypo-natremia and hypokalemia ICU management by the ui developer with angular js service Anemia laboratory investigation ordered Continue to monitor for signs or symptoms of GI bleed Patient high risk for endoscopic evaluation at this time given multiple electrolyte dyscrasias, hypotension and overall clinical status, will consider evaluation when medically stable or if precipitous drop in hemoglobin, however there is discussion regarding family possibly making the patient Hopsice. Thank you for allowing us to participate in the care of the patient The impression and plan of care has been dictated as directed. I performed a history and examination of this patient, discussed the same with the dictator. I agree with the dictator's note ,documented as a scribe. Any additional findings or plans will be noted.
--- NOTE | 2020-04-27 13:53 | P.PN ---
Subjective Progress Note Date: 04/27/20 64-year-old female patient presented to the ED because of generalized weakness and recurrent hypoglycemic events. She apparently was found to have a blood sugar of 44 at home and she received an amp of D50 by EMS and came to the scene and the patient's blood sugar came up to 96. At that time the patient was seen generalized weakness and tiredness and shakiness. No a activity has been noted. The patient was also noted to have low blood pressure. Denied having any shortness of breath. No headaches. No dizziness. No falls. No head trauma. She came into the ED and the patient was found to have a white cell count of 7.2 with a hemoglobin of 6.1 and a recent drop compared to a baseline of 9.1 from 02/23/2020. Her platelet count was at 84 and the patient suffers from chronic thrombocytopenia. Coagulation profile is within normal limits. The sodium level was 108 and this is another new finding with a chloride level of 77 knowing that her most recent blood work showed normal sodium and chloride levels. The patient began with 114 and a creatinine of 3.11 knowing that her baseline creatinine from 02/07/2020 was 1.8. The patient also had a lactic acid level of 2.3, troponin of 0.468, AST of 54, ALT of 24, total protein of 5.4 with an albumin of 2.3. The patient was further found to be hypothermic with a temperature of 93.9. BNP was 74/33. She was on 2 L of oxygen by nasal cannula with a pulse ox of 97%. EKG showing a sinus rhythm with a first-degree AV block. A chest x-ray was not done. On 04/25/2020, the patient is being seen for a follow-up in the intensive care unit. Note that the patient was seen yesterday and overnight it has been significant changes condition mainly significant drop in her blood pressure. Mother the patient presented to us with a suspicion of GI bleed in addition to hyponatremia. The patient got transfused with a total of 2 units of packed RBC. I initially had the patient on normal saline infusion for fluid resuscitation. However, overnight the patient was placed at 3% normal saline by nephrology. The patient was getting minimal amount of volume. The patient became hypotensive. The patient was started on pressors and earlier this morning the norepinephrine infusion was running at 0.3 g per KG per minute which is quite a high dose. At that point, immediately start patient on normal saline infusion at 2 L of bolus was given. Serum cortisol was low at 12. The patient was started on IV hydrocortisone. The patient was also started on vasopressin. A triple lumen catheter was inserted and the patient's CVP was only a 6 via triple lumen catheter that was inserted in left IJ. The patient is afebrile. White cell count is 13.0 with a hemoglobin of 8.3. Platelet count is at 118. The sodium level is up to 116. The patient also had no major improvement in renal failure and the creatinine was at 3.19 with a BUN of 112. Troponin is a 0.4. Liver function tests showed an AST of 54, ALT of 25, alk phos is at 129. The echocardiogram showed a preserved LV function with an EF of around 60-65%. The ultrasound of the abdomen showed no significant abnormalities. There is splenomegaly. No signs of any cholecystitis. Gallbladder and the common bile duct were all within normal limits. 04/26/2020, the patient is being seen for follow-up in the intensive care unit. The patient is awake although I feel that she is a bit more somnolent compared to yesterday. Unfortunately, I'm still unable to get an accurate blood pressure reading. I think the blood pressure cuff and Artline are quite accurate. I have the patient on high-dose norepinephrine infusion for blood pressure support and norepinephrine is running at 0.29 g per KG per minute. She is also on vasopressin physiologic dose at 0.03 units per minute. The patient is also on stress dose hydrocortisone. The patient is on normal saline at rate of 130s is an hour. She is also receiving 3% hypertonic saline solution per nephrology with a rate of 25 mL an hour. The patient's most recent sodium level is at 160. BP is at 70/39. CVP is at 18. Chest x-ray showing mild pulmonary vascular congestion. I was concerned that the patient may be going into fluid overload especially with her urine output remains low. I cut down the IV fluids to 50 mL an hour. No fever. No chills. She is on broad-spectrum antibiotics for now and she is on a combination of Zosyn and vancomycin. The blood cultures been negative for now. I was informed of the later stages the patient had a blood gas that showed a pH of 7.12 with a pCO2 of 50 and pO2 of 104. This was done and FiO2 28%. At that point, the IV fluids was switched to a bicarb infusion. Subsequent sodium level came in 119. The white cell count is at 18.3 with a hemoglobin of 7.9. Is very much likely the patient would require intubation mechanical ventilation at the later stage. I'm unable to establish a good arterial blood pressure reading his patient. Obviously the femoral arteries can not be used as the patient is morbidly obese and she has a very huge abdominal apron setting over her thighs. The current Artline is in the left radial. We'll may be able to insert a right radial artery for another confirmation of the blood pressure reading. The patient is arousable and she is awake yet somnolence. The patient is not fluid balance over the past 24 hours has been +4.3 L. On 04/27/2020, I'm seeing the patient for a follow-up. The patient is doing poorly still in the patient remains in a shock state. The patient remains profoundly hypotensive. She has been aggressively resuscitated with IV fluids. Note that she was on a combination of pressors in addition to fluids. I had to give her an additional 2 L of bolus yesterday to improve some of her blood pressure and earlier this morning the patient is still on a combination of levo fed running at 54 g per minute, epinephrine running at 10 g per minute and vasopressin at physiologic dose of 0.03 units per minute. The patient has a low urine output. There is not fluid balance has been 3.1 L over the past 24 hours. Nevertheless, the patient has been able to come off the higher dose of epinephrine which was being utilized yesterday for hemodynamic support. The morning labs show a white cell count of 16.3 with a hemoglobin of 7.9 and there is no evidence of any significant drop in the patient's hemoglobin. The blood gas showed a pH of 7.2 to pCO2 of 45 and pO2 of 119 and this was done while the patient being on a BiPAP at a pressure of 10/5 cm of water and FiO2 of 35%. The sodium level is up to 125. BUN is at 107 with a creatinine of 3.2. Serum bicarbs at 20. The maintenance IV fluids in the form of bicarb infusion at the rate of 50 mL an hour of 150 mEq of sodium bicarb. The patient is also on an insulin drip at 3 units an hour. Nephrology opted to add a 30% hypertonic saline to gradually build up her sodium which is currently up to 125. The patient is lethargic. She is quite obtunded. I had a lengthy discussion with the children and based on the patient's wishes, she'll be a DNR/DNI CODE STATUS. Meanwhile, we'll continue our efforts to resuscitate the patient with understanding that she is quite ill and she has signs of multisystem organ failure. Echo has been within normal limits. No significant LV dysfunction. Cultures of been negative. She remains on broad-spectrum antibiotics. Pro- calcitonin level was at 0.78. Objective - Vital Signs Vital signs: Vital Signs Temp 96.2 F L 04/27/20 12:00 Pulse 116 H 04/27/20 12:00 Resp 18 04/27/20 12:00 BP 103/61 04/27/20 09:00 Pulse Ox 96 04/27/20 12:00 Intake & Output 04/26/20 04/27/20 04/27/20 18:59 06:59 18:59 Intake Total 4019.122 1930.592 943.583 Output Total 390 435 510 Balance 3629.122 1495.592 433.583 Weight 180 kg Intake: IV 2730 625 350 Dextrose 5% in Water 1, 450 400 200 000 ml @ 50 mls/hr IV . Q23H ONE with Sodium Bicarb (1 Meq/ml) 150 ml Rx#:[id number] Piperacillin-Tazobactam 3 100 75 100 .375 gm In Sodium Chloride 0.9% 100 ml @ 25 mls/hr IVPB Q12HR [facility] Rx #:[id number] Sodium Chloride 0.9% 1, 2180 150 50 000 ml @ 50 mls/hr IV . Q20H [facility] Rx#:[id number] Intake, IV Titration 3513.521 5932.592 243.583 Amount Dextrose 5% in Water 1, 300 000 ml @ 50 mls/hr IV . Q23H ONE with Sodium Bicarb (1 Meq/ml) 150 ml Rx#:[id number] EPINEPHrine 4 mg In 929.067 6695.175 218.933 Dextrose 5% in Water 250 ml @ 0.01 MCG/KG/MIN 6.45 mls/hr IV .Q24H [facility] Rx#: [id number] Insulin Regular 100 unit 21.417 24.65 In Sodium Chloride 0.9% 100 ml @ Per Protocol IV .Q0M [facility] Rx#:[id number] Norepinephrine 32 mg In 241.447 250.000 Sodium Chloride 0.9% 218 ml @ 0.05 MCG/KG/MIN 3. 984 mls/hr IV .Q24H [facility] Rx#:[id number] Sodium Chloride 3%( 25 Hypertonic) 500 ml @ 25 mls/hr IV .Q20H [facility] Rx#: [id number] Vancomycin 2,500 mg In 334 Sodium Chloride 0.9% 500 ml 500 ml @ 167 mls/hr IVPB ONCE ONE Rx#: [id number] Oral 350 Tube Feeding 3 Output: Urine 390 435 510 Other: Voiding Method Indwelling Catheter Indwelling Catheter ABP, PAP, CO, CI - Last Documented Arterial Blood Pressure 111/44 - Exam Gen. appearance morbidly obese, comfortable and the patient quite obtunded and a currently she is on a BiPAP at a pressure of 10/5 cm of water and she is able to tolerate a full face BiPAP mask without any major difficulties the patient has a left IJ triple-lumen catheter in place. The patient withdraws to painful stimulation pH is not communicating at this point in time. Overnight she became quite restless and she was given a dose of Ativan. Head exam was generally normal. There was no scleral icterus or corneal arcus. Mucous membranes were moist. Neck was supple and without jugular venous distension, thyromegaly, or carotid bruits. Carotids were easily palpable bilaterally. There was no adenopathy. Mallampati class IV lung sounds are diminished bilaterally especially lung bases otherwise clear. Cardiac exam revealed the PMI to be normally situated and sized. The rhythm was regular and no extrasystoles were noted during several minutes of auscultation. The first and second heart sounds were normal and physiologic splitting of the second heart sound was noted. There were no murmurs, rubs, clicks, or gallops. abdomen is morbidly obese soft nontender. There is no ascites. Organs cannot be accurately palpated as the patient has morbid obesity. No direct tenderness. No rebound tenderness. No guarding. Extremities revealed trace edema and there is no cyanosis or clubbing. The patient has an arterial line in the right brachial artery. She has also developed some edema in lower extremities bilaterally. She has trace edema. Pulses are quite diminished in lower extremities bilaterally. No cyanosis. No clubbing. Neurological the patient seems to quite obtunded. Withdraws to painful stimulation. Not communicating this morning. - Labs CBC & Chem 7: 04/27/20 05:00 04/27/20 10:55 Labs: Abnormal Lab Results - Last 24 Hours (Table) 04/26/20 04/26/20 04/26/20 Range/Units 04:25 04:25 14:15 WBC (3.8-10.6) k/uL RBC (3.80-5.40) m/uL Hgb (11.4-16.0) gm/dL Hct (34.0-46.0) % RDW (11.5-15.5) % Plt Count (150-450) k/uL ABG pH (7.35-7.45) ABG pCO2 (35-45) mmHg ABG pO2 (83-108) mmHg ABG HCO3 (21-25) mmol/L ABG Total CO2 (19-24) mmol/L ABG O2 Saturation (94-97) % Sodium 120 L (137-145) mmol/L Potassium 5.5 H (3.5-5.1) mmol/L Chloride 92 L (98-107) mmol/L Carbon Dioxide 16 L (22-30) mmol/L BUN 111 H* (7-17) mg/dL Creatinine 3.22 H (0.52-1.04) mg/dL Glucose 229 H (74-99) mg/dL POC Glucose (mg/dL) (75-99) mg/dL Calcium (8.4-10.2) mg/dL Iron 35 L (50-170) ug/dL % Saturation 10.80 L (12.00-45.00) AST (14-36) U/L Total Protein (6.3-8.2) g/dL Albumin (3.5-5.0) g/dL Vitamin B12 1172.0 H (200.0-944.0) pg/mL Procalcitonin 0.78 H (0.02-0.09) ng/mL 04/26/20 04/26/20 04/26/20 Range/Units 15:37 17:10 18:40 WBC (3.8-10.6) k/uL RBC (3.80-5.40) m/uL Hgb (11.4-16.0) gm/dL Hct (34.0-46.0) % RDW (11.5-15.5) % Plt Count (150-450) k/uL ABG pH 7.15 L* (7.35-7.45) ABG pCO2 48 H (35-45) mmHg ABG pO2 (83-108) mmHg ABG HCO3 17 L (21-25) mmol/L ABG Total CO2 18 L (19-24) mmol/L ABG O2 Saturation 97.9 H (94-97) % Sodium 122 L (137-145) mmol/L Potassium (3.5-5.1) mmol/L Chloride 93 L (98-107) mmol/L Carbon Dioxide 17 L (22-30) mmol/L BUN 108 H* (7-17) mg/dL Creatinine 3.13 H (0.52-1.04) mg/dL Glucose 264 H (74-99) mg/dL POC Glucose (mg/dL) 268 H (75-99) mg/dL Calcium 7.9 L (8.4-10.2) mg/dL Iron (50-170) ug/dL % Saturation (12.00-45.00) AST (14-36) U/L Total Protein (6.3-8.2) g/dL Albumin (3.5-5.0) g/dL Vitamin B12 (200.0-944.0) pg/mL Procalcitonin (0.02-0.09) ng/mL 04/26/20 04/27/20 04/27/20 Range/Units 19:55 02:27 02:59 WBC (3.8-10.6) k/uL RBC (3.80-5.40) m/uL Hgb (11.4-16.0) gm/dL Hct (34.0-46.0) % RDW (11.5-15.5) % Plt Count (150-450) k/uL ABG pH (7.35-7.45) ABG pCO2 (35-45) mmHg ABG pO2 (83-108) mmHg ABG HCO3 (21-25) mmol/L ABG Total CO2 (19-24) mmol/L ABG O2 Saturation (94-97) % Sodium (137-145) mmol/L Potassium (3.5-5.1) mmol/L Chloride (98-107) mmol/L Carbon Dioxide (22-30) mmol/L BUN (7-17) mg/dL Creatinine (0.52-1.04) mg/dL Glucose (74-99) mg/dL POC Glucose (mg/dL) 273 H 315 H 302 H (75-99) mg/dL Calcium (8.4-10.2) mg/dL Iron (50-170) ug/dL % Saturation (12.00-45.00) AST (14-36) U/L Total Protein (6.3-8.2) g/dL Albumin (3.5-5.0) g/dL Vitamin B12 (200.0-944.0) pg/mL Procalcitonin (0.02-0.09) ng/mL 04/27/20 04/27/20 04/27/20 Range/Units 04:00 05:00 05:00 WBC (3.8-10.6) k/uL RBC (3.80-5.40) m/uL Hgb (11.4-16.0) gm/dL Hct (34.0-46.0) % RDW (11.5-15.5) % Plt Count (150-450) k/uL ABG pH (7.35-7.45) ABG pCO2 (35-45) mmHg ABG pO2 (83-108) mmHg ABG HCO3 (21-25) mmol/L ABG Total CO2 (19-24) mmol/L ABG O2 Saturation (94-97) % Sodium 122 L (137-145) mmol/L Potassium (3.5-5.1) mmol/L Chloride 93 L (98-107) mmol/L Carbon Dioxide 20 L (22-30) mmol/L BUN 107 H* (7-17) mg/dL Creatinine 3.21 H (0.52-1.04) mg/dL Glucose 219 H (74-99) mg/dL POC Glucose (mg/dL) 259 H 238 H (75-99) mg/dL Calcium 8.1 L (8.4-10.2) mg/dL Iron (50-170) ug/dL % Saturation (12.00-45.00) AST 51 H (14-36) U/L Total Protein 5.6 L (6.3-8.2) g/dL Albumin 2.5 L (3.5-5.0) g/dL Vitamin B12 (200.0-944.0) pg/mL Procalcitonin (0.02-0.09) ng/mL 04/27/20 04/27/20 04/27/20 Range/Units 05:00 05:55 07:04 WBC 16.3 H (3.8-10.6) k/uL RBC 2.63 L (3.80-5.40) m/uL Hgb 7.9 L (11.4-16.0) gm/dL Hct 25.1 L (34.0-46.0) % RDW 16.5 H (11.5-15.5) % Plt Count 109 L (150-450) k/uL ABG pH (7.35-7.45) ABG pCO2 (35-45) mmHg ABG pO2 (83-108) mmHg ABG HCO3 (21-25) mmol/L ABG Total CO2 (19-24) mmol/L ABG O2 Saturation (94-97) % Sodium (137-145) mmol/L Potassium (3.5-5.1) mmol/L Chloride (98-107) mmol/L Carbon Dioxide (22-30) mmol/L BUN (7-17) mg/dL Creatinine (0.52-1.04) mg/dL Glucose (74-99) mg/dL POC Glucose (mg/dL) 212 H 170 H (75-99) mg/dL Calcium (8.4-10.2) mg/dL Iron (50-170) ug/dL % Saturation (12.00-45.00) AST (14-36) U/L Total Protein (6.3-8.2) g/dL Albumin (3.5-5.0) g/dL Vitamin B12 (200.0-944.0) pg/mL Procalcitonin (0.02-0.09) ng/mL 04/27/20 04/27/20 04/27/20 Range/Units 08:59 09:14 10:55 WBC (3.8-10.6) k/uL RBC (3.80-5.40) m/uL Hgb (11.4-16.0) gm/dL Hct (34.0-46.0) % RDW (11.5-15.5) % Plt Count (150-450) k/uL ABG pH 7.30 L (7.35-7.45) ABG pCO2 (35-45) mmHg ABG pO2 119 H (83-108) mmHg ABG HCO3 (21-25) mmol/L ABG Total CO2 (19-24) mmol/L ABG O2 Saturation 98.5 H (94-97) % Sodium 125 L (137-145) mmol/L Potassium (3.5-5.1) mmol/L Chloride (98-107) mmol/L Carbon Dioxide (22-30) mmol/L BUN (7-17) mg/dL Creatinine (0.52-1.04) mg/dL Glucose (74-99) mg/dL POC Glucose (mg/dL) 157 H (75-99) mg/dL Calcium (8.4-10.2) mg/dL Iron (50-170) ug/dL % Saturation (12.00-45.00) AST (14-36) U/L Total Protein (6.3-8.2) g/dL Albumin (3.5-5.0) g/dL Vitamin B12 (200.0-944.0) pg/mL Procalcitonin (0.02-0.09) ng/mL 04/27/20 Range/Units 11:11 WBC (3.8-10.6) k/uL RBC (3.80-5.40) m/uL Hgb (11.4-16.0) gm/dL Hct (34.0-46.0) % RDW (11.5-15.5) % Plt Count (150-450) k/uL ABG pH (7.35-7.45) ABG pCO2 (35-45) mmHg ABG pO2 (83-108) mmHg ABG HCO3 (21-25) mmol/L ABG Total CO2 (19-24) mmol/L ABG O2 Saturation (94-97) % Sodium (137-145) mmol/L Potassium (3.5-5.1) mmol/L Chloride (98-107) mmol/L Carbon Dioxide (22-30) mmol/L BUN (7-17) mg/dL Creatinine (0.52-1.04) mg/dL Glucose (74-99) mg/dL POC Glucose (mg/dL) 148 H (75-99) mg/dL Calcium (8.4-10.2) mg/dL Iron (50-170) ug/dL % Saturation (12.00-45.00) AST (14-36) U/L Total Protein (6.3-8.2) g/dL Albumin (3.5-5.0) g/dL Vitamin B12 (200.0-944.0) pg/mL Procalcitonin (0.02-0.09) ng/mL Assessment and Plan Plan: 1 severe shock/hypotension currently on a combination of pressors. Patient in itially presented with a hypovolemic shock and subsequently she was suspected to have a septic shock. She is being treated for both. Focused on is mildly elevated. She is receiving IV fluids aggressively and a sense and she is on a combination of pressors. Echocardiogram has been within normal limits. She has a preserved LV function. 2 hypochloremic hyponatremia with a sodium level is gradually improving, and his sodium level is up to 125 3 acute on chronic kidney disease and the patient has chronic stage III kidney disease at baseline with a creatinine of 1.8 4 acute hypothermia, improved 5 acute blood loss anemia. Consider upper GI bleed as the patient's hemoglobin has dropped down to 6.1 with melanotic stools and Hemoccult positive, the patient has not had any further episodes of GI bleeding and the patient got transfused with a 2 units of packed RBC. 6 chronic liver disease/hepatitis C and the patient was receiving Epclusa on outpatient basis, and the patient was having episodes of hypoglycemia, but admission. The ammonia level is noted to be elevated today and the patient may have a component of hepatic encephalopathy and she'll restart also on lactulose. The ammonia level is at 109 and there may be a component of hepatic encephalopathy causing diminished level of consciousness. 7 diabetes mellitus maintained on oral hypoglycemics on outpatient basis, curre ntly on insulin drip for blood sugar control 8 hypertension 9 diminished level of consciousness with possibility of metabolic/hepatic encephalopathy secondary to above-mentioned comorbidities. 10 mild lactic acidosis, recovered 11 troponin leak without any acute EKG changes 12 morbid obesity 13 leukocytosis, white cell count is at 16 14 metabolic/respiratory acidosis based on the most recent blood gas. The metabolic acidosis is improved compared to yesterday and the pH is up to 7.3 Plan We'll give the patient an additional 2 L normal saline Continue the hypertonic saline solution Continue the bicarb infusion Continue the combination of pressors and the patient is currently on a com bination of levo fed and epinephrine. We'll try to gradually wean off the epinephrine. Continue the physiologic vasopressin dose. Echocardiogram showed no evidence of any LV dysfunction Robison catheter is in place Continue Zosyn and vancomycin Start the patient IV hydrocortisone Start the patient on vasopressin physiologic dose to augment the blood pressure DNR/DNI CODE STATUS. Family is at the bedside. Had a lengthy discussion with them. We will not intubate the patient. Will not offer any form of CPR or defibrillation should she go into cardio pulmonary arrest. We'll continue the supportive care for now. Condition remains critical. We'll continue to follow. The condition is critical. We'll continue to follow.The condition is critical and this evaluation was done and more than 30 minutes.
[2020-04-27 15:32] LABS: ABG Base Excess -3.4 mmol/L; ABG HCO3 23 mmol/L (21-25); ABG Oxygen Saturation 99.4 % (94-97); ABG PCO2 45 mmHg (35-45); ABG PH 7.32 (7.35-7.45); ABG PO2 126 mmHg (83-108); ABG TCO2 24 mmol/L (19-24)
[2020-04-27 15:38] LABS: Allen Test Performed? yes
[2020-04-27 15:44] LABS: Anisocytosis Slight; HCT 25.3 % (34.0-46.0); HGB 8.4 gm/dL (11.4-16.0); MCH 31.9 pg (25.0-35.0); MCHC 33.2 g/dL (31.0-37.0); MCV 96.3 fL (80.0-100.0); RBC 2.63 m/uL (3.80-5.40); RDW 16.1 % (11.5-15.5); WBC 10.1 k/uL (3.8-10.6)
[2020-04-27 15:46] LABS: Glucose,Whole Blood 162 mg/dL (75-99)
[2020-04-27 15:52] LABS: Lactic Acid, Venous 1.5 mmol/L (0.7-2.0)
[2020-04-27 15:54] LABS: Albumin 2.5 g/dL (3.5-5.0); Magnesium 1.8 mg/dL (1.6-2.3); Potassium 4.8 mmol/L (3.5-5.1); Total Protein 5.5 g/dL (6.3-8.2)
[2020-04-27 16:47] LABS: Platelet Count 85 k/uL (150-450)
--- NOTE | 2020-04-27 17:00 | XR ---
EXAMINATION TYPE: XR chest 1V portable DATE OF EXAM: 04/27/2020 CLINICAL HISTORY: Shortness of breath had to be intubated. TECHNIQUE: Single AP portable semiupright view of the chest is obtained. COMPARISON: Chest x-ray from one day earlier. FINDINGS: New endotracheal tube projects past jersey into right mainstem bronchus, advise pulling ba ck 5 cm. Stable left internal jugular central venous catheter. Persistent low lung volumes and patchy bibasilar opacities. Cardiac silhouette size stable and within normal limits. Osseous structures are intact. IMPRESSION: 1. New endotracheal tube low lying just past jersey, advise pulling back 5 cm. 2. Low lung volumes with patchy bibasilar atelectasis and/or infiltrate redemonstrated, slightly impr reji from one day earlier.
--- NOTE | 2020-04-27 17:01 | XR ---
EXAMINATION TYPE: XR abdomen 1V DATE OF EXAM: 04/27/2020 4:55 PM CLINICAL HISTORY: OG tube placement TECHNIQUE: Single portable supine view of the abdomen is obtained. COMPARISON: None. FINDINGS: Orogastric tube projects below diaphragm. Only portion of the upper and mid abdomen seen. S uboptimal evaluation due to portable technique and patient's large body habitus. Low-lying endotrache al tube redemonstrated. IMPRESSION: As above.
--- NOTE | 2020-04-27 17:02 | PN ---
PROGRESS NOTE DATE OF SERVICE: 04/27/2020 CHIEF COMPLAINT: 1. Blood-loss anemia. 2. GI bleed. 3. Elevated troponin. 4. Congestive heart failure. 5. Respiratory failure. 6. Hypotension. HISTORY OF PRESENT ILLNESS: This lady has deteriorated. Family has requested that she not be intubated. She may be receiving a hospice consult. PHYSICAL EXAM: She remains hypotensive. She is not responsive. She has developed generalized edema and anasarca. Breath sounds are heard on both sides of the chest, but poorly. There has been no change in the abdominal exam or extremities. IMPRESSION: 1. Blood-loss anemia. 2. GI bleed. 3. Hypotension. 4. Renal failure. 5. Congestive heart failure. 6. Chronic obstructive pulmonary disease. 7. Elevated troponin. PLAN: Family will be talking to hospice today and she may be made comfort measures only. ARACELIS / KATY: [id number] /
[2020-04-27 17:20] LABS: ABG Base Excess -2.6 mmol/L; ABG HCO3 23 mmol/L (21-25); ABG PCO2 38 mmHg (35-45); ABG PH 7.38 (7.35-7.45); ABG PO2 >400 mmHg (83-108); ABG TCO2 24 mmol/L (19-24); Allen Test Performed? Yes
[2020-04-27] MEDS: SODIUM CHLORIDE 0.9% 1,000 ML IV SCH (17:47)
[2020-04-27] MEDS: INSULIN ASPART (NovoLOG) 100 UNIT/ML VIAL SQ SCH ×2 (17:49→20:46)
[2020-04-27 17:50] LABS: Glucose,Whole Blood 172 mg/dL (75-99)
[2020-04-27 20:50] LABS: Glucose,Whole Blood 165 mg/dL (75-99)
[2020-04-28] MEDS: HYDROCORTISONE SUCCINATE 100 MG/2 ML VIAL IV SCH ×3 (00:09→16:00)
--- NOTE | 2020-04-28 01:45 | MISC ---
MISCELLANOUS REPORT QUERY: Severe sepsis with septic shock, source unknown. Acute on chronic diastolic heart failure. MMODL / IJN: [id number] /
[2020-04-28 02:00] LABS: Glucose,Whole Blood 185 mg/dL (75-99)
[2020-04-28] MEDS ORDERED: DEXTROSE 5% IN WATER 1,000 ML with SODIUM BICARB (1 MEQ/ML) 150 ML IV SCH (02:00)
[2020-04-28] MEDS: NOREPINEPHRINE 32 MG in SODIUM CHLORIDE 0.9% 218 ML IV SCH ×2 (03:09→20:33)
[2020-04-28] MEDS: SODIUM CHLORIDE 0.9% 50 ML with VASOPRESSIN 20 UNIT IVPB SCH ×2 (03:10)
[2020-04-28 05:09] LABS: ABG Base Excess 0.8 mmol/L; ABG HCO3 24 mmol/L (21-25); ABG Oxygen Saturation 98.9 % (94-97); ABG PCO2 32 mmHg (35-45); ABG PH 7.48 (7.35-7.45); ABG PO2 156 mmHg (83-108); ABG TCO2 25 mmol/L (19-24); Allen Test Performed? Yes
[2020-04-28 05:43] LABS: Anisocytosis Slight; Basophils % (A) 0 %; Eosinophils % (A) 0 %; HCT 26.4 % (34.0-46.0); HGB 8.5 gm/dL (11.4-16.0); Lymphocytes # (A) 0.6 k/uL (1.0-4.8); Lymphocytes % (A) 7 %; MCH 29.6 pg (25.0-35.0); MCHC 32.2 g/dL (31.0-37.0); MCV 92.1 fL (80.0-100.0); Mean Platelet Volume 8.5; Monocytes # (A) 0.3 k/uL (0-1.0); Monocytes % (A) 3 %; Neutrophils # (A) 7.6 k/uL (1.3-7.7); Neutrophils % (A) 89 %; RBC 2.87 m/uL (3.80-5.40); RDW 16.7 % (11.5-15.5); WBC 8.6 k/uL (3.8-10.6)
[2020-04-28 05:44] LABS: Platelet Count 79 k/uL (150-450)
[2020-04-28] MEDS: INSULIN ASPART (NovoLOG) 100 UNIT/ML VIAL SQ SCH ×4 (06:55→20:32)
[2020-04-28] MEDS: SODIUM CHLORIDE 0.9% 1,000 ML IV SCH (06:56)
[2020-04-28 07:02] LABS: Glucose,Whole Blood 203 mg/dL (75-99)
[2020-04-28 07:30] LABS: Albumin 2.5 g/dL (3.5-5.0); Calcium 8.6 mg/dL (8.4-10.2); Total Bilirubin 1.4 mg/dL (0.2-1.3); Total Protein 5.5 g/dL (6.3-8.2)
--- NOTE | 2020-04-28 08:14 | XR ---
EXAMINATION TYPE: XR chest 1V portable DATE OF EXAM: 04/28/2020 COMPARISON: Prior chest x-ray 04/27/2020 HISTORY: Intubated TECHNIQUE: Single frontal view of the chest is obtained. FINDINGS: Endotracheal tube, left jugular central venous catheter, orogastric tube are again noted a nd are overlying appropriate positions. Heart appears prominently although patient is rotated. Lung v olumes are low. Central vascularity and interstitium are increased. There is no pneumothorax. Bibasil ar increased attenuation may reflect edema versus atelectasis, difficult to exclude effusion, pneumon ia. IMPRESSION: Correlate for congestive heart failure.
[2020-04-28] MEDS: PIPERACILLIN-TAZOBACTAM 3.375 GM in SODIUM CHLORIDE 0.9% 100 ML IVPB SCH ×2 (08:39→20:32)
[2020-04-28] MEDS: PANTOPRAZOLE 40 MG/10 ML VIAL IVP SCH ×2 (08:39→20:31)
[2020-04-28] MEDS: LACTULOSE 20 GM/30 ML CUP PO SCH ×2 (08:39→20:32)
[2020-04-28] MEDS ORDERED: VANCOMYCIN 2,500 MG in SODIUM CHLORIDE 0.9% 500 ML 500 ML IVPB ONE (09:00)
--- NOTE | 2020-04-28 10:27 | P.PN ---
Subjective patient is seen in follow-up for acute kidney injury and hyponatremia. Sodium level up to 131 this morning. urine output significantly improved. Now making about 200 mL an hour of urine.. currently intubated. Off epinephrine and vasopressin. Remains on Levophed which is being weaned. Vital sign: blood pressure stable. on Levophed. General: The patient appeared well nourished and normally developed. intubated. HEENT: Head exam is unremarkable. Neck is without jugular venous distension. LUNGS: Breath sounds decreased. HEART: tachycardic. ABDOMEN: soft, nontender. Obese. EXTREMITITES: 1+ edema. Objective - Vital Signs Vital signs: Vital Signs Temp 97.5 F L 04/28/20 10:00 Pulse 113 H 04/28/20 10:00 Resp 26 H 04/28/20 10:00 BP 126/66 04/28/20 07:00 Pulse Ox 98 04/28/20 10:00 Intake & Output 04/27/20 04/28/20 04/28/20 18:59 06:59 18:59 Intake Total 3623.913 904.837 373.408 Output Total 1364 2250 685 Balance 2259.913 -1345.163 -311.592 Weight 180 kg 177.3 kg Intake: IV 350 650 245 Dextrose 5% in Water 1, 200 300 50 000 ml @ 50 mls/hr IV . Q23H ONE with Sodium Bicarb (1 Meq/ml) 150 ml Rx#:[id number] Piperacillin-Tazobactam 3 100 100 .375 gm In Sodium Chloride 0.9% 100 ml @ 25 mls/hr IVPB Q12HR [facility] Rx #:[id number] Sodium Chloride 0.9% 1, 50 350 95 000 ml @ 75 mls/hr IV . [id number] [facility] Rx#:[id number] Intake, IV Titration 2923.913 254.837 68.408 Amount Dextrose 5% in Water 1, 50 000 ml @ 50 mls/hr IV . Q23H [facility] with Sodium Bicarb (1 Meq/ml) 150 ml Rx#:[id number] EPINEPHrine 4 mg In 218.933 Dextrose 5% in Water 250 ml @ 0.01 MCG/KG/MIN 6.45 mls/hr IV .Q24H [facility] Rx#: [id number] Insulin Regular 100 unit 24.65 In Sodium Chloride 0.9% 100 ml @ Per Protocol IV .Q0M [facility] Rx#:[id number] Norepinephrine 32 mg In 180.330 254.837 18.408 Sodium Chloride 0.9% 218 ml @ 0.05 MCG/KG/MIN 3. 984 mls/hr IV .Q24H [facility] Rx#:[id number] Sodium Chloride 0.9% 2, 2500 000 ml @ 999 mls/hr IV . Q2H1M [facility] Rx#:[id number] Oral 350 Other 60 Output: Urine 1364 2250 685 Other: Voiding Method Indwelling Catheter Indwelling Catheter ABP, PAP, CO, CI - Last Documented Arterial Blood Pressure 112/48 - Labs CBC & Chem 7: 04/28/20 05:35 04/28/20 05:35 Labs: Abnormal Lab Results - Last 24 Hours (Table) 04/27/20 04/27/20 04/27/20 Range/Units 10:18 10:55 11:11 RBC (3.80-5.40) m/uL Hgb (11.4-16.0) gm/dL Hct (34.0-46.0) % RDW (11.5-15.5) % Plt Count (150-450) k/uL Lymphocytes # (1.0-4.8) k/uL ABG pH (7.35-7.45) ABG pCO2 (35-45) mmHg ABG pO2 (83-108) mmHg ABG Total CO2 (19-24) mmol/L ABG O2 Saturation (94-97) % Sodium 127 L 125 L (137-145) mmol/L Chloride (98-107) mmol/L BUN (7-17) mg/dL Creatinine (0.52-1.04) mg/dL Glucose (74-99) mg/dL POC Glucose (mg/dL) 148 H (75-99) mg/dL Calcium (8.4-10.2) mg/dL Total Bilirubin (0.2-1.3) mg/dL AST (14-36) U/L ALT (4-34) U/L Ammonia (<30) umol/L Total Protein (6.3-8.2) g/dL Albumin (3.5-5.0) g/dL 04/27/20 04/27/20 04/27/20 Range/Units 15:29 15:38 15:38 RBC (3.80-5.40) m/uL Hgb (11.4-16.0) gm/dL Hct (34.0-46.0) % RDW (11.5-15.5) % Plt Count (150-450) k/uL Lymphocytes # (1.0-4.8) k/uL ABG pH 7.32 L (7.35-7.45) ABG pCO2 (35-45) mmHg ABG pO2 126 H (83-108) mmHg ABG Total CO2 (19-24) mmol/L ABG O2 Saturation 99.4 H (94-97) % Sodium 125 L (137-145) mmol/L Chloride 96 L (98-107) mmol/L BUN 102 H* (7-17) mg/dL Creatinine 2.77 H (0.52-1.04) mg/dL Glucose 156 H (74-99) mg/dL POC Glucose (mg/dL) (75-99) mg/dL Calcium 8.0 L (8.4-10.2) mg/dL Total Bilirubin (0.2-1.3) mg/dL AST 56 H (14-36) U/L ALT (4-34) U/L Ammonia 370 H (<30) umol/L Total Protein 5.5 L (6.3-8.2) g/dL Albumin 2.5 L (3.5-5.0) g/dL 04/27/20 04/27/20 04/27/20 Range/Units 15:38 15:45 17:15 RBC 2.63 L (3.80-5.40) m/uL Hgb 8.4 L (11.4-16.0) gm/dL Hct 25.3 L (34.0-46.0) % RDW 16.1 H (11.5-15.5) % Plt Count 85 L (150-450) k/uL Lymphocytes # (1.0-4.8) k/uL ABG pH (7.35-7.45) ABG pCO2 (35-45) mmHg ABG pO2 >400 H (83-108) mmHg ABG Total CO2 (19-24) mmol/L ABG O2 Saturation 100.0 H (94-97) % Sodium (137-145) mmol/L Chloride (98-107) mmol/L BUN (7-17) mg/dL Creatinine (0.52-1.04) mg/dL Glucose (74-99) mg/dL POC Glucose (mg/dL) 162 H (75-99) mg/dL Calcium (8.4-10.2) mg/dL Total Bilirubin (0.2-1.3) mg/dL AST (14-36) U/L ALT (4-34) U/L Ammonia (<30) umol/L Total Protein (6.3-8.2) g/dL Albumin (3.5-5.0) g/dL 04/27/20 04/27/20 04/27/20 Range/Units 17:48 20:38 22:00 RBC (3.80-5.40) m/uL Hgb (11.4-16.0) gm/dL Hct (34.0-46.0) % RDW (11.5-15.5) % Plt Count (150-450) k/uL Lymphocytes # (1.0-4.8) k/uL ABG pH (7.35-7.45) ABG pCO2 (35-45) mmHg ABG pO2 (83-108) mmHg ABG Total CO2 (19-24) mmol/L ABG O2 Saturation (94-97) % Sodium 127 L (137-145) mmol/L Chloride (98-107) mmol/L BUN (7-17) mg/dL Creatinine (0.52-1.04) mg/dL Glucose (74-99) mg/dL POC Glucose (mg/dL) 172 H 165 H (75-99) mg/dL Calcium (8.4-10.2) mg/dL Total Bilirubin (0.2-1.3) mg/dL AST (14-36) U/L ALT (4-34) U/L Ammonia (<30) umol/L Total Protein (6.3-8.2) g/dL Albumin (3.5-5.0) g/dL 04/28/20 04/28/20 04/28/20 Range/Units 01:48 05:04 05:35 RBC 2.87 L (3.80-5.40) m/uL Hgb 8.5 L (11.4-16.0) gm/dL Hct 26.4 L (34.0-46.0) % RDW 16.7 H (11.5-15.5) % Plt Count 79 L (150-450) k/uL Lymphocytes # 0.6 L (1.0-4.8) k/uL ABG pH 7.48 H (7.35-7.45) ABG pCO2 32 L (35-45) mmHg ABG pO2 156 H (83-108) mmHg ABG Total CO2 25 H (19-24) mmol/L ABG O2 Saturation 98.9 H (94-97) % Sodium (137-145) mmol/L Chloride (98-107) mmol/L BUN (7-17) mg/dL Creatinine (0.52-1.04) mg/dL Glucose (74-99) mg/dL POC Glucose (mg/dL) 185 H (75-99) mg/dL Calcium (8.4-10.2) mg/dL Total Bilirubin (0.2-1.3) mg/dL AST (14-36) U/L ALT (4-34) U/L Ammonia (<30) umol/L Total Protein (6.3-8.2) g/dL Albumin (3.5-5.0) g/dL 04/28/20 04/28/20 04/28/20 Range/Units 05:35 05:35 06:51 RBC (3.80-5.40) m/uL Hgb (11.4-16.0) gm/dL Hct (34.0-46.0) % RDW (11.5-15.5) % Plt Count (150-450) k/uL Lymphocytes # (1.0-4.8) k/uL ABG pH (7.35-7.45) ABG pCO2 (35-45) mmHg ABG pO2 (83-108) mmHg ABG Total CO2 (19-24) mmol/L ABG O2 Saturation (94-97) % Sodium 131 L (137-145) mmol/L Chloride 97 L (98-107) mmol/L BUN 99 H (7-17) mg/dL Creatinine 2.48 H (0.52-1.04) mg/dL Glucose 193 H (74-99) mg/dL POC Glucose (mg/dL) 203 H (75-99) mg/dL Calcium (8.4-10.2) mg/dL Total Bilirubin 1.4 H (0.2-1.3) mg/dL AST 52 H (14-36) U/L ALT 35 H (4-34) U/L Ammonia 101 H (<30) umol/L Total Protein 5.5 L (6.3-8.2) g/dL Albumin 2.5 L (3.5-5.0) g/dL Assessment and Plan Plan: Assessment: 1. Acute kidney injury secondary to ATN secondary to septic shock. Creatinine 3.27 on admission and is 2.48 this morning. UA benign. no hydronephrosis noted on kidney ultrasound. nonoliguric. nonoliguric. 2. Chronic kidney disease stage III. Patient's creatinine was near 1.8 in November 2018 and January 2020. 3. Hypovolemic hyponatremia. TSH and cortisol level normal. urine sodium less than 10 and urine osmolality 304. improving. 4. Septic shock maintained on Levophed. Maintained on antibiotics. Also on IV steroids. 5. GI bleed status post 2 units blood transfusion. Hemoglobin improved. 6. Diabetes mellitus. 7. Hyperkalemia secondary to acute kidney injury and metabolic acidosis. improved with medical management. 8. Metabolic acidosis secondary to acute kidney injury status post bicarbonate drip. Improved. Plan: Wean vasopressors and FiO2. Avoid nephrotoxins. Continue to monitor renal function and urine output closely. no urgent need for renal replacement therapy. off bicarb drip. Now on normal saline.
--- NOTE | 2020-04-28 11:13 | MISC ---
MISCELLANOUS REPORT QUERY: Severe sepsis on admission, source unknown. Acute on chronic diastolic. MMODL / IJN: [id number] /
[2020-04-28 12:10] LABS: Glucose,Whole Blood 190 mg/dL (75-99)
--- NOTE | 2020-04-28 12:16 | P.PN ---
Subjective Progress Note Date: 04/28/20 Principal diagnosis: Weakness and low blood sugar This is a 64-year-old female with an extensive past medical history with multiple comorbidities. The patient presented to the emergency department due to weakness and recurrent episodes of low blood sugars. The patient was admi tted into the ICU, she is status post 1 unit of packed red blood cell transfusion. She had been having intermittent episodes of maroon colored stool over the past few months. She is being followed by Nadeen Parrish for recent diagnosis of hepatitis C and is currently receiving antiviral therapy. The patient seen and examined he was intubated yesterday. She is sedated, no response with deep abdominal palpation. No reports of any rectal bleeding, melena, or hematemesis. Hemoglobin stable at 8.5. Objective - Vital Signs Vital signs: Vital Signs Temp 97.5 F L 04/28/20 10:00 Pulse 112 H 04/28/20 11:00 Resp 26 H 04/28/20 11:00 BP 126/66 04/28/20 07:00 Pulse Ox 98 04/28/20 11:00 Intake & Output 04/27/20 04/28/20 04/28/20 18:59 06:59 18:59 Intake Total 3623.913 904.837 559.241 Output Total 1364 2250 1135 Balance 2259.913 -1345.163 -575.759 Weight 180 kg 177.3 kg Intake: IV 350 650 395 Dextrose 5% in Water 1, 200 300 50 000 ml @ 50 mls/hr IV . Q23H [facility] with Sodium Bicarb (1 Meq/ml) 150 ml Rx#:[id number] Piperacillin-Tazobactam 3 100 100 .375 gm In Sodium Chloride 0.9% 100 ml @ 25 mls/hr IVPB Q12HR [facility] Rx #:[id number] Sodium Chloride 0.9% 1, 50 350 245 000 ml @ 75 mls/hr IV . [id number] [facility] Rx#:[id number] Intake, IV Titration 2923.913 254.837 104.241 Amount Dextrose 5% in Water 1, 50 000 ml @ 50 mls/hr IV . Q23H [facility] with Sodium Bicarb (1 Meq/ml) 150 ml Rx#:[id number] EPINEPHrine 4 mg In 218.933 Dextrose 5% in Water 250 ml @ 0.01 MCG/KG/MIN 6.45 mls/hr IV .Q24H [facility] Rx#: [id number] Insulin Regular 100 unit 24.65 In Sodium Chloride 0.9% 100 ml @ Per Protocol IV .Q0M [facility] Rx#:[id number] Norepinephrine 32 mg In 180.330 254.837 54.241 Sodium Chloride 0.9% 218 ml @ 0.05 MCG/KG/MIN 3. 984 mls/hr IV .Q24H [facility] Rx#:[id number] Sodium Chloride 0.9% 2, 2500 000 ml @ 999 mls/hr IV . Q2H1M [facility] Rx#:[id number] Oral 350 Other 60 Output: Urine 1364 2250 1135 Other: Voiding Method Indwelling Catheter Indwelling Catheter Indwelling Catheter ABP, PAP, CO, CI - Last Documented Arterial Blood Pressure 109/47 - Exam General appearance: The patient is sedated and intubated. Morbidly obese HET: Head is normocephalic and atraumatic. Neck: Supple without lymphadenopathy. Abdomen: Soft, obeses, nontender, nondistended with bowel sounds. No guarding or rigidity. Extremities: Normal skin color and turgor. Pedal edema Neurological: Obtunded. - Labs CBC & Chem 7: 04/28/20 05:35 04/28/20 05:35 Labs: Abnormal Lab Results - Last 24 Hours (Table) 04/27/20 04/27/20 04/27/20 Range/Units 10:18 15:29 15:38 RBC (3.80-5.40) m/uL Hgb (11.4-16.0) gm/dL Hct (34.0-46.0) % RDW (11.5-15.5) % Plt Count (150-450) k/uL Lymphocytes # (1.0-4.8) k/uL ABG pH 7.32 L (7.35-7.45) ABG pCO2 (35-45) mmHg ABG pO2 126 H (83-108) mmHg ABG Total CO2 (19-24) mmol/L ABG O2 Saturation 99.4 H (94-97) % Sodium 127 L 125 L (137-145) mmol/L Chloride 96 L (98-107) mmol/L BUN 102 H* (7-17) mg/dL Creatinine 2.77 H (0.52-1.04) mg/dL Glucose 156 H (74-99) mg/dL POC Glucose (mg/dL) (75-99) mg/dL Calcium 8.0 L (8.4-10.2) mg/dL Total Bilirubin (0.2-1.3) mg/dL AST 56 H (14-36) U/L ALT (4-34) U/L Ammonia (<30) umol/L Total Protein 5.5 L (6.3-8.2) g/dL Albumin 2.5 L (3.5-5.0) g/dL 04/27/20 04/27/20 04/27/20 Range/Units 15:38 15:38 15:45 RBC 2.63 L (3.80-5.40) m/uL Hgb 8.4 L (11.4-16.0) gm/dL Hct 25.3 L (34.0-46.0) % RDW 16.1 H (11.5-15.5) % Plt Count 85 L (150-450) k/uL Lymphocytes # (1.0-4.8) k/uL ABG pH (7.35-7.45) ABG pCO2 (35-45) mmHg ABG pO2 (83-108) mmHg ABG Total CO2 (19-24) mmol/L ABG O2 Saturation (94-97) % Sodium (137-145) mmol/L Chloride (98-107) mmol/L BUN (7-17) mg/dL Creatinine (0.52-1.04) mg/dL Glucose (74-99) mg/dL POC Glucose (mg/dL) 162 H (75-99) mg/dL Calcium (8.4-10.2) mg/dL Total Bilirubin (0.2-1.3) mg/dL AST (14-36) U/L ALT (4-34) U/L Ammonia 370 H (<30) umol/L Total Protein (6.3-8.2) g/dL Albumin (3.5-5.0) g/dL 04/27/20 04/27/20 04/27/20 Range/Units 17:15 17:48 20:38 RBC (3.80-5.40) m/uL Hgb (11.4-16.0) gm/dL Hct (34.0-46.0) % RDW (11.5-15.5) % Plt Count (150-450) k/uL Lymphocytes # (1.0-4.8) k/uL ABG pH (7.35-7.45) ABG pCO2 (35-45) mmHg ABG pO2 >400 H (83-108) mmHg ABG Total CO2 (19-24) mmol/L ABG O2 Saturation 100.0 H (94-97) % Sodium (137-145) mmol/L Chloride (98-107) mmol/L BUN (7-17) mg/dL Creatinine (0.52-1.04) mg/dL Glucose (74-99) mg/dL POC Glucose (mg/dL) 172 H 165 H (75-99) mg/dL Calcium (8.4-10.2) mg/dL Total Bilirubin (0.2-1.3) mg/dL AST (14-36) U/L ALT (4-34) U/L Ammonia (<30) umol/L Total Protein (6.3-8.2) g/dL Albumin (3.5-5.0) g/dL 04/27/20 04/28/20 04/28/20 Range/Units 22:00 01:48 05:04 RBC (3.80-5.40) m/uL Hgb (11.4-16.0) gm/dL Hct (34.0-46.0) % RDW (11.5-15.5) % Plt Count (150-450) k/uL Lymphocytes # (1.0-4.8) k/uL ABG pH 7.48 H (7.35-7.45) ABG pCO2 32 L (35-45) mmHg ABG pO2 156 H (83-108) mmHg ABG Total CO2 25 H (19-24) mmol/L ABG O2 Saturation 98.9 H (94-97) % Sodium 127 L (137-145) mmol/L Chloride (98-107) mmol/L BUN (7-17) mg/dL Creatinine (0.52-1.04) mg/dL Glucose (74-99) mg/dL POC Glucose (mg/dL) 185 H (75-99) mg/dL Calcium (8.4-10.2) mg/dL Total Bilirubin (0.2-1.3) mg/dL AST (14-36) U/L ALT (4-34) U/L Ammonia (<30) umol/L Total Protein (6.3-8.2) g/dL Albumin (3.5-5.0) g/dL 04/28/20 04/28/20 04/28/20 Range/Units 05:35 05:35 05:35 RBC 2.87 L (3.80-5.40) m/uL Hgb 8.5 L (11.4-16.0) gm/dL Hct 26.4 L (34.0-46.0) % RDW 16.7 H (11.5-15.5) % Plt Count 79 L (150-450) k/uL Lymphocytes # 0.6 L (1.0-4.8) k/uL ABG pH (7.35-7.45) ABG pCO2 (35-45) mmHg ABG pO2 (83-108) mmHg ABG Total CO2 (19-24) mmol/L ABG O2 Saturation (94-97) % Sodium 131 L (137-145) mmol/L Chloride 97 L (98-107) mmol/L BUN 99 H (7-17) mg/dL Creatinine 2.48 H (0.52-1.04) mg/dL Glucose 193 H (74-99) mg/dL POC Glucose (mg/dL) (75-99) mg/dL Calcium (8.4-10.2) mg/dL Total Bilirubin 1.4 H (0.2-1.3) mg/dL AST 52 H (14-36) U/L ALT 35 H (4-34) U/L Ammonia 101 H (<30) umol/L Total Protein 5.5 L (6.3-8.2) g/dL Albumin 2.5 L (3.5-5.0) g/dL 04/28/20 04/28/20 Range/Units 06:51 12:08 RBC (3.80-5.40) m/uL Hgb (11.4-16.0) gm/dL Hct (34.0-46.0) % RDW (11.5-15.5) % Plt Count (150-450) k/uL Lymphocytes # (1.0-4.8) k/uL ABG pH (7.35-7.45) ABG pCO2 (35-45) mmHg ABG pO2 (83-108) mmHg ABG Total CO2 (19-24) mmol/L ABG O2 Saturation (94-97) % Sodium (137-145) mmol/L Chloride (98-107) mmol/L BUN (7-17) mg/dL Creatinine (0.52-1.04) mg/dL Glucose (74-99) mg/dL POC Glucose (mg/dL) 203 H 190 H (75-99) mg/dL Calcium (8.4-10.2) mg/dL Total Bilirubin (0.2-1.3) mg/dL AST (14-36) U/L ALT (4-34) U/L Ammonia (<30) umol/L Total Protein (6.3-8.2) g/dL Albumin (3.5-5.0) g/dL Microbiology - Last 24 Hours (Table) 04/27/20 23:50 Sputum Culture - Preliminary Sputum Assessment and Plan (1) Anemia, normocytic normochromic Narrative/Plan: 60-year-old female with multiple medical comorbidities who presented to the hospital due to weakness and low blood sugars. Patient found to be hyponatremic, hypochloremic with elevated creatinine from baseline currently being treated for the stated as well as possible sepsis. She is being managed in ICU. No signs or symptoms of GI bleeding since presentation. She denies any history of peptic ulcer disease, excessive NSAID use, abdominal pain, prior EGD with last colonoscopy approximately 5 years ago. She had been noting intermittent blood in stools over the past few months. She was found to be anemic on presentation with a hemoglobin of 6.7 with normochromic, normocytic in dices. Stool testing was positive for blood. Hemoglobin currently stable status post transfusion. Patient has a known history of hepatitis C currently receiving treatment. Unclear cause of anemia but likely multifactorial given chronic kidney disease/anemia of chronic disease, cannot rule out a component of acute GI bleed given symptoms of maroon-colored stool and positive testing for occult blood with differential including peptic ulcer disease, portal hypertensive gastropathy, AVM or other etiology. Current Visit: Yes Status: Acute Code(s): D64.9 - ANEMIA, UNSPECIFIED SNOMED Code(s): 86474158 Plan: Supportive care Okay for diet as tolerated Continue Protonix therapy Continue to monitor hemoglobin and hematocrit and transfuse as needed Continue broad-spectrum antibiotic therapy Nephrology service following for acute kidney injury as well as hypo-natremia and hypokalemia ICU management by the art glass setter service Anemia laboratory investigation ordered Continue to monitor for signs or symptoms of GI bleed Patient high risk for endoscopic evaluation at this time given multiple electrolyte dyscrasias, hypotension and overall clinical status, will consider evaluation when medically stable or if precipitous drop in hemoglobin. At this time we will be on standby. Please call us back if needed. Thank you for allowing us to participate in the care of the patient The impression and plan of care has been dictated as directed. I performed a history and examination of this patient, discussed the same with the dictator. I agree with the dictator's note ,documented as a scribe. Any additional findings or plans will be noted.
--- NOTE | 2020-04-28 12:57 | P.PN ---
Subjective Progress Note Date: 04/28/20 64-year-old female patient presented to the ED because of generalized weakness and recurrent hypoglycemic events. She apparently was found to have a blood sugar of 44 at home and she received an amp of D50 by EMS and came to the scene and the patient's blood sugar came up to 96. At that time the patient was seen generalized weakness and tiredness and shakiness. No a activity has been noted. The patient was also noted to have low blood pressure. Denied having any shortness of breath. No headaches. No dizziness. No falls. No head trauma. She came into the ED and the patient was found to have a white cell count of 7.2 with a hemoglobin of 6.1 and a recent drop compared to a baseline of 9.1 from 02/23/2020. Her platelet count was at 84 and the patient suffers from chronic thrombocytopenia. Coagulation profile is within normal limits. The sodium level was 108 and this is another new finding with a chloride level of 77 knowing that her most recent blood work showed normal sodium and chloride levels. The patient began with 114 and a creatinine of 3.11 knowing that her baseline creatinine from 02/07/2020 was 1.8. The patient also had a lactic acid level of 2.3, troponin of 0.468, AST of 54, ALT of 24, total protein of 5.4 with an albumin of 2.3. The patient was further found to be hypothermic with a temperature of 93.9. BNP was 74/33. She was on 2 L of oxygen by nasal cannula with a pulse ox of 97%. EKG showing a sinus rhythm with a first-degree AV block. A chest x-ray was not done. On 04/25/2020, the patient is being seen for a follow-up in the intensive care unit. Note that the patient was seen yesterday and overnight it has been significant changes condition mainly significant drop in her blood pressure. Mother the patient presented to us with a suspicion of GI bleed in addition to hyponatremia. The patient got transfused with a total of 2 units of packed RBC. I initially had the patient on normal saline infusion for fluid resuscitation. However, overnight the patient was placed at 3% normal saline by nephrology. The patient was getting minimal amount of volume. The patient became hypotensive. The patient was started on pressors and earlier this morning the norepinephrine infusion was running at 0.3 g per KG per minute which is quite a high dose. At that point, immediately start patient on normal saline infusion at 2 L of bolus was given. Serum cortisol was low at 12. The patient was started on IV hydrocortisone. The patient was also started on vasopressin. A triple lumen catheter was inserted and the patient's CVP was only a 6 via triple lumen catheter that was inserted in left IJ. The patient is afebrile. White cell count is 13.0 with a hemoglobin of 8.3. Platelet count is at 118. The sodium level is up to 116. The patient also had no major improvement in renal failure and the creatinine was at 3.19 with a BUN of 112. Troponin is a 0.4. Liver function tests showed an AST of 54, ALT of 25, alk phos is at 129. The echocardiogram showed a preserved LV function with an EF of around 60-65%. The ultrasound of the abdomen showed no significant abnormalities. There is splenomegaly. No signs of any cholecystitis. Gallbladder and the common bile duct were all within normal limits. 04/26/2020, the patient is being seen for follow-up in the intensive care unit. The patient is awake although I feel that she is a bit more somnolent compared to yesterday. Unfortunately, I'm still unable to get an accurate blood pressure reading. I think the blood pressure cuff and Artline are quite accurate. I have the patient on high-dose norepinephrine infusion for blood pressure support and norepinephrine is running at 0.29 g per KG per minute. She is also on vasopressin physiologic dose at 0.03 units per minute. The patient is also on stress dose hydrocortisone. The patient is on normal saline at rate of 130s is an hour. She is also receiving 3% hypertonic saline solution per nephrology with a rate of 25 mL an hour. The patient's most recent sodium level is at 160. BP is at 70/39. CVP is at 18. Chest x-ray showing mild pulmonary vascular congestion. I was concerned that the patient may be going into fluid overload especially with her urine output remains low. I cut down the IV fluids to 50 mL an hour. No fever. No chills. She is on broad-spectrum antibiotics for now and she is on a combination of Zosyn and vancomycin. The blood cultures been negative for now. I was informed of the later stages the patient had a blood gas that showed a pH of 7.12 with a pCO2 of 50 and pO2 of 104. This was done and FiO2 28%. At that point, the IV fluids was switched to a bicarb infusion. Subsequent sodium level came in 119. The white cell count is at 18.3 with a hemoglobin of 7.9. Is very much likely the patient would require intubation mechanical ventilation at the later stage. I'm unable to establish a good arterial blood pressure reading his patient. Obviously the femoral arteries can not be used as the patient is morbidly obese and she has a very huge abdominal apron setting over her thighs. The current Artline is in the left radial. We'll may be able to insert a right radial artery for another confirmation of the blood pressure reading. The patient is arousable and she is awake yet somnolence. The patient is not fluid balance over the past 24 hours has been +4.3 L. On 04/27/2020, I'm seeing the patient for a follow-up. The patient is doing poorly still in the patient remains in a shock state. The patient remains profoundly hypotensive. She has been aggressively resuscitated with IV fluids. Note that she was on a combination of pressors in addition to fluids. I had to give her an additional 2 L of bolus yesterday to improve some of her blood pressure and earlier this morning the patient is still on a combination of levo fed running at 54 g per minute, epinephrine running at 10 g per minute and vasopressin at physiologic dose of 0.03 units per minute. The patient has a low urine output. There is not fluid balance has been 3.1 L over the past 24 hours. Nevertheless, the patient has been able to come off the higher dose of epinephrine which was being utilized yesterday for hemodynamic support. The morning labs show a white cell count of 16.3 with a hemoglobin of 7.9 and there is no evidence of any significant drop in the patient's hemoglobin. The blood gas showed a pH of 7.2 to pCO2 of 45 and pO2 of 119 and this was done while the patient being on a BiPAP at a pressure of 10/5 cm of water and FiO2 of 35%. The sodium level is up to 125. BUN is at 107 with a creatinine of 3.2. Serum bicarbs at 20. The maintenance IV fluids in the form of bicarb infusion at the rate of 50 mL an hour of 150 mEq of sodium bicarb. The patient is also on an insulin drip at 3 units an hour. Nephrology opted to add a 30% hypertonic saline to gradually build up her sodium which is currently up to 125. The patient is lethargic. She is quite obtunded. I had a lengthy discussion with the children and based on the patient's wishes, she'll be a DNR/DNI CODE STATUS. Meanwhile, we'll continue our efforts to resuscitate the patient with understanding that she is quite ill and she has signs of multisystem organ failure. Echo has been within normal limits. No significant LV dysfunction. Cultures of been negative. She remains on broad-spectrum antibiotics. Pro- calcitonin level was at 0.78. On 04/28/2020, the patient is being seen in follow-up. Noted the patient was a DNR/DNI CODE STATUS. Nevertheless, we have elected discussion with the family. The patient was showing some interval improvement in hemodynamics. However, her overall respiratory status was gradually getting worse and the patient was progressively getting more obtunded and she was obvious developing a component of hepatic encephalopathy with elevated ammonia level. At that point, we decided to give this patient a brief intubation for the next few days and feels this can be any reasonable recovery and outcome in her condition. As such, the patient was intubated and placed on a mechanical ventilator. This morning, she is on no sedation. She is very hard to arouse. Ammonia level is gradually improving. She is on lactulose for now. She is on a mechanical ventilator on assist control mode at the rate of 28 with a tidal volume of 400 and FiO2 of 50% with a PEEP of 5. . The blood gas showed a pH of 7.48 with a pCO2 of 32 and pO2 of 156. The CVP that 16. Chest x-ray showing hepatomegaly and pulmonary vessel congestion. In terms of her IV fluids, she is on a bicarb infusion rate of 50 mL an hour normal state rate of 20 mL an hour. Sodium level is improved and normalized. Norepinephrine infusion is down to 0.16 mg per KG per minute. She is off the epinephrine drip which is off the vasopressin drip. She is afebrile. She is making good urine output. Renal function continues to improve. On today's evaluation to be and is down to 99 and the creatinine is down to 2.48. The bilirubin is at 1.4. Ammonia was at 370 from yesterday is down to 101 the patient is on lactulose. Objective - Vital Signs Vital signs: Vital Signs Temp 97.7 F 04/28/20 12:00 Pulse 112 H 04/28/20 12:00 Resp 18 04/28/20 12:00 BP 126/66 04/28/20 07:00 Pulse Ox 98 04/28/20 12:00 Intake & Output 04/27/20 04/28/20 04/28/20 18:59 06:59 18:59 Intake Total 3623.913 904.837 655.120 Output Total 1364 2250 1485 Balance 2259.913 -1345.163 -829.880 Weight 180 kg 177.3 kg Intake: IV 350 650 470 Dextrose 5% in Water 1, 200 300 50 000 ml @ 50 mls/hr IV . Q23H ONE with Sodium Bicarb (1 Meq/ml) 150 ml Rx#:[id number] Piperacillin-Tazobactam 3 100 100 .375 gm In Sodium Chloride 0.9% 100 ml @ 25 mls/hr IVPB Q12HR [facility] Rx #:[id number] Sodium Chloride 0.9% 1, 50 350 320 000 ml @ 75 mls/hr IV . [id number] [facility] Rx#:[id number] Intake, IV Titration 2923.913 254.837 125.120 Amount Dextrose 5% in Water 1, 50 000 ml @ 50 mls/hr IV . Q23H [facility] with Sodium Bicarb (1 Meq/ml) 150 ml Rx#:[id number] EPINEPHrine 4 mg In 218.933 Dextrose 5% in Water 250 ml @ 0.01 MCG/KG/MIN 6.45 mls/hr IV .Q24H [facility] Rx#: [id number] Insulin Regular 100 unit 24.65 In Sodium Chloride 0.9% 100 ml @ Per Protocol IV .Q0M [facility] Rx#:[id number] Norepinephrine 32 mg In 180.330 254.837 75.120 Sodium Chloride 0.9% 218 ml @ 0.05 MCG/KG/MIN 3. 984 mls/hr IV .Q24H [facility] Rx#:[id number] Sodium Chloride 0.9% 2, 2500 000 ml @ 999 mls/hr IV . Q2H1M [facility] Rx#:[id number] Oral 350 Other 60 Output: Urine 1364 2250 1485 Other: Voiding Method Indwelling Catheter Indwelling Catheter Indwelling Catheter ABP, PAP, CO, CI - Last Documented Arterial Blood Pressure 107/47 - Exam Gen. appearance morbidly obese, comfortable and the patient quite obtunded the patient is on no sedation and the patient may be an underlying hepatic encephalopathy. She is intubated on a mechanical ventilator. Orogastric and orotracheal tube are both in place. the patient has a left IJ triple-lumen catheter in place. The patient withdraws to painful stimulation and she is not communicating at this point in time. Head exam was generally normal. There was no scleral icterus or corneal arcus. Mucous membranes were moist. Neck was supple and without jugular venous distension, thyromegaly, or carotid bruits. Carotids were easily palpable bilaterally. There was no adenopathy. Mallampati class IV lung sounds are diminished bilaterally especially lung bases otherwise clear. Cardiac exam revealed the PMI to be normally situated and sized. The rhythm was regular and no extrasystoles were noted during several minutes of auscultation. The first and second heart sounds were normal and physiologic splitting of the second heart sound was noted. There were no murmurs, rubs, clicks, or gallops. abdomen is morbidly obese soft nontender. There is no ascites. Organs cannot be accurately palpated as the patient has morbid obesity. No direct tenderness. No rebound tenderness. No guarding. Extremities revealed trace edema and there is no cyanosis or clubbing. The patient has an arterial line in the right brachial artery. She has also developed some edema in lower extremities bilaterally. She has trace edema. Pulses are quite diminished in lower extremities bilaterally. No cyanosis. No clubbing. Neurological the patient is unresponsive, hardly withdraws to painful stimulation. Pupils are 3 mm in size. No nystagmus. No clonus. No facial asymmetry. Reflexes are diminished in all 4 extremities. - Labs CBC & Chem 7: 04/28/20 05:35 04/28/20 05:35 Labs: Abnormal Lab Results - Last 24 Hours (Table) 04/27/20 04/27/20 04/27/20 Range/Units 10:18 15:29 15:38 RBC (3.80-5.40) m/uL Hgb (11.4-16.0) gm/dL Hct (34.0-46.0) % RDW (11.5-15.5) % Plt Count (150-450) k/uL Lymphocytes # (1.0-4.8) k/uL ABG pH 7.32 L (7.35-7.45) ABG pCO2 (35-45) mmHg ABG pO2 126 H (83-108) mmHg ABG Total CO2 (19-24) mmol/L ABG O2 Saturation 99.4 H (94-97) % Sodium 127 L 125 L (137-145) mmol/L Chloride 96 L (98-107) mmol/L BUN 102 H* (7-17) mg/dL Creatinine 2.77 H (0.52-1.04) mg/dL Glucose 156 H (74-99) mg/dL POC Glucose (mg/dL) (75-99) mg/dL Calcium 8.0 L (8.4-10.2) mg/dL Total Bilirubin (0.2-1.3) mg/dL AST 56 H (14-36) U/L ALT (4-34) U/L Ammonia (<30) umol/L Total Protein 5.5 L (6.3-8.2) g/dL Albumin 2.5 L (3.5-5.0) g/dL 04/27/20 04/27/20 04/27/20 Range/Units 15:38 15:38 15:45 RBC 2.63 L (3.80-5.40) m/uL Hgb 8.4 L (11.4-16.0) gm/dL Hct 25.3 L (34.0-46.0) % RDW 16.1 H (11.5-15.5) % Plt Count 85 L (150-450) k/uL Lymphocytes # (1.0-4.8) k/uL ABG pH (7.35-7.45) ABG pCO2 (35-45) mmHg ABG pO2 (83-108) mmHg ABG Total CO2 (19-24) mmol/L ABG O2 Saturation (94-97) % Sodium (137-145) mmol/L Chloride (98-107) mmol/L BUN (7-17) mg/dL Creatinine (0.52-1.04) mg/dL Glucose (74-99) mg/dL POC Glucose (mg/dL) 162 H (75-99) mg/dL Calcium (8.4-10.2) mg/dL Total Bilirubin (0.2-1.3) mg/dL AST (14-36) U/L ALT (4-34) U/L Ammonia 370 H (<30) umol/L Total Protein (6.3-8.2) g/dL Albumin (3.5-5.0) g/dL 04/27/20 04/27/20 04/27/20 Range/Units 17:15 17:48 20:38 RBC (3.80-5.40) m/uL Hgb (11.4-16.0) gm/dL Hct (34.0-46.0) % RDW (11.5-15.5) % Plt Count (150-450) k/uL Lymphocytes # (1.0-4.8) k/uL ABG pH (7.35-7.45) ABG pCO2 (35-45) mmHg ABG pO2 >400 H (83-108) mmHg ABG Total CO2 (19-24) mmol/L ABG O2 Saturation 100.0 H (94-97) % Sodium (137-145) mmol/L Chloride (98-107) mmol/L BUN (7-17) mg/dL Creatinine (0.52-1.04) mg/dL Glucose (74-99) mg/dL POC Glucose (mg/dL) 172 H 165 H (75-99) mg/dL Calcium (8.4-10.2) mg/dL Total Bilirubin (0.2-1.3) mg/dL AST (14-36) U/L ALT (4-34) U/L Ammonia (<30) umol/L Total Protein (6.3-8.2) g/dL Albumin (3.5-5.0) g/dL 04/27/20 04/28/20 04/28/20 Range/Units 22:00 01:48 05:04 RBC (3.80-5.40) m/uL Hgb (11.4-16.0) gm/dL Hct (34.0-46.0) % RDW (11.5-15.5) % Plt Count (150-450) k/uL Lymphocytes # (1.0-4.8) k/uL ABG pH 7.48 H (7.35-7.45) ABG pCO2 32 L (35-45) mmHg ABG pO2 156 H (83-108) mmHg ABG Total CO2 25 H (19-24) mmol/L ABG O2 Saturation 98.9 H (94-97) % Sodium 127 L (137-145) mmol/L Chloride (98-107) mmol/L BUN (7-17) mg/dL Creatinine (0.52-1.04) mg/dL Glucose (74-99) mg/dL POC Glucose (mg/dL) 185 H (75-99) mg/dL Calcium (8.4-10.2) mg/dL Total Bilirubin (0.2-1.3) mg/dL AST (14-36) U/L ALT (4-34) U/L Ammonia (<30) umol/L Total Protein (6.3-8.2) g/dL Albumin (3.5-5.0) g/dL 04/28/20 04/28/20 04/28/20 Range/Units 05:35 05:35 05:35 RBC 2.87 L (3.80-5.40) m/uL Hgb 8.5 L (11.4-16.0) gm/dL Hct 26.4 L (34.0-46.0) % RDW 16.7 H (11.5-15.5) % Plt Count 79 L (150-450) k/uL Lymphocytes # 0.6 L (1.0-4.8) k/uL ABG pH (7.35-7.45) ABG pCO2 (35-45) mmHg ABG pO2 (83-108) mmHg ABG Total CO2 (19-24) mmol/L ABG O2 Saturation (94-97) % Sodium 131 L (137-145) mmol/L Chloride 97 L (98-107) mmol/L BUN 99 H (7-17) mg/dL Creatinine 2.48 H (0.52-1.04) mg/dL Glucose 193 H (74-99) mg/dL POC Glucose (mg/dL) (75-99) mg/dL Calcium (8.4-10.2) mg/dL Total Bilirubin 1.4 H (0.2-1.3) mg/dL AST 52 H (14-36) U/L ALT 35 H (4-34) U/L Ammonia 101 H (<30) umol/L Total Protein 5.5 L (6.3-8.2) g/dL Albumin 2.5 L (3.5-5.0) g/dL 04/28/20 04/28/20 Range/Units 06:51 12:08 RBC (3.80-5.40) m/uL Hgb (11.4-16.0) gm/dL Hct (34.0-46.0) % RDW (11.5-15.5) % Plt Count (150-450) k/uL Lymphocytes # (1.0-4.8) k/uL ABG pH (7.35-7.45) ABG pCO2 (35-45) mmHg ABG pO2 (83-108) mmHg ABG Total CO2 (19-24) mmol/L ABG O2 Saturation (94-97) % Sodium (137-145) mmol/L Chloride (98-107) mmol/L BUN (7-17) mg/dL Creatinine (0.52-1.04) mg/dL Glucose (74-99) mg/dL POC Glucose (mg/dL) 203 H 190 H (75-99) mg/dL Calcium (8.4-10.2) mg/dL Total Bilirubin (0.2-1.3) mg/dL AST (14-36) U/L ALT (4-34) U/L Ammonia (<30) umol/L Total Protein (6.3-8.2) g/dL Albumin (3.5-5.0) g/dL Microbiology - Last 24 Hours (Table) 04/27/20 23:50 Sputum Culture - Preliminary Sputum Assessment and Plan Plan: 1 severe shock/hypotension currently on a combination of pressors. Patient initially presented with a hypovolemic shock and subsequently she was suspected to have a septic shock. The patient is in general improving and the patient is was resuscitated and the patient is currently only on norepinephrine infusion which is running at 0.15 g per KG per minute. Vasopressin and epinephrine drip have been involved discontinued. The patient is was resuscitated for now. 2 acute hypoxic respiratory failure, currently intubated on a mechanical ve ntilator. Chest x-ray showing some increased interstitial markings bilaterally and pulmonary asked her congestion. 3 acute on chronic kidney disease and the patient has chronic stage III kidney disease at baseline with a creatinine of 1.8, and the renal function continues to improve in the creatinine is down to 2.4 4 acute hypothermia the patient is receiving external warming 5 acute blood loss anemia. Consider upper GI bleed as the patient's hemoglobin has dropped down to 6.1 with melanotic stools and Hemoccult positive, the patient has not had any further episodes of GI bleeding and the patient got transfused with a 2 units of packed RBC. 6 chronic liver disease/hepatitis C and the patient was receiving Epclusa on outpatient basis, and the patient was having episodes of hypoglycemia at a time of admission. The patient also has high ammonia level and she is currently in hepatic encephalopathy, unresponsive on lactulose. No significant hypoglycemia. 7 diabetes mellitus maintained on oral hypoglycemics on outpatient basis, currently on insulin drip for blood sugar control 8 hypertension 9 diminished level of consciousness with possibility of metabolic/hepatic encephalopathy secondary to above-mentioned comorbidities. 10 mild lactic acidosis, recovered 11 troponin leak without any acute EKG changes 12 morbid obesity 13 leukocytosis, improving and the white cell count is down to 8.6 14 hypochloremic hyponatremia improved and the sodium level is up to 131 Plan continue IV fluids and will continue giving this patient normal saline at the rate of 75 mL an hour Continue vent support. The patient's respiratory rate will be dropped down to 20 Discontinue the bicarbonate infusion Wean off norepinephrine infusion and discontinue if possible Continue Zosyn and vancomycin Continue lactulose Monitor mental status The patient's was essentially a DNR/DNI CODE STATUS. We had to intubate him for the above-mentioned reasons. We are still not considering any form of defibrillation or CPR should the patient's overall condition decompensated. This will be a brief intubation trial to see the patient is going to have a good outcome. If not, we'll may proceed with comfort measures again and this will be decided within the next 24-48 hours. We'll continue to follow. The condition is critical and this evaluation was done and more than 30 minutes. Time with Patient: Greater than 30
--- NOTE | 2020-04-28 16:16 | PN ---
PROGRESS NOTE DATE OF SERVICE: 04/28/2020 CHIEF COMPLAINT: Septic shock, GI blood loss, blood loss anemia, renal failure, and respiratory failure. HISTORY OF PRESENT ILLNESS: This lady is just about the same. The decision has been made that it may be appropriate to intubate her for 24, 48 or 72 hour to see if she responds. Her blood pressure has been more stable. The family agrees. REVIEW OF SYSTEMS: Unobtainable. PHYSICAL EXAMINATION: Blood pressure 121/74. Breath sounds are heard bilaterally. Cardiac exam is unremarkable and the abdomen is protuberant and soft. Extremities are unchanged. IMPRESSION: 1. Septic shock. 2. GI bleed. 3. Blood-loss anemia. 4. Renal failure. 5. Congestive heart failure. 6. Pickwickian syndrome. 7. Respiratory failure. PLAN: The patient is to be intubated and then her progress will be tracked over the next few days. If she continues to respond, supportive measures will continue. If not, she may be a candidate to be taken off the ventilator eventually. MMODL / IJN: [id number] /
[2020-04-28 18:05] LABS: Glucose,Whole Blood 184 mg/dL (75-99)
[2020-04-28 20:22] LABS: Glucose,Whole Blood 186 mg/dL (75-99)
[2020-04-28 23:52] LABS: Glucose,Whole Blood 168 mg/dL (75-99)
[2020-04-29] MEDS: HYDROCORTISONE SUCCINATE 100 MG/2 ML VIAL IV SCH ×4 (00:04→23:47)
[2020-04-29] MEDS: INSULIN ASPART (NovoLOG) 100 UNIT/ML VIAL SQ SCH ×7 (00:05→23:47)
[2020-04-29] MEDS: ACETAMINOPHEN TAB 325 MG TAB PO PRN ×2 (00:07→12:17)
[2020-04-29] MEDS: SODIUM CHLORIDE 0.9% 1,000 ML IV SCH ×2 (01:45→15:43)
[2020-04-29 04:07] LABS: Glucose,Whole Blood 176 mg/dL (75-99)
[2020-04-29 04:17] LABS: Anisocytosis Slight; Basophils % (A) 0 %; Eosinophils % (A) 0 %; HCT 26.1 % (34.0-46.0); HGB 8.7 gm/dL (11.4-16.0); Hypochromasia Slight; Lymphocytes # (A) 0.6 k/uL (1.0-4.8); Lymphocytes % (A) 10 %; MCH 31.5 pg (25.0-35.0); MCHC 33.2 g/dL (31.0-37.0); MCV 94.8 fL (80.0-100.0); Mean Platelet Volume 9.5; Monocytes # (A) 0.3 k/uL (0-1.0); Monocytes % (A) 5 %; Neutrophils # (A) 5.2 k/uL (1.3-7.7); Neutrophils % (A) 83 %; RBC 2.75 m/uL (3.80-5.40); RDW 16.3 % (11.5-15.5); WBC 6.3 k/uL (3.8-10.6)
[2020-04-29 04:21] LABS: Platelet Count 55 k/uL (150-450)
[2020-04-29 04:27] LABS: Albumin 2.3 g/dL (3.5-5.0); Calcium 8.7 mg/dL (8.4-10.2); Potassium 3.2 mmol/L (3.5-5.1); Total Bilirubin 1.6 mg/dL (0.2-1.3); Total Protein 5.3 g/dL (6.3-8.2)
[2020-04-29 05:37] LABS: ABG Base Excess 2.6 mmol/L; ABG HCO3 26 mmol/L (21-25); ABG Oxygen Saturation 98.8 % (94-97); ABG PCO2 32 mmHg (35-45); ABG PH 7.51 (7.35-7.45); ABG PO2 161 mmHg (83-108); ABG TCO2 27 mmol/L (19-24); Allen Test Performed? Yes
--- NOTE | 2020-04-29 06:58 | XR ---
EXAMINATION TYPE: XR chest 1V portable DATE OF EXAM: 04/29/2020 COMPARISON: 04/28/2020 HISTORY: Shortness of breath TECHNIQUE: Single frontal view of the chest is obtained. FINDINGS: ET and NG tube are stable. Central line stable. Exam limited by motion artifact with persi stent bilateral infiltrate and pleural effusion. No obvious pneumothorax. Diffuse interstitial patter n. IMPRESSION: 1. Diffuse pleural-parenchymal changes stable correlate for CHF. Underlying interstitial pneumonia or basilar infiltrates not excluded.
[2020-04-29] MEDS: POTASSIUM BICARBONATE/CIT AC 20 MEQ TABLET.EFF NG-TUBE SCH ×2 (07:15→08:55)
[2020-04-29 08:01] LABS: Glucose,Whole Blood 177 mg/dL (75-99)
[2020-04-29] MEDS: PIPERACILLIN-TAZOBACTAM 3.375 GM in SODIUM CHLORIDE 0.9% 100 ML IVPB SCH ×2 (08:55→20:12)
[2020-04-29] MEDS: PANTOPRAZOLE 40 MG/10 ML VIAL IVP SCH ×2 (08:55→20:12)
[2020-04-29] MEDS: LACTULOSE 20 GM/30 ML CUP PO SCH ×2 (08:55→20:12)
--- NOTE | 2020-04-29 09:26 | CT ---
EXAMINATION TYPE: CT brain wo con DATE OF EXAM: 04/29/2020 COMPARISON: Of 12/06/2018 HISTORY: Patient unresponsive CT DLP: 1087.4 mGycm Automated exposure control for dose reduction was used. FINDINGS: Exam severely limited due to extensive artifact particularly involving the occipital lobes, temporal lobes and posterior fossa. Portions are nondiagnostic. No obvious mass effect, midline shift or sizab le acute hemorrhage. Subtle or small areas of hemorrhage not excluded given limitation of the exam. C alvarium intact. Craniocervical junction maintained. Sella turcica has a normal appearance. Changes of chronic sinusit is noted. Globes are symmetric. Hyperostosis of the calvarium noted. IMPRESSION: MARKEDLY LIMITED EXAM DUE TO SEVERE ARTIFACT. NO OBVIOUS SIZABLE INTRAPARENCHYMAL HEMORRHAGE OR MASS EFFECT DISCUSSED ABOVE.
--- NOTE | 2020-04-29 11:50 | P.PN ---
Subjective Progress Note Date: 04/29/20 64-year-old female patient presented to the ED because of generalized weakness and recurrent hypoglycemic events. She apparently was found to have a blood sugar of 44 at home and she received an amp of D50 by EMS and came to the scene and the patient's blood sugar came up to 96. At that time the patient was seen generalized weakness and tiredness and shakiness. No a activity has been noted. The patient was also noted to have low blood pressure. Denied having any shortness of breath. No headaches. No dizziness. No falls. No head trauma. She came into the ED and the patient was found to have a white cell count of 7.2 with a hemoglobin of 6.1 and a recent drop compared to a baseline of 9.1 from 02/23/2020. Her platelet count was at 84 and the patient suffers from chronic thrombocytopenia. Coagulation profile is within normal limits. The sodium level was 108 and this is another new finding with a chloride level of 77 knowing that her most recent blood work showed normal sodium and chloride levels. The patient began with 114 and a creatinine of 3.11 knowing that her baseline creatinine from 02/07/2020 was 1.8. The patient also had a lactic acid level of 2.3, troponin of 0.468, AST of 54, ALT of 24, total protein of 5.4 with an albumin of 2.3. The patient was further found to be hypothermic with a temperature of 93.9. BNP was 74/33. She was on 2 L of oxygen by nasal cannula with a pulse ox of 97%. EKG showing a sinus rhythm with a first-degree AV block. A chest x-ray was not done. On 04/25/2020, the patient is being seen for a follow-up in the intensive care unit. Note that the patient was seen yesterday and overnight it has been significant changes condition mainly significant drop in her blood pressure. Mother the patient presented to us with a suspicion of GI bleed in addition to hyponatremia. The patient got transfused with a total of 2 units of packed RBC. I initially had the patient on normal saline infusion for fluid resuscitation. However, overnight the patient was placed at 3% normal saline by nephrology. The patient was getting minimal amount of volume. The patient became hypotensive. The patient was started on pressors and earlier this morning the norepinephrine infusion was running at 0.3 g per KG per minute which is quite a high dose. At that point, immediately start patient on normal saline infusion at 2 L of bolus was given. Serum cortisol was low at 12. The patient was started on IV hydrocortisone. The patient was also started on vasopressin. A triple lumen catheter was inserted and the patient's CVP was only a 6 via triple lumen catheter that was inserted in left IJ. The patient is afebrile. White cell count is 13.0 with a hemoglobin of 8.3. Platelet count is at 118. The sodium level is up to 116. The patient also had no major improvement in renal failure and the creatinine was at 3.19 with a BUN of 112. Troponin is a 0.4. Liver function tests showed an AST of 54, ALT of 25, alk phos is at 129. The echocardiogram showed a preserved LV function with an EF of around 60-65%. The ultrasound of the abdomen showed no significant abnormalities. There is splenomegaly. No signs of any cholecystitis. Gallbladder and the common bile duct were all within normal limits. 04/26/2020, the patient is being seen for follow-up in the intensive care unit. The patient is awake although I feel that she is a bit more somnolent compared to yesterday. Unfortunately, I'm still unable to get an accurate blood pressure reading. I think the blood pressure cuff and Artline are quite accurate. I have the patient on high-dose norepinephrine infusion for blood pressure support and norepinephrine is running at 0.29 g per KG per minute. She is also on vasopressin physiologic dose at 0.03 units per minute. The patient is also on stress dose hydrocortisone. The patient is on normal saline at rate of 130s is an hour. She is also receiving 3% hypertonic saline solution per nephrology with a rate of 25 mL an hour. The patient's most recent sodium level is at 160. BP is at 70/39. CVP is at 18. Chest x-ray showing mild pulmonary vascular congestion. I was concerned that the patient may be going into fluid overload especially with her urine output remains low. I cut down the IV fluids to 50 mL an hour. No fever. No chills. She is on broad-spectrum antibiotics for now and she is on a combination of Zosyn and vancomycin. The blood cultures been negative for now. I was informed of the later stages the patient had a blood gas that showed a pH of 7.12 with a pCO2 of 50 and pO2 of 104. This was done and FiO2 28%. At that point, the IV fluids was switched to a bicarb infusion. Subsequent sodium level came in 119. The white cell count is at 18.3 with a hemoglobin of 7.9. Is very much likely the patient would require intubation mechanical ventilation at the later stage. I'm unable to establish a good arterial blood pressure reading his patient. Obviously the femoral arteries can not be used as the patient is morbidly obese and she has a very huge abdominal apron setting over her thighs. The current Artline is in the left radial. We'll may be able to insert a right radial artery for another confirmation of the blood pressure reading. The patient is arousable and she is awake yet somnolence. The patient is not fluid balance over the past 24 hours has been +4.3 L. On 04/27/2020, I'm seeing the patient for a follow-up. The patient is doing poorly still in the patient remains in a shock state. The patient remains profoundly hypotensive. She has been aggressively resuscitated with IV fluids. Note that she was on a combination of pressors in addition to fluids. I had to give her an additional 2 L of bolus yesterday to improve some of her blood pressure and earlier this morning the patient is still on a combination of levo fed running at 54 g per minute, epinephrine running at 10 g per minute and vasopressin at physiologic dose of 0.03 units per minute. The patient has a low urine output. There is not fluid balance has been 3.1 L over the past 24 hours. Nevertheless, the patient has been able to come off the higher dose of epinephrine which was being utilized yesterday for hemodynamic support. The morning labs show a white cell count of 16.3 with a hemoglobin of 7.9 and there is no evidence of any significant drop in the patient's hemoglobin. The blood gas showed a pH of 7.2 to pCO2 of 45 and pO2 of 119 and this was done while the patient being on a BiPAP at a pressure of 10/5 cm of water and FiO2 of 35%. The sodium level is up to 125. BUN is at 107 with a creatinine of 3.2. Serum bicarbs at 20. The maintenance IV fluids in the form of bicarb infusion at the rate of 50 mL an hour of 150 mEq of sodium bicarb. The patient is also on an insulin drip at 3 units an hour. Nephrology opted to add a 30% hypertonic saline to gradually build up her sodium which is currently up to 125. The patient is lethargic. She is quite obtunded. I had a lengthy discussion with the children and based on the patient's wishes, she'll be a DNR/DNI CODE STATUS. Meanwhile, we'll continue our efforts to resuscitate the patient with understanding that she is quite ill and she has signs of multisystem organ failure. Echo has been within normal limits. No significant LV dysfunction. Cultures of been negative. She remains on broad-spectrum antibiotics. Pro- calcitonin level was at 0.78. On 04/28/2020, the patient is being seen in follow-up. Noted the patient was a DNR/DNI CODE STATUS. Nevertheless, we have elected discussion with the family. The patient was showing some interval improvement in hemodynamics. However, her overall respiratory status was gradually getting worse and the patient was progressively getting more obtunded and she was obvious developing a component of hepatic encephalopathy with elevated ammonia level. At that point, we decided to give this patient a brief intubation for the next few days and feels this can be any reasonable recovery and outcome in her condition. As such, the patient was intubated and placed on a mechanical ventilator. This morning, she is on no sedation. She is very hard to arouse. Ammonia level is gradually improving. She is on lactulose for now. She is on a mechanical ventilator on assist control mode at the rate of 28 with a tidal volume of 400 and FiO2 of 50% with a PEEP of 5. . The blood gas showed a pH of 7.48 with a pCO2 of 32 and pO2 of 156. The CVP that 16. Chest x-ray showing hepatomegaly and pulmonary vessel congestion. In terms of her IV fluids, she is on a bicarb infusion rate of 50 mL an hour normal state rate of 20 mL an hour. Sodium level is improved and normalized. Norepinephrine infusion is down to 0.16 mg per KG per minute. She is off the epinephrine drip which is off the vasopressin drip. She is afebrile. She is making good urine output. Renal function continues to improve. On today's evaluation to be and is down to 99 and the creatinine is down to 2.48. The bilirubin is at 1.4. Ammonia was at 370 from yesterday is down to 101 the patient is on lactulose. On 04/29/2020, the patient is much improved hemodynamically to the point that the patient is off pressors and she is off the levo fed. Nevertheless, neurologically she is doing poorly. She is unresponsive and she only grimaces to deep painful stimulation. Her ammonia level was elevated and I thought that it may be a component of hepatic encephalopathy and start the patient on lactulose and ammonia level is improving. Nevertheless, I have not seen any much improvement in her neuro status. Pupils are equal and reactive to light and the patient is downward gaze. No seizure activity has been noted. The patient is still on lactulose. Noted the patient has been off sedation and off propofol for the past 24 hours. The patient remains on a mechanical ventilator. She is an assist-control mode at the rate of 20 with a tidal volume of 400 and FiO2 of 35% with a PEEP of 5. Her blood gas showed a pH of 7.51 with a pCO2 of 30, pO2 161. Chest x-ray showing some increased interstitial markings and bilateral pulmonary infiltrates more so on the right. Overall x-ray findings are submitted suboptimal as the patient is morbidly obese. Noted the patient is afebrile. His temperature is 96.0. She is receiving external warming. Creatinine is also improving and she is down to 2.09. No enteral feeding has been provided to this patient yet. No other significant events overnight. The CAT scan of the brain will be ordered. No seizure activity has been noted. Objective - Vital Signs Vital signs: Vital Signs Temp 96.9 F L 04/29/20 08:00 Pulse 91 04/29/20 11:15 Resp 13 04/29/20 11:15 BP 133/75 04/29/20 08:00 Pulse Ox 100 04/29/20 11:15 Intake & Output 04/28/20 04/29/20 04/29/20 18:59 06:59 18:59 Intake Total 3710.041 3257.312 522.53 Output Total 2650 1475 450 Balance -1490.318 -352.688 72.53 Weight 177.3 kg 176 kg 176 kg Intake: IV 920 1066 505 Dextrose 5% in Water 1, 50 000 ml @ 50 mls/hr IV . Q23H ONE with Sodium Bicarb (1 Meq/ml) 150 ml Rx#:[id number] Piperacillin-Tazobactam 3 100 100 100 .375 gm In Sodium Chloride 0.9% 100 ml @ 25 mls/hr IVPB Q12HR [facility] Rx #:[id number] Pressure bags 66 30 Sodium Chloride 0.9% 1, 770 900 375 000 ml @ 75 mls/hr IV . [id number] MACY Rx#:[id number] Intake, IV Titration 179.682 56.312 17.53 Amount Dextrose 5% in Water 1, 50 000 ml @ 50 mls/hr IV . Q23H MACY with Sodium Bicarb (1 Meq/ml) 150 ml Rx#:[id number] Norepinephrine 32 mg In 129.682 56.312 17.53 Sodium Chloride 0.9% 218 ml @ 0.05 MCG/KG/MIN 3. 984 mls/hr IV .Q24H MACY Rx#:[id number] Other 60 Output: Gastric Drainage 250 Urine 2400 1475 450 Other: Voiding Method Indwelling Catheter Indwelling Catheter Indwelling Catheter ABP, PAP, CO, CI - Last Documented Arterial Blood Pressure 130/49 - Exam Gen. appearance morbidly obese, grimaces only to deep painful stimulation. Otherwise the patient is unresponsive.. She is intubated on a mechanical ventilator. Orogastric and orotracheal tube are both in place. the patient has a left IJ triple-lumen catheter in place. The patient withdraws to painful stimulation and she is not communicating at this point in time. Head exam was generally normal. There was no scleral icterus or corneal arcus. Mucous membranes were moist. Neck was supple and without jugular venous distension, thyromegaly, or carotid bruits. Carotids were easily palpable bilaterally. There was no adenopathy. Mallampati class IV lung sounds are diminished bilaterally especially lung bases otherwise clear. Cardiac exam revealed the PMI to be normally situated and sized. The rhythm was regular and no extrasystoles were noted during several minutes of auscultation. The first and second heart sounds were normal and physiologic splitting of the second heart sound was noted. There were no murmurs, rubs, clicks, or gallops. abdomen is morbidly obese soft nontender. There is no ascites. Organs cannot be accurately palpated as the patient has morbid obesity. No direct tenderness. No rebound tenderness. No guarding. Extremities revealed trace edema and there is no cyanosis or clubbing. The patient has an arterial line in the right brachial artery. She has also developed some edema in lower extremities bilaterally. She has trace edema. Pulses are quite diminished in lower extremities bilaterally. No cyanosis. No clubbing. Neurological the patient is unresponsive, hardly withdraws to painful stimulation. Pupils are 3 mm in size. No nystagmus. No clonus. No facial asymmetry. Reflexes are diminished in all 4 extremities. - Labs CBC & Chem 7: 04/29/20 04:00 04/29/20 04:00 Labs: Abnormal Lab Results - Last 24 Hours (Table) 04/28/20 04/28/20 04/28/20 Range/Units 12:08 18:02 20:20 RBC (3.80-5.40) m/uL Hgb (11.4-16.0) gm/dL Hct (34.0-46.0) % RDW (11.5-15.5) % Plt Count (150-450) k/uL Lymphocytes # (1.0-4.8) k/uL ABG pH (7.35-7.45) ABG pCO2 (35-45) mmHg ABG pO2 (83-108) mmHg ABG HCO3 (21-25) mmol/L ABG Total CO2 (19-24) mmol/L ABG O2 Saturation (94-97) % Sodium (137-145) mmol/L Potassium (3.5-5.1) mmol/L BUN (7-17) mg/dL Creatinine (0.52-1.04) mg/dL Glucose (74-99) mg/dL POC Glucose (mg/dL) 190 H 184 H 186 H (75-99) mg/dL Total Bilirubin (0.2-1.3) mg/dL AST (14-36) U/L Ammonia (<30) umol/L Total Protein (6.3-8.2) g/dL Albumin (3.5-5.0) g/dL 04/28/20 04/29/20 04/29/20 Range/Units 23:50 04:00 04:00 RBC 2.75 L (3.80-5.40) m/uL Hgb 8.7 L (11.4-16.0) gm/dL Hct 26.1 L (34.0-46.0) % RDW 16.3 H (11.5-15.5) % Plt Count 55 L (150-450) k/uL Lymphocytes # 0.6 L (1.0-4.8) k/uL ABG pH (7.35-7.45) ABG pCO2 (35-45) mmHg ABG pO2 (83-108) mmHg ABG HCO3 (21-25) mmol/L ABG Total CO2 (19-24) mmol/L ABG O2 Saturation (94-97) % Sodium 136 L (137-145) mmol/L Potassium 3.2 L (3.5-5.1) mmol/L BUN 87 H (7-17) mg/dL Creatinine 2.09 H (0.52-1.04) mg/dL Glucose 169 H (74-99) mg/dL POC Glucose (mg/dL) 168 H (75-99) mg/dL Total Bilirubin 1.6 H (0.2-1.3) mg/dL AST 44 H (14-36) U/L Ammonia (<30) umol/L Total Protein 5.3 L (6.3-8.2) g/dL Albumin 2.3 L (3.5-5.0) g/dL 04/29/20 04/29/20 04/29/20 Range/Units 04:06 05:32 07:59 RBC (3.80-5.40) m/uL Hgb (11.4-16.0) gm/dL Hct (34.0-46.0) % RDW (11.5-15.5) % Plt Count (150-450) k/uL Lymphocytes # (1.0-4.8) k/uL ABG pH 7.51 H (7.35-7.45) ABG pCO2 32 L (35-45) mmHg ABG pO2 161 H (83-108) mmHg ABG HCO3 26 H (21-25) mmol/L ABG Total CO2 27 H (19-24) mmol/L ABG O2 Saturation 98.8 H (94-97) % Sodium (137-145) mmol/L Potassium (3.5-5.1) mmol/L BUN (7-17) mg/dL Creatinine (0.52-1.04) mg/dL Glucose (74-99) mg/dL POC Glucose (mg/dL) 176 H 177 H (75-99) mg/dL Total Bilirubin (0.2-1.3) mg/dL AST (14-36) U/L Ammonia (<30) umol/L Total Protein (6.3-8.2) g/dL Albumin (3.5-5.0) g/dL 04/29/20 Range/Units 08:15 RBC (3.80-5.40) m/uL Hgb (11.4-16.0) gm/dL Hct (34.0-46.0) % RDW (11.5-15.5) % Plt Count (150-450) k/uL Lymphocytes # (1.0-4.8) k/uL ABG pH (7.35-7.45) ABG pCO2 (35-45) mmHg ABG pO2 (83-108) mmHg ABG HCO3 (21-25) mmol/L ABG Total CO2 (19-24) mmol/L ABG O2 Saturation (94-97) % Sodium (137-145) mmol/L Potassium (3.5-5.1) mmol/L BUN (7-17) mg/dL Creatinine (0.52-1.04) mg/dL Glucose (74-99) mg/dL POC Glucose (mg/dL) (75-99) mg/dL Total Bilirubin (0.2-1.3) mg/dL AST (14-36) U/L Ammonia 49 H (<30) umol/L Total Protein (6.3-8.2) g/dL Albumin (3.5-5.0) g/dL Microbiology - Last 24 Hours (Table) 04/27/20 23:50 Gram Stain - Preliminary Sputum Sputum Culture - Preliminary Assessment and Plan Plan: 1 severe shock/hypotension , recovered and the patient is currently off pressors. 2 acute hypoxic respiratory failure, currently intubated on a mechanical ventilator. Chest x-ray showing some increased interstitial markings bilaterally and pulmonary asked her congestion. 3 acute on chronic kidney disease and the patient has chronic stage III kidney disease at baseline with a creatinine of 1.8, and the renal function continues to improve 2 and it's down to .09 and the patient is producing adequate amount of urine output 4 acute hypothermia the patient is receiving external warming 5 acute blood loss anemia. Consider upper GI bleed as the patient's hemoglobin has dropped down to 6.1 with melanotic stools and Hemoccult positive, the patient has not had any further episodes of GI bleeding and the patient got transfused with a 2 units of packed RBC. and hemoglobin remains stable for now the patient shows no signs of GI bleed 6 chronic liver disease/hepatitis C and the patient was receiving Epclusa on outpatient basis, and the patient was having episodes of hypoglycemia at a time of admission. The patient also has high ammonia level and she is currently in hepatic encephalopathy, unresponsive on lactulose. No significant hypoglycemia. 7 diabetes mellitus maintained on oral hypoglycemics on outpatient basis, currently on insulin sliding status coverage 8 hypertension 9 unresponsiveness and the patient hasdiminished level of consciousness with possibility of metabolic/hepatic encephalopathy secondary to above-mentioned comorbidities. a CAT scan of the brain will be needed to rule out other possibilities contributing to her altered mentation. Ammonia level needs to be followed. 10 mild lactic acidosis, recovered 11 troponin leak without any acute EKG changes 12 morbid obesity 13 leukocytosis, improving and the white cell count is down 14 hypochloremic hy, recovered Plan continue IV fluids and will continue giving this patient normal saline at the rate of 75 mL an hour Continue lactulose Monitor ammonia level Monitor mental status Continue ventilator support Continue hydrocortisone for another 24 hours Stop the vancomycin and utilized the Zosyn as an empiric antibiotic coverage. All of the cultures of been negative. Dietary to give us advice on enteral feeding and nutritional support CAT scan of the brain Neurologic consult if no improvement in her mentation The patient's was essentially a DNR/DNI CODE STATUS. We had to intubate him for the above-mentioned reasons. We are still not considering any form of defibrillation or CPR should the patient's overall condition decompensated. This will be a brief intubation trial to see the patient is going to have a good outcome. If not, we'll may proceed with comfort measures again and this will be decided within the next 24-48 hours. We'll continue to follow. The condition is critical and this evaluation was done and more than 30 minutes. Time with Patient: Greater than 30
[2020-04-29 12:02] LABS: Glucose,Whole Blood 181 mg/dL (75-99)
--- NOTE | 2020-04-29 14:22 | PN ---
PROGRESS NOTE Patient is seen for followup for acute kidney injury. At this time patient is maintained on IV fluids at about 75 mL an hour. She has had good urine output at about 75-80 mL an hour. Renal function is slowly improving. Serum creatinine is down to 2.0 mg/dL from 2.7 and 2.48 previously. The patient remains on a small amount of Levophed. She remains on the vent without any sedation with no improvement in mentation. PHYSICAL EXAMINATION: On examination today, blood pressure was 130/49, heart rate of 114 per minute, patient is afebrile. Examination of the heart S1, S2. Examination of the lungs, bilateral breath sounds are heard. Abdomen is soft. Morbidly obese. Examination of lower extremities shows edema 2+ bilaterally. [employer] exam, the patient has not had any purposeful movements. LABS: Show sodium 136, potassium 3.2, chloride 103, BUN 87, serum creatinine 2.09, hemoglobin 8.7 g/dL. ASSESSMENT: 1. Acute kidney injury, acute tubular necrosis, currently improving. Patient is nonoliguric. May continue with the IV fluids for now. Decrease the rate if once her blood pressure is most stable. 2. Chronic kidney disease stage 3 with baseline creatinine around 1.8 in November of 2018 and January of 2020 secondary to nephrosclerosis. No evidence of proteinuria on the urinalysis. 3. Hypovolemic/hyponatremia currently improved. 4. Septic shock maintained on pressors, almost off Levophed. 5. Metabolic acidosis associated with acute kidney injury, status post bicarb drip. 6. Hyperkalemia associated with acute kidney injury, metabolic acidosis, now improved. Potassium is actually low currently. 7. Encephalopathy with negative CT scan. The patient is maintained on lactulose for elevated ammonia levels as well from chronic liver disease and hepatitis C. 8. Hepatitis C and chronic liver disease, maintained on treatment as outpatient. PLAN: Will continue with IV fluids. Replace potassium. MMODL / IJN: [id number] /
[2020-04-29] MEDS: DEXMEDETOMIDINE/0.9% NACL(PMX) 400 MCG in EMPTY BAG 1 BAG IV SCH ×3 (14:54→21:33)
--- NOTE | 2020-04-29 15:22 | PN ---
PROGRESS NOTE DATE OF SERVICE: 04/29/2020 CHIEF COMPLAINT: Gastrointestinal bleed with hypovolemic shock, renal failure, respiratory failure. HISTORY OF PRESENT ILLNESS: This lady has been sent down for a CT of the brain because she does not seem to be recovering neurologically, even though her vital signs have improved. Her blood pressure is back up to normal without pressors. REVIEW OF SYSTEMS: Is not obtainable. PHYSICAL EXAMINATION: Breath sounds are heard bilaterally. There are rales. Cardiac exam is normal. The abdomen is unchanged. Extremities are unchanged. IMPRESSION: 1. Hypovolemic shock. 2. Upper gastrointestinal bleed. 3. Blood loss anemia. 4. Renal failure. 5. Electrolyte imbalance. 6. Obesity. PLAN: Continue to follow with Intensive Medicine. She will probably require neurologic evaluation soon. She will be kept on the ventilator in the meantime. MMODL / EDN: [id number] /
[2020-04-29 15:36] LABS: Glucose,Whole Blood 153 mg/dL (75-99)
[2020-04-29 19:54] LABS: Glucose,Whole Blood 140 mg/dL (75-99)
[2020-04-29] MEDS: CHLORHEXIDINE GLUCONATE 15 ML CUP MUCOUS MEM SCH (20:12)
[2020-04-29 23:37] LABS: Glucose,Whole Blood 174 mg/dL (75-99)
[2020-04-30] MEDS: DEXMEDETOMIDINE/0.9% NACL(PMX) 400 MCG in EMPTY BAG 1 BAG IV SCH ×3 (02:47→06:28)
[2020-04-30 03:45] LABS: Glucose,Whole Blood 219 mg/dL (75-99)
[2020-04-30] MEDS: INSULIN ASPART (NovoLOG) 100 UNIT/ML VIAL SQ SCH ×5 (03:47→20:54)
[2020-04-30] MEDS: SODIUM CHLORIDE 0.9% 1,000 ML IV SCH ×2 (03:49→21:10)
[2020-04-30 04:10] LABS: ABG Base Excess 3.7 mmol/L; ABG HCO3 27 mmol/L (21-25); ABG Oxygen Saturation 99.6 % (94-97); ABG PCO2 36 mmHg (35-45); ABG PH 7.49 (7.35-7.45); ABG PO2 127 mmHg (83-108); ABG TCO2 28 mmol/L (19-24); Allen Test Performed? Yes
[2020-04-30 04:13] LABS: Anisocytosis Slight; Basophils % (A) 0 %; Eosinophils % (A) 0 %; HCT 25.9 % (34.0-46.0); HGB 8.4 gm/dL (11.4-16.0); Hypochromasia Slight; Lymphocytes # (A) 0.6 k/uL (1.0-4.8); Lymphocytes % (A) 11 %; MCH 31.5 pg (25.0-35.0); MCHC 32.5 g/dL (31.0-37.0); Macrocytosis Slight; Mean Platelet Volume 10.2; Monocytes # (A) 0.2 k/uL (0-1.0); Monocytes % (A) 4 %; Neutrophils # (A) 4.6 k/uL (1.3-7.7); Neutrophils % (A) 84 %; Platelet Count 51 k/uL (150-450); RBC 2.67 m/uL (3.80-5.40); RDW 16.7 % (11.5-15.5); WBC 5.6 k/uL (3.8-10.6)
[2020-04-30 04:41] LABS: Albumin 2.2 g/dL (3.5-5.0); Calcium 8.6 mg/dL (8.4-10.2); Potassium 3.1 mmol/L (3.5-5.1); Total Bilirubin 1.4 mg/dL (0.2-1.3)
[2020-04-30] MEDS: POTASSIUM BICARBONATE/CIT AC 20 MEQ TABLET.EFF NG-TUBE SCH ×3 (06:12→22:45)
--- NOTE | 2020-04-30 07:07 | XR ---
EXAMINATION TYPE: XR chest 1V portable DATE OF EXAM: 04/30/2020 COMPARISON: 04/29/2020 HISTORY: SOB, Follow Up FINDINGS: Indwelling tubes and catheters are unchanged. No change in bibasilar opacities. Stable appearance of the cardio-mediastinal structures at this time. Pleural effusion unchanged. IMPRESSION: 1. Stable portable chest. Clinical correlation and follow up until resolution is recommended.
[2020-04-30 08:02] LABS: Glucose,Whole Blood 183 mg/dL (75-99)
[2020-04-30] MEDS: HYDROCORTISONE SUCCINATE 100 MG/2 ML VIAL IV SCH ×2 (09:26→16:29)
[2020-04-30] MEDS: LACTULOSE 20 GM/30 ML CUP PO SCH ×2 (09:26→20:54)
[2020-04-30] MEDS: PANTOPRAZOLE 40 MG/10 ML VIAL IVP SCH ×2 (09:27→20:55)
[2020-04-30] MEDS: PIPERACILLIN-TAZOBACTAM 3.375 GM in SODIUM CHLORIDE 0.9% 100 ML IVPB SCH ×2 (09:27→16:29)
[2020-04-30] MEDS: CHLORHEXIDINE GLUCONATE 15 ML CUP MUCOUS MEM SCH ×2 (09:27→20:54)
[2020-04-30 09:31] LABS: ABG Base Excess 3.6 mmol/L; ABG HCO3 28 mmol/L (21-25); ABG Oxygen Saturation 99.7 % (94-97); ABG PCO2 40 mmHg (35-45); ABG PH 7.45 (7.35-7.45); ABG PO2 143 mmHg (83-108); ABG TCO2 29 mmol/L (19-24)
[2020-04-30 09:32] LABS: Allen Test Performed? no
[2020-04-30] MEDS: RIFAXIMIN 550 MG TABLET PO SCH ×2 (09:42→20:55)
--- NOTE | 2020-04-30 11:12 | P.PN ---
Subjective Progress Note Date: 04/30/20 64-year-old female patient presented to the ED because of generalized weakness and recurrent hypoglycemic events. She apparently was found to have a blood sugar of 44 at home and she received an amp of D50 by EMS and came to the scene and the patient's blood sugar came up to 96. At that time the patient was seen generalized weakness and tiredness and shakiness. No a activity has been noted. The patient was also noted to have low blood pressure. Denied having any shortness of breath. No headaches. No dizziness. No falls. No head trauma. She came into the ED and the patient was found to have a white cell count of 7.2 with a hemoglobin of 6.1 and a recent drop compared to a baseline of 9.1 from 02/23/2020. Her platelet count was at 84 and the patient suffers from chronic thrombocytopenia. Coagulation profile is within normal limits. The sodium level was 108 and this is another new finding with a chloride level of 77 knowing that her most recent blood work showed normal sodium and chloride levels. The patient began with 114 and a creatinine of 3.11 knowing that her baseline creatinine from 02/07/2020 was 1.8. The patient also had a lactic acid level of 2.3, troponin of 0.468, AST of 54, ALT of 24, total protein of 5.4 with an albumin of 2.3. The patient was further found to be hypothermic with a temperature of 93.9. BNP was 74/33. She was on 2 L of oxygen by nasal cannula with a pulse ox of 97%. EKG showing a sinus rhythm with a first-degree AV block. A chest x-ray was not done. On 04/25/2020, the patient is being seen for a follow-up in the intensive care unit. Note that the patient was seen yesterday and overnight it has been significant changes condition mainly significant drop in her blood pressure. Mother the patient presented to us with a suspicion of GI bleed in addition to hyponatremia. The patient got transfused with a total of 2 units of packed RBC. I initially had the patient on normal saline infusion for fluid resuscitation. However, overnight the patient was placed at 3% normal saline by nephrology. The patient was getting minimal amount of volume. The patient became hypotensive. The patient was started on pressors and earlier this morning the norepinephrine infusion was running at 0.3 g per KG per minute which is quite a high dose. At that point, immediately start patient on normal saline infusion at 2 L of bolus was given. Serum cortisol was low at 12. The patient was started on IV hydrocortisone. The patient was also started on vasopressin. A triple lumen catheter was inserted and the patient's CVP was only a 6 via triple lumen catheter that was inserted in left IJ. The patient is afebrile. White cell count is 13.0 with a hemoglobin of 8.3. Platelet count is at 118. The sodium level is up to 116. The patient also had no major improvement in renal failure and the creatinine was at 3.19 with a BUN of 112. Troponin is a 0.4. Liver function tests showed an AST of 54, ALT of 25, alk phos is at 129. The echocardiogram showed a preserved LV function with an EF of around 60-65%. The ultrasound of the abdomen showed no significant abnormalities. There is splenomegaly. No signs of any cholecystitis. Gallbladder and the common bile duct were all within normal limits. 04/26/2020, the patient is being seen for follow-up in the intensive care unit. The patient is awake although I feel that she is a bit more somnolent compared to yesterday. Unfortunately, I'm still unable to get an accurate blood pressure reading. I think the blood pressure cuff and Artline are quite accurate. I have the patient on high-dose norepinephrine infusion for blood pressure support and norepinephrine is running at 0.29 g per KG per minute. She is also on vasopressin physiologic dose at 0.03 units per minute. The patient is also on stress dose hydrocortisone. The patient is on normal saline at rate of 130s is an hour. She is also receiving 3% hypertonic saline solution per nephrology with a rate of 25 mL an hour. The patient's most recent sodium level is at 160. BP is at 70/39. CVP is at 18. Chest x-ray showing mild pulmonary vascular congestion. I was concerned that the patient may be going into fluid overload especially with her urine output remains low. I cut down the IV fluids to 50 mL an hour. No fever. No chills. She is on broad-spectrum antibiotics for now and she is on a combination of Zosyn and vancomycin. The blood cultures been negative for now. I was informed of the later stages the patient had a blood gas that showed a pH of 7.12 with a pCO2 of 50 and pO2 of 104. This was done and FiO2 28%. At that point, the IV fluids was switched to a bicarb infusion. Subsequent sodium level came in 119. The white cell count is at 18.3 with a hemoglobin of 7.9. Is very much likely the patient would require intubation mechanical ventilation at the later stage. I'm unable to establish a good arterial blood pressure reading his patient. Obviously the femoral arteries can not be used as the patient is morbidly obese and she has a very huge abdominal apron setting over her thighs. The current Artline is in the left radial. We'll may be able to insert a right radial artery for another confirmation of the blood pressure reading. The patient is arousable and she is awake yet somnolence. The patient is not fluid balance over the past 24 hours has been +4.3 L. On 04/27/2020, I'm seeing the patient for a follow-up. The patient is doing poorly still in the patient remains in a shock state. The patient remains profoundly hypotensive. She has been aggressively resuscitated with IV fluids. Note that she was on a combination of pressors in addition to fluids. I had to give her an additional 2 L of bolus yesterday to improve some of her blood pressure and earlier this morning the patient is still on a combination of levo fed running at 54 g per minute, epinephrine running at 10 g per minute and vasopressin at physiologic dose of 0.03 units per minute. The patient has a low urine output. There is not fluid balance has been 3.1 L over the past 24 hours. Nevertheless, the patient has been able to come off the higher dose of epinephrine which was being utilized yesterday for hemodynamic support. The morning labs show a white cell count of 16.3 with a hemoglobin of 7.9 and there is no evidence of any significant drop in the patient's hemoglobin. The blood gas showed a pH of 7.2 to pCO2 of 45 and pO2 of 119 and this was done while the patient being on a BiPAP at a pressure of 10/5 cm of water and FiO2 of 35%. The sodium level is up to 125. BUN is at 107 with a creatinine of 3.2. Serum bicarbs at 20. The maintenance IV fluids in the form of bicarb infusion at the rate of 50 mL an hour of 150 mEq of sodium bicarb. The patient is also on an insulin drip at 3 units an hour. Nephrology opted to add a 30% hypertonic saline to gradually build up her sodium which is currently up to 125. The patient is lethargic. She is quite obtunded. I had a lengthy discussion with the children and based on the patient's wishes, she'll be a DNR/DNI CODE STATUS. Meanwhile, we'll continue our efforts to resuscitate the patient with understanding that she is quite ill and she has signs of multisystem organ failure. Echo has been within normal limits. No significant LV dysfunction. Cultures of been negative. She remains on broad-spectrum antibiotics. Pro- calcitonin level was at 0.78. On 04/28/2020, the patient is being seen in follow-up. Noted the patient was a DNR/DNI CODE STATUS. Nevertheless, we have elected discussion with the family. The patient was showing some interval improvement in hemodynamics. However, her overall respiratory status was gradually getting worse and the patient was progressively getting more obtunded and she was obvious developing a component of hepatic encephalopathy with elevated ammonia level. At that point, we decided to give this patient a brief intubation for the next few days and feels this can be any reasonable recovery and outcome in her condition. As such, the patient was intubated and placed on a mechanical ventilator. This morning, she is on no sedation. She is very hard to arouse. Ammonia level is gradually improving. She is on lactulose for now. She is on a mechanical ventilator on assist control mode at the rate of 28 with a tidal volume of 400 and FiO2 of 50% with a PEEP of 5. . The blood gas showed a pH of 7.48 with a pCO2 of 32 and pO2 of 156. The CVP that 16. Chest x-ray showing hepatomegaly and pulmonary vessel congestion. In terms of her IV fluids, she is on a bicarb infusion rate of 50 mL an hour normal state rate of 20 mL an hour. Sodium level is improved and normalized. Norepinephrine infusion is down to 0.16 mg per KG per minute. She is off the epinephrine drip which is off the vasopressin drip. She is afebrile. She is making good urine output. Renal function continues to improve. On today's evaluation to be and is down to 99 and the creatinine is down to 2.48. The bilirubin is at 1.4. Ammonia was at 370 from yesterday is down to 101 the patient is on lactulose. On 04/29/2020, the patient is much improved hemodynamically to the point that the patient is off pressors and she is off the levo fed. Nevertheless, neurologically she is doing poorly. She is unresponsive and she only grimaces to deep painful stimulation. Her ammonia level was elevated and I thought that it may be a component of hepatic encephalopathy and start the patient on lactulose and ammonia level is improving. Nevertheless, I have not seen any much improvement in her neuro status. Pupils are equal and reactive to light and the patient is downward gaze. No seizure activity has been noted. The patient is still on lactulose. Noted the patient has been off sedation and off propofol for the past 24 hours. The patient remains on a mechanical ventilator. She is an assist-control mode at the rate of 20 with a tidal volume of 400 and FiO2 of 35% with a PEEP of 5. Her blood gas showed a pH of 7.51 with a pCO2 of 30, pO2 161. Chest x-ray showing some increased interstitial markings and bilateral pulmonary infiltrates more so on the right. Overall x-ray findings are submitted suboptimal as the patient is morbidly obese. Noted the patient is afebrile. His temperature is 96.0. She is receiving external warming. Creatinine is also improving and she is down to 2.09. No enteral feeding has been provided to this patient yet. No other significant events overnight. The CAT scan of the brain will be ordered. No seizure activity has been noted. On 04/30/2020, the patient had a placed on Precedex in the lower dose as the patient was having some respiratory asynchronous with mechanical ventilator and she was biting into. She did well overnight. She is on Precedex at 0.4 g per KG per minute. This will be weaned off again. On today's evaluation, I checked a mechanical ventilator. She was on a assist-control mode at the rate of 20 with a tidal volume of 400 and FiO2 of 35% with a PEEP of 5. I thought that the pressure support mode would be the best for her and once she was switched to pressure support she became very synchronous. Currently she is on a pressure support of 10 and a PEEP of 5 with an FiO2 of 35%. Her earlier blood gases showed a pH of 7.49 with episodes of 36 and pO2 127. She is on minimal dose of levothyroid 0.015 g per KG per minute. Normal saline running at 75 mL an hour. She is on enteral feeding with vital high protein at the rate of 40 mL an hour. She is making good urine output. Her fluid balance is -1.8 L over the past 24 hours as the patient was given a dose of Lasix. The active issue for now is in mental status. The patient was very hard to arouse. She was only grimaces to painful stimulation. I told that it may be a component of hepatic encephalopathy and I put the patient on lactulose. Lasix and will be added also on today's evaluation. The patient's ammonia level has been fluctuating and essentially is currently on the decline. The patient's white cell count of 5.6 with a hemoglobin of 8.4. The renal function continues to improve in the creatinine is down to 1.9 with a sodium of 139 and potassium level of 3.1. Neurology consultation will be requested in regards to her diminished level of consciousness. Note that there was a hypoxemic event and the patient was quite awake prior to the intubation process. Objective - Vital Signs Vital signs: Vital Signs Temp 97.4 F L 04/30/20 08:00 Pulse 69 04/30/20 10:30 Resp 8 L 04/30/20 10:30 BP 77/32 04/30/20 10:30 Pulse Ox 99 04/30/20 10:30 Intake & Output 04/29/20 04/30/20 04/30/20 18:59 06:59 18:59 Intake Total 2839.380 2461.231 432.533 Output Total 1055 690 240 Balance 434.972 0303.231 192.533 Weight 176 kg 176.2 kg Intake: IV 1072 1072 239 Piperacillin-Tazobactam 3 100 100 25 .375 gm In Sodium Chloride 0.9% 100 ml @ 25 mls/hr IVPB Q12HR [facility] Rx #:[id number] Pressure bags 72 72 24 Sodium Chloride 0.9% 1, 900 900 190 000 ml @ 10 mls/hr IV . Q24H [facility] Rx#:[id number] Intake, IV Titration 90.652 381.231 33.533 Amount Dexmedetomidine/0.9% NaCl 62.92 357.427 30.248 (Pmx) 400 mcg In Empty Bag 1 bag @ Titrate IV . Q0M [facility] Rx#:[id number] Norepinephrine 32 mg In 27.732 23.804 3.285 Sodium Chloride 0.9% 218 ml @ 0.05 MCG/KG/MIN 3. 984 mls/hr IV .Q24H [facility] Rx#:[id number] Tube Feeding 100 320 160 Other 40 Output: Urine 1055 690 240 Other: Voiding Method Indwelling Catheter Indwelling Catheter Indwelling Catheter # Bowel Movements 1 ABP, PAP, CO, CI - Last Documented Arterial Blood Pressure 106/54 - Exam Gen. appearance morbidly obese, grimaces only to deep painful stimulation. Otherwise the patient is unresponsive.. She is intubated on a mechanical ventilator. Orogastric and orotracheal tube are both in place. the patient has a left IJ triple-lumen catheter in place. The patient withdraws to painful stimulation and she is not communicating at this point in time. Head exam was generally normal. There was no scleral icterus or corneal arcus. Mucous membranes were moist. Neck was supple and without jugular venous distension, thyromegaly, or carotid bruits. Carotids were easily palpable bilaterally. There was no adenopathy. Mallampati class IV lung sounds are diminished bilaterally especially lung bases otherwise clear. Cardiac exam revealed the PMI to be normally situated and sized. The rhythm was regular and no extrasystoles were noted during several minutes of auscultation. The first and second heart sounds were normal and physiologic splitting of the second heart sound was noted. There were no murmurs, rubs, clicks, or gallops. abdomen is morbidly obese soft nontender. There is no ascites. Organs cannot be accurately palpated as the patient has morbid obesity. No direct tenderness. No rebound tenderness. No guarding. Extremities revealed trace edema and there is no cyanosis or clubbing. The patient has an arterial line in the right brachial artery. She has also developed some edema in lower extremities bilaterally. She has trace edema. Pulses are quite diminished in lower extremities bilaterally. No cyanosis. No clubbing. Neurological the patient is unresponsive, hardly withdraws to painful stimulation. Pupils are 3 mm in size. No nystagmus. No clonus. No facial asymmetry. Reflexes are diminished in all 4 extremities. - Labs CBC & Chem 7: 04/30/20 04:00 04/30/20 04:00 Labs: Abnormal Lab Results - Last 24 Hours (Table) 04/29/20 04/29/20 04/29/20 Range/Units 12:01 15:35 19:53 RBC (3.80-5.40) m/uL Hgb (11.4-16.0) gm/dL Hct (34.0-46.0) % RDW (11.5-15.5) % Plt Count (150-450) k/uL Lymphocytes # (1.0-4.8) k/uL ABG pH (7.35-7.45) ABG pO2 (83-108) mmHg ABG HCO3 (21-25) mmol/L ABG Total CO2 (19-24) mmol/L ABG O2 Saturation (94-97) % Potassium (3.5-5.1) mmol/L BUN (7-17) mg/dL Creatinine (0.52-1.04) mg/dL Glucose (74-99) mg/dL POC Glucose (mg/dL) 181 H 153 H 140 H (75-99) mg/dL Total Bilirubin (0.2-1.3) mg/dL AST (14-36) U/L Ammonia (<30) umol/L Total Protein (6.3-8.2) g/dL Albumin (3.5-5.0) g/dL 04/29/20 04/30/20 04/30/20 Range/Units 23:36 03:43 04:00 RBC 2.67 L (3.80-5.40) m/uL Hgb 8.4 L (11.4-16.0) gm/dL Hct 25.9 L (34.0-46.0) % RDW 16.7 H (11.5-15.5) % Plt Count 51 L (150-450) k/uL Lymphocytes # 0.6 L (1.0-4.8) k/uL ABG pH (7.35-7.45) ABG pO2 (83-108) mmHg ABG HCO3 (21-25) mmol/L ABG Total CO2 (19-24) mmol/L ABG O2 Saturation (94-97) % Potassium (3.5-5.1) mmol/L BUN (7-17) mg/dL Creatinine (0.52-1.04) mg/dL Glucose (74-99) mg/dL POC Glucose (mg/dL) 174 H 219 H (75-99) mg/dL Total Bilirubin (0.2-1.3) mg/dL AST (14-36) U/L Ammonia (<30) umol/L Total Protein (6.3-8.2) g/dL Albumin (3.5-5.0) g/dL 04/30/20 04/30/20 04/30/20 Range/Units 04:00 04:00 04:04 RBC (3.80-5.40) m/uL Hgb (11.4-16.0) gm/dL Hct (34.0-46.0) % RDW (11.5-15.5) % Plt Count (150-450) k/uL Lymphocytes # (1.0-4.8) k/uL ABG pH 7.49 H (7.35-7.45) ABG pO2 127 H (83-108) mmHg ABG HCO3 27 H (21-25) mmol/L ABG Total CO2 28 H (19-24) mmol/L ABG O2 Saturation 99.6 H (94-97) % Potassium 3.1 L (3.5-5.1) mmol/L BUN 85 H (7-17) mg/dL Creatinine 1.90 H (0.52-1.04) mg/dL Glucose 199 H (74-99) mg/dL POC Glucose (mg/dL) (75-99) mg/dL Total Bilirubin 1.4 H (0.2-1.3) mg/dL AST 38 H (14-36) U/L Ammonia 61 H (<30) umol/L Total Protein 5.0 L (6.3-8.2) g/dL Albumin 2.2 L (3.5-5.0) g/dL 04/30/20 04/30/20 Range/Units 08:00 09:28 RBC (3.80-5.40) m/uL Hgb (11.4-16.0) gm/dL Hct (34.0-46.0) % RDW (11.5-15.5) % Plt Count (150-450) k/uL Lymphocytes # (1.0-4.8) k/uL ABG pH (7.35-7.45) ABG pO2 143 H (83-108) mmHg ABG HCO3 28 H (21-25) mmol/L ABG Total CO2 29 H (19-24) mmol/L ABG O2 Saturation 99.7 H (94-97) % Potassium (3.5-5.1) mmol/L BUN (7-17) mg/dL Creatinine (0.52-1.04) mg/dL Glucose (74-99) mg/dL POC Glucose (mg/dL) 183 H (75-99) mg/dL Total Bilirubin (0.2-1.3) mg/dL AST (14-36) U/L Ammonia (<30) umol/L Total Protein (6.3-8.2) g/dL Albumin (3.5-5.0) g/dL Microbiology - Last 24 Hours (Table) 04/27/20 23:50 Gram Stain - Preliminary Sputum Sputum Culture - Preliminary Aspergillus species Assessment and Plan Plan: 1 severe shock/hypotension , recovered and the patient is currently off pr essors. The patient is currently on a minimal dose of norepinephrine infusion at 0.015 mg per KG per minute. She is producing adequate amount of urine output and renal function continues to improve. 2 acute hypoxic respiratory failure, currently intubated on a mechanical ventilator. Chest x-ray showing some increased interstitial markings bilaterally and pulmonary asked her congestion. Vascular congestion and the patient was given Lasix with excellent diuresis. 3 acute on chronic kidney disease and the patient has chronic stage III kidney disease at baseline with a creatinine of 1.8, and the renal function continues to improve 2 and it's down to 1.9 and the patient is producing adequate amount of urine output 4 acute hypothermia the patient is receiving external warming, improved 5 acute blood loss anemia. Consider upper GI bleed as the patient's hemoglobin has dropped down to 6.1 with melanotic stools and Hemoccult positive, the patient has not had any further episodes of GI bleeding and the patient got transfused with a 2 units of packed RBC. and hemoglobin remains stable for now the patient shows no signs of GI bleed 6 chronic liver disease/hepatitis C and the patient was receiving Epclusa on outpatient basis, and the patient was having episodes of hypoglycemia at a time of admission. The patient also has high ammonia level and she is currently in hepatic encephalopathy, unresponsive on lactulose. No significant hypoglycemia. The patient is currently on lactulose. Ammonia level is improving is down to 61. There may be a component of hepatic encephalopathy. 7 diabetes mellitus maintained on oral hypoglycemics on outpatient basis, currently on insulin sliding status coverage 8 hypertension 9 unresponsiveness and the patient hasdiminished level of consciousness with possibility of metabolic/hepatic encephalopathy secondary to above-mentioned comorbidities. a CAT scan of the brain will be needed to rule out other possibilities contributing to her altered mentation. Ammonia level needs to be followed and the levels today's is 61. I'm going to add Xifaxan in combination to lactulose in regards to the possibility of hepatic encephalopathy. 10 mild lactic acidosis, recovered 11 troponin leak without any acute EKG changes 12 morbid obesity 13 leukocytosis, improving and the white cell count is down 14 hypochloremic hyponatremia, recovered Plan change IV fluids to KVO Continue hydrocortisone for another 24 hours Zosyn as an empiric antibiotic coverage. All of the cultures of been negative. Dietary to give us advice on enteral feeding and nutritional support CAT scan of the brainwas nonsignificant Neurologic consult if no improvement in her mentation Continue lactulose for the possibility of hepatic encephalopathy and monitor the ammonia level. Also, add Xifaxan 550 mg by mouth twice a day regarding the possibility of hepatic encephalopathy. The patient's was essentially a DNR/DNI CODE STATUS. We had to intubate him for the above-mentioned reasons. We are still not considering any form of defibrillation or CPR should the patient's overall condition decompensated. This will be a brief intubation trial to see the patient is going to have a good outcome. If not, we'll may proceed with comfort measures again and this will be decided within the next 24-48 hours. We'll continue to follow. The condition is critical and this evaluation was done and more than 30 minutes. Time with Patient: Greater than 30
[2020-04-30 11:44] LABS: Glucose,Whole Blood 195 mg/dL (75-99)
--- NOTE | 2020-04-30 11:51 | PN ---
PROGRESS NOTE DATE OF SERVICE: 04/30/2020 CHIEF COMPLAINT: GI bleed, hypovolemic shock, renal failure, diabetes, respiratory failure, encephalopathy. HISTORY OF PRESENT ILLNESS: This lady's condition is just about the same. She is back on low dose of pressor, which is being weaned. She is not awakening. CT scan of the brain failed to demonstrate any obvious abnormality. PHYSICAL EXAM: Blood pressure is 104. CHEST: Clear. She is under warming blanket at this time. Cardiac exam is unchanged. IMPRESSION: 1. Hypovolemic shock. 2. Renal failure. 3. Obesity. 4. Respiratory failure. 5. Encephalopathy. PLAN: She will be continued on the ventilator for another 24 hours. Neurology evaluation has been requested. MMODL / IJN: [id number] /
--- NOTE | 2020-04-30 14:25 | PN ---
PROGRESS NOTE Patient is seen for followup for acute kidney injury. She remains on the vent. No significant change in mentation. Serum ammonia level was elevated at 61 today. The patient continues to have good urine output at about 60 mL an hour. IV fluids have been decreased. Levophed is further decreased from yesterday, currently at 0.1 mcg/kg. PHYSICAL EXAMINATION: The patient is on the vent. Blood pressure was 103/49, heart rate 69 per minute, she is afebrile. Examination of the heart S1, S2. Examination of the lungs, bilateral breath sounds are heard. FiO2 is at 35%, PEEP of 5 has been added. Examination of the abdomen reveals it to be morbidly obese. Examination of lower extremities shows edema 2+ bilaterally. Chronic skin changes noted. 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 LAB: Show hemoglobin 8.4 g/dL, sodium of 139, potassium 3.1, chloride 107, CO2 is 28, BUN 85, creatinine 1.9. ASSESSMENT: 1. Acute kidney injury, acute tubular necrosis, currently nonoliguric and slowly improving. Good urine output, currently almost off of pressors. No IV fluids on board. 2. Chronic kidney disease stage 3 with baseline creatinine 1.8 in November of 2018 and January 2020, etiology nephrosclerosis. 3. Hyponatremia, now improved. 4. Septic shock, maintained on pressors, currently almost off of Levophed. 5. Metabolic acidosis status post bicarb drip, now improved. 6. Hyperkalemia associated with acute kidney injury and metabolic acidosis, now improved. 7. Encephalopathy with negative CT scan, being treated for hyperammonemia and possible hepatic encephalopathy. 8. Hepatitis C and chronic liver disease. PLAN: No changes from nephrology standpoint. Replace potassium. MMODL / IJN: [id number] /
[2020-04-30 16:27] LABS: Glucose,Whole Blood 192 mg/dL (75-99)
--- NOTE | 2020-04-30 18:03 | P.CNNES ---
History of Present Illness Consult date: 04/30/20 Reason for Consult: mental status change History of Present Illness: The patient is a 60-year-old female who is seen in neurologic cons ultation on April 30, 2020, via teleneurology. Discharge is reviewed as the patient is unable to provide any history. Patient was admitted with episodes of hypoglycemia. She was found to be severely hyponatremic on admission. Patient has a history of liver disease, chronic renal failure, hepatitis C, congestive heart failure, morbid obesity and diabetes mellitus-poorly controlled. The patient subsequently required intubation because of obtundation. With intubation, the patient has been requiring sedation. Per the patient's RN, the patient has been off of all sedation for the past 2 hours. There has been concern regarding her continued obtundation. Past Medical History Past Medical History: COPD, Diabetes Mellitus, Hyperlipidemia, Hypertension, Renal Disease Additional Past Medical History / Comment(s): Obesity, hypertension, chronic stage III kidney disease, diabetes mellitus, hepatitis C currently on treatment, hyperlipidemia, History of Any Multi-Drug Resistant Organisms: None Reported Past Surgical History: Section Additional Past Surgical History / Comment(s): cataracts removed Past Psychological History: No Psychological Hx Reported Smoking Status: Never smoker Past Alcohol Use History: None Reported Past Drug Use History: None Reported - Past Family History Mother Family Medical History: Congestive Heart Failure (CHF), Hypertension Medications and Allergies Home Medications Medication Instructions Recorded Confirmed Type Losartan [Cozaar] 50 mg PO DAILY 09/18/18 04/24/20 History Simvastatin [Zocor] 20 mg PO HS 09/18/18 04/24/20 History Amitriptyline HCl [Elavil] 25 mg PO HS #30 tab 12/08/18 04/24/20 Rx allopurinoL [Zyloprim] 100 mg PO BID #60 tab 12/08/18 04/24/20 Rx glipiZIDE [Glucotrol] 10 mg PO AC-BID #60 tab 12/08/18 04/24/20 Rx metFORMIN HCL [Glucophage] 500 mg PO BID-W/MEALS #60 tab 12/08/18 04/24/20 Rx Albuterol Inhaler [Ventolin Hfa 1 - 2 puff INHALATION RT-QID PRN 04/24/20/12/07 History Inhaler] Aspirin EC [Ecotrin Low Dose] 81 mg PO DAILY 04/24/20 04/24/20 History Ergocalciferol [Vitamin D2] 50,000 unit PO Q30D 04/24/20 04/24/20 History Fluticasone Propion/Salmeterol 2 puff INHALATION RT-BID 04/24/20 04/24/20 History [Wixela 250-50 Inhub] Furosemide [Lasix] 80 mg PO DAILY 04/24/20 04/24/20 History Hydrocortisone Cream 1 applic TOPICAL QID PRN 04/24/20 04/24/20 History [Hydrocortisone 2.5% Cream] Nystatin 1 applic TOPICAL QID PRN 04/24/20 04/24/20 History Oxybutynin Chloride [Oxybutynin 15 mg PO DAILY 04/24/20 04/24/20 History Chloride ER] Pregabalin [Lyrica] 100 mg PO BID 04/24/20 04/24/20 History Sofosbuvir/Velpatasvir [Epclusa 1 tab PO DAILY 04/24/20 04/24/20 History 400 mg-100 mg Tablet] metOLazone [Zaroxolyn] 2.5 mg PO DAILY 04/24/20 04/24/20 History traZODone HCL [Desyrel] 100 - 200 mg PO HS 04/24/20 04/24/20 History Allergies Allergy/AdvReac Type Severity Reaction Status Date / Time No Known Allergies Allergy Verified 04/24/20 11:44 Physical Examination - Vital Signs Vital Signs: Vital Signs Temp Pulse Resp BP Pulse Ox 04/30/20 14:00 80 10 L 99 04/30/20 13:30 85 16 100 04/30/20 13:00 35.1 F L 96 12 98 04/30/20 12:30 70 9 L 99 04/30/20 12:00 66 8 L 99 04/30/20 11:30 34.8 F L 65 8 L 98 04/30/20 11:00 67 8 L 99 04/30/20 10:30 69 8 L 77/32 99 04/30/20 10:00 98 12 99 04/30/20 09:30 69 8 L 98 04/30/20 09:00 74 19 98 04/30/20 08:30 92 17 98 04/30/20 08:00 97.4 F L 74 24 99 04/30/20 07:00 68 22 98 04/30/20 06:30 68 22 98 04/30/20 06:00 96.3 F L 73 22 98 04/30/20 05:30 74 24 98 04/30/20 05:00 71 26 H 98 04/30/20 04:30 77 20 98 04/30/20 04:00 96.3 F L 71 22 98 04/30/20 03:30 73 25 H 98 04/30/20 03:00 97.5 F L 72 23 98 04/30/20 02:30 71 25 H 98 04/30/20 02:00 96.3 F L 74 24 98 04/30/20 01:30 75 20 98 04/30/20 01:00 95.8 F L 71 21 98 04/30/20 00:30 71 25 H 98 04/30/20 00:00 95.8 F L 70 21 98 04/29/20 23:30 75 24 98 04/29/20 23:00 71 20 98 04/29/20 22:30 71 22 98 04/29/20 22:00 70 26 H 98 04/29/20 21:30 69 21 98 04/29/20 21:00 68 22 98 04/29/20 20:30 70 24 98 04/29/20 20:00 94.3 F L 68 22 98 04/29/20 19:00 69 11 L 98 04/29/20 18:45 69 10 L 98 04/29/20 18:30 70 6 L 98 04/29/20 18:15 76 8 L 98 04/29/20 18:00 75 12 98 04/29/20 17:45 77 12 98 04/29/20 17:30 82 13 97 04/29/20 17:15 87 10 L 04/29/20 17:00 121 H 12 99 04/29/20 16:45 76 12 97 04/29/20 16:30 80 12 97 04/29/20 16:15 80 13 97 04/29/20 16:00 97.8 F 86 13 98 04/29/20 15:45 101 H 27 H 99 04/29/20 15:30 87 13 100 04/29/20 15:15 89 13 100 Intake and Output 04/30/20 04/30/20 04/30/20 06:59 14:59 22:59 Intake Total 1170.231 744.416 Output Total 405 460 Balance 765.231 284.416 Intake: IV 648 348 Piperacillin-Tazobactam 3 100 .375 gm In Sodium Chloride 0.9% 100 ml @ 25 mls/hr IVPB Q12HR [facility] Rx #:[id number] Pressure bags 48 48 Sodium Chloride 0.9% 1, 600 200 000 ml @ 10 mls/hr IV . Q24H [facility] Rx#:[id number] Intake, IV Titration 282.231 36.416 Amount Dexmedetomidine/0.9% NaCl 258.427 30.248 (Pmx) 400 mcg In Empty Bag 1 bag @ Titrate IV . Q0M [facility] Rx#:[id number] Norepinephrine 32 mg In 23.804 6.168 Sodium Chloride 0.9% 218 ml @ 0.05 MCG/KG/MIN 3. 984 mls/hr IV .Q24H [facility] Rx#:[id number] Tube Feeding 240 360 Output: Urine 405 460 Other: Voiding Method Indwelling Catheter Indwelling Catheter Weight 176.2 kg ABP, PAP, CO, CI - Last 8 Hours Arterial Blood Pressure 109/51 Arterial Blood Pressure 107/49 Arterial Blood Pressure 107/55 Arterial Blood Pressure 108/53 Arterial Blood Pressure 103/53 Arterial Blood Pressure 103/50 Arterial Blood Pressure 107/53 Arterial Blood Pressure 106/54 Arterial Blood Pressure 101/55 Arterial Blood Pressure 103/49 Arterial Blood Pressure 107/52 Arterial Blood Pressure 125/64 Arterial Blood Pressure 111/54 Gen.: The patient is supine in the bed. She continues to be intubated. All sedation has been discontinued. The patient is morbidly obese. HEENT: Head is atraumatic, normocephalic. Fundus not visualized. There is no scleral icterus. Mucous membranes are moist. Heart: Regular rate and rhythm Extremities: There is edema of all 4 extremities Neurological examination Mental status: The patient does have her eyes open. She directs her gaze toward voice. She follows some simple commands. She is able to open and close her eyes to command. She wiggles her feet. She nods her head in response to some simple questions. Cranial nerves: Pupils are 3 mm, equal and reactive. The patient does blink to right-sided visual threat. She does not follow instructions for extraocular movement testing. There is no obvious facial asymmetry. Hearing is grossly intact. The patient attempts to protrude her tongue. It appears to be midline. Motor: The patient is able to move all 4 extremities Sensation: There is withdrawal of the bilateral lower and right upper extremity, from noxious stimulation. There is no withdrawal of the left upper extremity. Deep tendon reflexes: 1+/4+ in the upper extremities. Lower extremity reflexes are absent. Left plantar response is extensor. Right plantar response is equivocal. Results - Laboratory Findings CBC and BMP: 04/30/20 04:00 04/30/20 04:00 Abnormal Lab Findings: Abnormal Labs 04/24/20 04/24/20 04/24/20 11:32 11:32 11:32 WBC RBC 2.12 L Hgb 6.5 L* D Hct 20.1 L MCV MCHC RDW 16.4 H Plt Count 89 L Lymphocytes # 0.8 L Macrocytosis Retic Count PT INR 1.2 H APTT 35.1 H ABG pH ABG pCO2 ABG pO2 ABG HCO3 ABG Total CO2 ABG O2 Saturation Sodium 108 L* Potassium Chloride 75 L Carbon Dioxide BUN 116 H* Creatinine 3.27 H Glucose 73 L POC Glucose (mg/dL) Osmolality Plasma Lactic Acid [place] Calcium 7.7 L Iron % Saturation Total Bilirubin AST 57 H ALT Alkaline Phosphatase 136 H Ammonia Troponin I Total Protein 5.7 L Albumin 2.5 L Vitamin B12 Procalcitonin Stool Occult Blood Crossmatch 04/24/20 04/24/20 04/24/20 11:32 11:32 12:18 WBC RBC Hgb Hct MCV MCHC RDW Plt Count Lymphocytes # Macrocytosis Retic Count PT INR APTT ABG pH ABG pCO2 ABG pO2 ABG HCO3 ABG Total CO2 ABG O2 Saturation Sodium Potassium Chloride Carbon Dioxide BUN Creatinine Glucose POC Glucose (mg/dL) Osmolality Plasma Lactic Acid [place] 2.8 H* Calcium Iron % Saturation Total Bilirubin AST ALT Alkaline Phosphatase Ammonia Troponin I 0.551 H* Total Protein Albumin Vitamin B12 Procalcitonin Stool Occult Blood Positive H Crossmatch 04/24/20 04/24/20 04/24/20 12:25 12:56 12:56 WBC RBC 2.00 L Hgb 6.1 L* Hct 18.7 L* MCV MCHC RDW 15.9 H Plt Count 84 L Lymphocytes # 0.7 L Macrocytosis Retic Count PT INR APTT ABG pH ABG pCO2 ABG pO2 ABG HCO3 ABG Total CO2 ABG O2 Saturation Sodium 109 L* Potassium Chloride 77 L Carbon Dioxide BUN 114 H* Creatinine 3.11 H Glucose 110 H POC Glucose (mg/dL) 67 L Osmolality Plasma Lactic Acid [place] Calcium 7.4 L Iron % Saturation Total Bilirubin AST 54 H ALT Alkaline Phosphatase 130 H Ammonia Troponin I Total Protein 5.4 L Albumin 2.3 L Vitamin B12 Procalcitonin Stool Occult Blood Crossmatch 04/24/20 04/24/20 04/24/20 13:15 13:17 14:43 WBC RBC Hgb Hct MCV MCHC RDW Plt Count Lymphocytes # Macrocytosis Retic Count PT INR APTT ABG pH ABG pCO2 ABG pO2 ABG HCO3 ABG Total CO2 ABG O2 Saturation Sodium Potassium Chloride Carbon Dioxide BUN Creatinine Glucose POC Glucose (mg/dL) 109 H Osmolality Plasma Lactic Acid [place] Calcium Iron % Saturation Total Bilirubin AST ALT Alkaline Phosphatase Ammonia Troponin I 0.468 H* Total Protein Albumin Vitamin B12 Procalcitonin Stool Occult Blood Crossmatch See Detail 04/24/20 04/24/20 04/24/20 14:43 15:17 15:33 WBC RBC Hgb Hct MCV MCHC RDW Plt Count Lymphocytes # Macrocytosis Retic Count PT INR APTT ABG pH ABG pCO2 ABG pO2 ABG HCO3 ABG Total CO2 ABG O2 Saturation Sodium Potassium Chloride Carbon Dioxide BUN Creatinine Glucose POC Glucose (mg/dL) 58 L 124 H Osmolality Plasma Lactic Acid [place] 2.3 H* Calcium Iron % Saturation Total Bilirubin AST ALT Alkaline Phosphatase Ammonia Troponin I Total Protein Albumin Vitamin B12 Procalcitonin Stool Occult Blood Crossmatch 04/24/20 04/24/20 04/24/20 18:36 18:40 23:30 WBC RBC Hgb Hct MCV MCHC RDW Plt Count Lymphocytes # Macrocytosis Retic Count PT INR APTT ABG pH ABG pCO2 ABG pO2 ABG HCO3 ABG Total CO2 ABG O2 Saturation Sodium 109 L* Potassium Chloride 80 L Carbon Dioxide 20 L BUN 114 H* Creatinine 3.03 H Glucose POC Glucose (mg/dL) 138 H Osmolality Plasma Lactic Acid [place] Calcium 7.6 L Iron % Saturation Total Bilirubin AST ALT Alkaline Phosphatase Ammonia Troponin I 0.400 H* Total Protein Albumin Vitamin B12 Procalcitonin Stool Occult Blood Crossmatch 04/24/20 04/24/20 04/25/20 23:30 23:30 00:32 WBC RBC 2.54 L Hgb 7.6 L D Hct 23.5 L MCV MCHC RDW 16.4 H Plt Count 87 L Lymphocytes # Macrocytosis Retic Count PT INR APTT ABG pH ABG pCO2 ABG pO2 ABG HCO3 ABG Total CO2 ABG O2 Saturation Sodium 109 L* Potassium Chloride Carbon Dioxide BUN Creatinine Glucose POC Glucose (mg/dL) 67 L Osmolality Plasma Lactic Acid [place] Calcium Iron % Saturation Total Bilirubin AST ALT Alkaline Phosphatase Ammonia Troponin I Total Protein Albumin Vitamin B12 Procalcitonin Stool Occult Blood Crossmatch 04/25/20 04/25/20 04/25/20 01:13 01:17 01:20 WBC RBC 2.16 L Hgb 6.7 L* Hct 23.2 L MCV 107.3 H D MCHC 29.0 L RDW 16.6 H Plt Count 78 L Lymphocytes # Macrocytosis Marked A Retic Count PT INR APTT ABG pH ABG pCO2 ABG pO2 ABG HCO3 ABG Total CO2 ABG O2 Saturation Sodium Potassium Chloride Carbon Dioxide BUN Creatinine Glucose POC Glucose (mg/dL) >600 H 116 H Osmolality Plasma Lactic Acid [place] Calcium Iron % Saturation Total Bilirubin AST ALT Alkaline Phosphatase Ammonia Troponin I Total Protein Albumin Vitamin B12 Procalcitonin Stool Occult Blood Crossmatch 04/25/20 04/25/20 04/25/20 03:13 03:13 05:23 WBC RBC 2.49 L Hgb 8.0 L Hct 23.6 L MCV MCHC RDW 16.3 H Plt Count 102 L Lymphocytes # Macrocytosis Retic Count PT INR APTT ABG pH ABG pCO2 ABG pO2 ABG HCO3 ABG Total CO2 ABG O2 Saturation Sodium 111 L* 111 L* Potassium 5.2 H Chloride 80 L Carbon Dioxide BUN 112 H* Creatinine 3.19 H Glucose POC Glucose (mg/dL) Osmolality Plasma Lactic Acid [place] Calcium 7.6 L Iron % Saturation Total Bilirubin 1.8 H AST 54 H ALT Alkaline Phosphatase 129 H Ammonia Troponin I Total Protein 5.3 L Albumin 2.3 L Vitamin B12 Procalcitonin Stool Occult Blood Crossmatch 04/25/20 04/25/20 04/25/20 05:23 06:20 09:05 WBC 13.0 H RBC 2.64 L Hgb 8.3 L Hct 24.9 L MCV MCHC RDW 16.2 H Plt Count 118 L Lymphocytes # Macrocytosis Retic Count PT INR APTT ABG pH 7.26 L ABG pCO2 49 H ABG pO2 131 H ABG HCO3 ABG Total CO2 ABG O2 Saturation 99.5 H Sodium Potassium Chloride Carbon Dioxide BUN Creatinine Glucose POC Glucose (mg/dL) 74 L Osmolality Plasma Lactic Acid [place] Calcium Iron % Saturation Total Bilirubin AST ALT Alkaline Phosphatase Ammonia Troponin I Total Protein Albumin Vitamin B12 Procalcitonin Stool Occult Blood Crossmatch 04/25/20 04/25/20 04/25/20 09:30 09:30 15:13 WBC RBC Hgb Hct MCV MCHC RDW Plt Count Lymphocytes # Macrocytosis Retic Count PT INR APTT ABG pH ABG pCO2 ABG pO2 ABG HCO3 ABG Total CO2 ABG O2 Saturation Sodium 114 L* 115 L* Potassium 5.5 H Chloride 88 L Carbon Dioxide 19 L BUN 105 H* Creatinine 3.08 H Glucose 122 H POC Glucose (mg/dL) Osmolality 279 L Plasma Lactic Acid [place] Calcium 7.7 L Iron % Saturation Total Bilirubin AST ALT Alkaline Phosphatase Ammonia Troponin I Total Protein Albumin Vitamin B12 Procalcitonin Stool Occult Blood Crossmatch 04/25/20 04/25/20 04/25/20 16:23 18:50 19:37 WBC RBC Hgb Hct MCV MCHC RDW Plt Count Lymphocytes # Macrocytosis Retic Count PT INR APTT ABG pH ABG pCO2 ABG pO2 ABG HCO3 ABG Total CO2 ABG O2 Saturation Sodium 114 L* Potassium Chloride Carbon Dioxide BUN Creatinine Glucose POC Glucose (mg/dL) 109 H 145 H Osmolality Plasma Lactic Acid [place] Calcium Iron % Saturation Total Bilirubin AST ALT Alkaline Phosphatase Ammonia Troponin I Total Protein Albumin Vitamin B12 Procalcitonin Stool Occult Blood Crossmatch 04/26/20 04/26/20 04/26/20 00:09 00:15 04:25 WBC RBC Hgb Hct MCV MCHC RDW Plt Count Lymphocytes # Macrocytosis Retic Count PT 12.9 H INR 1.3 H APTT ABG pH ABG pCO2 ABG pO2 ABG HCO3 ABG Total CO2 ABG O2 Saturation Sodium 116 L* Potassium Chloride Carbon Dioxide BUN Creatinine Glucose POC Glucose (mg/dL) 170 H Osmolality Plasma Lactic Acid [place] Calcium Iron % Saturation Total Bilirubin AST ALT Alkaline Phosphatase Ammonia Troponin I Total Protein Albumin Vitamin B12 Procalcitonin Stool Occult Blood Crossmatch 04/26/20 04/26/20 04/26/20 04:25 04:25 04:25 WBC 18.3 H RBC 2.60 L Hgb 7.9 L Hct 25.0 L MCV MCHC RDW 16.5 H Plt Count 138 L Lymphocytes # Macrocytosis Retic Count PT INR APTT ABG pH ABG pCO2 ABG pO2 ABG HCO3 ABG Total CO2 ABG O2 Saturation Sodium 118 L* Potassium 5.8 H Chloride 92 L Carbon Dioxide 16 L BUN 106 H* Creatinine 3.13 H Glucose 171 H POC Glucose (mg/dL) Osmolality Plasma Lactic Acid [place] Calcium 8.1 L Iron % Saturation Total Bilirubin AST 47 H ALT Alkaline Phosphatase Ammonia 109 H Troponin I Total Protein 5.4 L Albumin 2.3 L Vitamin B12 Procalcitonin Stool Occult Blood Crossmatch 04/26/20 04/26/20 04/26/20 04:25 04:25 04:25 WBC RBC Hgb Hct MCV MCHC RDW Plt Count Lymphocytes # Macrocytosis Retic Count 6.0 H PT INR APTT ABG pH ABG pCO2 ABG pO2 ABG HCO3 ABG Total CO2 ABG O2 Saturation Sodium Potassium Chloride Carbon Dioxide BUN Creatinine Glucose POC Glucose (mg/dL) Osmolality Plasma Lactic Acid [place] Calcium Iron 35 L % Saturation 10.80 L Total Bilirubin AST ALT Alkaline Phosphatase Ammonia Troponin I Total Protein Albumin Vitamin B12 1172.0 H Procalcitonin 0.78 H Stool Occult Blood Crossmatch 04/26/20 04/26/20 04/26/20 04:27 09:06 09:20 WBC RBC Hgb Hct MCV MCHC RDW Plt Count Lymphocytes # Macrocytosis Retic Count PT INR APTT ABG pH ABG pCO2 ABG pO2 ABG HCO3 ABG Total CO2 ABG O2 Saturation Sodium 119 L* Potassium Chloride Carbon Dioxide BUN Creatinine Glucose POC Glucose (mg/dL) 199 H 194 H Osmolality Plasma Lactic Acid [place] Calcium Iron % Saturation Total Bilirubin AST ALT Alkaline Phosphatase Ammonia Troponin I Total Protein Albumin Vitamin B12 Procalcitonin Stool Occult Blood Crossmatch 04/26/20 04/26/20 04/26/20 11:30 13:32 14:15 WBC RBC Hgb Hct MCV MCHC RDW Plt Count Lymphocytes # Macrocytosis Retic Count PT INR APTT ABG pH 7.12 L* ABG pCO2 50 H ABG pO2 ABG HCO3 16 L ABG Total CO2 18 L ABG O2 Saturation 98.1 H Sodium 120 L Potassium 5.5 H Chloride 92 L Carbon Dioxide 16 L BUN 111 H* Creatinine 3.22 H Glucose 229 H POC Glucose (mg/dL) 237 H Osmolality Plasma Lactic Acid [place] Calcium Iron % Saturation Total Bilirubin AST ALT Alkaline Phosphatase Ammonia Troponin I Total Protein Albumin Vitamin B12 Procalcitonin Stool Occult Blood Crossmatch 04/26/20 04/26/20 04/26/20 15:37 17:10 18:40 WBC RBC Hgb Hct MCV MCHC RDW Plt Count Lymphocytes # Macrocytosis Retic Count PT INR APTT ABG pH 7.15 L* ABG pCO2 48 H ABG pO2 ABG HCO3 17 L ABG Total CO2 18 L ABG O2 Saturation 97.9 H Sodium 122 L Potassium Chloride 93 L Carbon Dioxide 17 L BUN 108 H* Creatinine 3.13 H Glucose 264 H POC Glucose (mg/dL) 268 H Osmolality Plasma Lactic Acid [place] Calcium 7.9 L Iron % Saturation Total Bilirubin AST ALT Alkaline Phosphatase Ammonia Troponin I Total Protein Albumin Vitamin B12 Procalcitonin Stool Occult Blood Crossmatch 04/26/20 04/27/20 04/27/20 19:55 02:27 02:59 WBC RBC Hgb Hct MCV MCHC RDW Plt Count Lymphocytes # Macrocytosis Retic Count PT INR APTT ABG pH ABG pCO2 ABG pO2 ABG HCO3 ABG Total CO2 ABG O2 Saturation Sodium Potassium Chloride Carbon Dioxide BUN Creatinine Glucose POC Glucose (mg/dL) 273 H 315 H 302 H Osmolality Plasma Lactic Acid [place] Calcium Iron % Saturation Total Bilirubin AST ALT Alkaline Phosphatase Ammonia Troponin I Total Protein Albumin Vitamin B12 Procalcitonin Stool Occult Blood Crossmatch 04/27/20 04/27/20 04/27/20 04:00 05:00 05:00 WBC RBC Hgb Hct MCV MCHC RDW Plt Count Lymphocytes # Macrocytosis Retic Count PT INR APTT ABG pH ABG pCO2 ABG pO2 ABG HCO3 ABG Total CO2 ABG O2 Saturation Sodium 122 L Potassium Chloride 93 L Carbon Dioxide 20 L BUN 107 H* Creatinine 3.21 H Glucose 219 H POC Glucose (mg/dL) 259 H 238 H Osmolality Plasma Lactic Acid [place] Calcium 8.1 L Iron % Saturation Total Bilirubin AST 51 H ALT Alkaline Phosphatase Ammonia Troponin I Total Protein 5.6 L Albumin 2.5 L Vitamin B12 Procalcitonin Stool Occult Blood Crossmatch 04/27/20 04/27/20 04/27/20 05:00 05:55 07:04 WBC 16.3 H RBC 2.63 L Hgb 7.9 L Hct 25.1 L MCV MCHC RDW 16.5 H Plt Count 109 L Lymphocytes # Macrocytosis Retic Count PT INR APTT ABG pH ABG pCO2 ABG pO2 ABG HCO3 ABG Total CO2 ABG O2 Saturation Sodium Potassium Chloride Carbon Dioxide BUN Creatinine Glucose POC Glucose (mg/dL) 212 H 170 H Osmolality Plasma Lactic Acid [place] Calcium Iron % Saturation Total Bilirubin AST ALT Alkaline Phosphatase Ammonia Troponin I Total Protein Albumin Vitamin B12 Procalcitonin Stool Occult Blood Crossmatch 04/27/20 04/27/20 04/27/20 08:59 09:14 10:18 WBC RBC Hgb Hct MCV MCHC RDW Plt Count Lymphocytes # Macrocytosis Retic Count PT INR APTT ABG pH 7.30 L ABG pCO2 ABG pO2 119 H ABG HCO3 ABG Total CO2 ABG O2 Saturation 98.5 H Sodium 127 L Potassium Chloride Carbon Dioxide BUN Creatinine Glucose POC Glucose (mg/dL) 157 H Osmolality Plasma Lactic Acid [place] Calcium Iron % Saturation Total Bilirubin AST ALT Alkaline Phosphatase Ammonia Troponin I Total Protein Albumin Vitamin B12 Procalcitonin Stool Occult Blood Crossmatch 04/27/20 04/27/20 04/27/20 10:55 11:11 15:29 WBC RBC Hgb Hct MCV MCHC RDW Plt Count Lymphocytes # Macrocytosis Retic Count PT INR APTT ABG pH 7.32 L ABG pCO2 ABG pO2 126 H ABG HCO3 ABG Total CO2 ABG O2 Saturation 99.4 H Sodium 125 L Potassium Chloride Carbon Dioxide BUN Creatinine Glucose POC Glucose (mg/dL) 148 H Osmolality Plasma Lactic Acid [place] Calcium Iron % Saturation Total Bilirubin AST ALT Alkaline Phosphatase Ammonia Troponin I Total Protein Albumin Vitamin B12 Procalcitonin Stool Occult Blood Crossmatch 04/27/20 04/27/20 04/27/20 15:38 15:38 15:38 WBC RBC 2.63 L Hgb 8.4 L Hct 25.3 L MCV MCHC RDW 16.1 H Plt Count 85 L Lymphocytes # Macrocytosis Retic Count PT INR APTT ABG pH ABG pCO2 ABG pO2 ABG HCO3 ABG Total CO2 ABG O2 Saturation Sodium 125 L Potassium Chloride 96 L Carbon Dioxide BUN 102 H* Creatinine 2.77 H Glucose 156 H POC Glucose (mg/dL) Osmolality Plasma Lactic Acid [place] Calcium 8.0 L Iron % Saturation Total Bilirubin AST 56 H ALT Alkaline Phosphatase Ammonia 370 H Troponin I Total Protein 5.5 L Albumin 2.5 L Vitamin B12 Procalcitonin Stool Occult Blood Crossmatch 04/27/20 04/27/20 04/27/20 15:45 17:15 17:48 WBC RBC Hgb Hct MCV MCHC RDW Plt Count Lymphocytes # Macrocytosis Retic Count PT INR APTT ABG pH ABG pCO2 ABG pO2 >400 H ABG HCO3 ABG Total CO2 ABG O2 Saturation 100.0 H Sodium Potassium Chloride Carbon Dioxide BUN Creatinine Glucose POC Glucose (mg/dL) 162 H 172 H Osmolality Plasma Lactic Acid [place] Calcium Iron % Saturation Total Bilirubin AST ALT Alkaline Phosphatase Ammonia Troponin I Total Protein Albumin Vitamin B12 Procalcitonin Stool Occult Blood Crossmatch 04/27/20 04/27/20 04/28/20 20:38 22:00 01:48 WBC RBC Hgb Hct MCV MCHC RDW Plt Count Lymphocytes # Macrocytosis Retic Count PT INR APTT ABG pH ABG pCO2 ABG pO2 ABG HCO3 ABG Total CO2 ABG O2 Saturation Sodium 127 L Potassium Chloride Carbon Dioxide BUN Creatinine Glucose POC Glucose (mg/dL) 165 H 185 H Osmolality Plasma Lactic Acid [place] Calcium Iron % Saturation Total Bilirubin AST ALT Alkaline Phosphatase Ammonia Troponin I Total Protein Albumin Vitamin B12 Procalcitonin Stool Occult Blood Crossmatch 04/28/20 04/28/20 04/28/20 05:04 05:35 05:35 WBC RBC 2.87 L Hgb 8.5 L Hct 26.4 L MCV MCHC RDW 16.7 H Plt Count 79 L Lymphocytes # 0.6 L Macrocytosis Retic Count PT INR APTT ABG pH 7.48 H ABG pCO2 32 L ABG pO2 156 H ABG HCO3 ABG Total CO2 25 H ABG O2 Saturation 98.9 H Sodium Potassium Chloride Carbon Dioxide BUN Creatinine Glucose POC Glucose (mg/dL) Osmolality Plasma Lactic Acid [place] Calcium Iron % Saturation Total Bilirubin AST ALT Alkaline Phosphatase Ammonia 101 H Troponin I Total Protein Albumin Vitamin B12 Procalcitonin Stool Occult Blood Crossmatch 04/28/20 04/28/20 04/28/20 05:35 06:51 12:08 WBC RBC Hgb Hct MCV MCHC RDW Plt Count Lymphocytes # Macrocytosis Retic Count PT INR APTT ABG pH ABG pCO2 ABG pO2 ABG HCO3 ABG Total CO2 ABG O2 Saturation Sodium 131 L Potassium Chloride 97 L Carbon Dioxide BUN 99 H Creatinine 2.48 H Glucose 193 H POC Glucose (mg/dL) 203 H 190 H Osmolality Plasma Lactic Acid [place] Calcium Iron % Saturation Total Bilirubin 1.4 H AST 52 H ALT 35 H Alkaline Phosphatase Ammonia Troponin I Total Protein 5.5 L Albumin 2.5 L Vitamin B12 Procalcitonin Stool Occult Blood Crossmatch 04/28/20 04/28/20 04/28/20 18:02 20:20 23:50 WBC RBC Hgb Hct MCV MCHC RDW Plt Count Lymphocytes # Macrocytosis Retic Count PT INR APTT ABG pH ABG pCO2 ABG pO2 ABG HCO3 ABG Total CO2 ABG O2 Saturation Sodium Potassium Chloride Carbon Dioxide BUN Creatinine Glucose POC Glucose (mg/dL) 184 H 186 H 168 H Osmolality Plasma Lactic Acid [place] Calcium Iron % Saturation Total Bilirubin AST ALT Alkaline Phosphatase Ammonia Troponin I Total Protein Albumin Vitamin B12 Procalcitonin Stool Occult Blood Crossmatch 04/29/20 04/29/20 04/29/20 04:00 04:00 04:06 WBC RBC 2.75 L Hgb 8.7 L Hct 26.1 L MCV MCHC RDW 16.3 H Plt Count 55 L Lymphocytes # 0.6 L Macrocytosis Retic Count PT INR APTT ABG pH ABG pCO2 ABG pO2 ABG HCO3 ABG Total CO2 ABG O2 Saturation Sodium 136 L Potassium 3.2 L Chloride Carbon Dioxide BUN 87 H Creatinine 2.09 H Glucose 169 H POC Glucose (mg/dL) 176 H Osmolality Plasma Lactic Acid [place] Calcium Iron % Saturation Total Bilirubin 1.6 H AST 44 H ALT Alkaline Phosphatase Ammonia Troponin I Total Protein 5.3 L Albumin 2.3 L Vitamin B12 Procalcitonin Stool Occult Blood Crossmatch 04/29/20 04/29/20 04/29/20 05:32 07:59 08:15 WBC RBC Hgb Hct MCV MCHC RDW Plt Count Lymphocytes # Macrocytosis Retic Count PT INR APTT ABG pH 7.51 H ABG pCO2 32 L ABG pO2 161 H ABG HCO3 26 H ABG Total CO2 27 H ABG O2 Saturation 98.8 H Sodium Potassium Chloride Carbon Dioxide BUN Creatinine Glucose POC Glucose (mg/dL) 177 H Osmolality Plasma Lactic Acid [place] Calcium Iron % Saturation Total Bilirubin AST ALT Alkaline Phosphatase Ammonia 49 H Troponin I Total Protein Albumin Vitamin B12 Procalcitonin Stool Occult Blood Crossmatch 04/29/20 04/29/20 04/29/20 12:01 15:35 19:53 WBC RBC Hgb Hct MCV MCHC RDW Plt Count Lymphocytes # Macrocytosis Retic Count PT INR APTT ABG pH ABG pCO2 ABG pO2 ABG HCO3 ABG Total CO2 ABG O2 Saturation Sodium Potassium Chloride Carbon Dioxide BUN Creatinine Glucose POC Glucose (mg/dL) 181 H 153 H 140 H Osmolality Plasma Lactic Acid Raymundo Calcium Iron % Saturation Total Bilirubin AST ALT Alkaline Phosphatase Ammonia Troponin I Total Protein Albumin Vitamin B12 Procalcitonin Stool Occult Blood Crossmatch 04/29/20 04/30/20 04/30/20 23:36 03:43 04:00 WBC RBC 2.67 L Hgb 8.4 L Hct 25.9 L MCV MCHC RDW 16.7 H Plt Count 51 L Lymphocytes # 0.6 L Macrocytosis Retic Count PT INR APTT ABG pH ABG pCO2 ABG pO2 ABG HCO3 ABG Total CO2 ABG O2 Saturation Sodium Potassium Chloride Carbon Dioxide BUN Creatinine Glucose POC Glucose (mg/dL) 174 H 219 H Osmolality Plasma Lactic Acid Raymundo Calcium Iron % Saturation Total Bilirubin AST ALT Alkaline Phosphatase Ammonia Troponin I Total Protein Albumin Vitamin B12 Procalcitonin Stool Occult Blood Crossmatch 04/30/20 04/30/20 04/30/20 04:00 04:00 04:04 WBC RBC Hgb Hct MCV MCHC RDW Plt Count Lymphocytes # Macrocytosis Retic Count PT INR APTT ABG pH 7.49 H ABG pCO2 ABG pO2 127 H ABG HCO3 27 H ABG Total CO2 28 H ABG O2 Saturation 99.6 H Sodium Potassium 3.1 L Chloride Carbon Dioxide BUN 85 H Creatinine 1.90 H Glucose 199 H POC Glucose (mg/dL) Osmolality Plasma Lactic Acid Raymundo Calcium Iron % Saturation Total Bilirubin 1.4 H AST 38 H ALT Alkaline Phosphatase Ammonia 61 H Troponin I Total Protein 5.0 L Albumin 2.2 L Vitamin B12 Procalcitonin Stool Occult Blood Crossmatch 04/30/20 04/30/20 04/30/20 08:00 09:28 11:43 WBC RBC Hgb Hct MCV MCHC RDW Plt Count Lymphocytes # Macrocytosis Retic Count PT INR APTT ABG pH ABG pCO2 ABG pO2 143 H ABG HCO3 28 H ABG Total CO2 29 H ABG O2 Saturation 99.7 H Sodium Potassium Chloride Carbon Dioxide BUN Creatinine Glucose POC Glucose (mg/dL) 183 H 195 H Osmolality Plasma Lactic Acid Raymundo Calcium Iron % Saturation Total Bilirubin AST ALT Alkaline Phosphatase Ammonia Troponin I Total Protein Albumin Vitamin B12 Procalcitonin Stool Occult Blood Crossmatch Assessment and Plan Assessment: 1. Toxic-metabolic encephalopathy-improving 2. Multiple medical comorbidities Plan: 1. Continue to hold sedation 2. Continue supportive care 3. I do not believe an EEG is necessary at this time. If patient's condition worsens, consider EEG Time with Patient: Greater than 30 (spent 40 minutes with the patient via teleneurology)
[2020-04-30 20:15] LABS: Glucose,Whole Blood 183 mg/dL (75-99)
[2020-04-30] MEDS ORDERED: DEXMEDETOMIDINE/0.9% NACL(PMX) 400 MCG in EMPTY BAG 1 BAG IV SCH (21:00)
[2020-04-30 23:47] LABS: Glucose,Whole Blood 180 mg/dL (75-99)
[2020-04-30 23:48] LABS: ABG Base Excess 3.8 mmol/L; ABG HCO3 29 mmol/L (21-25); ABG Oxygen Saturation 99.6 % (94-97); ABG PCO2 48 mmHg (35-45); ABG PH 7.39 (7.35-7.45); ABG PO2 129 mmHg (83-108); ABG TCO2 30 mmol/L (19-24); Allen Test Performed? Yes
[2020-05-01] MEDS: POTASSIUM BICARBONATE/CIT AC 20 MEQ TABLET.EFF NG-TUBE SCH (00:14)
[2020-05-01] MEDS: POTASSIUM CHLORIDE 10 MEQ in WATER FOR INJECTION 1 100ML.BAG IVPB SCH ×4 (00:32→08:40)
[2020-05-01] MEDS: PIPERACILLIN-TAZOBACTAM 3.375 GM in SODIUM CHLORIDE 0.9% 100 ML IVPB SCH ×3 (00:32→16:16)
[2020-05-01] MEDS: INSULIN ASPART (NovoLOG) 100 UNIT/ML VIAL SQ SCH ×6 (00:33→20:19)
[2020-05-01] MEDS: HYDROCORTISONE SUCCINATE 100 MG/2 ML VIAL IV SCH ×3 (00:34→16:16)
[2020-05-01 04:53] LABS: Glucose,Whole Blood 156 mg/dL (75-99)
[2020-05-01 05:21] LABS: Albumin 2.2 g/dL (3.5-5.0); Calcium 8.9 mg/dL (8.4-10.2); Potassium 3.7 mmol/L (3.5-5.1); Total Bilirubin 1.1 mg/dL (0.2-1.3); Total Protein 5.1 g/dL (6.3-8.2)
[2020-05-01 05:52] LABS: Anisocytosis Slight; Basophils % (A) 0 %; Eosinophils % (A) 0 %; HCT 26.6 % (34.0-46.0); HGB 8.5 gm/dL (11.4-16.0); Hypochromasia Marked; Lymphocytes # (A) 0.5 k/uL (1.0-4.8); Lymphocytes % (A) 7 %; MCH 31.6 pg (25.0-35.0); MCHC 31.7 g/dL (31.0-37.0); MCV 99.7 fL (80.0-100.0); Macrocytosis Slight; Mean Platelet Volume 10.1; Monocytes # (A) 0.2 k/uL (0-1.0); Monocytes % (A) 3 %; Neutrophils # (A) 6.4 k/uL (1.3-7.7); Neutrophils % (A) 88 %; RBC 2.67 m/uL (3.80-5.40); RDW 16.5 % (11.5-15.5); WBC 7.3 k/uL (3.8-10.6)
[2020-05-01 05:53] LABS: Platelet Count 40 k/uL (150-450)
[2020-05-01] MEDS ORDERED: INSULIN DETEMIR (LEVEMIR) 100 UNIT/ML SYR SQ SCH (07:00)
[2020-05-01 07:17] LABS: Glucose,Whole Blood 157 mg/dL (75-99)
[2020-05-01 08:19] LABS: Glucose,Whole Blood 164 mg/dL (75-99)
[2020-05-01] MEDS: NOREPINEPHRINE 32 MG in SODIUM CHLORIDE 0.9% 218 ML IV SCH (08:19)
[2020-05-01] MEDS: PANTOPRAZOLE 40 MG/10 ML VIAL IVP SCH ×2 (08:39→20:25)
[2020-05-01] MEDS: CHLORHEXIDINE GLUCONATE 15 ML CUP MUCOUS MEM SCH ×2 (08:39→20:19)
[2020-05-01] MEDS: LACTULOSE 20 GM/30 ML CUP PO SCH ×2 (08:42→20:24)
[2020-05-01] MEDS ORDERED: LORazepam 2 MG/ML INJ IV STA (10:32)
--- NOTE | 2020-05-01 11:22 | XR ---
EXAMINATION TYPE: XR chest 1V portable DATE OF EXAM: 05/01/2020 Comparison: 05/01/2020 Clinical History: 60-year-old female post NG tube placement Findings: ET tube tip at the level of the medial clavicular heads. Distal aspect of the NG tube is not seen bey ond the mid thoracic level due to underpenetration. Left IJ CVC tip not seen beyond the stented cavoa trial junction. Very low lung volumes and overlying panniculus limit the lower lungs. Heart appearanc e borderline enlarged. Impression: Nondiagnostic lung bases, especially on the left, due to hypoventilatory changes, patient positioning , portable technique, and overlying panniculus. Distal aspect of the NG tube is not seen due to underpenetration.
--- NOTE | 2020-05-01 11:25 | PN ---
PROGRESS NOTE Patient is seen for followup for acute kidney injury. She was extubated yesterday. Currently patient is awake. She is maintained on high-flow oxygen. She apparently knows her name. PHYSICAL EXAMINATION: On examination today, blood pressure 144/56, heart rate 112 per minute, she is afebrile. Examination of the heart S1, S2. Examination of the lungs, decreased breath sounds at bases. Abdomen is soft. Morbidly obese. Examination of the lower extremities shows chronic skin changes. edema 1+ bilaterally, upper and lower extremities. [employer] exam shows patient is oriented x1. She has been moving her extremities. LABS: Show sodium 143, potassium 3.7, chloride 108, CO2 is 30, BUN 82, creatinine 1.93, hemoglobin 8.5 g/dL. ASSESSMENT: 1. Acute kidney injury, acute tubular necrosis, currently stable, creatinine staying at about 1.9, good urine output. 2. Mild volume overload, I will add Lasix 40 mg IV daily. 3. Chronic kidney disease stage 3, baseline creatinine 1.8 in November of 2018 and January 2020 secondary to nephrosclerosis. 4. Hyponatremia, now resolved. 5. Septic shock. 6. Hypotension secondary to sepsis, currently off Levophed. 7. Acute hypoxic respiratory failure status post extubation. 8. Pneumonia. 9. Encephalopathy possibly hepatic, maintained on lactulose, Rifaximin. PLAN: Add Lasix 40 mg IV daily. Monitor electrolytes. Repeat labs in a.m. MMRADHAL / IJN: [id number] /
[2020-05-01 12:04] LABS: Glucose,Whole Blood 162 mg/dL (75-99)
--- NOTE | 2020-05-01 12:13 | XR ---
EXAMINATION TYPE: XR chest 1V portable DATE OF EXAM: 05/01/2020 CLINICAL HISTORY: Tube placement TECHNIQUE: Portable semiupright chest COMPARISON: 04/30/2020 chest radiograph FINDINGS: Interval removal of endotracheal and enteric tubes. Low lung volumes. Persistent cardiomeg tami and prominent vascular congestion. Unchanged small pleural effusions. No pneumothorax. IMPRESSION: 1. Interval removal of endotracheal and enteric tubes. 2. Findings most likely representing CHF, unchanged versus 04/30/2020.
--- NOTE | 2020-05-01 13:17 | P.PN ---
Subjective Progress Note Date: 05/01/20 Principal diagnosis: Weakness and low blood sugar The patient was seen and examined at the bedside in the ICU. The patient was extubated yesterday evening is now currently on BiPAP. The patient still remains obtunded, with very little verbal response or following commands. Th ere've been no further episodes of melena reported. Her hemoglobin is stable at 8.5. Objective - Vital Signs Vital signs: Vital Signs Temp 96.1 F L 05/01/20 11:00 Pulse 130 H 05/01/20 11:00 Resp 11 L 05/01/20 11:00 BP 77/32 05/01/20 11:00 Pulse Ox 99 05/01/20 11:00 Intake & Output 04/30/20 05/01/20 05/01/20 18:59 06:59 18:59 Intake Total 1121.911 610.642 320 Output Total 650 900 274 Balance 471.911 -289.358 46 Intake: IV 412 229 220 Piperacillin-Tazobactam 3 100 25 100 .375 gm In Sodium Chloride 0.9% 100 ml @ 25 mls/hr IVPB Q12HR [facility] Rx #:[id number] Pressure bags 72 84 30 Sodium Chloride 0.9% 1, 240 120 90 000 ml @ 10 mls/hr IV . Q24H [facility] Rx#:[id number] Intake, IV Titration 39.911 81.642 100 Amount Dexmedetomidine/0.9% NaCl 30.248 (Pmx) 400 mcg In Empty Bag 1 bag @ Titrate IV . Q0M [facility] Rx#:[id number] Dexmedetomidine/0.9% NaCl 72.169 (Pmx) 400 mcg In Empty Bag 1 bag @ Titrate IV . Q0M [facility] Rx#:[id number] Norepinephrine 32 mg In 9.663 9.473 Sodium Chloride 0.9% 218 ml @ 0.05 MCG/KG/MIN 3. 984 mls/hr IV .Q24H [facility] Rx#:[id number] Potassium Chloride 10 meq 100 In Water For Injection 1 100ml.bag @ 100 mls/hr IVPB Q1H [facility] Rx#: [id number] Tube Feeding 610 270 Other 60 30 Output: Urine 650 900 274 Other: Voiding Method Indwelling Catheter Indwelling Catheter # Bowel Movements 1 1 ABP, PAP, CO, CI - Last Documented Arterial Blood Pressure 121/50 - Exam General appearance: The patient is attended, BiPAP. Morbidly obese HET: Head is normocephalic and atraumatic. Neck: Supple without lymphadenopathy. Abdomen: Soft, obeses, nontender, nondistended with bowel sounds. No guarding or rigidity. Extremities: Normal skin color and turgor. Pedal edema Neurological: Obtunded. - Labs CBC & Chem 7: 05/01/20 04:45 05/01/20 04:45 Labs: Abnormal Lab Results - Last 24 Hours (Table) 04/30/20 04/30/20 04/30/20 Range/Units 16:25 20:10 20:14 RBC (3.80-5.40) m/uL Hgb (11.4-16.0) gm/dL Hct (34.0-46.0) % RDW (11.5-15.5) % Plt Count (150-450) k/uL Lymphocytes # (1.0-4.8) k/uL ABG pCO2 (35-45) mmHg ABG pO2 (83-108) mmHg ABG HCO3 (21-25) mmol/L ABG Total CO2 (19-24) mmol/L ABG O2 Saturation (94-97) % Potassium 3.3 L (3.5-5.1) mmol/L Chloride (98-107) mmol/L BUN (7-17) mg/dL Creatinine (0.52-1.04) mg/dL Glucose (74-99) mg/dL POC Glucose (mg/dL) 192 H 183 H (75-99) mg/dL Ammonia (<30) umol/L Total Protein (6.3-8.2) g/dL Albumin (3.5-5.0) g/dL 04/30/20 04/30/20 05/01/20 Range/Units 23:42 23:46 04:45 RBC 2.67 L (3.80-5.40) m/uL Hgb 8.5 L (11.4-16.0) gm/dL Hct 26.6 L (34.0-46.0) % RDW 16.5 H (11.5-15.5) % Plt Count 40 L (150-450) k/uL Lymphocytes # 0.5 L (1.0-4.8) k/uL ABG pCO2 48 H (35-45) mmHg ABG pO2 129 H (83-108) mmHg ABG HCO3 29 H (21-25) mmol/L ABG Total CO2 30 H (19-24) mmol/L ABG O2 Saturation 99.6 H (94-97) % Potassium (3.5-5.1) mmol/L Chloride (98-107) mmol/L BUN (7-17) mg/dL Creatinine (0.52-1.04) mg/dL Glucose (74-99) mg/dL POC Glucose (mg/dL) 180 H (75-99) mg/dL Ammonia (<30) umol/L Total Protein (6.3-8.2) g/dL Albumin (3.5-5.0) g/dL 05/01/20 05/01/20 05/01/20 Range/Units 04:45 04:45 04:52 RBC (3.80-5.40) m/uL Hgb (11.4-16.0) gm/dL Hct (34.0-46.0) % RDW (11.5-15.5) % Plt Count (150-450) k/uL Lymphocytes # (1.0-4.8) k/uL ABG pCO2 (35-45) mmHg ABG pO2 (83-108) mmHg ABG HCO3 (21-25) mmol/L ABG Total CO2 (19-24) mmol/L ABG O2 Saturation (94-97) % Potassium (3.5-5.1) mmol/L Chloride 108 H (98-107) mmol/L BUN 82 H (7-17) mg/dL Creatinine 1.93 H (0.52-1.04) mg/dL Glucose 161 H (74-99) mg/dL POC Glucose (mg/dL) 156 H (75-99) mg/dL Ammonia 30 H (<30) umol/L Total Protein 5.1 L (6.3-8.2) g/dL Albumin 2.2 L (3.5-5.0) g/dL 05/01/20 05/01/20 05/01/20 Range/Units 07:16 08:18 12:02 RBC (3.80-5.40) m/uL Hgb (11.4-16.0) gm/dL Hct (34.0-46.0) % RDW (11.5-15.5) % Plt Count (150-450) k/uL Lymphocytes # (1.0-4.8) k/uL ABG pCO2 (35-45) mmHg ABG pO2 (83-108) mmHg ABG HCO3 (21-25) mmol/L ABG Total CO2 (19-24) mmol/L ABG O2 Saturation (94-97) % Potassium (3.5-5.1) mmol/L Chloride (98-107) mmol/L BUN (7-17) mg/dL Creatinine (0.52-1.04) mg/dL Glucose (74-99) mg/dL POC Glucose (mg/dL) 157 H 164 H 162 H (75-99) mg/dL Ammonia (<30) umol/L Total Protein (6.3-8.2) g/dL Albumin (3.5-5.0) g/dL Microbiology - Last 24 Hours (Table) 04/27/20 23:50 Gram Stain - Final Sputum Sputum Culture - Final Aspergillus fumigatus Assessment and Plan (1) Anemia, normocytic normochromic Narrative/Plan: 60-year-old female with multiple medical comorbidities who presented to the hospital due to weakness and low blood sugars. Patient found to be hyponatremic, hypochloremic with elevated creatinine from baseline currently being treated for the stated as well as possible sepsis. She is being managed in ICU. No signs or symptoms of GI bleeding since presentation. She denies any history of peptic ulcer disease, excessive NSAID use, abdominal pain, prior EGD with last colonoscopy approximately 5 years ago. She had been noting intermittent blood in stools over the past few months. She was found to be anemic on presentation with a hemoglobin of 6.7 with normochromic, normocytic indices. Stool testing was positive for blood. Hemoglobin currently stable status post transfusion. Patient has a known history of hepatitis C currently receiving treatment. Unclear cause of anemia but likely multifactorial given chronic kidney disease/anemia of chronic disease, cannot rule out a component of acute GI bleed given symptoms of maroon-colored stool and positive testing for occult blood with differential including peptic ulcer disease, portal hypertensive gastropathy, AVM or other etiology. The patient has been medically unstable, patient was extubated yesterday evening. There've been no more further reports of melena. Patient has had 2-3 brown stools. At this time there is no plan for endoscopic intervention. We will continue to watch the patient and monitor hemoglobin and signs and symptoms of bleeding. Current Visit: Yes Status: Acute Code(s): D64.9 - ANEMIA, UNSPECIFIED SNOMED Code(s): 25191880 Plan: Supportive care Okay for diet as tolerated Continue Protonix therapy Continue to monitor hemoglobin and hematocrit and transfuse as needed Continue broad-spectrum antibiotic therapy Nephrology service following for acute kidney injury as well as hypo-natremia and hypokalemia ICU management by the cessation systems outreach specialist service Anemia laboratory investigation ordered Continue to monitor for signs or symptoms of GI bleed Patient high risk for endoscopic evaluation at this time, with no further symptoms of GI bleed. Patient has had 2-3 loose brown stools, with no melena or rectal bleeding. At this time we will be on standby. Please call us back if any symptoms of GI bleed or acute drop in hemoglobin. Thank you for allowing us to participate in the care of the patient The impression and plan of care has been dictated as directed. I performed a history and examination of this patient, discussed the same with the dictator. I agree with the dictator's note ,documented as a scribe. Any additional findings or plans will be noted.
[2020-05-01] MEDS: FUROSEMIDE 10 MG/ML 4 ML VIAL IV SCH (13:25)
[2020-05-01] MEDS: RIFAXIMIN 550 MG TABLET PO SCH ×2 (13:25→20:25)
--- NOTE | 2020-05-01 13:39 | P.PN ---
Subjective Progress Note Date: 05/01/20 Principal diagnosis: 64-year-old female patient presented to the ED because of generalized weakness and recurrent hypoglycemic events. She apparently was found to have a blood sugar of 44 at home and she received an amp of D50 by EMS and came to the scene and the patient's blood sugar came up to 96. At that time the patient was seen generalized weakness and tiredness and shakiness. No a activity has been noted. The patient was also noted to have low blood pressure. Denied having any shortness of breath. No headaches. No dizziness. No falls. No head trauma. She came into the ED and the patient was found to have a white cell count of 7.2 with a hemoglobin of 6.1 and a recent drop compared to a baseline of 9.1 from 02/23/2020. Her platelet count was at 84 and the patient suffers from chronic thrombocytopenia. Coagulation profile is within normal limits. The sodium level was 108 and this is another new finding with a chloride level of 77 knowing that her most recent blood work showed normal sodium and chloride levels. The patient began with 114 and a creatinine of 3.11 knowing that her baseline creatinine from 02/07/2020 was 1.8. The patient also had a lactic acid level of 2.3, troponin of 0.468, AST of 54, ALT of 24, total protein of 5.4 with an albumin of 2.3. The patient was further found to be hypothermic with a temperature of 93.9. BNP was 74/33. She was on 2 L of oxygen by nasal cannula with a pulse ox of 97%. EKG showing a sinus rhythm with a first-degree AV block. A chest x-ray was not done. On 04/29/2020, the patient is much improved hemodynamically to the point that the patient is off pressors and she is off the levo fed. Nevertheless, neurologically she is doing poorly. She is unresponsive and she only grimaces to deep painful stimulation. Her ammonia level was elevated and I thought that it may be a component of hepatic encephalopathy and start the patient on lactulose and ammonia level is improving. Nevertheless, I have not seen any much improvement in her neuro status. Pupils are equal and reactive to light and the patient is downward gaze. No seizure activity has been noted. The patient is still on lactulose. Noted the patient has been off sedation and off propofol for the past 24 hours. The patient remains on a mechanical ventilator. She is an assist-control mode at the rate of 20 with a tidal volume of 400 and FiO2 of 35% with a PEEP of 5. Her blood gas showed a pH of 7.51 with a pCO2 of 30, pO2 161. Chest x-ray showing some increased interstitial markings and bilateral pulmonary infiltrates more so on the right. Overall x-ray findings are submitted suboptimal as the patient is morbidly obese. Noted the patient is afebrile. His temperature is 96.0. She is receiving external warming. Creatinine is also improving and she is down to 2.09. No enteral feeding has been provided to this patient yet. No other significant events overnight. The CAT scan of the brain will be ordered. No seizure activity has been noted. On 04/30/2020, the patient had a placed on Precedex in the lower dose as the patient was having some respiratory asynchronous with mechanical ventilator and she was biting into. She did well overnight. She is on Precedex at 0.4 g per KG per minute. This will be weaned off again. On today's evaluation, I checked a mechanical ventilator. She was on a assist-control mode at the rate of 20 with a tidal volume of 400 and FiO2 of 35% with a PEEP of 5. I thought that the pressure support mode would be the best for her and once she was switched to pressure support she became very synchronous. Currently she is on a pressure support of 10 and a PEEP of 5 with an FiO2 of 35%. Her earlier blood gases showed a pH of 7.49 with episodes of 36 and pO2 127. She is on minimal dose of levothyroid 0.015 g per KG per minute. Normal saline running at 75 mL an hour. She is on enteral feeding with vital high protein at the rate of 40 mL an hour. She is making good urine output. Her fluid balance is -1.8 L over the past 24 hours as the patient was given a dose of Lasix. The active issue for now is in mental status. The patient was very hard to arouse. She was only grimaces to painful stimulation. I told that it may be a component of hepatic encephalo shelly and I put the patient on lactulose. Lasix and will be added also on today's evaluation. The patient's ammonia level has been fluctuating and essentially is currently on the decline. The patient's white cell count of 5.6 with a hemoglobin of 8.4. The renal function continues to improve in the creatinine is down to 1.9 with a sodium of 139 and potassium level of 3.1. Neurology consultation will be requested in regards to her diminished level of consciousness. Note that there was a hypoxemic event and the patient was quite awake prior to the intubation process. Reevaluated today on 05/01/20, patient remains in the ICU, she was extubated yesterday by Dr. Hobbs. She was initially extubated to BiPAP with IPAP of 10 EPAP of 5 and FiO2 of 35%. Presently the patient is on 4 L nasal cannula, O2 saturations 98%. She is on IV fluid at KVO, she is hemodynamically stable, she is in sinus tachycardia with a rate of 115. Patient received. Back RBCs since admission when she presented with low hemoglobin of around 6. Today's hemoglobin is 8.5. Electrolytes are normal. Renal profile is improving with a BUN 82 creatinine is 1.93, significantly improved compared to admission renal profile. Patient is confused, but she is following simple instructions. Moving all extremities. Remains on lactulose, her ammonia level today is 30. And since the patient cannot take much orally will recommend placement of the nasogastric tube to continue lactulose and other oral meds. Chest x-ray showed mild interstitial edema with small bilateral effusions. There is evidence of cardiomegaly and prominent interstitium. Objective - Vital Signs Vital signs: Vital Signs Temp 96.1 F L 05/01/20 11:00 Pulse 130 H 05/01/20 11:00 Resp 11 L 05/01/20 11:00 BP 77/32 05/01/20 11:00 Pulse Ox 99 05/01/20 11:00 Intake & Output 04/30/20 05/01/20 05/01/20 18:59 06:59 18:59 Intake Total 1121.911 610.642 320 Output Total 650 900 274 Balance 471.911 -289.358 46 Intake: IV 412 229 220 Piperacillin-Tazobactam 3 100 25 100 .375 gm In Sodium Chloride 0.9% 100 ml @ 25 mls/hr IVPB Q12HR [facility] Rx #:[id number] Pressure bags 72 84 30 Sodium Chloride 0.9% 1, 240 120 90 000 ml @ 10 mls/hr IV . Q24H [facility] Rx#:[id number] Intake, IV Titration 39.911 81.642 100 Amount Dexmedetomidine/0.9% NaCl 30.248 (Pmx) 400 mcg In Empty Bag 1 bag @ Titrate IV . Q0M [facility] Rx#:[id number] Dexmedetomidine/0.9% NaCl 72.169 (Pmx) 400 mcg In Empty Bag 1 bag @ Titrate IV . Q0M [facility] Rx#:[id number] Norepinephrine 32 mg In 9.663 9.473 Sodium Chloride 0.9% 218 ml @ 0.05 MCG/KG/MIN 3. 984 mls/hr IV .Q24H [facility] Rx#:[id number] Potassium Chloride 10 meq 100 In Water For Injection 1 100ml.bag @ 100 mls/hr IVPB Q1H [facility] Rx#: [id number] Tube Feeding 610 270 Other 60 30 Output: Urine 650 900 274 Other: Voiding Method Indwelling Catheter Indwelling Catheter # Bowel Movements 1 1 ABP, PAP, CO, CI - Last Documented Arterial Blood Pressure 121/50 - Exam Gen. appearance : Revealed a 60-year-old female, obese, in bed, on 4 L nasal cannula, follows simple instructions, but confused. Head exam: Atraumatic, normocephalic. HEENT: PERRLA, EOMI, no neck masses, no JVD, no stridor, a left IJ central line is noted. Lungs: Symmetrical chest expansion, diminished breath sounds at the bases, no rhonchi and no wheezes. Cardiac exam : Normal S1 and S2, no S3 gallop, no murmur. abdomen: morbidly obese soft nontender. There is no ascites. Organs cannot be accurately palpated as the patient has morbid obesity. No direct tenderness. No rebound tenderness. No guarding. Extremities : Trace of bipedal edema, no clubbing, no cyanosis. Neurological : Awake, confused, follows simple instructions. Psychiatric: Blunted mood and affect, questionable mental status. - Labs CBC & Chem 7: 05/01/20 04:45 05/01/20 04:45 Labs: Abnormal Lab Results - Last 24 Hours (Table) 04/30/20 04/30/20 04/30/20 Range/Units 16:25 20:10 20:14 RBC (3.80-5.40) m/uL Hgb (11.4-16.0) gm/dL Hct (34.0-46.0) % RDW (11.5-15.5) % Plt Count (150-450) k/uL Lymphocytes # (1.0-4.8) k/uL ABG pCO2 (35-45) mmHg ABG pO2 (83-108) mmHg ABG HCO3 (21-25) mmol/L ABG Total CO2 (19-24) mmol/L ABG O2 Saturation (94-97) % Potassium 3.3 L (3.5-5.1) mmol/L Chloride (98-107) mmol/L BUN (7-17) mg/dL Creatinine (0.52-1.04) mg/dL Glucose (74-99) mg/dL POC Glucose (mg/dL) 192 H 183 H (75-99) mg/dL Ammonia (<30) umol/L Total Protein (6.3-8.2) g/dL Albumin (3.5-5.0) g/dL 04/30/20 04/30/20 05/01/20 Range/Units 23:42 23:46 04:45 RBC 2.67 L (3.80-5.40) m/uL Hgb 8.5 L (11.4-16.0) gm/dL Hct 26.6 L (34.0-46.0) % RDW 16.5 H (11.5-15.5) % Plt Count 40 L (150-450) k/uL Lymphocytes # 0.5 L (1.0-4.8) k/uL ABG pCO2 48 H (35-45) mmHg ABG pO2 129 H (83-108) mmHg ABG HCO3 29 H (21-25) mmol/L ABG Total CO2 30 H (19-24) mmol/L ABG O2 Saturation 99.6 H (94-97) % Potassium (3.5-5.1) mmol/L Chloride (98-107) mmol/L BUN (7-17) mg/dL Creatinine (0.52-1.04) mg/dL Glucose (74-99) mg/dL POC Glucose (mg/dL) 180 H (75-99) mg/dL Ammonia (<30) umol/L Total Protein (6.3-8.2) g/dL Albumin (3.5-5.0) g/dL 05/01/20 05/01/20 05/01/20 Range/Units 04:45 04:45 04:52 RBC (3.80-5.40) m/uL Hgb (11.4-16.0) gm/dL Hct (34.0-46.0) % RDW (11.5-15.5) % Plt Count (150-450) k/uL Lymphocytes # (1.0-4.8) k/uL ABG pCO2 (35-45) mmHg ABG pO2 (83-108) mmHg ABG HCO3 (21-25) mmol/L ABG Total CO2 (19-24) mmol/L ABG O2 Saturation (94-97) % Potassium (3.5-5.1) mmol/L Chloride 108 H (98-107) mmol/L BUN 82 H (7-17) mg/dL Creatinine 1.93 H (0.52-1.04) mg/dL Glucose 161 H (74-99) mg/dL POC Glucose (mg/dL) 156 H (75-99) mg/dL Ammonia 30 H (<30) umol/L Total Protein 5.1 L (6.3-8.2) g/dL Albumin 2.2 L (3.5-5.0) g/dL 05/01/20 05/01/20 05/01/20 Range/Units 07:16 08:18 12:02 RBC (3.80-5.40) m/uL Hgb (11.4-16.0) gm/dL Hct (34.0-46.0) % RDW (11.5-15.5) % Plt Count (150-450) k/uL Lymphocytes # (1.0-4.8) k/uL ABG pCO2 (35-45) mmHg ABG pO2 (83-108) mmHg ABG HCO3 (21-25) mmol/L ABG Total CO2 (19-24) mmol/L ABG O2 Saturation (94-97) % Potassium (3.5-5.1) mmol/L Chloride (98-107) mmol/L BUN (7-17) mg/dL Creatinine (0.52-1.04) mg/dL Glucose (74-99) mg/dL POC Glucose (mg/dL) 157 H 164 H 162 H (75-99) mg/dL Ammonia (<30) umol/L Total Protein (6.3-8.2) g/dL Albumin (3.5-5.0) g/dL Microbiology - Last 24 Hours (Table) 04/27/20 23:50 Gram Stain - Final Sputum Sputum Culture - Final Aspergillus fumigatus Assessment and Plan Assessment: Impression: Acute hypovolemic shock, severe on presentation. Acute hypoxic respiratory failure secondary to above. Acute on chronic kidney disease, acute kidney injury. Secondary to profound hypovolemia. Acute GI blood losses, underlying GI bleeding is suspected, patient presented with melanotic stools and positive Hemoccult. Received 2 units of packed RBCs since admission. Initial hemoglobin was 6.1. Chronic liver disease secondary to hepatitis C Acute hepatic encephalopathy and mental status changes secondary to hepatic encephalopathy Troponin leak without acute EKG changes. Morbid obesity. Hypovolemic hyponatremia. Recommendation: Patient was extubated on 04/30/20, presently in the ICU, remains marginal at best. Continue empiric antibiotics/Zosyn Continue hydrocortisone however the dose will be cut down. Continue lactulose via nasogastric tube and continue Xifaxan Reestablish CODE STATUS with family, patient is marginal at best, and I have a feeling if she fails the extubation, may end up requiring tracheostomy and PEG tube placement. Continue GI and DVT prophylaxis. Gentle diuresis since her chest x-ray is suggestive of mild prominence of the interstitium, patient received significant amount of fluids on presentation. Continue to monitor closely in the ICU, overall clinical status marginal. Arrange for PICC line. Prognosis remains poor, will follow. Critical care time is 33 minutes Time with Patient: Greater than 30
[2020-05-01 16:30] LABS: Glucose,Whole Blood 131 mg/dL (75-99)
--- NOTE | 2020-05-01 17:13 | PN ---
PROGRESS NOTE CHIEF COMPLAINT: GI bleed, blood loss anemia, hypovolemic shock, renal failure, diabetes, and respiratory failure. HISTORY OF PRESENT ILLNESS: This lady is still holding her own. Vital signs have been adequate with pressors being almost completely discontinued. She was extubated. She is breathing on her own. REVIEW OF SYSTEMS: Not obtainable. PHYSICAL EXAMINATION: Blood pressure is 115 systolically. Her breath sounds are heard bilaterally in the chest and the cardiac exam is normal. Abdomen and extremities are unchanged. IMPRESSION: 1. Hypovolemic shock. 2. Blood-loss anemia. 3. GI blood loss. 4. Renal failure. 5. Diabetes with fairly good blood sugars. PLAN: 1. Increase Levemir by 2 units. 2. Continue to follow with content editor and see if she is able to rally or not. MMODL / IJN: [id number] /
[2020-05-01] MEDS: SODIUM CHLORIDE 0.9% 1,000 ML IV SCH (19:06)
[2020-05-01 20:17] LABS: Glucose,Whole Blood 111 mg/dL (75-99)
--- NOTE | 2020-05-01 20:56 | P.PN ---
Subjective Progress Note Date: 05/01/20 Patient is a 60-year-old female, who was seen in neurology consultation by Dr. Wahl yesterday on 04/30/2020 for altered mental status. Patient was diagnosed with toxic metabolic encephalopathy. Patient has multiple medical issues. Patient was admitted with hypoglycemia with blood sugars in around 40s. She also was hypotensive with GI bleed. Patient required Levophed and vasopressin in the beginning. She was intubated on 04/27/2020, and then extubated on 05/01/2020. She has been confused. Patient knows her name otherwise not much responsive. Patient has diabetes, poorly controlled, morbid obesity, CHF, hepatitis C, chronic renal failure, liver disease. Also has hyponatremia. Objective - Vital Signs Vital signs: Vital Signs Temp 97.5 F L 05/01/20 16:00 Pulse 110 H 05/01/20 19:00 Resp 13 05/01/20 19:00 BP 77/32 05/01/20 11:00 Pulse Ox 98 05/01/20 19:00 Intake & Output 05/01/20 05/01/20 05/02/20 06:59 18:59 06:59 Intake Total 610.642 602 26 Output Total 900 1174 150 Balance -289.358 -572 -124 Weight 177.3 kg Intake: IV 229 402 26 Piperacillin-Tazobactam 3 25 100 .375 gm In Sodium Chloride 0.9% 100 ml @ 25 mls/hr IVPB Q12HR [facility] Rx #:[id number] Pressure bags 84 72 6 Sodium Chloride 0.9% 1, 120 230 20 000 ml @ 10 mls/hr IV . Q24H [facility] Rx#:[id number] Intake, IV Titration 81.642 200 Amount Dexmedetomidine/0.9% NaCl 72.169 (Pmx) 400 mcg In Empty Bag 1 bag @ Titrate IV . Q0M [facility] Rx#:[id number] Norepinephrine 32 mg In 9.473 Sodium Chloride 0.9% 218 ml @ 0.05 MCG/KG/MIN 3. 984 mls/hr IV .Q24H [facility] Rx#:[id number] Piperacillin-Tazobactam 3 100 .375 gm In Sodium Chloride 0.9% 100 ml @ 25 mls/hr IVPB Q8HR [facility] Rx# :[id number] Potassium Chloride 10 meq 100 In Water For Injection 1 100ml.bag @ 100 mls/hr IVPB Q1H [facility] Rx#: [id number] Tube Feeding 270 Other 30 Output: Urine 900 1174 150 Other: Voiding Method Indwelling Catheter Indwelling Catheter # Bowel Movements 1 ABP, PAP, CO, CI - Last Documented Arterial Blood Pressure 134/51 - Exam On examination patient is alert and awake. She is in no acute distress. She appears obviously encephalopathic. She is not on any mechanical ventilation at this time. She makes eye contact. Does not elect to speak. She does follow commands by wiggling her hands and feet equally. Detail testing deferred. - Labs CBC & Chem 7: 05/01/20 04:45 05/01/20 04:45 Labs: Abnormal Lab Results - Last 24 Hours (Table) 04/30/20 04/30/20 05/01/20 Range/Units 23:42 23:46 04:45 RBC 2.67 L (3.80-5.40) m/uL Hgb 8.5 L (11.4-16.0) gm/dL Hct 26.6 L (34.0-46.0) % RDW 16.5 H (11.5-15.5) % Plt Count 40 L (150-450) k/uL Lymphocytes # 0.5 L (1.0-4.8) k/uL ABG pCO2 48 H (35-45) mmHg ABG pO2 129 H (83-108) mmHg ABG HCO3 29 H (21-25) mmol/L ABG Total CO2 30 H (19-24) mmol/L ABG O2 Saturation 99.6 H (94-97) % Chloride (98-107) mmol/L BUN (7-17) mg/dL Creatinine (0.52-1.04) mg/dL Glucose (74-99) mg/dL POC Glucose (mg/dL) 180 H (75-99) mg/dL Ammonia (<30) umol/L Total Protein (6.3-8.2) g/dL Albumin (3.5-5.0) g/dL 05/01/20 05/01/20 05/01/20 Range/Units 04:45 04:45 04:52 RBC (3.80-5.40) m/uL Hgb (11.4-16.0) gm/dL Hct (34.0-46.0) % RDW (11.5-15.5) % Plt Count (150-450) k/uL Lymphocytes # (1.0-4.8) k/uL ABG pCO2 (35-45) mmHg ABG pO2 (83-108) mmHg ABG HCO3 (21-25) mmol/L ABG Total CO2 (19-24) mmol/L ABG O2 Saturation (94-97) % Chloride 108 H (98-107) mmol/L BUN 82 H (7-17) mg/dL Creatinine 1.93 H (0.52-1.04) mg/dL Glucose 161 H (74-99) mg/dL POC Glucose (mg/dL) 156 H (75-99) mg/dL Ammonia 30 H (<30) umol/L Total Protein 5.1 L (6.3-8.2) g/dL Albumin 2.2 L (3.5-5.0) g/dL 05/01/20 05/01/20 05/01/20 Range/Units 07:16 08:18 12:02 RBC (3.80-5.40) m/uL Hgb (11.4-16.0) gm/dL Hct (34.0-46.0) % RDW (11.5-15.5) % Plt Count (150-450) k/uL Lymphocytes # (1.0-4.8) k/uL ABG pCO2 (35-45) mmHg ABG pO2 (83-108) mmHg ABG HCO3 (21-25) mmol/L ABG Total CO2 (19-24) mmol/L ABG O2 Saturation (94-97) % Chloride (98-107) mmol/L BUN (7-17) mg/dL Creatinine (0.52-1.04) mg/dL Glucose (74-99) mg/dL POC Glucose (mg/dL) 157 H 164 H 162 H (75-99) mg/dL Ammonia (<30) umol/L Total Protein (6.3-8.2) g/dL Albumin (3.5-5.0) g/dL 05/01/20 05/01/20 Range/Units 16:28 20:15 RBC (3.80-5.40) m/uL Hgb (11.4-16.0) gm/dL Hct (34.0-46.0) % RDW (11.5-15.5) % Plt Count (150-450) k/uL Lymphocytes # (1.0-4.8) k/uL ABG pCO2 (35-45) mmHg ABG pO2 (83-108) mmHg ABG HCO3 (21-25) mmol/L ABG Total CO2 (19-24) mmol/L ABG O2 Saturation (94-97) % Chloride (98-107) mmol/L BUN (7-17) mg/dL Creatinine (0.52-1.04) mg/dL Glucose (74-99) mg/dL POC Glucose (mg/dL) 131 H 111 H (75-99) mg/dL Ammonia (<30) umol/L Total Protein (6.3-8.2) g/dL Albumin (3.5-5.0) g/dL Microbiology - Last 24 Hours (Table) 04/27/20 23:50 Gram Stain - Final Sputum Sputum Culture - Final Aspergillus fumigatus Assessment and Plan Assessment: * Toxic metabolic encephalopathy, improving * Multiple medical comorbidities. Plan: * Your medical management. * Patient is improving from mental status standpoint. * Please call neurology if any other concerns.
[2020-05-02 00:44] LABS: Glucose,Whole Blood 120 mg/dL (75-99)
[2020-05-02] MEDS: INSULIN ASPART (NovoLOG) 100 UNIT/ML VIAL SQ SCH ×6 (00:47→20:26)
[2020-05-02] MEDS: PIPERACILLIN-TAZOBACTAM 3.375 GM in SODIUM CHLORIDE 0.9% 100 ML IVPB SCH ×3 (00:55→16:51)
[2020-05-02] MEDS: HYDROCORTISONE SUCCINATE 100 MG/2 ML VIAL IV SCH ×2 (00:56→08:13)
[2020-05-02 05:40] LABS: Anisocytosis Slight; Basophils % (A) 0 %; Eosinophils % (A) 0 %; HCT 28.9 % (34.0-46.0); HGB 9.1 gm/dL (11.4-16.0); Hypochromasia Marked; Lymphocytes # (A) 0.8 k/uL (1.0-4.8); Lymphocytes % (A) 6 %; MCH 31.6 pg (25.0-35.0); MCHC 31.4 g/dL (31.0-37.0); MCV 100.6 fL (80.0-100.0); Macrocytosis Slight; Mean Platelet Volume 10.2; Monocytes # (A) 0.4 k/uL (0-1.0); Monocytes % (A) 3 %; Neutrophils # (A) 12.1 k/uL (1.3-7.7); Neutrophils % (A) 89 %; RBC 2.87 m/uL (3.80-5.40); RDW 16.8 % (11.5-15.5); WBC 13.6 k/uL (3.8-10.6)
[2020-05-02 05:43] LABS: Platelet Count 58 k/uL (150-450)
[2020-05-02 05:45] LABS: Albumin 2.6 g/dL (3.5-5.0); Calcium 9.5 mg/dL (8.4-10.2); Potassium 3.6 mmol/L (3.5-5.1); Total Bilirubin 1.7 mg/dL (0.2-1.3); Total Protein 5.7 g/dL (6.3-8.2)
[2020-05-02] MEDS: INSULIN DETEMIR (LEVEMIR) 100 UNIT/ML SYR SQ SCH (06:20)
[2020-05-02] MEDS: POTASSIUM CHLORIDE 10 MEQ in WATER FOR INJECTION 1 100ML.BAG IVPB SCH ×2 (06:20→08:42)
[2020-05-02] MEDS: PANTOPRAZOLE 40 MG/10 ML VIAL IVP SCH ×2 (08:11→22:08)
[2020-05-02] MEDS: FUROSEMIDE 10 MG/ML 4 ML VIAL IV SCH (08:12)
[2020-05-02] MEDS: LACTULOSE 20 GM/30 ML CUP PO SCH (08:12)
[2020-05-02 08:35] LABS: ABG Base Excess 3.2 mmol/L; ABG HCO3 29 mmol/L (21-25); ABG Oxygen Saturation 99.5 % (94-97); ABG PCO2 50 mmHg (35-45); ABG PH 7.36 (7.35-7.45); ABG PO2 128 mmHg (83-108); ABG TCO2 30 mmol/L (19-24)
[2020-05-02 08:37] LABS: Allen Test Performed? no
[2020-05-02 08:45] LABS: Glucose,Whole Blood 145 mg/dL (75-99)
[2020-05-02] MEDS: RIFAXIMIN 550 MG TABLET PO SCH ×2 (08:49→22:09)
[2020-05-02] MEDS: METOPROLOL TARTRATE 25 MG TAB PO SCH ×2 (08:52→22:08)
--- NOTE | 2020-05-02 11:13 | XR ---
EXAMINATION TYPE: XR chest 1V portable DATE OF EXAM: 05/02/2020 CLINICAL HISTORY: Tube placement TECHNIQUE: Portable upright view of the chest COMPARISON: 05/01/2020 chest radiograph FINDINGS: Interval removal of endotracheal tube. Enteric tube distal tip and side-port overlie the l eft upper quadrant projected area of the stomach. Left internal jugular central venous catheter dista l tip over the cavoatrial junction. Low lung volumes accentuates the cardiac silhouette and lung monica ings. Likely pulmonary vascular congestion. No focal airspace opacity. No pleural effusion. No pneumo thorax. IMPRESSION: Low lung volumes accentuates the lung markings. There is likely pulmonary vascular congestion.
--- NOTE | 2020-05-02 12:41 | P.PN ---
Subjective Progress Note Date: 05/02/20 Principal diagnosis: Hypovolemic shock and acute hypoxic respiratory failure 64-year-old female patient presented to the ED because of generalized weakness and recurrent hypoglycemic events. She apparently was found to have a blood sugar of 44 at home and she received an amp of D50 by EMS and came to the scene and the patient's blood sugar came up to 96. At that time the patient was seen generalized weakness and tiredness and shakiness. No a activity has been noted. The patient was also noted to have low blood pressure. Denied having any shortness of breath. No headaches. No dizziness. No falls. No head trauma. She came into the ED and the patient was found to have a white cell count of 7.2 with a hemoglobin of 6.1 and a recent drop compared to a baseline of 9.1 from 02/23/2020. Her platelet count was at 84 and the patient suffers from chronic thrombocytopenia. Coagulation profile is within normal limits. The sodium level was 108 and this is another new finding with a chloride level of 77 knowing that her most recent blood work showed normal sodium and chloride levels. The patient began with 114 and a creatinine of 3.11 knowing that her baseline creatinine from 02/07/2020 was 1.8. The patient also had a lactic acid level of 2.3, troponin of 0.468, AST of 54, ALT of 24, total protein of 5.4 with an albumin of 2.3. The patient was further found to be hypothermic with a temperature of 93.9. BNP was 74/33. She was on 2 L of oxygen by nasal cannula with a pulse ox of 97%. EKG showing a sinus rhythm with a first-degree AV block. A chest x-ray was not done. On 04/29/2020, the patient is much improved hemodynamically to the point that the patient is off pressors and she is off the levo fed. Nevertheless, neurologically she is doing poorly. She is unresponsive and she only grimaces to deep painful stimulation. Her ammonia level was elevated and I thought that it may be a component of hepatic encephalopathy and start the patient on l actulose and ammonia level is improving. Nevertheless, I have not seen any much improvement in her neuro status. Pupils are equal and reactive to light and the patient is downward gaze. No seizure activity has been noted. The patient is still on lactulose. Noted the patient has been off sedation and off propofol for the past 24 hours. The patient remains on a mechanical ventilator. She is an assist-control mode at the rate of 20 with a tidal volume of 400 and FiO2 of 35% with a PEEP of 5. Her blood gas showed a pH of 7.51 with a pCO2 of 30, pO2 161. Chest x-ray showing some increased interstitial markings and bilateral pulmonary infiltrates more so on the right. Overall x-ray findings are submitted suboptimal as the patient is morbidly obese. Noted the patient is afebrile. His temperature is 96.0. She is receiving external warming. Creatinine is also improving and she is down to 2.09. No enteral feeding has been provided to this patient yet. No other significant events overnight. The CAT scan of the brain will be ordered. No seizure activity has been noted. On 04/30/2020, the patient had a placed on Precedex in the lower dose as the patient was having some respiratory asynchronous with mechanical ventilator and she was biting into. She did well overnight. She is on Precedex at 0.4 g per KG per minute. This will be weaned off again. On today's evaluation, I checked a mechanical ventilator. She was on a assist-control mode at the rate of 20 with a tidal volume of 400 and FiO2 of 35% with a PEEP of 5. I thought that the pressure support mode would be the best for her and once she was switched to pressure support she became very synchronous. Currently she is on a pressure support of 10 and a PEEP of 5 with an FiO2 of 35%. Her earlier blood gases showed a pH of 7.49 with episodes of 36 and pO2 127. She is on minimal dose of levothyroid 0.015 g per KG per minute. Normal saline running at 75 mL an hour. She is on enteral feeding with vital high protein at the rate of 40 mL an hour. She is making good urine output. Her fluid balance is -1.8 L over the past 24 hours as the patient was given a dose of Lasix. The active issue for now is in mental status. The patient was very hard to arouse. She was only grimaces to painful stimulation. I told that it may be a component of hepatic encephalopathy and I put the patient on lactulose. Lasix and will be added also on today's evaluation. The patient's ammonia level has been fluctuating and essentially is currently on the decline. The patient's white cell count of 5.6 with a hemoglobin of 8.4. The renal function continues to improve in the creatinine is down to 1.9 with a sodium of 139 and potassium level of 3.1. Neurology consultation will be requested in regards to her diminished level of consciousness. Note that there was a hypoxemic event and the patient was quite awake prior to the intubation process. Reevaluated today on 05/01/20, patient remains in the ICU, she was extubated yesterday by Dr. Hobbs. She was initially extubated to BiPAP with IPAP of 10 EPAP of 5 and FiO2 of 35%. Presently the patient is on 4 L nasal cannula, O2 saturations 98%. She is on IV fluid at KVO, she is hemodynamically stable, she is in sinus tachycardia with a rate of 115. Patient received. Back RBCs since admission when she presented with low hemoglobin of around 6. Today's hemoglobin is 8.5. Electrolytes are normal. Renal profile is improving with a BUN 82 creatinine is 1.93, significantly improved compared to admission renal profile. Patient is confused, but she is following simple instructions. Moving all extremities. Remains on lactulose, her ammonia level today is 30. And since the patient cannot take much orally will recommend placement of the nasogastric tube to continue lactulose and other oral meds. Chest x-ray showed mild interstitial edema with small bilateral effusions. There is evidence of cardiomegaly and prominent interstitium. Reevaluated today on 05/02/20, remains in the ICU, tolerated the extubation well however overall pulmonary status remains marginal patient had to be placed on BiPAP earlier this morning since she was noted to be a bit lethargic and obtunded. Her ABG at the time showed a pO2 of 128 pCO2 of 50 pH of 7.36. Hence she was placed on BiPAP with IPAP of 10 EPAP of 5 and FiO2 of 35%. Chest x-ray showed minimal atelectasis. Ammonia level today is normal. Patient is in a negative fluid balance about 1.4 L in the last 24 hours. She is a bit tachycardic, and hypertensive, hence I added metoprolol 25 mg twice a day. Patient was also noted to be quite swollen, and Lasix was advised to continue at 40 mg IV push daily. Objective - Vital Signs Vital signs: Vital Signs Temp 97.6 F 05/02/20 04:00 Pulse 75 05/02/20 11:00 Resp 14 05/02/20 11:00 BP 135/87 05/02/20 08:00 Pulse Ox 94 L 05/02/20 11:00 Intake & Output 05/01/20 05/02/20 05/02/20 18:59 06:59 18:59 Intake Total 602 338 239 Output Total 1174 1245 650 Balance -572 -907 -411 Weight 177.3 kg 177.3 kg Intake: IV 402 338 89 Piperacillin-Tazobactam 3 100 25 .375 gm In Sodium Chloride 0.9% 100 ml @ 25 mls/hr IVPB Q12HR [facility] Rx #:[id number] Pressure bags 72 78 24 Sodium Chloride 0.9% 1, 230 260 40 000 ml @ 10 mls/hr IV . Q24H [facility] Rx#:[id number] Intake, IV Titration 200 150 Amount Piperacillin-Tazobactam 3 100 50 .375 gm In Sodium Chloride 0.9% 100 ml @ 25 mls/hr IVPB Q8HR [facility] Rx# :[id number] Potassium Chloride 10 meq 100 In Water For Injection 1 100ml.bag @ 100 mls/hr IVPB Q1H [facility] Rx#: [id number] Potassium Chloride 10 meq 100 In Water For Injection 1 100ml.bag @ 100 mls/hr IVPB Q1H [facility] Rx#: [id number] Output: Urine 1174 1245 650 Other: Voiding Method Indwelling Catheter Indwelling Catheter ABP, PAP, CO, CI - Last Documented Arterial Blood Pressure 139/56 - Exam Gen. appearance : Revealed a 60-year-old female, obese, in bed, on BiPAP, confused. Head exam: Atraumatic, normocephalic. HEENT: PERRLA, EOMI, no neck masses, no JVD, no stridor, a left IJ central line is noted. Lungs: Symmetrical chest expansion, diminished breath sounds at the bases, no rhonchi and no wheezes. Cardiac exam : Normal S1 and S2, no S3 gallop, no murmur. abdomen: morbidly obese soft nontender. There is no ascites. Organs cannot be accurately palpated as the patient has morbid obesity. No direct tenderness. No rebound tenderness. No guarding. Extremities : Trace of bipedal edema, no clubbing, no cyanosis. Neurological : Awake, confused, squeezes hands only Psychiatric: Blunted mood and affect, questionable mental status. - Labs CBC & Chem 7: 05/02/20 05:20 05/02/20 05:20 Labs: Abnormal Lab Results - Last 24 Hours (Table) 05/01/20 05/01/20 05/02/20 Range/Units 16:28 20:15 00:42 WBC (3.8-10.6) k/uL RBC (3.80-5.40) m/uL Hgb (11.4-16.0) gm/dL Hct (34.0-46.0) % MCV (80.0-100.0) fL RDW (11.5-15.5) % Plt Count (150-450) k/uL Neutrophils # (1.3-7.7) k/uL Lymphocytes # (1.0-4.8) k/uL ABG pCO2 (35-45) mmHg ABG pO2 (83-108) mmHg ABG HCO3 (21-25) mmol/L ABG Total CO2 (19-24) mmol/L ABG O2 Saturation (94-97) % Chloride (98-107) mmol/L BUN (7-17) mg/dL Creatinine (0.52-1.04) mg/dL Glucose (74-99) mg/dL POC Glucose (mg/dL) 131 H 111 H 120 H (75-99) mg/dL Total Bilirubin (0.2-1.3) mg/dL AST (14-36) U/L ALT (4-34) U/L Total Protein (6.3-8.2) g/dL Albumin (3.5-5.0) g/dL 05/02/20 05/02/20 05/02/20 Range/Units 05:20 05:20 08:33 WBC 13.6 H (3.8-10.6) k/uL RBC 2.87 L (3.80-5.40) m/uL Hgb 9.1 L (11.4-16.0) gm/dL Hct 28.9 L (34.0-46.0) % MCV 100.6 H (80.0-100.0) fL RDW 16.8 H (11.5-15.5) % Plt Count 58 L (150-450) k/uL Neutrophils # 12.1 H (1.3-7.7) k/uL Lymphocytes # 0.8 L (1.0-4.8) k/uL ABG pCO2 50 H (35-45) mmHg ABG pO2 128 H (83-108) mmHg ABG HCO3 29 H (21-25) mmol/L ABG Total CO2 30 H (19-24) mmol/L ABG O2 Saturation 99.5 H (94-97) % Chloride 109 H (98-107) mmol/L BUN 84 H (7-17) mg/dL Creatinine 1.98 H (0.52-1.04) mg/dL Glucose 156 H (74-99) mg/dL POC Glucose (mg/dL) (75-99) mg/dL Total Bilirubin 1.7 H (0.2-1.3) mg/dL AST 39 H (14-36) U/L ALT 37 H (4-34) U/L Total Protein 5.7 L (6.3-8.2) g/dL Albumin 2.6 L (3.5-5.0) g/dL 05/02/20 Range/Units 08:36 WBC (3.8-10.6) k/uL RBC (3.80-5.40) m/uL Hgb (11.4-16.0) gm/dL Hct (34.0-46.0) % MCV (80.0-100.0) fL RDW (11.5-15.5) % Plt Count (150-450) k/uL Neutrophils # (1.3-7.7) k/uL Lymphocytes # (1.0-4.8) k/uL ABG pCO2 (35-45) mmHg ABG pO2 (83-108) mmHg ABG HCO3 (21-25) mmol/L ABG Total CO2 (19-24) mmol/L ABG O2 Saturation (94-97) % Chloride (98-107) mmol/L BUN (7-17) mg/dL Creatinine (0.52-1.04) mg/dL Glucose (74-99) mg/dL POC Glucose (mg/dL) 145 H (75-99) mg/dL Total Bilirubin (0.2-1.3) mg/dL AST (14-36) U/L ALT (4-34) U/L Total Protein (6.3-8.2) g/dL Albumin (3.5-5.0) g/dL Microbiology - Last 24 Hours (Table) 04/27/20 23:50 Gram Stain - Final Sputum Sputum Culture - Final Aspergillus fumigatus Assessment and Plan Assessment: Impression: Acute hypovolemic shock, severe on presentation. Acute hypoxic respiratory failure secondary to above. Acute on chronic kidney disease, acute kidney injury. Secondary to profound hypovolemia. Acute GI blood losses, underlying GI bleeding is suspected, patient presented with melanotic stools and positive Hemoccult. Received 2 units of packed RBCs since admission. Initial hemoglobin was 6.1. Chronic liver disease secondary to hepatitis C Acute hepatic encephalopathy and mental status changes secondary to hepatic encephalopathy Troponin leak without acute EKG changes. Morbid obesity. Hypovolemic hyponatremia. Recommendation: Patient was extubated on 04/30/20, tolerated the extubation so far, Patient is now requiring BiPAP. Continue empiric antibiotics/Zosyn Discontinue hydrocortisone Cut down lactulose to once daily and continue Xifaxan Discussed CODE STATUS with the son yesterday, patient is presently DO NOT RESUSCITATE, but the son will discuss her condition with the rest of the family members and let me know. Continue GI and DVT prophylaxis. Continue diuretics. Continue to monitor closely in the ICU, overall clinical status marginal. Arrange for PICC line. Prognosis remains poor, will follow. Critical care time is 32 minutes Time with Patient: Greater than 30
[2020-05-02 13:10] LABS: Glucose,Whole Blood 137 mg/dL (75-99)
--- NOTE | 2020-05-02 13:21 | PN ---
PROGRESS NOTE Patient is seen for followup for acute kidney injury mostly acute tubular necrosis, currently nonoliguric with some improvement in renal function. The patient's serum creatinine is staying around 1.9 mg/dL for the last 3 days. She has good urine output. She has been started on IV Lasix yesterday. PHYSICAL EXAMINATION: On examination today, patient is currently on BiPAP. Blood pressure is 139/56, heart rate 75 per minute, she is afebrile. Examination of the heart S1, S2. Examination of the lungs, decreased breath sounds at bases. Distant. Heart sounds and breath sounds are distant. Abdomen is soft. Morbidly obese. Examination lower extremities shows chronic skin changes edema chronic 1+ bilaterally 2+ bilaterally. [employer] exam shows patient did follow commands. She did answer some questions as well today. LAB: 1. Show sodium 145, potassium 3.6, chloride 109 BUN 84, creatinine 1.98 assessment acute kidney injury, acute tubular necrosis, currently stable, nonoliguric. Continue with Lasix 40 mg IV daily. 2. Mild volume overload. Continue to diurese patient. 3. Chronic kidney disease stage III. Baseline creatinine about 1.9 in November of 2018 and January. 4. Hyponatremia now resolved. 5. Septic shock. 6. Pneumonia maintained on antibiotics. 7. Acute hypoxic respiratory failure status post extubation, currently on BiPAP. 8. Chronic liver disease with possible hepatic encephalopathy, maintained on lactulose. PLAN: Continue with IV Lasix once a day. Repeat labs in a.m. Renal function is at baseline. MMODL / IJN: [id number] /
[2020-05-02] MEDS ORDERED: LIDOCAINE 1% INJ 10MG/ML (20 ML MDV) ONE (14:46)
[2020-05-02] MEDS: ENOXAPARIN 30 MG/0.3 ML SYRINGE SQ SCH (15:46)
--- NOTE | 2020-05-02 16:25 | P.PN ---
Subjective Progress Note Date: 05/02/20 05/02/2020: Patient son was also present today. According to the patient's son in the nurse, she is worse today. She is very lethargic. Patient is DO NOT RESUSCITATE. 05/01/2020: Patient is a 60-year-old female, who was seen in neurology consultation by Dr. Mccormick on 04/30/2020 for altered mental status. Patient was diagnosed with toxic metabolic encephalopathy. Patient has multiple medical issues. Patient was admitted with hypoglycemia with blood sugars in around 40s. She also was hypotensive with GI bleed. Patient required Levophed and vasopressin in the beginning. She was intubated on 04/27/2020, and then extubated on 05/01/2020. She has been confused. Patient knows her name otherwise not much responsive. Patient has diabetes, poorly controlled, morbid obesity, CHF, hepatitis C, chronic renal failure, liver disease. Also has hyponatremia. Objective - Vital Signs Vital signs: Vital Signs Temp 96.5 F L 05/02/20 15:00 Pulse 78 05/02/20 15:00 Resp 14 05/02/20 15:00 BP 135/87 05/02/20 08:00 Pulse Ox 100 05/02/20 15:00 Intake & Output 05/01/20 05/02/20 05/02/20 18:59 06:59 18:59 Intake Total 602 338 317 Output Total 1174 1245 1030 Balance -572 -907 -713 Weight 177.3 kg 177.3 kg Intake: IV 402 338 167 Piperacillin-Tazobactam 3 100 25 .375 gm In Sodium Chloride 0.9% 100 ml @ 25 mls/hr IVPB Q12HR [facility] Rx #:[id number] Pressure bags 72 78 42 Sodium Chloride 0.9% 1, 230 260 100 000 ml @ 10 mls/hr IV . Q24H [facility] Rx#:[id number] Intake, IV Titration 200 150 Amount Piperacillin-Tazobactam 3 100 50 .375 gm In Sodium Chloride 0.9% 100 ml @ 25 mls/hr IVPB Q8HR [facility] Rx# :[id number] Potassium Chloride 10 meq 100 In Water For Injection 1 100ml.bag @ 100 mls/hr IVPB Q1H [facility] Rx#: [id number] Potassium Chloride 10 meq 100 In Water For Injection 1 100ml.bag @ 100 mls/hr IVPB Q1H [facility] Rx#: [id number] Output: Urine 1174 1245 1030 Other: Voiding Method Indwelling Catheter Indwelling Catheter Indwelling Catheter ABP, PAP, CO, CI - Last Documented Arterial Blood Pressure 120/47 - Exam On examination patient is much more somnolent. She is lethargic. patient keeps her eyes closed. Does not open her eyes to calling her name. Patient does wi ggle her feet bilaterally. Patient has bilateral plantar flexors. she does squeeze hands on command bilaterally. She is in no obvious acute distress. - Labs CBC & Chem 7: 05/02/20 05:20 05/02/20 05:20 Labs: Abnormal Lab Results - Last 24 Hours (Table) 05/01/20 05/01/20 05/02/20 Range/Units 16:28 20:15 00:42 WBC (3.8-10.6) k/uL RBC (3.80-5.40) m/uL Hgb (11.4-16.0) gm/dL Hct (34.0-46.0) % MCV (80.0-100.0) fL RDW (11.5-15.5) % Plt Count (150-450) k/uL Neutrophils # (1.3-7.7) k/uL Lymphocytes # (1.0-4.8) k/uL ABG pCO2 (35-45) mmHg ABG pO2 (83-108) mmHg ABG HCO3 (21-25) mmol/L ABG Total CO2 (19-24) mmol/L ABG O2 Saturation (94-97) % Chloride (98-107) mmol/L BUN (7-17) mg/dL Creatinine (0.52-1.04) mg/dL Glucose (74-99) mg/dL POC Glucose (mg/dL) 131 H 111 H 120 H (75-99) mg/dL Total Bilirubin (0.2-1.3) mg/dL AST (14-36) U/L ALT (4-34) U/L Total Protein (6.3-8.2) g/dL Albumin (3.5-5.0) g/dL 05/02/20 05/02/20 05/02/20 Range/Units 05:20 05:20 08:33 WBC 13.6 H (3.8-10.6) k/uL RBC 2.87 L (3.80-5.40) m/uL Hgb 9.1 L (11.4-16.0) gm/dL Hct 28.9 L (34.0-46.0) % MCV 100.6 H (80.0-100.0) fL RDW 16.8 H (11.5-15.5) % Plt Count 58 L (150-450) k/uL Neutrophils # 12.1 H (1.3-7.7) k/uL Lymphocytes # 0.8 L (1.0-4.8) k/uL ABG pCO2 50 H (35-45) mmHg ABG pO2 128 H (83-108) mmHg ABG HCO3 29 H (21-25) mmol/L ABG Total CO2 30 H (19-24) mmol/L ABG O2 Saturation 99.5 H (94-97) % Chloride 109 H (98-107) mmol/L BUN 84 H (7-17) mg/dL Creatinine 1.98 H (0.52-1.04) mg/dL Glucose 156 H (74-99) mg/dL POC Glucose (mg/dL) (75-99) mg/dL Total Bilirubin 1.7 H (0.2-1.3) mg/dL AST 39 H (14-36) U/L ALT 37 H (4-34) U/L Total Protein 5.7 L (6.3-8.2) g/dL Albumin 2.6 L (3.5-5.0) g/dL 05/02/20 05/02/20 Range/Units 08:36 13:09 WBC (3.8-10.6) k/uL RBC (3.80-5.40) m/uL Hgb (11.4-16.0) gm/dL Hct (34.0-46.0) % MCV (80.0-100.0) fL RDW (11.5-15.5) % Plt Count (150-450) k/uL Neutrophils # (1.3-7.7) k/uL Lymphocytes # (1.0-4.8) k/uL ABG pCO2 (35-45) mmHg ABG pO2 (83-108) mmHg ABG HCO3 (21-25) mmol/L ABG Total CO2 (19-24) mmol/L ABG O2 Saturation (94-97) % Chloride (98-107) mmol/L BUN (7-17) mg/dL Creatinine (0.52-1.04) mg/dL Glucose (74-99) mg/dL POC Glucose (mg/dL) 145 H 137 H (75-99) mg/dL Total Bilirubin (0.2-1.3) mg/dL AST (14-36) U/L ALT (4-34) U/L Total Protein (6.3-8.2) g/dL Albumin (3.5-5.0) g/dL Assessment and Plan Assessment: * Toxic metabolic encephalopathy, improving * Multiple medical comorbidities. Plan: * EEG in a.m. * Your medical management. * Discussed with nursing staff and patient's son in detail.
[2020-05-02 16:52] LABS: Glucose,Whole Blood 129 mg/dL (75-99)
[2020-05-02] MEDS: SODIUM CHLORIDE 0.9% 1,000 ML IV SCH (18:58)
[2020-05-02 20:26] LABS: Glucose,Whole Blood 121 mg/dL (75-99)
[2020-05-03 00:33] LABS: Glucose,Whole Blood 127 mg/dL (75-99)
[2020-05-03] MEDS: INSULIN ASPART (NovoLOG) 100 UNIT/ML VIAL SQ SCH ×5 (01:07→17:03)
[2020-05-03] MEDS: PIPERACILLIN-TAZOBACTAM 3.375 GM in SODIUM CHLORIDE 0.9% 100 ML IVPB SCH ×3 (01:59→16:52)
[2020-05-03 05:48] LABS: Calcium 9.1 mg/dL (8.4-10.2); Potassium 3.7 mmol/L (3.5-5.1)
[2020-05-03 06:03] LABS: Anisocytosis Slight; Basophils % (A) 0 %; Eosinophils # (A) 0.1 k/uL (0-0.7); Eosinophils % (A) 0 %; HCT 28.4 % (34.0-46.0); HGB 8.7 gm/dL (11.4-16.0); Hypochromasia Marked; Lymphocytes # (A) 1.3 k/uL (1.0-4.8); Lymphocytes % (A) 9 %; MCHC 30.8 g/dL (31.0-37.0); MCV 103.7 fL (80.0-100.0); Macrocytosis Moderate; Mean Platelet Volume 11.5; Monocytes # (A) 0.6 k/uL (0-1.0); Monocytes % (A) 4 %; Neutrophils # (A) 11.9 k/uL (1.3-7.7); Neutrophils % (A) 84 %; RBC 2.74 m/uL (3.80-5.40); WBC 14.1 k/uL (3.8-10.6)
[2020-05-03 06:29] LABS: Platelet Count 64 k/uL (150-450)
[2020-05-03] MEDS: INSULIN DETEMIR (LEVEMIR) 100 UNIT/ML SYR SQ SCH (06:29)
[2020-05-03 07:12] LABS: Large Platelets Present
[2020-05-03 07:13] LABS: Polychromasia Present
[2020-05-03] MEDS ORDERED: LACTULOSE 20 GM/30 ML CUP PO SCH (09:00)
[2020-05-03] MEDS: POTASSIUM BICARBONATE/CIT AC 20 MEQ TABLET.EFF PO SCH ×2 (09:03→10:42)
[2020-05-03] MEDS: ENOXAPARIN 30 MG/0.3 ML SYRINGE SQ SCH (09:04)
[2020-05-03] MEDS: FUROSEMIDE 10 MG/ML 4 ML VIAL IV SCH (09:04)
[2020-05-03] MEDS: METOPROLOL TARTRATE 25 MG TAB PO SCH ×2 (09:05→21:37)
[2020-05-03] MEDS: PANTOPRAZOLE 40 MG/10 ML VIAL IVP SCH ×2 (09:05→21:38)
[2020-05-03] MEDS: RIFAXIMIN 550 MG TABLET PO SCH ×2 (09:05→21:37)
[2020-05-03 09:17] LABS: Glucose,Whole Blood 159 mg/dL (75-99)
[2020-05-03 09:26] LABS: ABG HCO3 29 mmol/L (21-25); ABG Oxygen Saturation 99.9 % (94-97); ABG PCO2 67 mmHg (35-45); ABG PH 7.25 (7.35-7.45); ABG PO2 188 mmHg (83-108); ABG TCO2 31 mmol/L (19-24)
[2020-05-03 09:29] LABS: Allen Test Performed? no
--- NOTE | 2020-05-03 09:33 | XR ---
EXAMINATION TYPE: XR chest 1V portable DATE OF EXAM: 05/03/2020 COMPARISON: 05/02/2020 HISTORY: Tube placement TECHNIQUE: Single frontal view of the chest is obtained. FINDINGS: Left-sided central line and NG tube noted. Bilateral consolidation and pleural effusion. D iffuse interstitial pattern. No pneumothorax. IMPRESSION: 1. Bilateral infiltrate and pleural effusion. Diffuse interstitial pattern suggestive of CHF. Interst itial pneumonia not excluded.
[2020-05-03] MEDS: DEXTROSE 5% IN WATER 1,000 ML IV SCH (09:54)
[2020-05-03 11:59] LABS: Glucose,Whole Blood 175 mg/dL (75-99)
--- NOTE | 2020-05-03 13:27 | P.PN ---
Subjective Progress Note Date: 05/03/20 Principal diagnosis: Hypovolemic shock and acute hypoxic respiratory failure 64-year-old female patient presented to the ED because of generalized weakness and recurrent hypoglycemic events. She apparently was found to have a blood sugar of 44 at home and she received an amp of D50 by EMS and came to the scene and the patient's blood sugar came up to 96. At that time the patient was seen generalized weakness and tiredness and shakiness. No a activity has been noted. The patient was also noted to have low blood pressure. Denied having any shortness of breath. No headaches. No dizziness. No falls. No head trauma. She came into the ED and the patient was found to have a white cell count of 7.2 with a hemoglobin of 6.1 and a recent drop compared to a baseline of 9.1 from 02/23/2020. Her platelet count was at 84 and the patient suffers from chronic thrombocytopenia. Coagulation profile is within normal limits. The sodium level was 108 and this is another new finding with a chloride level of 77 knowing that her most recent blood work showed normal sodium and chloride levels. The patient began with 114 and a creatinine of 3.11 knowing that her baseline creatinine from 02/07/2020 was 1.8. The patient also had a lactic acid level of 2.3, troponin of 0.468, AST of 54, ALT of 24, total protein of 5.4 with an albumin of 2.3. The patient was further found to be hypothermic with a temperature of 93.9. BNP was 74/33. She was on 2 L of oxygen by nasal cannula with a pulse ox of 97%. EKG showing a sinus rhythm with a first-degree AV block. A chest x-ray was not done. On 04/29/2020, the patient is much improved hemodynamically to the point that the patient is off pressors and she is off the levo fed. Nevertheless, neurologically she is doing poorly. She is unresponsive and she only grimaces to deep painful stimulation. Her ammonia level was elevated and I thought that it may be a component of hepatic encephalopathy and start the patient on l actulose and ammonia level is improving. Nevertheless, I have not seen any much improvement in her neuro status. Pupils are equal and reactive to light and the patient is downward gaze. No seizure activity has been noted. The patient is still on lactulose. Noted the patient has been off sedation and off propofol for the past 24 hours. The patient remains on a mechanical ventilator. She is an assist-control mode at the rate of 20 with a tidal volume of 400 and FiO2 of 35% with a PEEP of 5. Her blood gas showed a pH of 7.51 with a pCO2 of 30, pO2 161. Chest x-ray showing some increased interstitial markings and bilateral pulmonary infiltrates more so on the right. Overall x-ray findings are submitted suboptimal as the patient is morbidly obese. Noted the patient is afebrile. His temperature is 96.0. She is receiving external warming. Creatinine is also improving and she is down to 2.09. No enteral feeding has been provided to this patient yet. No other significant events overnight. The CAT scan of the brain will be ordered. No seizure activity has been noted. On 04/30/2020, the patient had a placed on Precedex in the lower dose as the patient was having some respiratory asynchronous with mechanical ventilator and she was biting into. She did well overnight. She is on Precedex at 0.4 g per KG per minute. This will be weaned off again. On today's evaluation, I checked a mechanical ventilator. She was on a assist-control mode at the rate of 20 with a tidal volume of 400 and FiO2 of 35% with a PEEP of 5. I thought that the pressure support mode would be the best for her and once she was switched to pressure support she became very synchronous. Currently she is on a pressure support of 10 and a PEEP of 5 with an FiO2 of 35%. Her earlier blood gases showed a pH of 7.49 with episodes of 36 and pO2 127. She is on minimal dose of levothyroid 0.015 g per KG per minute. Normal saline running at 75 mL an hour. She is on enteral feeding with vital high protein at the rate of 40 mL an hour. She is making good urine output. Her fluid balance is -1.8 L over the past 24 hours as the patient was given a dose of Lasix. The active issue for now is in mental status. The patient was very hard to arouse. She was only grimaces to painful stimulation. I told that it may be a component of hepatic encephalopathy and I put the patient on lactulose. Lasix and will be added also on today's evaluation. The patient's ammonia level has been fluctuating and essentially is currently on the decline. The patient's white cell count of 5.6 with a hemoglobin of 8.4. The renal function continues to improve in the creatinine is down to 1.9 with a sodium of 139 and potassium level of 3.1. Neurology consultation will be requested in regards to her diminished level of consciousness. Note that there was a hypoxemic event and the patient was quite awake prior to the intubation process. Reevaluated today on 05/01/20, patient remains in the ICU, she was extubated yesterday by Dr. Hobbs. She was initially extubated to BiPAP with IPAP of 10 EPAP of 5 and FiO2 of 35%. Presently the patient is on 4 L nasal cannula, O2 saturations 98%. She is on IV fluid at KVO, she is hemodynamically stable, she is in sinus tachycardia with a rate of 115. Patient received. Back RBCs since admission when she presented with low hemoglobin of around 6. Today's hemoglobin is 8.5. Electrolytes are normal. Renal profile is improving with a BUN 82 creatinine is 1.93, significantly improved compared to admission renal profile. Patient is confused, but she is following simple instructions. Moving all extremities. Remains on lactulose, her ammonia level today is 30. And since the patient cannot take much orally will recommend placement of the nasogastric tube to continue lactulose and other oral meds. Chest x-ray showed mild interstitial edema with small bilateral effusions. There is evidence of cardiomegaly and prominent interstitium. Reevaluated today on 05/02/20, remains in the ICU, tolerated the extubation well however overall pulmonary status remains marginal patient had to be placed on BiPAP earlier this morning since she was noted to be a bit lethargic and obtunded. Her ABG at the time showed a pO2 of 128 pCO2 of 50 pH of 7.36. Hence she was placed on BiPAP with IPAP of 10 EPAP of 5 and FiO2 of 35%. Chest x-ray showed minimal atelectasis. Ammonia level today is normal. Patient is in a negative fluid balance about 1.4 L in the last 24 hours. She is a bit tachycardic, and hypertensive, hence I added metoprolol 25 mg twice a day. Patient was also noted to be quite swollen, and Lasix was advised to continue at 40 mg IV push daily. Reevaluated today on 05/03/20, patient remains in the ICU, has tolerated the extubation so far, however the patient continues to have intermittent episodes of hypercapnia requiring placement on BiPAP. Today the patient was noted to be more obtunded and she was on a nasal cannula, ABG done showed a pO2 of 188 pCO2 of 67 pH of 7.25, hence recommended placing the patient back on BiPAP, and recommended cutting down the FiO2 as the patient is clearly a pCO2 retainer. Chest x-ray showed no evidence of infiltrate, does show evidence of bibasilar atelectasis. CBC is relatively normal except for WBC count of 14.1 hemoglobin is 8.7. Sodium is elevated today at 147, and I recommended giving the patient D5W, and free water via nasogastric tube. Renal functioning seems to be a bit worse today with a BUN of 89 creatinine of 2.30, remains on 40 mg of Lasix daily. Patient also remains on Zosyn for empiric treatment of aspiration pneumonia Objective - Vital Signs Vital signs: Vital Signs Temp 97.5 F L 05/03/20 08:00 Pulse 79 05/03/20 13:00 Resp 14 05/03/20 13:00 BP 135/87 05/02/20 08:00 Pulse Ox 96 05/03/20 13:00 Intake & Output 05/02/20 05/03/20 05/03/20 18:59 06:59 18:59 Intake Total 970 958 9405 Output Total 1360 890 245 Balance -738 -388 861 Weight 177.3 kg Intake: IV 352 192 336 Dextrose 5% in Water 1, 150 000 ml @ 50 mls/hr IV . Q20H [facility] Rx#:[id number] Piperacillin-Tazobactam 3 100 .375 gm In Sodium Chloride 0.9% 100 ml @ 25 mls/hr IVPB Q12HR [facility] Rx #:[id number] Piperacillin-Tazobactam 3 100 .375 gm In Sodium Chloride 0.9% 100 ml @ 25 mls/hr IVPB Q8HR [facility] Rx# :[id number] Pressure bags 72 72 36 Sodium Chloride 0.9% 1, 180 120 50 000 ml @ 10 mls/hr IV . Q24H [facility] Rx#:[id number] Intake, IV Titration 150 Amount Piperacillin-Tazobactam 3 50 .375 gm In Sodium Chloride 0.9% 100 ml @ 25 mls/hr IVPB Q8HR [facility] Rx# :[id number] Potassium Chloride 10 meq 100 In Water For Injection 1 100ml.bag @ 100 mls/hr IVPB Q1H [facility] Rx#: [id number] Tube Feeding 120 310 310 Other 460 Output: Urine 1360 890 245 Other: Voiding Method Indwelling Catheter Indwelling Catheter Indwelling Catheter ABP, PAP, CO, CI - Last Documented Arterial Blood Pressure 120/45 - Exam Gen. appearance : Revealed a 60-year-old female, obese, in bed, confused, just switched to BiPAP again today Head exam: Atraumatic, normocephalic. HEENT: PERRLA, EOMI, no neck masses, no JVD, no stridor, a left IJ central line is noted. Lungs: Symmetrical chest expansion, diminished breath sounds at the bases, no rhonchi and no wheezes. Cardiac exam : Normal S1 and S2, no S3 gallop, no murmur. abdomen: morbidly obese soft nontender. There is no ascites. Organs cannot be accurately palpated as the patient has morbid obesity. No direct tenderness. No rebound tenderness. No guarding. Extremities : 1+ bipedal edema, no clubbing, no cyanosis. Neurological : Awake, confused, does not follow any instructions. Psychiatric: Blunted mood and affect, questionable mental status. - Labs CBC & Chem 7: 05/03/20 05:00 05/03/20 05:00 Labs: Abnormal Lab Results - Last 24 Hours (Table) 05/02/20 05/02/20 05/03/20 Range/Units 16:49 20:25 00:31 WBC (3.8-10.6) k/uL RBC (3.80-5.40) m/uL Hgb (11.4-16.0) gm/dL Hct (34.0-46.0) % MCV (80.0-100.0) fL MCHC (31.0-37.0) g/dL RDW (11.5-15.5) % Plt Count (150-450) k/uL Neutrophils # (1.3-7.7) k/uL ABG pH (7.35-7.45) ABG pCO2 (35-45) mmHg ABG pO2 (83-108) mmHg ABG HCO3 (21-25) mmol/L ABG Total CO2 (19-24) mmol/L ABG O2 Saturation (94-97) % Sodium (137-145) mmol/L Chloride (98-107) mmol/L Carbon Dioxide (22-30) mmol/L BUN (7-17) mg/dL Creatinine (0.52-1.04) mg/dL Glucose (74-99) mg/dL POC Glucose (mg/dL) 129 H 121 H 127 H (75-99) mg/dL Ammonia (<30) umol/L 05/03/20 05/03/20 05/03/20 Range/Units 05:00 05:00 05:00 WBC 14.1 H (3.8-10.6) k/uL RBC 2.74 L (3.80-5.40) m/uL Hgb 8.7 L (11.4-16.0) gm/dL Hct 28.4 L (34.0-46.0) % MCV 103.7 H (80.0-100.0) fL MCHC 30.8 L (31.0-37.0) g/dL RDW 17.0 H (11.5-15.5) % Plt Count 64 L (150-450) k/uL Neutrophils # 11.9 H (1.3-7.7) k/uL ABG pH (7.35-7.45) ABG pCO2 (35-45) mmHg ABG pO2 (83-108) mmHg ABG HCO3 (21-25) mmol/L ABG Total CO2 (19-24) mmol/L ABG O2 Saturation (94-97) % Sodium 147 H (137-145) mmol/L Chloride 110 H (98-107) mmol/L Carbon Dioxide 32 H (22-30) mmol/L BUN 89 H (7-17) mg/dL Creatinine 2.30 H (0.52-1.04) mg/dL Glucose 165 H (74-99) mg/dL POC Glucose (mg/dL) (75-99) mg/dL Ammonia 38 H (<30) umol/L 05/03/20 05/03/20 05/03/20 Range/Units 09:14 09:24 11:58 WBC (3.8-10.6) k/uL RBC (3.80-5.40) m/uL Hgb (11.4-16.0) gm/dL Hct (34.0-46.0) % MCV (80.0-100.0) fL MCHC (31.0-37.0) g/dL RDW (11.5-15.5) % Plt Count (150-450) k/uL Neutrophils # (1.3-7.7) k/uL ABG pH 7.25 L (7.35-7.45) ABG pCO2 67 H (35-45) mmHg ABG pO2 188 H (83-108) mmHg ABG HCO3 29 H (21-25) mmol/L ABG Total CO2 31 H (19-24) mmol/L ABG O2 Saturation 99.9 H (94-97) % Sodium (137-145) mmol/L Chloride (98-107) mmol/L Carbon Dioxide (22-30) mmol/L BUN (7-17) mg/dL Creatinine (0.52-1.04) mg/dL Glucose (74-99) mg/dL POC Glucose (mg/dL) 159 H 175 H (75-99) mg/dL Ammonia (<30) umol/L Assessment and Plan Assessment: Impression: Acute hypovolemic shock, severe on presentation. Acute hypoxic respiratory failure secondary to above. Acute on chronic kidney disease, acute kidney injury. Secondary to profound hypovolemia. Acute GI blood losses, underlying GI bleeding is suspected, patient presented with melanotic stools and positive Hemoccult. Received 2 units of packed RBCs since admission. Initial hemoglobin was 6.1. Chronic liver disease secondary to hepatitis C Acute hepatic encephalopathy and mental status changes secondary to hepatic e ncephalopathy Troponin leak without acute EKG changes. Morbid obesity. Hypernatremia secondary to free water deficit. Hence the patient will be placed on D5W and will give free water via nasogastric tube. Recommendation: Patient was extubated on 04/30/20, tolerated the extubation so far, however the patient remains extremely marginal, and intermittently requiring BiPAP. Continue empiric antibiotics/Zosyn Increase lactulose to twice a day since her ammonia level is coming back up again. Discussed CODE STATUS with the son yesterday, patient is presently DO NOT RESUSCITATE, but the son will discuss her condition with the rest of the family members and let me know. Will discuss with the son today possible hospice as the patient seems to be a failure to thrive. Continue GI and DVT prophylaxis. Continue diuretics. Prognosis remains poor, will follow. Critical care time is 33 minutes Time with Patient: Greater than 30
--- NOTE | 2020-05-03 14:01 | P.PN ---
Subjective Progress Note Date: 05/03/20 05/03/2020: Apparently patient continues to be significantly encephalopathic. No seizures have been noted. Patient follows very minimal commands inconsistently, if at all. Patient is not on any sedatives. 05/02/2020: Patient son was also present today. According to the patient's son in the nurse, she is worse today. She is very lethargic. Patient is DO NOT RESUSCITATE. 05/01/2020: Patient is a 60-year-old female, who was seen in neurology consultation by Dr. Mccormick on 04/30/2020 for altered mental status. Patient was diagnosed with toxic metabolic encephalopathy. Patient has multiple medical issues. Patient was admitted with hypoglycemia with blood sugars in around 40s. She also was hypotensive with GI bleed. Patient required Levophed and vasopressin in the beginning. She was intubated on 04/27/2020, and then extubated on 05/01/2020. She has been confused. Patient knows her name otherwise not much responsive. Patient has diabetes, poorly controlled, morbid obesity, CHF, hepatitis C, chronic renal failure, liver disease. Also has hyponatremia. Objective - Vital Signs Vital signs: Vital Signs Temp 97.5 F L 05/03/20 08:00 Pulse 79 05/03/20 13:00 Resp 14 05/03/20 13:00 BP 135/87 05/02/20 08:00 Pulse Ox 96 05/03/20 13:00 Intake & Output 05/02/20 05/03/20 05/03/20 18:59 06:59 18:59 Intake Total 672 522 1062 Output Total 1360 890 245 Balance -738 -388 861 Weight 177.3 kg Intake: IV 352 192 336 Dextrose 5% in Water 1, 150 000 ml @ 50 mls/hr IV . Q20H [facility] Rx#:[id number] Piperacillin-Tazobactam 3 100 .375 gm In Sodium Chloride 0.9% 100 ml @ 25 mls/hr IVPB Q12HR [facility] Rx #:[id number] Piperacillin-Tazobactam 3 100 .375 gm In Sodium Chloride 0.9% 100 ml @ 25 mls/hr IVPB Q8HR [facility] Rx# :[id number] Pressure bags 72 72 36 Sodium Chloride 0.9% 1, 180 120 50 000 ml @ 10 mls/hr IV . Q24H [facility] Rx#:[id number] Intake, IV Titration 150 Amount Piperacillin-Tazobactam 3 50 .375 gm In Sodium Chloride 0.9% 100 ml @ 25 mls/hr IVPB Q8HR [facility] Rx# :[id number] Potassium Chloride 10 meq 100 In Water For Injection 1 100ml.bag @ 100 mls/hr IVPB Q1H [facility] Rx#: [id number] Tube Feeding 120 310 310 Other 460 Output: Urine 1360 890 245 Other: Voiding Method Indwelling Catheter Indwelling Catheter Indwelling Catheter ABP, PAP, CO, CI - Last Documented Arterial Blood Pressure 120/45 - Exam On examination patient is much more somnolent. She is lethargic, encephalopathic. patient keeps her eyes closed. Does not open her eyes to calling her name. Patient does wiggle her hands, but not feet bilaterally. Patient has bilateral plantar flexors. Patient has a BiPAP on. - Labs CBC & Chem 7: 05/03/20 05:00 05/03/20 05:00 Labs: Abnormal Lab Results - Last 24 Hours (Table) 05/02/20 05/02/20 05/03/20 Range/Units 16:49 20:25 00:31 WBC (3.8-10.6) k/uL RBC (3.80-5.40) m/uL Hgb (11.4-16.0) gm/dL Hct (34.0-46.0) % MCV (80.0-100.0) fL MCHC (31.0-37.0) g/dL RDW (11.5-15.5) % Plt Count (150-450) k/uL Neutrophils # (1.3-7.7) k/uL ABG pH (7.35-7.45) ABG pCO2 (35-45) mmHg ABG pO2 (83-108) mmHg ABG HCO3 (21-25) mmol/L ABG Total CO2 (19-24) mmol/L ABG O2 Saturation (94-97) % Sodium (137-145) mmol/L Chloride (98-107) mmol/L Carbon Dioxide (22-30) mmol/L BUN (7-17) mg/dL Creatinine (0.52-1.04) mg/dL Glucose (74-99) mg/dL POC Glucose (mg/dL) 129 H 121 H 127 H (75-99) mg/dL Ammonia (<30) umol/L 05/03/20 05/03/20 05/03/20 Range/Units 05:00 05:00 05:00 WBC 14.1 H (3.8-10.6) k/uL RBC 2.74 L (3.80-5.40) m/uL Hgb 8.7 L (11.4-16.0) gm/dL Hct 28.4 L (34.0-46.0) % MCV 103.7 H (80.0-100.0) fL MCHC 30.8 L (31.0-37.0) g/dL RDW 17.0 H (11.5-15.5) % Plt Count 64 L (150-450) k/uL Neutrophils # 11.9 H (1.3-7.7) k/uL ABG pH (7.35-7.45) ABG pCO2 (35-45) mmHg ABG pO2 (83-108) mmHg ABG HCO3 (21-25) mmol/L ABG Total CO2 (19-24) mmol/L ABG O2 Saturation (94-97) % Sodium 147 H (137-145) mmol/L Chloride 110 H (98-107) mmol/L Carbon Dioxide 32 H (22-30) mmol/L BUN 89 H (7-17) mg/dL Creatinine 2.30 H (0.52-1.04) mg/dL Glucose 165 H (74-99) mg/dL POC Glucose (mg/dL) (75-99) mg/dL Ammonia 38 H (<30) umol/L 05/03/20 05/03/20 05/03/20 Range/Units 09:14 09:24 11:58 WBC (3.8-10.6) k/uL RBC (3.80-5.40) m/uL Hgb (11.4-16.0) gm/dL Hct (34.0-46.0) % MCV (80.0-100.0) fL MCHC (31.0-37.0) g/dL RDW (11.5-15.5) % Plt Count (150-450) k/uL Neutrophils # (1.3-7.7) k/uL ABG pH 7.25 L (7.35-7.45) ABG pCO2 67 H (35-45) mmHg ABG pO2 188 H (83-108) mmHg ABG HCO3 29 H (21-25) mmol/L ABG Total CO2 31 H (19-24) mmol/L ABG O2 Saturation 99.9 H (94-97) % Sodium (137-145) mmol/L Chloride (98-107) mmol/L Carbon Dioxide (22-30) mmol/L BUN (7-17) mg/dL Creatinine (0.52-1.04) mg/dL Glucose (74-99) mg/dL POC Glucose (mg/dL) 159 H 175 H (75-99) mg/dL Ammonia (<30) umol/L Assessment and Plan Assessment: * Toxic metabolic encephalopathy, improving * Multiple medical comorbidities. Plan: * EEG canceled by ICU team. * Your medical management. * Discussed with nursing staff in detail.
--- NOTE | 2020-05-03 15:08 | PN ---
PROGRESS NOTE Patient is seen for followup for acute kidney injury. She is currently on BiPAP. Patient is awake. Blood pressure was 100/36, heart rate 72 per minute, patient is afebrile. Examination of the heart S1, S2. Examination of the lungs, bilateral breath sounds are heard. Decreased breath sounds at bases. Abdomen is soft. Morbidly obese. Examination of the lower extremities shows edema 2+ bilaterally. COMPUTER SYSTEMS ARCHITECT exam, the patient is following commands. LABS: Show sodium 147, potassium 3.7, chloride 110, CO2 is 32, BUN 89, serum creatinine 2.3 mg/dL. ASSESSMENT: 1. Acute kidney injury ATN. Serum creatinine is slightly higher than yesterday. Patient is currently maintained on Lasix 40 mg IV daily. She has had good urine output. The sodium is slightly higher. She has been having loose bowel movements from the lactulose. Although these are not charted accurately. I agree with starting D5W at 50 mL an hour, repeat labs in a.m. No nephrotoxic agents on board. 2. Acute hypoxic respiratory failure, status post extubation. Currently maintained on BiPAP. 3. Mild volume overload. Continue with current dose of IV Lasix. 4. Chronic kidney disease stage III. Baseline creatinine about 1.9 in November of 2018 and January of 2019. 5. Pneumonia, maintained on antibiotics. 6. Chronic liver disease with hepatic encephalopathy maintained on lactulose. PLAN: Agree with D5W. Continue with the Lasix. Repeat labs in a.m. MMODL / IJN: [id number] /
[2020-05-03 16:07] LABS: Glucose,Whole Blood 184 mg/dL (75-99)
[2020-05-03 17:00] LABS: Glucose,Whole Blood 176 mg/dL (75-99)
--- NOTE | 2020-05-03 18:59 | PN ---
PROGRESS NOTE DATE OF SERVICE: 05/02/2020 CHIEF COMPLAINT: Hypovolemic shock with GI bleed. HISTORY OF PRESENT ILLNESS: This lady is essentially the same. She is breathing on her own and maintaining an adequate blood pressure and pulse. She is still not waking up well. PHYSICAL EXAMINATION: She is on BiPAP. Breath sounds are somewhat diminished on both sides. The abdomen remains protuberant and soft. Extremities are normal. IMPRESSION: 1. Probable anoxic or metabolic brain injury. 2. Hypovolemic shock. 3. Renal failure. 4. Gastrointestinal bleed. 5. Morbid obesity. 6. Diabetes. PLAN: Continue to follow with Intensive Medicine, Nephrology and Cardiology. Prognosis is still poor. She is a DNR, made so by the family. MMODL / IJN: [id number] /
--- NOTE | 2020-05-03 19:44 | PN ---
PROGRESS NOTE DATE OF SERVICE: 05/03/2020 CHIEF COMPLAINT: Encephalopathy. HISTORY OF PRESENT ILLNESS: This lady is not responding well neurologically. Vital signs are now normal. Blood sugars are improved. PHYSICAL EXAMINATION: Hydration is good. Skin seems to be in good condition. Chest is clear and cardiac exam is normal. Abdomen is unchanged, as are extremities. IMPRESSION: 1. Status post episode of hypovolemic shock due to gastrointestinal bleed. 2. Congestive heart failure. 3. Encephalopathy. 4. Renal failure. 5. Diabetes. PLAN: At the present time she remains stable and she is extubated and being managed with BiPAP. I will continue to follow with Nephrology and Pulmonology. MMODL / IJN: [id number] /
[2020-05-03] MEDS: LACTULOSE 20 GM/30 ML CUP PO SCH (21:37)
[2020-05-03 23:54] LABS: Glucose,Whole Blood 158 mg/dL (75-99)
[2020-05-04] MEDS: INSULIN ASPART (NovoLOG) 100 UNIT/ML VIAL SQ SCH ×4 (00:05→17:57)
[2020-05-04] MEDS: PIPERACILLIN-TAZOBACTAM 3.375 GM in SODIUM CHLORIDE 0.9% 100 ML IVPB SCH ×3 (00:05→15:35)
[2020-05-04 05:36] LABS: Anisocytosis Slight; Basophils % (A) 0 %; Eosinophils # (A) 0.3 k/uL (0-0.7); Eosinophils % (A) 2 %; HCT 28.1 % (34.0-46.0); HGB 8.4 gm/dL (11.4-16.0); Hypochromasia Marked; Lymphocytes # (A) 1.1 k/uL (1.0-4.8); Lymphocytes % (A) 9 %; MCH 30.9 pg (25.0-35.0); MCHC 29.9 g/dL (31.0-37.0); MCV 103.3 fL (80.0-100.0); Macrocytosis Moderate; Mean Platelet Volume 11.4; Monocytes # (A) 0.7 k/uL (0-1.0); Monocytes % (A) 6 %; Neutrophils # (A) 9.6 k/uL (1.3-7.7); Neutrophils % (A) 80 %; RBC 2.73 m/uL (3.80-5.40); RDW 16.9 % (11.5-15.5); WBC 11.9 k/uL (3.8-10.6)
[2020-05-04 05:38] LABS: Platelet Count 44 k/uL (150-450)
[2020-05-04 05:51] LABS: Calcium 8.7 mg/dL (8.4-10.2); Potassium 3.5 mmol/L (3.5-5.1)
[2020-05-04 06:03] LABS: Glucose,Whole Blood 179 mg/dL (75-99)
[2020-05-04] MEDS ORDERED: POTASSIUM BICARBONATE/CIT AC 20 MEQ TABLET.EFF PO ONE (06:15)
[2020-05-04] MEDS: INSULIN DETEMIR (LEVEMIR) 100 UNIT/ML SYR SQ SCH (06:32)
[2020-05-04] MEDS: DEXTROSE 5% IN WATER 1,000 ML IV SCH (06:33)
[2020-05-04] MEDS: ENOXAPARIN 30 MG/0.3 ML SYRINGE SQ SCH (08:32)
[2020-05-04] MEDS: PANTOPRAZOLE 40 MG/10 ML VIAL IVP SCH ×2 (08:32→22:08)
[2020-05-04] MEDS: FUROSEMIDE 10 MG/ML 4 ML VIAL IV SCH (08:32)
[2020-05-04] MEDS: METOPROLOL TARTRATE 25 MG TAB PO SCH ×2 (08:33→22:09)
[2020-05-04] MEDS: LACTULOSE 20 GM/30 ML CUP PO SCH ×2 (08:33→22:09)
[2020-05-04] MEDS: RIFAXIMIN 550 MG TABLET PO SCH ×2 (08:33→22:09)
[2020-05-04 09:55] LABS: ABG Base Excess 4.5 mmol/L; ABG HCO3 30 mmol/L (21-25); ABG Oxygen Saturation 99.3 % (94-97); ABG PCO2 57 mmHg (35-45); ABG PH 7.34 (7.35-7.45); ABG PO2 116 mmHg (83-108); ABG TCO2 32 mmol/L (19-24)
[2020-05-04 09:59] LABS: Allen Test Performed? No
--- NOTE | 2020-05-04 10:17 | XR ---
EXAMINATION TYPE: XR chest 1V DATE OF EXAM: 05/04/2020 CLINICAL HISTORY: Shortness of breath TECHNIQUE: Portable supine view of the chest COMPARISON: 05/03/2020 chest radiograph FINDINGS: Enteric tube distal tip and side-port overlie the left upper quadrant of the projected are a of the stomach. Left internal jugular central venous catheter distal tip overlies the cavoatrial ju nction. Low lung volumes. Prominent cardiac silhouette. Pulmonary vascular congestion and interstitia l edema. Small left pleural effusion. Supine technique limits evaluation for pneumothorax. The osseou s structures are intact. IMPRESSION: Redemonstrated pulmonary vascular congestion and interstitial edema. Small left pleural e ffusion. Findings may represent CHF.
[2020-05-04 11:33] VITALS: BMI 69.8
[2020-05-04 11:53] LABS: Glucose,Whole Blood 173 mg/dL (75-99)
--- NOTE | 2020-05-04 12:40 | PN ---
PROGRESS NOTE Patient is seen for followup for acute kidney injury. There are plans for hospice care later on this week. This morning patient is awake. She is maintained on BiPAP. She is on tube feedings. D5W running at 50 mL an hour. PHYSICAL EXAMINATION: On examination today, blood pressure 111/44, heart rate 71 per minute, she is afebrile. Examination of the heart S1, S2. Examination of the lungs, bilateral breath sounds are heard. Distant breath sounds and heart sounds. Abdomen is soft. Morbidly obese. Examination of lower extremities shows edema 2+ bilaterally upper and lower extremities. AGRICULTURE SPECIALIST exam cannot be performed in detail. LABS: Show sodium 147, potassium 3.5, chloride 110, CO2 is 32 BUN 95, creatinine 2.29, hemoglobin of 8.4 g/dL. ASSESSMENT: 1. Acute kidney injury ATN currently stable, serum creatinine 2.3-2.2 mg/dL. Patient is nonoliguric. She is not in need on any nephrotoxic medications. 2. Hypernatremia associated with free water deficit. Increase free water down the feeding tube. Continue with D5W at 50 mL an hour for now. 3. Volume overload maintained on IV Lasix which we can continue. 4. Status post hypoxic respiratory failure currently status post extubation current and maintained on BiPAP. 5. Chronic kidney disease stage 3 baseline creatinine 1.9. 6. Chronic liver disease with hepatic encephalopathy. 7. Pneumonia, currently on antibiotics. PLAN: Increase free water down the feeding tube. Continue with D5 W continue IV Lasix daily. MMODL / IJN: [id number] /
--- NOTE | 2020-05-04 15:13 | P.PN ---
Subjective Progress Note Date: 05/04/20 05/04/2020: Patient has BiPAP on. According to the nursing report, patient has BiPAP almost all the time. At present patient is awake, eyes open, follows minimal commands. Patient squeeze hand after repeated attempts and also wiggled her toes and feet slightly. No seizure-like activity noted. 05/03/2020: Apparently patient continues to be significantly encephalopathic. No seizures have been noted. Patient follows very minimal commands inconsistently, if at all. Patient is not on any sedatives. 05/02/2020: Patient son was also present today. According to the patient's son in the nurse, she is worse today. She is very lethargic. Patient is DO NOT RESUSCITATE. 05/01/2020: Patient is a 60-year-old female, who was seen in neurology consultation by Dr. Mccormick on 04/30/2020 for altered mental status. Patient was diagnosed with toxic metabolic encephalopathy. Patient has multiple medical issues. Patient was admitted with hypoglycemia with blood sugars in around 40s. She also was hypotensive with GI bleed. Patient required Levophed and vasopressin in the beginning. She was intubated on 04/27/2020, and then extubated on 05/01/2020. She has been confused. Patient knows her name otherwise not much responsive. Patient has diabetes, poorly controlled, morbid obesity, CHF, hepatitis C, chronic renal failure, liver disease. Also has hyponatremia. Objective - Vital Signs Vital signs: Vital Signs Temp 97.6 F 05/04/20 12:00 Pulse 76 05/04/20 14:00 Resp 15 05/04/20 14:00 BP 102/45 05/04/20 13:00 Pulse Ox 99 05/04/20 14:00 Intake & Output 05/03/20 05/04/20 05/04/20 18:59 06:59 18:59 Intake Total 1921 2337 1788 Output Total 580 757 250 Balance 1341 1580 1538 Weight 178.9 kg 178.9 kg Intake: IV 711 937 628 Dextrose 5% in Water 1, 400 600 400 000 ml @ 50 mls/hr IV . Q20H [facility] Rx#:[id number] Piperacillin-Tazobactam 3 175 225 110 .375 gm In Sodium Chloride 0.9% 100 ml @ 25 mls/hr IVPB Q8HR [facility] Rx# :[id number] Pressure bags 66 72 48 Sodium Chloride 0.9% 1, 70 40 70 000 ml @ 10 mls/hr IV . Q24H [facility] Rx#:[id number] Tube Feeding 550 800 540 Other 660 600 620 Output: Urine 580 757 250 Other: Voiding Method Indwelling Catheter Indwelling Catheter Indwelling Catheter # Bowel Movements 1 ABP, PAP, CO, CI - Last Documented Arterial Blood Pressure 125/50 - Exam On examination patient is quite awake on calling her name, opens her eyes, but does not track much. Still appears quite encephalopathic. Patient does wiggle her hands, but not feet bilaterally. Patient has bilateral plantar flexors. Patient has a BiPAP on. - Labs CBC & Chem 7: 05/04/20 04:40 05/04/20 04:40 Labs: Abnormal Lab Results - Last 24 Hours (Table) 05/03/20 05/03/20 05/03/20 Range/Units 16:06 16:58 23:52 WBC (3.8-10.6) k/uL RBC (3.80-5.40) m/uL Hgb (11.4-16.0) gm/dL Hct (34.0-46.0) % MCV (80.0-100.0) fL MCHC (31.0-37.0) g/dL RDW (11.5-15.5) % Plt Count (150-450) k/uL Neutrophils # (1.3-7.7) k/uL ABG pH (7.35-7.45) ABG pCO2 (35-45) mmHg ABG pO2 (83-108) mmHg ABG HCO3 (21-25) mmol/L ABG Total CO2 (19-24) mmol/L ABG O2 Saturation (94-97) % Sodium (137-145) mmol/L Chloride (98-107) mmol/L Carbon Dioxide (22-30) mmol/L BUN (7-17) mg/dL Creatinine (0.52-1.04) mg/dL Glucose (74-99) mg/dL POC Glucose (mg/dL) 184 H 176 H 158 H (75-99) mg/dL Ammonia (<30) umol/L 05/04/20 05/04/20 05/04/20 Range/Units 04:40 04:40 04:40 WBC 11.9 H (3.8-10.6) k/uL RBC 2.73 L (3.80-5.40) m/uL Hgb 8.4 L (11.4-16.0) gm/dL Hct 28.1 L (34.0-46.0) % MCV 103.3 H (80.0-100.0) fL MCHC 29.9 L (31.0-37.0) g/dL RDW 16.9 H (11.5-15.5) % Plt Count 44 L (150-450) k/uL Neutrophils # 9.6 H (1.3-7.7) k/uL ABG pH (7.35-7.45) ABG pCO2 (35-45) mmHg ABG pO2 (83-108) mmHg ABG HCO3 (21-25) mmol/L ABG Total CO2 (19-24) mmol/L ABG O2 Saturation (94-97) % Sodium 147 H (137-145) mmol/L Chloride 110 H (98-107) mmol/L Carbon Dioxide 32 H (22-30) mmol/L BUN 95 H (7-17) mg/dL Creatinine 2.29 H (0.52-1.04) mg/dL Glucose 182 H (74-99) mg/dL POC Glucose (mg/dL) (75-99) mg/dL Ammonia 74 H (<30) umol/L 05/04/20 05/04/20 05/04/20 Range/Units 06:02 09:50 11:51 WBC (3.8-10.6) k/uL RBC (3.80-5.40) m/uL Hgb (11.4-16.0) gm/dL Hct (34.0-46.0) % MCV (80.0-100.0) fL MCHC (31.0-37.0) g/dL RDW (11.5-15.5) % Plt Count (150-450) k/uL Neutrophils # (1.3-7.7) k/uL ABG pH 7.34 L (7.35-7.45) ABG pCO2 57 H (35-45) mmHg ABG pO2 116 H (83-108) mmHg ABG HCO3 30 H (21-25) mmol/L ABG Total CO2 32 H (19-24) mmol/L ABG O2 Saturation 99.3 H (94-97) % Sodium (137-145) mmol/L Chloride (98-107) mmol/L Carbon Dioxide (22-30) mmol/L BUN (7-17) mg/dL Creatinine (0.52-1.04) mg/dL Glucose (74-99) mg/dL POC Glucose (mg/dL) 179 H 173 H (75-99) mg/dL Ammonia (<30) umol/L Assessment and Plan Assessment: * Toxic metabolic encephalopathy, somewhat fluctuating, still significant and persistent. Hepatic encephalopathy. * Multiple medical comorbidities as below * Acute kidney injury ATN. * History of GI bleed * Volume overload * Morbid obesity * Status post hypoxic respiratory failure * Chronic renal disease stage III * Chronic liver disease, hepatitis C * Pneumonia, currently on antibiotics. Plan: * EEG canceled by ICU team. * Your medical management. * Discussed with nursing staff in detail. * Neurology will sign off. Please call neurology if any other concerns.
--- NOTE | 2020-05-04 15:15 | P.PN ---
Subjective Progress Note Date: 05/04/20 Principal diagnosis: Hypovolemic shock and acute hypoxic respiratory failure 64-year-old female patient presented to the ED because of generalized weakness and recurrent hypoglycemic events. She apparently was found to have a blood sugar of 44 at home and she received an amp of D50 by EMS and came to the scene and the patient's blood sugar came up to 96. At that time the patient was seen generalized weakness and tiredness and shakiness. No a activity has been noted. The patient was also noted to have low blood pressure. Denied having any shortness of breath. No headaches. No dizziness. No falls. No head trauma. She came into the ED and the patient was found to have a white cell count of 7.2 with a hemoglobin of 6.1 and a recent drop compared to a baseline of 9.1 from 02/23/2020. Her platelet count was at 84 and the patient suffers from chronic thrombocytopenia. Coagulation profile is within normal limits. The sodium level was 108 and this is another new finding with a chloride level of 77 knowing that her most recent blood work showed normal sodium and chloride levels. The patient began with 114 and a creatinine of 3.11 knowing that her baseline creatinine from 02/07/2020 was 1.8. The patient also had a lactic acid level of 2.3, troponin of 0.468, AST of 54, ALT of 24, total protein of 5.4 with an albumin of 2.3. The patient was further found to be hypothermic with a temperature of 93.9. BNP was 74/33. She was on 2 L of oxygen by nasal cannula with a pulse ox of 97%. EKG showing a sinus rhythm with a first-degree AV block. A chest x-ray was not done. On 04/29/2020, the patient is much improved hemodynamically to the point that the patient is off pressors and she is off the levo fed. Nevertheless, neurologically she is doing poorly. She is unresponsive and she only grimaces to deep painful stimulation. Her ammonia level was elevated and I thought that it may be a component of hepatic encephalopathy and start the patient on l actulose and ammonia level is improving. Nevertheless, I have not seen any much improvement in her neuro status. Pupils are equal and reactive to light and the patient is downward gaze. No seizure activity has been noted. The patient is still on lactulose. Noted the patient has been off sedation and off propofol for the past 24 hours. The patient remains on a mechanical ventilator. She is an assist-control mode at the rate of 20 with a tidal volume of 400 and FiO2 of 35% with a PEEP of 5. Her blood gas showed a pH of 7.51 with a pCO2 of 30, pO2 161. Chest x-ray showing some increased interstitial markings and bilateral pulmonary infiltrates more so on the right. Overall x-ray findings are submitted suboptimal as the patient is morbidly obese. Noted the patient is afebrile. His temperature is 96.0. She is receiving external warming. Creatinine is also improving and she is down to 2.09. No enteral feeding has been provided to this patient yet. No other significant events overnight. The CAT scan of the brain will be ordered. No seizure activity has been noted. On 04/30/2020, the patient had a placed on Precedex in the lower dose as the patient was having some respiratory asynchronous with mechanical ventilator and she was biting into. She did well overnight. She is on Precedex at 0.4 g per KG per minute. This will be weaned off again. On today's evaluation, I checked a mechanical ventilator. She was on a assist-control mode at the rate of 20 with a tidal volume of 400 and FiO2 of 35% with a PEEP of 5. I thought that the pressure support mode would be the best for her and once she was switched to pressure support she became very synchronous. Currently she is on a pressure support of 10 and a PEEP of 5 with an FiO2 of 35%. Her earlier blood gases showed a pH of 7.49 with episodes of 36 and pO2 127. She is on minimal dose of levothyroid 0.015 g per KG per minute. Normal saline running at 75 mL an hour. She is on enteral feeding with vital high protein at the rate of 40 mL an hour. She is making good urine output. Her fluid balance is -1.8 L over the past 24 hours as the patient was given a dose of Lasix. The active issue for now is in mental status. The patient was very hard to arouse. She was only grimaces to painful stimulation. I told that it may be a component of hepatic encephalopathy and I put the patient on lactulose. Lasix and will be added also on today's evaluation. The patient's ammonia level has been fluctuating and essentially is currently on the decline. The patient's white cell count of 5.6 with a hemoglobin of 8.4. The renal function continues to improve in the creatinine is down to 1.9 with a sodium of 139 and potassium level of 3.1. Neurology consultation will be requested in regards to her diminished level of consciousness. Note that there was a hypoxemic event and the patient was quite awake prior to the intubation process. Reevaluated today on 05/01/20, patient remains in the ICU, she was extubated yesterday by Dr. Hobbs. She was initially extubated to BiPAP with IPAP of 10 EPAP of 5 and FiO2 of 35%. Presently the patient is on 4 L nasal cannula, O2 saturations 98%. She is on IV fluid at KVO, she is hemodynamically stable, she is in sinus tachycardia with a rate of 115. Patient received. Back RBCs since admission when she presented with low hemoglobin of around 6. Today's hemoglobin is 8.5. Electrolytes are normal. Renal profile is improving with a BUN 82 creatinine is 1.93, significantly improved compared to admission renal profile. Patient is confused, but she is following simple instructions. Moving all extremities. Remains on lactulose, her ammonia level today is 30. And since the patient cannot take much orally will recommend placement of the nasogastric tube to continue lactulose and other oral meds. Chest x-ray showed mild interstitial edema with small bilateral effusions. There is evidence of cardiomegaly and prominent interstitium. Reevaluated today on 05/02/20, remains in the ICU, tolerated the extubation well however overall pulmonary status remains marginal patient had to be placed on BiPAP earlier this morning since she was noted to be a bit lethargic and obtunded. Her ABG at the time showed a pO2 of 128 pCO2 of 50 pH of 7.36. Hence she was placed on BiPAP with IPAP of 10 EPAP of 5 and FiO2 of 35%. Chest x-ray showed minimal atelectasis. Ammonia level today is normal. Patient is in a negative fluid balance about 1.4 L in the last 24 hours. She is a bit tachycardic, and hypertensive, hence I added metoprolol 25 mg twice a day. Patient was also noted to be quite swollen, and Lasix was advised to continue at 40 mg IV push daily. Reevaluated today on 05/03/20, patient remains in the ICU, has tolerated the extubation so far, however the patient continues to have intermittent episodes of hypercapnia requiring placement on BiPAP. Today the patient was noted to be more obtunded and she was on a nasal cannula, ABG done showed a pO2 of 188 pCO2 of 67 pH of 7.25, hence recommended placing the patient back on BiPAP, and recommended cutting down the FiO2 as the patient is clearly a pCO2 retainer. Chest x-ray showed no evidence of infiltrate, does show evidence of bibasilar atelectasis. CBC is relatively normal except for WBC count of 14.1 hemoglobin is 8.7. Sodium is elevated today at 147, and I recommended giving the patient D5W, and free water via nasogastric tube. Renal functioning seems to be a bit worse today with a BUN of 89 creatinine of 2.30, remains on 40 mg of Lasix daily. Patient also remains on Zosyn for empiric treatment of aspiration pneumonia Patient was reevaluated today on 05/04/20, remains in the ICU, remains off mechanical ventilation, but frequently requiring placement on BiPAP. She is on BiPAP during my evaluation, presently on IPAP of 10 EPAP of 5 FiO2 is 35%. Patient remains on free water for her hypernatremia, and yesterday I had a long discussion with her son regarding possibly consider hospice, obviously the patient is a failure to thrive. He seems to be agreeable to consider hospice. And I believe he is supposed to discuss her condition with hospice today. In t he meantime her ABG showed a pO2 of 116 pCO2 of 57 and pH of 7.34 on BiPAP. Her CBC is relatively unremarkable, hemoglobin is 8.4. Sodium remains elevated at 147, renal profile is still abnormal with a BUN of 95 creatinine 2.29. Ammonia level is on the rise again today it is 74. Patient remains on lactulose and on rifaximin. Objective - Vital Signs Vital signs: Vital Signs Temp 97.6 F 05/04/20 12:00 Pulse 76 05/04/20 14:00 Resp 15 05/04/20 14:00 BP 102/45 05/04/20 13:00 Pulse Ox 99 05/04/20 14:00 Intake & Output 05/03/20 05/04/20 05/04/20 18:59 06:59 18:59 Intake Total 1921 2337 1788 Output Total 580 757 250 Balance 1341 1580 1538 Weight 178.9 kg 178.9 kg Intake: IV 711 937 628 Dextrose 5% in Water 1, 400 600 400 000 ml @ 50 mls/hr IV . Q20H [facility] Rx#:[id number] Piperacillin-Tazobactam 3 175 225 110 .375 gm In Sodium Chloride 0.9% 100 ml @ 25 mls/hr IVPB Q8HR [facility] Rx# :[id number] Pressure bags 66 72 48 Sodium Chloride 0.9% 1, 70 40 70 000 ml @ 10 mls/hr IV . Q24H [facility] Rx#:[id number] Tube Feeding 550 800 540 Other 660 600 620 Output: Urine 580 757 250 Other: Voiding Method Indwelling Catheter Indwelling Catheter Indwelling Catheter # Bowel Movements 1 ABP, PAP, CO, CI - Last Documented Arterial Blood Pressure 125/50 - Exam Gen. appearance : Revealed a 60-year-old female, obese, in bed, on BiPAP, does not follow any instructions. Head exam: Atraumatic, normocephalic. HEENT: PERRLA, EOMI, no neck masses, no JVD, no stridor, a left IJ central line is noted. Lungs: Symmetrical chest expansion, diminished breath sounds at the bases, no rhonchi and no wheezes. Cardiac exam : Normal S1 and S2, no S3 gallop, no murmur. abdomen: morbidly obese soft nontender. There is no ascites. Organs cannot be accurately palpated as the patient has morbid obesity. No direct tenderness. No rebound tenderness. No guarding. Extremities : 1+ bipedal edema, no clubbing, no cyanosis. Neurological : Awake, confused, does not follow any instructions. Psychiatric: Blunted mood and affect, questionable mental status. - Labs CBC & Chem 7: 05/04/20 04:40 05/04/20 04:40 Labs: Abnormal Lab Results - Last 24 Hours (Table) 05/03/20 05/03/20 05/03/20 Range/Units 16:06 16:58 23:52 WBC (3.8-10.6) k/uL RBC (3.80-5.40) m/uL Hgb (11.4-16.0) gm/dL Hct (34.0-46.0) % MCV (80.0-100.0) fL MCHC (31.0-37.0) g/dL RDW (11.5-15.5) % Plt Count (150-450) k/uL Neutrophils # (1.3-7.7) k/uL ABG pH (7.35-7.45) ABG pCO2 (35-45) mmHg ABG pO2 (83-108) mmHg ABG HCO3 (21-25) mmol/L ABG Total CO2 (19-24) mmol/L ABG O2 Saturation (94-97) % Sodium (137-145) mmol/L Chloride (98-107) mmol/L Carbon Dioxide (22-30) mmol/L BUN (7-17) mg/dL Creatinine (0.52-1.04) mg/dL Glucose (74-99) mg/dL POC Glucose (mg/dL) 184 H 176 H 158 H (75-99) mg/dL Ammonia (<30) umol/L 05/04/20 05/04/20 05/04/20 Range/Units 04:40 04:40 04:40 WBC 11.9 H (3.8-10.6) k/uL RBC 2.73 L (3.80-5.40) m/uL Hgb 8.4 L (11.4-16.0) gm/dL Hct 28.1 L (34.0-46.0) % MCV 103.3 H (80.0-100.0) fL MCHC 29.9 L (31.0-37.0) g/dL RDW 16.9 H (11.5-15.5) % Plt Count 44 L (150-450) k/uL Neutrophils # 9.6 H (1.3-7.7) k/uL ABG pH (7.35-7.45) ABG pCO2 (35-45) mmHg ABG pO2 (83-108) mmHg ABG HCO3 (21-25) mmol/L ABG Total CO2 (19-24) mmol/L ABG O2 Saturation (94-97) % Sodium 147 H (137-145) mmol/L Chloride 110 H (98-107) mmol/L Carbon Dioxide 32 H (22-30) mmol/L BUN 95 H (7-17) mg/dL Creatinine 2.29 H (0.52-1.04) mg/dL Glucose 182 H (74-99) mg/dL POC Glucose (mg/dL) (75-99) mg/dL Ammonia 74 H (<30) umol/L 05/04/20 05/04/20 05/04/20 Range/Units 06:02 09:50 11:51 WBC (3.8-10.6) k/uL RBC (3.80-5.40) m/uL Hgb (11.4-16.0) gm/dL Hct (34.0-46.0) % MCV (80.0-100.0) fL MCHC (31.0-37.0) g/dL RDW (11.5-15.5) % Plt Count (150-450) k/uL Neutrophils # (1.3-7.7) k/uL ABG pH 7.34 L (7.35-7.45) ABG pCO2 57 H (35-45) mmHg ABG pO2 116 H (83-108) mmHg ABG HCO3 30 H (21-25) mmol/L ABG Total CO2 32 H (19-24) mmol/L ABG O2 Saturation 99.3 H (94-97) % Sodium (137-145) mmol/L Chloride (98-107) mmol/L Carbon Dioxide (22-30) mmol/L BUN (7-17) mg/dL Creatinine (0.52-1.04) mg/dL Glucose (74-99) mg/dL POC Glucose (mg/dL) 179 H 173 H (75-99) mg/dL Ammonia (<30) umol/L Assessment and Plan Assessment: Impression: Acute hypovolemic shock, severe on presentation. Acute hypoxic respiratory failure secondary to above. Acute on chronic kidney disease, acute kidney injury. Secondary to profound hypovolemia. Acute GI blood losses, underlying GI bleeding is suspected, patient presented with melanotic stools and positive Hemoccult. Received 2 units of packed RBCs since admission. Initial hemoglobin was 6.1. Chronic liver disease secondary to hepatitis C Acute hepatic encephalopathy and mental status changes secondary to hepatic encephalopathy Troponin leak without acute EKG changes. Morbid obesity. Hypernatremia secondary to free water deficit. Failure to thrive. Recommendation: Patient was extubated on 04/30/20, tolerated the extubation , however still requiring BiPAP frequently. Continue empiric antibiotics/Zosyn Continue lactulose. Patient is being considered for hospice, her condition was discussed with the son yesterday. Continue GI and DVT prophylaxis. Continue diuretics. Will follow. Time with Patient: Less than 30
--- NOTE | 2020-05-04 15:52 | PN ---
PROGRESS NOTE DATE OF SERVICE: 05/04/2020 CHIEF COMPLAINT: Encephalopathy. HISTORY OF PRESENT ILLNESS: This lady is still not waking up. Her vital signs are normal. She is stooling and making adequate urinary output. However, she is not waking up. PHYSICAL EXAMINATION: Blood pressure is normal. Breath sounds are heard bilaterally. Cardiac exam is normal sinus rhythm. The abdomen is protuberant. Neck and extremities are cool. IMPRESSION: 1. Hypovolemic shock. 2. GI bleed. 3. Renal failure. 4. Encephalopathy. 5. Obesity. PLAN: For the time being, she will continue to receive supportive care. Prognosis for return of quality neurologic and cognitive function are becoming more likely. MMODL / IJN: [id number] /
[2020-05-04 17:55] LABS: Glucose,Whole Blood 171 mg/dL (75-99)
[2020-05-04] MEDS: ACETAMINOPHEN TAB 325 MG TAB PO PRN (22:09)
[2020-05-04 23:39] LABS: Glucose,Whole Blood 143 mg/dL (75-99)
[2020-05-05] MEDS: PIPERACILLIN-TAZOBACTAM 3.375 GM in SODIUM CHLORIDE 0.9% 100 ML IVPB SCH ×3 (00:16→15:23)
[2020-05-05] MEDS: INSULIN ASPART (NovoLOG) 100 UNIT/ML VIAL SQ SCH ×4 (00:17→18:47)
[2020-05-05] MEDS: DEXTROSE 5% IN WATER 1,000 ML IV SCH (01:51)
[2020-05-05 05:07] LABS: Anisocytosis Slight; Basophils % (A) 0 %; Eosinophils # (A) 0.4 k/uL (0-0.7); Eosinophils % (A) 4 %; HCT 28.6 % (34.0-46.0); HGB 8.2 gm/dL (11.4-16.0); Hypochromasia Marked; Lymphocytes # (A) 1.3 k/uL (1.0-4.8); Lymphocytes % (A) 13 %; MCH 29.8 pg (25.0-35.0); MCHC 28.5 g/dL (31.0-37.0); MCV 104.5 fL (80.0-100.0); Macrocytosis Moderate; Mean Platelet Volume 12.9; Monocytes # (A) 0.4 k/uL (0-1.0); Monocytes % (A) 4 %; Neutrophils # (A) 7.6 k/uL (1.3-7.7); Neutrophils % (A) 77 %; RBC 2.74 m/uL (3.80-5.40); RDW 17.1 % (11.5-15.5); WBC 9.9 k/uL (3.8-10.6)
[2020-05-05 05:25] LABS: Calcium 8.5 mg/dL (8.4-10.2); Potassium 3.5 mmol/L (3.5-5.1)
[2020-05-05 05:32] LABS: Platelet Count 33 k/uL (150-450)
[2020-05-05 06:07] LABS: Glucose,Whole Blood 146 mg/dL (75-99)
[2020-05-05] MEDS ORDERED: POTASSIUM BICARBONATE/CIT AC 20 MEQ TABLET.EFF PO ONE (06:15)
[2020-05-05 06:45] LABS: Large Platelets Present
[2020-05-05] MEDS: INSULIN DETEMIR (LEVEMIR) 100 UNIT/ML SYR SQ SCH (06:54)
[2020-05-05] MEDS: ENOXAPARIN 30 MG/0.3 ML SYRINGE SQ SCH (08:54)
[2020-05-05] MEDS: LACTULOSE 20 GM/30 ML CUP PO SCH ×3 (08:55→18:48)
[2020-05-05] MEDS: RIFAXIMIN 550 MG TABLET PO SCH (08:55)
[2020-05-05] MEDS: PANTOPRAZOLE 40 MG/10 ML VIAL IVP SCH (08:55)
[2020-05-05] MEDS: FUROSEMIDE 10 MG/ML 4 ML VIAL IV SCH (08:55)
[2020-05-05] MEDS: ACETAMINOPHEN TAB 325 MG TAB PO PRN (08:55)
[2020-05-05] MEDS: METOPROLOL TARTRATE 25 MG TAB PO SCH (09:03)
--- NOTE | 2020-05-05 09:24 | XR ---
EXAMINATION TYPE: XR chest 1V DATE OF EXAM: 05/05/2020 COMPARISON: 05/04/2020 HISTORY: Shortness of breath TECHNIQUE: Single frontal view of the chest is obtained. FINDINGS: Left-sided central line and NG tube noted. There is a diffuse interstitial pattern with bi lateral infiltrate and small effusion. No pneumothorax. Heart is mildly prominent. IMPRESSION: Exam limited by motion. No significant interval change correlate for CHF versus intersti tial pneumonitis.
[2020-05-05 11:43] LABS: Glucose,Whole Blood 170 mg/dL (75-99)
[2020-05-05] MEDS: POTASSIUM CHLORIDE 10 MEQ in WATER FOR INJECTION 1 100ML.BAG IVPB SCH ×2 (12:24→13:26)
--- NOTE | 2020-05-05 13:11 | P.PN ---
Subjective Progress Note Date: 05/05/20 Principal diagnosis: Hypovolemic shock and acute hypoxic respiratory failure 64-year-old female patient presented to the ED because of generalized weakness and recurrent hypoglycemic events. She apparently was found to have a blood sugar of 44 at home and she received an amp of D50 by EMS and came to the scene and the patient's blood sugar came up to 96. At that time the patient was seen generalized weakness and tiredness and shakiness. No a activity has been noted. The patient was also noted to have low blood pressure. Denied having any shortness of breath. No headaches. No dizziness. No falls. No head trauma. She came into the ED and the patient was found to have a white cell count of 7.2 with a hemoglobin of 6.1 and a recent drop compared to a baseline of 9.1 from 02/23/2020. Her platelet count was at 84 and the patient suffers from chronic thrombocytopenia. Coagulation profile is within normal limits. The sodium level was 108 and this is another new finding with a chloride level of 77 knowing that her most recent blood work showed normal sodium and chloride levels. The patient began with 114 and a creatinine of 3.11 knowing that her baseline creatinine from 02/07/2020 was 1.8. The patient also had a lactic acid level of 2.3, troponin of 0.468, AST of 54, ALT of 24, total protein of 5.4 with an albumin of 2.3. The patient was further found to be hypothermic with a temperature of 93.9. BNP was 74/33. She was on 2 L of oxygen by nasal cannula with a pulse ox of 97%. EKG showing a sinus rhythm with a first-degree AV block. A chest x-ray was not done. On 04/29/2020, the patient is much improved hemodynamically to the point that the patient is off pressors and she is off the levo fed. Nevertheless, neurologically she is doing poorly. She is unresponsive and she only grimaces to deep painful stimulation. Her ammonia level was elevated and I thought that it may be a component of hepatic encephalopathy and start the patient on l actulose and ammonia level is improving. Nevertheless, I have not seen any much improvement in her neuro status. Pupils are equal and reactive to light and the patient is downward gaze. No seizure activity has been noted. The patient is still on lactulose. Noted the patient has been off sedation and off propofol for the past 24 hours. The patient remains on a mechanical ventilator. She is an assist-control mode at the rate of 20 with a tidal volume of 400 and FiO2 of 35% with a PEEP of 5. Her blood gas showed a pH of 7.51 with a pCO2 of 30, pO2 161. Chest x-ray showing some increased interstitial markings and bilateral pulmonary infiltrates more so on the right. Overall x-ray findings are submitted suboptimal as the patient is morbidly obese. Noted the patient is afebrile. His temperature is 96.0. She is receiving external warming. Creatinine is also improving and she is down to 2.09. No enteral feeding has been provided to this patient yet. No other significant events overnight. The CAT scan of the brain will be ordered. No seizure activity has been noted. On 04/30/2020, the patient had a placed on Precedex in the lower dose as the patient was having some respiratory asynchronous with mechanical ventilator and she was biting into. She did well overnight. She is on Precedex at 0.4 g per KG per minute. This will be weaned off again. On today's evaluation, I checked a mechanical ventilator. She was on a assist-control mode at the rate of 20 with a tidal volume of 400 and FiO2 of 35% with a PEEP of 5. I thought that the pressure support mode would be the best for her and once she was switched to pressure support she became very synchronous. Currently she is on a pressure support of 10 and a PEEP of 5 with an FiO2 of 35%. Her earlier blood gases showed a pH of 7.49 with episodes of 36 and pO2 127. She is on minimal dose of levothyroid 0.015 g per KG per minute. Normal saline running at 75 mL an hour. She is on enteral feeding with vital high protein at the rate of 40 mL an hour. She is making good urine output. Her fluid balance is -1.8 L over the past 24 hours as the patient was given a dose of Lasix. The active issue for now is in mental status. The patient was very hard to arouse. She was only grimaces to painful stimulation. I told that it may be a component of hepatic encephalopathy and I put the patient on lactulose. Lasix and will be added also on today's evaluation. The patient's ammonia level has been fluctuating and essentially is currently on the decline. The patient's white cell count of 5.6 with a hemoglobin of 8.4. The renal function continues to improve in the creatinine is down to 1.9 with a sodium of 139 and potassium level of 3.1. Neurology consultation will be requested in regards to her diminished level of consciousness. Note that there was a hypoxemic event and the patient was quite awake prior to the intubation process. Reevaluated today on 05/01/20, patient remains in the ICU, she was extubated yesterday by Dr. Hobbs. She was initially extubated to BiPAP with IPAP of 10 EPAP of 5 and FiO2 of 35%. Presently the patient is on 4 L nasal cannula, O2 saturations 98%. She is on IV fluid at KVO, she is hemodynamically stable, she is in sinus tachycardia with a rate of 115. Patient received. Back RBCs since admission when she presented with low hemoglobin of around 6. Today's hemoglobin is 8.5. Electrolytes are normal. Renal profile is improving with a BUN 82 creatinine is 1.93, significantly improved compared to admission renal profile. Patient is confused, but she is following simple instructions. Moving all extremities. Remains on lactulose, her ammonia level today is 30. And since the patient cannot take much orally will recommend placement of the nasogastric tube to continue lactulose and other oral meds. Chest x-ray showed mild interstitial edema with small bilateral effusions. There is evidence of cardiomegaly and prominent interstitium. Reevaluated today on 05/02/20, remains in the ICU, tolerated the extubation well however overall pulmonary status remains marginal patient had to be placed on BiPAP earlier this morning since she was noted to be a bit lethargic and obtunded. Her ABG at the time showed a pO2 of 128 pCO2 of 50 pH of 7.36. Hence she was placed on BiPAP with IPAP of 10 EPAP of 5 and FiO2 of 35%. Chest x-ray showed minimal atelectasis. Ammonia level today is normal. Patient is in a negative fluid balance about 1.4 L in the last 24 hours. She is a bit tachycardic, and hypertensive, hence I added metoprolol 25 mg twice a day. Patient was also noted to be quite swollen, and Lasix was advised to continue at 40 mg IV push daily. Reevaluated today on 05/03/20, patient remains in the ICU, has tolerated the extubation so far, however the patient continues to have intermittent episodes of hypercapnia requiring placement on BiPAP. Today the patient was noted to be more obtunded and she was on a nasal cannula, ABG done showed a pO2 of 188 pCO2 of 67 pH of 7.25, hence recommended placing the patient back on BiPAP, and recommended cutting down the FiO2 as the patient is clearly a pCO2 retainer. Chest x-ray showed no evidence of infiltrate, does show evidence of bibasilar atelectasis. CBC is relatively normal except for WBC count of 14.1 hemoglobin is 8.7. Sodium is elevated today at 147, and I recommended giving the patient D5W, and free water via nasogastric tube. Renal functioning seems to be a bit worse today with a BUN of 89 creatinine of 2.30, remains on 40 mg of Lasix daily. Patient also remains on Zosyn for empiric treatment of aspiration pneumonia Patient was reevaluated today on 05/04/20, remains in the ICU, remains off mechanical ventilation, but frequently requiring placement on BiPAP. She is on BiPAP during my evaluation, presently on IPAP of 10 EPAP of 5 FiO2 is 35%. Patient remains on free water for her hypernatremia, and yesterday I had a long discussion with her son regarding possibly consider hospice, obviously the patient is a failure to thrive. He seems to be agreeable to consider hospice. And I believe he is supposed to discuss her condition with hospice today. In t he meantime her ABG showed a pO2 of 116 pCO2 of 57 and pH of 7.34 on BiPAP. Her CBC is relatively unremarkable, hemoglobin is 8.4. Sodium remains elevated at 147, renal profile is still abnormal with a BUN of 95 creatinine 2.29. Ammonia level is on the rise again today it is 74. Patient remains on lactulose and on rifaximin. Reevaluated today on 05/05/20, remains in the ICU, continues to require BiPAP, her BiPAP settings are 10/5/35%, remains on D5W at 50 mL per hour. Sodium is improving. Patient has worsening ammonia level today, and I have increased her lactulose to 4 times a day. Continues to have enteral feeding via nasogastric tube. Patient remains on Zosyn for aspiration pneumonia, and she seems to be a bit more awake compared to her baseline. Family is considering starting hospice care and comfort care measures possibly the next 24 hours. This is yet to be fully finalized. Objective - Vital Signs Vital signs: Vital Signs Temp 97.6 F 05/05/20 12:00 Pulse 75 05/05/20 12:00 Resp 13 05/05/20 12:00 BP 103/26 05/04/20 19:00 Pulse Ox 99 05/05/20 12:00 Intake & Output 05/04/20 05/05/20 05/05/20 18:59 06:59 18:59 Intake Total 2632 2792 1456 Output Total 320 387 965 Balance 2312 2405 491 Weight 178.9 kg 180.1 kg Intake: IV 992 932 346 Dextrose 5% in Water 1, 600 600 150 000 ml @ 50 mls/hr IV . Q20H [facility] Rx#:[id number] Piperacillin-Tazobactam 3 210 200 100 .375 gm In Sodium Chloride 0.9% 100 ml @ 25 mls/hr IVPB Q8HR [facility] Rx# :[id number] Pressure bags 72 72 36 Sodium Chloride 0.9% 1, 110 60 60 000 ml @ 10 mls/hr IV . Q24H [facility] Rx#:[id number] Tube Feeding 720 960 360 Other 920 900 750 Output: Urine 320 387 65 Stool 900 Other: Voiding Method Indwelling Catheter Indwelling Catheter Indwelling Catheter ABP, PAP, CO, CI - Last Documented Arterial Blood Pressure 95/39 - Exam Gen. appearance : Revealed a 60-year-old female, obese, in bed, on BiPAP, follows simple instructions today. Head exam: Atraumatic, normocephalic. HEENT: PERRLA, EOMI, no neck masses, no JVD, no stridor, a left IJ central line is noted. Lungs: Symmetrical chest expansion, diminished breath sounds at the bases, no rhonchi and no wheezes. Cardiac exam : Normal S1 and S2, no S3 gallop, no murmur. abdomen: morbidly obese soft nontender. There is no ascites. Organs cannot be accurately palpated as the patient has morbid obesity. No direct tenderness. No rebound tenderness. No guarding. Extremities : 1+ bipedal edema, no clubbing, no cyanosis. Neurological : Awake, confused, follows very simple instructions. Psychiatric: Blunted mood and affect, questionable mental status. - Labs CBC & Chem 7: 05/05/20 04:55 05/05/20 11:45 Labs: Abnormal Lab Results - Last 24 Hours (Table) 05/04/20 05/04/20 05/05/20 Range/Units 17:53 23:38 04:55 RBC 2.74 L (3.80-5.40) m/uL Hgb 8.2 L (11.4-16.0) gm/dL Hct 28.6 L (34.0-46.0) % MCV 104.5 H (80.0-100.0) fL MCHC 28.5 L (31.0-37.0) g/dL RDW 17.1 H (11.5-15.5) % Plt Count 33 L (150-450) k/uL Chloride (98-107) mmol/L Carbon Dioxide (22-30) mmol/L BUN (7-17) mg/dL Creatinine (0.52-1.04) mg/dL Glucose (74-99) mg/dL POC Glucose (mg/dL) 171 H 143 H (75-99) mg/dL Ammonia (<30) umol/L 05/05/20 05/05/20 05/05/20 Range/Units 04:55 05:00 06:05 RBC (3.80-5.40) m/uL Hgb (11.4-16.0) gm/dL Hct (34.0-46.0) % MCV (80.0-100.0) fL MCHC (31.0-37.0) g/dL RDW (11.5-15.5) % Plt Count (150-450) k/uL Chloride 108 H (98-107) mmol/L Carbon Dioxide 32 H (22-30) mmol/L BUN 103 H* (7-17) mg/dL Creatinine 2.47 H (0.52-1.04) mg/dL Glucose 183 H (74-99) mg/dL POC Glucose (mg/dL) 146 H (75-99) mg/dL Ammonia 96 H (<30) umol/L 05/05/20 Range/Units 11:42 RBC (3.80-5.40) m/uL Hgb (11.4-16.0) gm/dL Hct (34.0-46.0) % MCV (80.0-100.0) fL MCHC (31.0-37.0) g/dL RDW (11.5-15.5) % Plt Count (150-450) k/uL Chloride (98-107) mmol/L Carbon Dioxide (22-30) mmol/L BUN (7-17) mg/dL Creatinine (0.52-1.04) mg/dL Glucose (74-99) mg/dL POC Glucose (mg/dL) 170 H (75-99) mg/dL Ammonia (<30) umol/L Assessment and Plan Assessment: Impression: Acute hypovolemic shock, severe on presentation. Acute hypoxic respiratory failure secondary to above. Acute on chronic kidney disease, acute kidney injury. Secondary to profound hy povolemia. Acute GI blood losses, underlying GI bleeding is suspected, patient presented with melanotic stools and positive Hemoccult. Received 2 units of packed RBCs since admission. Initial hemoglobin was 6.1. Chronic liver disease secondary to hepatitis C Acute hepatic encephalopathy and mental status changes secondary to hepatic encephalopathy Troponin leak without acute EKG changes. Morbid obesity. Hypernatremia secondary to free water deficit. Failure to thrive. Recommendation: Patient was extubated on 04/30/20, tolerated the extubation , however still requiring BiPAP frequently. Continue empiric antibiotics/Zosyn Continue lactulose. Increased to 4 times a day instead of twice a day. Since her ammonia level is coming up again. Patient is being considered for hospice, her condition was discussed with the son yesterday. Continue GI and DVT prophylaxis. Continue diuretics. We'll continue to follow the ICU for now. Time with Patient: Less than 30
[2020-05-05 16:08] VITALS: TEMP 97
--- NOTE | 2020-05-05 17:30 | P.DS ---
Providers Date of admission: 04/24/20 13:50 Expected date of discharge: 05/05/20 Attending physician: Tom Lucas Consults: 04/24/20 13:51 Consult Physician Stat Consulting Provider: Chel Hobbs Consult Reason/Comments: ICU Do you want consulting provider notified?: Already Contacted Consult Physician Urgent Consulting Provider: Michael Nice Consult Reason/Comments: elevated trop Do you want consulting provider notified?: Yes Consult Physician Urgent Consulting Provider: Nacho Schafer Consult Reason/Comments: Hyponatremia, acute renal failure Do you want consulting provider notified?: Yes 04/24/20 13:54 Consult Physician Urgent Consulting Provider: Reagan Mcguire Consult Reason/Comments: Anemia, GI bleed Do you want consulting provider notified?: Yes 04/30/20 08:25 Consult Physician Routine Consulting Provider: Navarro Danielle Consult Reason/Comments: Mental status Do you want consulting provider notified?: Yes Primary care physician: Tom Lucas [facility] Course: 64-year-old female patient presented to the ED because of generalized weakness and recurrent hypoglycemic events. She apparently was found to have a blood sugar of 44 at home and she received an amp of D50 by EMS and came to the scene and the patient's blood sugar came up to 96. At that time the patient was seen generalized weakness and tiredness and shakiness. No a activity has been noted. The patient was also noted to have low blood pressure. Denied having any shortness of breath. No headaches. No dizziness. No falls. No head trauma. She came into the ED and the patient was found to have a white cell count of 7.2 with a hemoglobin of 6.1 and a recent drop compared to a baseline of 9.1 from 02/23/2020. Her platelet count was at 84 and the patient suffers from chronic thrombocytopenia. Coagulation profile is within normal limits. The sodium level was 108 and this is another new finding with a chloride level of 77 knowing that her most recent blood work showed normal sodium and chloride levels. The patient began with 114 and a creatinine of 3.11 knowing that her baseline creatinine from 02/07/2020 was 1.8. The patient also had a lactic acid level of 2.3, troponin of 0.468, AST of 54, ALT of 24, total protein of 5.4 with an albumin of 2.3. The patient was further found to be hypothermic with a temperature of 93.9. BNP was 74/33. She was on 2 L of oxygen by nasal cannula with a pulse ox of 97%. EKG showing a sinus rhythm with a first-degree AV block. A chest x-ray was not done. On 04/29/2020, the patient is much improved hemodynamically to the point that the patient is off pressors and she is off the levo fed. Nevertheless, neurologically she is doing poorly. She is unresponsive and she only grimaces to deep painful stimulation. Her ammonia level was elevated and I thought that it may be a component of hepatic encephalopathy and start the patient on lactulose and ammonia level is improving. Nevertheless, I have not seen any much improvement in her neuro status. Pupils are equal and reactive to light and the patient is downward gaze. No seizure activity has been noted. The patient is still on lactulose. Noted the patient has been off sedation and off propofol for the past 24 hours. The patient remains on a mechanical ventilator. She is an assist-control mode at the rate of 20 with a tidal volume of 400 and FiO2 of 35% with a PEEP of 5. Her blood gas showed a pH of 7.51 with a pCO2 of 30, pO2 161. Chest x-ray showing some increased interstitial markings and bilateral pulmonary infiltrates more so on the right. Overall x-ray findings are submitted suboptimal as the patient is morbidly obese. Noted the patient is afebrile. His temperature is 96.0. She is receiving external warming. Creati nine is also improving and she is down to 2.09. No enteral feeding has been provided to this patient yet. No other significant events overnight. The CAT scan of the brain will be ordered. No seizure activity has been noted. On 04/30/2020, the patient had a placed on Precedex in the lower dose as the patient was having some respiratory asynchronous with mechanical ventilator and she was biting into. She did well overnight. She is on Precedex at 0.4 g per KG per minute. This will be weaned off again. On today's evaluation, I checked a mechanical ventilator. She was on a assist-control mode at the rate of 20 with a tidal volume of 400 and FiO2 of 35% with a PEEP of 5. I thought that the pressure support mode would be the best for her and once she was switched to pressure support she became very synchronous. Currently she is on a pressure support of 10 and a PEEP of 5 with an FiO2 of 35%. Her earlier blood gases showed a pH of 7.49 with episodes of 36 and pO2 127. She is on minimal dose of levothyroid 0.015 g per KG per minute. Normal saline running at 75 mL an hour. She is on enteral feeding with vital high protein at the rate of 40 mL an hour. She is making good urine output. Her fluid balance is -1.8 L over the past 24 hours as the patient was given a dose of Lasix. The active issue for now is in mental status. The patient was very hard to arouse. She was only grimaces to painful stimulation. I told that it may be a component of hepatic encephalopathy and I put the patient on lactulose. Lasix and will be added also on today's evaluation. The patient's ammonia level has been fluctuating and essentially is currently on the decline. The patient's white cell count of 5.6 with a hemoglobin of 8.4. The renal function continues to improve in the crea tinine is down to 1.9 with a sodium of 139 and potassium level of 3.1. Neurology consultation will be requested in regards to her diminished level of consciousness. Note that there was a hypoxemic event and the patient was quite awake prior to the intubation process. Reevaluated today on 05/01/20, patient remains in the ICU, she was extubated yesterday by Dr. Hobbs. She was initially extubated to BiPAP with IPAP of 10 EPAP of 5 and FiO2 of 35%. Presently the patient is on 4 L nasal cannula, O2 saturations 98%. She is on IV fluid at KVO, she is hemodynamically stable, she is in sinus tachycardia with a rate of 115. Patient received. Back RBCs since admission when she presented with low hemoglobin of around 6. Today's hemoglobin is 8.5. Electrolytes are normal. Renal profile is improving with a BUN 82 creatinine is 1.93, significantly improved compared to admission renal profile. Patient is confused, but she is following simple instructions. Moving all extremities. Remains on lactulose, her ammonia level today is 30. And since the patient cannot take much orally will recommend placement of the nasogastric tube to continue lactulose and other oral meds. Chest x-ray showed mild interstitial edema with small bilateral effusions. There is evidence of cardiomegaly and prominent interstitium. Reevaluated today on 05/02/20, remains in the ICU, tolerated the extubation well however overall pulmonary status remains marginal patient had to be placed on BiPAP earlier this morning since she was noted to be a bit lethargic and obtunded. Her ABG at the time showed a pO2 of 128 pCO2 of 50 pH of 7.36. Hence she was placed on BiPAP with IPAP of 10 EPAP of 5 and FiO2 of 35%. Chest x-ray showed minimal atelectasis. Ammonia level today is normal. Patient is in a neg ative fluid balance about 1.4 L in the last 24 hours. She is a bit tachycardic, and hypertensive, hence I added metoprolol 25 mg twice a day. Patient was also noted to be quite swollen, and Lasix was advised to continue at 40 mg IV push daily. Reevaluated today on 05/03/20, patient remains in the ICU, has tolerated the extubation so far, however the patient continues to have intermittent episodes of hypercapnia requiring placement on BiPAP. Today the patient was noted to be more obtunded and she was on a nasal cannula, ABG done showed a pO2 of 188 pCO2 of 67 pH of 7.25, hence recommended placing the patient back on BiPAP, and recommended cutting down the FiO2 as the patient is clearly a pCO2 retainer. Chest x-ray showed no evidence of infiltrate, does show evidence of bibasilar atelectasis. CBC is relatively normal except for WBC count of 14.1 hemoglobin is 8.7. Sodium is elevated today at 147, and I recommended giving the patient D5W, and free water via nasogastric tube. Renal functioning seems to be a bit worse today with a BUN of 89 creatinine of 2.30, remains on 40 mg of Lasix daily. Patient also remains on Zosyn for empiric treatment of aspiration pneumonia Patient was reevaluated today on 05/04/20, remains in the ICU, remains off mechanical ventilation, but frequently requiring placement on BiPAP. She is on BiPAP during my evaluation, presently on IPAP of 10 EPAP of 5 FiO2 is 35%. Patient remains on free water for her hypernatremia, and yesterday I had a long discussion with her son regarding possibly consider hospice, obviously the patient is a failure to thrive. He seems to be agreeable to consider hospice. And I believe he is supposed to discuss her condition with hospice today. In the meantime her ABG showed a pO2 of 116 pCO2 of 57 and pH of 7.34 on BiPAP. Her CBC is relatively unremarkable, hemoglobin is 8.4. Sodium remains elevated at 147, renal profile is still abnormal with a BUN of 95 creatinine 2.29. Ammonia level is on the rise again today it is 74. Patient remains on lactulose and on rifaximin. Reevaluated today on 05/05/20, remains in the ICU, continues to require BiPAP, her BiPAP settings are 10/5/35%, remains on D5W at 50 mL per hour. Sodium is improving. Patient has worsening ammonia level today, and I have increased her lactulose to 4 times a day. Continues to have enteral feeding via nasogastric tube. Patient remains on Zosyn for aspiration pneumonia, and she seems to be a bit more awake compared to her baseline. Family is considering starting hospice care and comfort care measures possibly the next 24 hours. Patient's family decided with hospice care and take patient home with hospice Patient Condition at Discharge: Serious Plan - Discharge Summary Discharge Rx Participant: Yes New Discharge Prescriptions: New Lactulose [Cephulac] 30 gm PO QID #1000 ml Rifaximin [Xifaxan] 550 mg PO BID #60 tablet Continue Simvastatin [Zocor] 20 mg PO HS Losartan [Cozaar] 50 mg PO DAILY Amitriptyline HCl [Elavil] 25 mg PO HS #30 tab metFORMIN HCL [Glucophage] 500 mg PO BID-W/MEALS #60 tab glipiZIDE [Glucotrol] 10 mg PO AC-BID #60 tab allopurinoL [Zyloprim] 100 mg PO BID #60 tab Albuterol Inhaler [Ventolin Hfa Inhaler] 1 - 2 puff INHALATION RT-QID PRN PRN Reason: Shortness Of Breath Aspirin EC [Ecotrin Low Dose] 81 mg PO DAILY Ergocalciferol [Vitamin D2 (DRISDOL)] 50,000 unit PO Q30D Fluticasone Propion/Salmeterol [Wixela 250-50 Inhub] 2 puff INHALATION RT-BID Furosemide [Lasix] 80 mg PO DAILY Hydrocortisone Cream [Hydrocortisone 2.5% Cream] 1 applic TOPICAL QID PRN PRN Reason: Rash metOLazone [Zaroxolyn] 2.5 mg PO DAILY Nystatin 1 applic TOPICAL QID PRN PRN Reason: Rash Oxybutynin Chloride [Oxybutynin Chloride ER] 15 mg PO DAILY Pregabalin [Lyrica] 100 mg PO BID traZODone HCL [Desyrel] 100 - 200 mg PO HS Sofosbuvir/Velpatasvir [Epclusa 400 mg-100 mg Tablet] 1 tab PO DAILY Discharge Medication List Losartan [Cozaar] 50 mg PO DAILY 09/18/18 [History] Simvastatin [Zocor] 20 mg PO HS 09/18/18 [History] Amitriptyline HCl [Elavil] 25 mg PO HS #30 tab 12/08/18 [Rx] allopurinoL [Zyloprim] 100 mg PO BID #60 tab 12/08/18 [Rx] glipiZIDE [Glucotrol] 10 mg PO AC-BID #60 tab 12/08/18 [Rx] metFORMIN HCL [Glucophage] 500 mg PO BID-W/MEALS #60 tab 12/08/18 [Rx] Albuterol Inhaler [Ventolin Hfa Inhaler] 1 - 2 puff INHALATION RT-QID PRN 04/24/20 [History] Aspirin EC [Ecotrin Low Dose] 81 mg PO DAILY 04/24/20 [History] Ergocalciferol [Vitamin D2 (DRISDOL)] 50,000 unit PO Q30D 04/24/20 [History] Fluticasone Propion/Salmeterol [Wixela 250-50 Inhub] 2 puff INHALATION RT-BID 04/24/20 [History] Furosemide [Lasix] 80 mg PO DAILY 04/24/20 [History] Hydrocortisone Cream [Hydrocortisone 2.5% Cream] 1 applic TOPICAL QID PRN 04/24/20 [History] Nystatin 1 applic TOPICAL QID PRN 04/24/20 [History] Oxybutynin Chloride [Oxybutynin Chloride ER] 15 mg PO DAILY 04/24/20 [History] Pregabalin [Lyrica] 100 mg PO BID 04/24/20 [History] Sofosbuvir/Velpatasvir [Epclusa 400 mg-100 mg Tablet] 1 tab PO DAILY 04/24/20 [History] metOLazone [Zaroxolyn] 2.5 mg PO DAILY 04/24/20 [History] traZODone HCL [Desyrel] 100 - 200 mg PO HS 04/24/20 [History] Lactulose [Cephulac] 30 gm PO QID #1000 ml 05/05/20 [Rx] Rifaximin [Xifaxan] 550 mg PO BID #60 tablet 05/05/20 [Rx] Follow up Appointment(s)/Referral(s): Tom Lucas MD [Primary Care Provider] - 1-2 days Discharge Disposition: HOME WITH HOSPICE
--- NOTE | 2020-05-05 17:53 | PN ---
PROGRESS NOTE Patient is seen for followup for acute kidney injury. Her renal function remains stable. Patient's urine output had decreased. However, the Robison was not placed right and it came out. A new catheter will be placed. The patient is more awake. She is maintained on BiPAP. PHYSICAL EXAMINATION: On examination, blood pressure 89/41, heart rate 79 per minute. She is afebrile. EXAMINATION OF THE HEART: S1 and S2. EXAMINATION OF LUNGS: Bilateral breath sounds are heard, although heart sounds and breath sounds are distant. ABDOMEN: Morbidly obese, non-tender. Examination of lower extremities shows edema 2+ bilaterally. Chronic skin changes noted. CHANNEL OPENER exam shows patient is awake. She is following commands and moving her extremities. LABS: Labs show sodium 143, potassium 3.5, chloride 108. CO2 is 32, BUN 103, serum creatinine 2.47, hemoglobin 8.2 g/dL. ASSESSMENT: 1. Acute kidney injury, acute tubular necrosis, currently stable. Renal function staying at about 2.2 to 2.4 mg/dL. 2. Volume overload, maintained on Lasix. 3. Hypernatremia, currently improved. Patient is maintained on free water down the feeding tube. I will discontinue the D5W. 4. Hepatic encephalopathy associated with chronic liver disease, maintained on lactulose. 5. Hypoxic respiratory failure, currently extubated, maintained on BiPAP. 6. Aspiration pneumonia, maintained on antibiotics. PLAN: Discontinue D5W. Continue with IV Lasix daily. Agree with consideration for hospice care. MMODL / IJN: [id number] /
[2020-05-05 18:19] VITALS: BP 89/46
[2020-05-05 19:20] VITALS: PULSE 73; RESP 14
== END 2020-05-05 20:30 | disposition hospice, home (50) | DRG 871 ==
LOC: EC 11:13 → 2SICU 13:50
PROVIDERS: ADMIT Family Medicine; ATTEND Family Medicine
PROC: 02HV33Z Insertion of Infusion Device into Superior Vena Cava, Percutaneous Approach (ICD-10-PCS; 2020-04-25)
PROC: 0BH17EZ Insertion of Endotracheal Airway into Trachea, Via Natural or Artificial Opening (ICD-10-PCS; principal; 2020-04-26)
PROC: 5A1945Z Respiratory Ventilation, 24-96 Consecutive Hours (ICD-10-PCS; principal; 2020-04-26)
PROC: 3E033XZ Introduction of Vasopressor into Peripheral Vein, Percutaneous Approach (ICD-10-PCS; 2020-04-26)
PROC: 5A09357 Assistance with Respiratory Ventilation, Less than 24 Consecutive Hours, Continuous Positive Airway Pressure (ICD-10-PCS; 2020-04-26)
PROC: 5A09457 Assistance with Respiratory Ventilation, 24-96 Consecutive Hours, Continuous Positive Airway Pressure (ICD-10-PCS; 2020-05-03)
DX: A41.9 Sepsis, unspecified organism (principal); G92 Toxic encephalopathy; I21.A1 Myocardial infarction type 2; I50.33 Acute on chronic diastolic (congestive) heart failure; J69.0 Pneumonitis due to inhalation of food and vomit; J96.01 Acute respiratory failure with hypoxia; J96.02 Acute respiratory failure with hypercapnia; K72.00 Acute and subacute hepatic failure without coma; N17.0 Acute kidney failure with tubular necrosis; R65.21 Severe sepsis with septic shock; D62 Acute posthemorrhagic anemia; E66.2 Morbid (severe) obesity with alveolar hypoventilation; Z68.45 Body mass index [BMI] 70 or greater, adult; E87.0 Hyperosmolality and hypernatremia; E87.1 Hypo-osmolality and hyponatremia; E87.2 Acidosis; I13.0 Hypertensive heart and chronic kidney disease with heart failure and stage 1 through stage 4 chronic kidney disease, or unspecified chronic kidney disease; K92.1 Melena; B18.2 Chronic viral hepatitis C; D63.8 Anemia in other chronic diseases classified elsewhere; D69.6 Thrombocytopenia, unspecified; E11.22 Type 2 diabetes mellitus with diabetic chronic kidney disease; E11.649 Type 2 diabetes mellitus with hypoglycemia without coma; E11.65 Type 2 diabetes mellitus with hyperglycemia; E78.5 Hyperlipidemia, unspecified; E86.1 Hypovolemia; E87.5 Hyperkalemia; E87.8 Other disorders of electrolyte and fluid balance, not elsewhere classified; I44.0 Atrioventricular block, first degree; J44.9 Chronic obstructive pulmonary disease, unspecified; J84.89 Other specified interstitial pulmonary diseases; K21.9 Gastro-esophageal reflux disease without esophagitis; N18.3 Chronic kidney disease, stage 3 (moderate); R31.0 Gross hematuria; R62.7 Adult failure to thrive; Z91.81 History of falling; Z51.5 Encounter for palliative care; Z66 Do not resuscitate; Z79.82 Long term (current) use of aspirin; Z79.84 Long term (current) use of oral hypoglycemic drugs; Z79.899 Other long term (current) drug therapy; Z82.49 Family history of ischemic heart disease and other diseases of the circulatory system; Z98.49 Cataract extraction status, unspecified eye; R68.0 Hypothermia, not associated with low environmental temperature
CPT/HCPCS: 36415; 70450; 71045; 74018; 76700; 76770; 76857; 80048; 80053; 80202; 81003; 82140; 82272; 82533; 82607; 82728; 82746; 82805; 83036; 83540; 83550; 83605; 83735; 83930; 83935; 84132; 84145; 84295; 84300; 84443; 84484; 85025; 85027; 85045; 85610; 85730; 86704; 86706; 86850; 86900; 86901; 86920; 87070; 87205; 87340; 93005; 93306; 94002; 94003; 94660; 94770

== ENCOUNTER 2020-05-05 20:50 | Inpatient (IN) | payer MEDICAID, OTHER ==
--- NOTE | 2020-05-05 21:09 | ED ---
General Adult HPI - General Source: patient, EMS Mode of arrival: EMS Limitations: physical limitation <Vita Jon - Last Filed: 05/05/20 22:18> <Billy Mossah Ronal - Last Filed: 05/07/20 13:41> - General Chief complaint: Recheck/Abnormal Lab/Rx Stated complaint: Failure to thrive Time Seen by Provider: 05/05/20 20:58 - History of Present Illness Initial comments: 60-year-old female patient who was recently brought to the hospital on 04/24/2020 for generalized weakness recurrent hypoglycemic events. She was found to have low blood pressures, decreased hemoglobin at 6.1, sodium is low at 108, and acute kidney injury. She was also hypothermic and required warming measures. She was admitted to the hospital subsequently intubated. Patient did have some improvement, was extubated, but overall condition was quite poor so family made the decision to continue with hospice care and comfort measures. She was discharged to continue care at home today. She is brought back to the emergency department because they were unable to get her into her home due to the patient's body habitus and limited access to the house. It was not safe for EMS personal and Hospice staff to get her into the home. Patient is alert and verbal. She has indwelling NG tube and supplemental oxygen. She states overall she feels okay and has no specific complaints. (Vita Jon) - Related Data Home Medications Medication Instructions Recorded Confirmed Losartan [Cozaar] 50 mg PO DAILY 09/18/18 05/05/20 Simvastatin [Zocor] 20 mg PO HS 09/18/18 05/05/20 Albuterol Inhaler [Ventolin Hfa 1 - 2 puff INHALATION RT-QID PRN 04/24/20 05/05/20 Inhaler] Aspirin EC [Ecotrin Low Dose] 81 mg PO DAILY 04/24/20 05/05/20 Ergocalciferol [Vitamin D2 50,000 unit PO Q28D 04/24/20 05/05/20 (DRISDOL)] Fluticasone Propion/Salmeterol 2 puff INHALATION RT-BID 04/24/20 05/05/20 [Wixela 250-50 Inhub] Furosemide [Lasix] 80 mg PO DAILY 04/24/20 05/05/20 Hydrocortisone Cream 1 applic TOPICAL QID PRN 04/24/20 05/05/20 [Hydrocortisone 2.5% Cream] Nystatin 1 applic TOPICAL QID PRN 04/24/20 05/05/20 Oxybutynin Chloride [Oxybutynin 15 mg PO DAILY 04/24/20 05/05/20 Chloride ER] Pregabalin [Lyrica] 100 mg PO BID 04/24/20 05/05/20 Sofosbuvir/Velpatasvir [Epclusa 1 tab PO DAILY 04/24/20 05/05/20 400 mg-100 mg Tablet] metOLazone [Zaroxolyn] 2.5 mg PO DAILY 04/24/20 05/05/20 traZODone HCL [Desyrel] 100 - 200 mg PO HS 04/24/20 05/05/20 metFORMIN HCL [Glucophage] 500 mg PO AC-BID 05/05/20 05/05/20 Previous Rx's Medication Instructions Recorded Amitriptyline HCl [Elavil] 25 mg PO HS #30 tab 12/08/18 allopurinoL [Zyloprim] 100 mg PO BID #60 tab 12/08/18 glipiZIDE [Glucotrol] 10 mg PO AC-BID #60 tab 12/08/18 Lactulose [Cephulac] 30 gm PO QID #1000 ml 05/05/20 Rifaximin [Xifaxan] 550 mg PO BID #60 tablet 05/05/20 Allergies Allergy/AdvReac Type Severity Reaction Status Date / Time ketchup Allergy Rash/Hives Verified 05/06/20 01:56 orange juice Allergy Rash/Hives Verified 05/06/20 01:56 watermelon Allergy Rash/Hives Verified 05/06/20 01:56 Review of Systems ROS Other: All systems not noted in ROS Statement are negative. <Vita Jon - Last Filed: 05/05/20 22:18> ROS Other: All systems not noted in ROS Statement are negative. <Shell Moss - Last Filed: 05/07/20 13:41> ROS Statement: Those systems with pertinent positive or pertinent negative responses have been documented in the HPI. Past Medical History Past Medical History: COPD, Diabetes Mellitus, Hyperlipidemia, Hypertension, Renal Disease Additional Past Medical History / Comment(s): Obesity, hypertension, chronic stage III kidney disease, diabetes mellitus, hepatitis C currently on treatment, hyperlipidemia, History of Any Multi-Drug Resistant Organisms: None Reported Past Surgical History: Section Additional Past Surgical History / Comment(s): cataracts removed Past Psychological History: No Psychological Hx Reported Smoking Status: Never smoker Past Alcohol Use History: None Reported Past Drug Use History: None Reported - Past Family History Mother Family Medical History: Congestive Heart Failure (CHF), Hypertension <Vita Jon - Last Filed: 05/05/20 22:18> General Exam Limitations: physical limitation General appearance: alert, in no apparent distress, other (Physical well- developed, well-nourished adult female patient in no acute distress. Vital signs upon presentation are temperature 96.8F, pulse 81, respirations 20, blood pressure 100/54, pulse ox 98% on room air) Respiratory exam: Present: decreased breath sounds (Bilateral). Absent: normal lung sounds bilaterally, respiratory distress, wheezes, rales, rhonchi, stridor Cardiovascular Exam: Present: regular rate, normal rhythm, normal heart sounds. Absent: systolic murmur, diastolic murmur, rubs, gallop, clicks GI/Abdominal exam: Present: soft, normal bowel sounds. Absent: distended, tenderness, guarding, rebound, rigid Neurological exam: Present: alert, CN II-XII intact. Absent: oriented X3 (Oriented 2) Psychiatric exam: Present: normal affect, normal mood Skin exam: Present: warm, dry, intact, normal color. Absent: rash <Vita Jon - Last Filed: 05/05/20 22:18> Course Vital Signs 05/05/20 05/05/20 05/05/20 20:52 21:00 22:36 Temperature 96.8 F L Pulse Rate 81 82 Respiratory 20 20 16 Rate Blood Pressure 100/54 80/42 O2 Sat by Pulse 98 97 Oximetry Medical Decision Making <Vita Jon - Last Filed: 05/05/20 22:18> <Shell Moss - Last Filed: 05/07/20 13:41> - Medical Decision Making 60-year-old female patient who was recently brought to the hospital on 04/24/2020 for generalized weakness recurrent hypoglycemic events. She was found to have low blood pressures, decreased hemoglobin at 6.1, sodium is low at 108, and acute kidney injury. She was also hypothermic and required warming measures. She was admitted to the hospital subsequently intubated. Patient did have some improvement, was extubated, but overall condition was quite poor so family made the decision to continue with hospice care and comfort measures. She was discharged to continue care at home today. She is brought back to the emergency department because they were unable to get her into her home due to the patient's body habitus and limited access to the house. It was not safe for EMS personal and Hospice staff to get her into the home. Patient is alert and verbal. She has indwelling NG tube and supplemental oxygen. No further workup will be performed in the emergency department, she will be admitted to for social work consult to aid with continuing hospice care. (Vita Jon) I was available for consultation in the emergency department. The history and physical exam were done by the midlevel provider. I was consulted for this patients care. I reviewed the case with the midlevel provider and based on their presentation of the patient, I agree with the assessment, medical decision making and plan of care as documented. I evaluated the patient myself. Used the US to attempt PIV however patient does not have any visualized access available. Reviewed medical chart - patient does not require any medications tonight. She is provide with IM pain medication. Discussed with patients family and hospice nurse the need for midline access tomorrow for which both parties agreed. Midline ordered. I also spoke with the hospice nurse who states the patient is on tube feeds and does better when on BiPap. Bipap ordered. Comfort care orders and tube feeds placed by plexiglas former. [facility] made aware of patients return. Patient will be transported to the floor and made comfortable. ladle filler at bedside for patients entire ER encounter. Chart was dictated using [employer] dictation software. Attempts were made to correct any dictation errors however some typographical errors may persist. Patient was seen during a national state of emergency due to the Covid-19 pandemic. (Shell Moss) Disposition Decision to Admit Reason: Admit from EC Decision Date: 05/05/20 Decision Time: 21:20 <Vita Jon - Last Filed: 05/05/20 22:18> <Shell Moss - Last Filed: 05/07/20 13:41> Clinical Impression: Hospice care Disposition: ADMITTED IP TO THIS HOSP Condition: Serious
[2020-05-05] MEDS ORDERED: NALOXONE 0.4 MG/ML 1 ML VIAL IV PRN (21:20)
[2020-05-05] MEDS ORDERED: ONDANSETRON 4 MG/2 ML VIAL IVP PRN (21:21)
[2020-05-05] MEDS ORDERED: ACETAMINOPHEN SUPPOSITORY 650 MG SUPP RECTAL PRN (21:21)
[2020-05-05] MEDS: HYDROmorphone 1 MG/ML 1 ML SYRINGE IVP PRN ×2 (21:40→22:35)
[2020-05-05] MEDS ORDERED: HYDROmorphone 1 MG/ML 1 ML SYRINGE IM STA (22:31)
[2020-05-05] MEDS ORDERED: LORazepam 1 MG TAB PO PRN (23:13)
[2020-05-05] MEDS ORDERED: MORPHINE CONC SOLN 10mg/0.5mL ORAL SYRG NG-TUBE PRN (23:29)
[2020-05-05] MEDS ORDERED: DRY MOUTH SPRAY 44.3 SPRAY/44.3 ML SPRAY MUCOUS MEM PRN (23:30)
[2020-05-05] MEDS ORDERED: ATROPINE OPHTH SOLN 1% 5ML BTL SUBLINGUAL PRN (23:30)
[2020-05-06] MEDS ORDERED: guaiFENesin SYRUP 100MG/5ML 200 MG/10 ML CUP PO PRN (01:00)
[2020-05-06 03:02] VITALS: RESP 13; TEMP 97.1
[2020-05-06] MEDS: HYDROmorphone 1 MG/ML 1 ML SYRINGE IVP PRN (04:13)
[2020-05-06] MEDS: PANTOPRAZOLE 40 MG/10 ML VIAL IVP SCH ×2 (06:51→21:37)
[2020-05-06] MEDS ORDERED: INSULIN ASPART (NovoLOG) 100 UNIT/ML VIAL SQ SCH (07:30)
[2020-05-06] MEDS ORDERED: LORazepam 2 MG/ML INJ IM PRN (12:17)
[2020-05-06 12:29] VITALS: BP 49/28; PULSE 62
[2020-05-06] MEDS: MORPHINE SULFATE (100 MG/2 ML) 100 MG in SODIUM CHLORIDE 0.9% 100 ML IV SCH ×2 (14:45→17:47)
--- NOTE | 2020-05-06 18:38 | P.HPIM ---
History of Present Illness H&P Date: 05/06/20 Chief Complaint: Adult failure to thrive 60-year-old female patient who was recently brought to the hospital on 04/24/2020 for generalized weakness recurrent hypoglycemic events. She was found to have low blood pressures, decreased hemoglobin at 6.1, sodium is low at 108, and acute kidney injury. She was also hypothermic and required warming measures. She was admitted to the hospital subsequently intubated. Patient did have some improvement, was extubated, but overall condition was quite poor so family made the decision to continue with hospice care and comfort measures. She was discharged to continue care at home today. She is brought back to the emergency department because they were unable to get her into her home due to the patient's body habitus and limited access to the house. It was not safe for EMS personal and Hospice staff to get her into the home. Patient is alert and verbal. She has indwelling NG tube and supplemental oxygen. No further workup will be performed in the emergency department, she will be admitted to for social work consult to aid with continuing hospice care. Review of Systems ROS unobtainable: due to mental status Past Medical History Past Medical History: COPD, Diabetes Mellitus, Hyperlipidemia, Hypertension, Renal Disease Additional Past Medical History / Comment(s): Obesity, hypertension, chronic stage III kidney disease, diabetes mellitus, hepatitis C , hyperlipidemia, respiratory failure was on ventilator in ICU last admission, on oxygen at home, hypoglycemia, chronic thrombocytopenia, elevated ammonia, suspected GI bleeding, hepatic encephalopathy History of Any Multi-Drug Resistant Organisms: None Reported Past Surgical History: Section Additional Past Surgical History / Comment(s): cataracts removed Past Anesthesia/Blood Transfusion Reactions: No Reported Reaction Past Psychological History: No Psychological Hx Reported Smoking Status: Never smoker Past Alcohol Use History: None Reported Past Drug Use History: None Reported - Past Family History Mother Family Medical History: Congestive Heart Failure (CHF), Hypertension Medications and Allergies Home Medications Medication Instructions Recorded Confirmed Type Losartan [Cozaar] 50 mg PO DAILY 09/18/18 05/05/20 History Simvastatin [Zocor] 20 mg PO HS 09/18/18 05/05/20 History Amitriptyline HCl [Elavil] 25 mg PO HS #30 tab 12/08/18 05/05/20 Rx allopurinoL [Zyloprim] 100 mg PO BID #60 tab 12/08/18 05/05/20 Rx glipiZIDE [Glucotrol] 10 mg PO AC-BID #60 tab 12/08/18 05/05/20 Rx Albuterol Inhaler [Ventolin Hfa 1 - 2 puff INHALATION RT-QID PRN 04/24/20 05/05/20 History Inhaler] Aspirin EC [Ecotrin Low Dose] 81 mg PO DAILY 04/24/20 05/05/20 History Ergocalciferol [Vitamin D2 50,000 unit PO Q28D 04/24/20 05/05/20 History (DRISDOL)] Fluticasone Propion/Salmeterol 2 puff INHALATION RT-BID 04/24/20 05/05/20 History [Wixela 250-50 Inhub] Furosemide [Lasix] 80 mg PO DAILY 04/24/20 05/05/20 History Hydrocortisone Cream 1 applic TOPICAL QID PRN 04/24/20 05/05/20 History [Hydrocortisone 2.5% Cream] Nystatin 1 applic TOPICAL QID PRN 04/24/20 05/05/20 History Oxybutynin Chloride [Oxybutynin 15 mg PO DAILY 04/24/20 05/05/20 History Chloride ER] Pregabalin [Lyrica] 100 mg PO BID 04/24/20 05/05/20 History Sofosbuvir/Velpatasvir [Epclusa 1 tab PO DAILY 04/24/20 05/05/20 History 400 mg-100 mg Tablet] metOLazone [Zaroxolyn] 2.5 mg PO DAILY 04/24/20 05/05/20 History traZODone HCL [Desyrel] 100 - 200 mg PO HS 04/24/20 05/05/20 History Lactulose [Cephulac] 30 gm PO QID #1000 ml 05/05/20 05/05/20 Rx Rifaximin [Xifaxan] 550 mg PO BID #60 tablet 05/05/20 05/05/20 Rx metFORMIN HCL [Glucophage] 500 mg PO AC-BID 05/05/20 05/05/20 History Allergies Allergy/AdvReac Type Severity Reaction Status Date / Time ketchup Allergy Rash/Hives Verified 05/06/20 01:56 orange juice Allergy Rash/Hives Verified 10/17/20 01:56 watermelon Allergy Rash/Hives Verified 05/06/20 01:56 Physical Exam Vitals: Vital Signs Temp Pulse Pulse Resp BP BP Pulse Ox 05/06/20 12:29 62 49/28 77 L 05/06/20 08:00 13 05/06/20 02:43 97.1 F L 68 13 70/45 99 05/05/20 22:36 82 16 80/42 97 05/05/20 21:00 20 05/05/20 20:52 96.8 F L 81 20 100/54 98 Intake and Output 05/06/20 05/06/20 05/06/20 06:59 14:59 22:59 Output Total 50 Balance -50 Output: Urine 50 Other: Voiding Method Indwelling Catheter Indwelling Catheter Indwelling Catheter Weight 180 kg General appearance: alert, in no apparent distress, other (Physical well- developed, well-nourished adult female patient in no acute distress. Vital signs upon presentation are temperature 96.8F, pulse 81, respirations 20, blood pressure 100/54, pulse ox 98% on room air) Respiratory exam: Present: decreased breath sounds (Bilateral). Absent: normal lung sounds bilaterally, respiratory distress, wheezes, rales, rhonchi, stridor Cardiovascular Exam: Present: regular rate, normal rhythm, normal heart sounds. Absent: systolic murmur, diastolic murmur, rubs, gallop, clicks GI/Abdominal exam: Present: soft, normal bowel sounds. Absent: distended, tenderness, guarding, rebound, rigid Neurological exam: Present: alert, CN II-XII intact. Absent: oriented X3 (Oriented 2) Psychiatric exam: Present: normal affect, normal mood Skin exam: Present: warm, dry, intact, normal color. Absent: rash Thrombosis Risk Factor Assmnt - Choose All That Apply Any of the Below Risk Factors Present?: Yes Each Factor Represents 1 point: Abnormal pulmonary function (COPD), Age 41-60 years, Obesity (BMI >25), Swollen legs (current) Other Risk Factors: Yes Each Risk Factor Represents 2 Points: Patient confined to bed Other congenital or acquired thrombophilia - If yes, enter type in comment: No Thrombosis Risk Factor Assessment Total Risk Factor Score: 6 Thrombosis Risk Factor Assessment Level: High Risk Assessment and Plan Assessment: Adult failure to thrive; patient was discharged home today with hospice care; patient was brought back to the emergency department because of inability of the EMS personnel and hospice staff to get into the house because of patient's body habitus and limited access to the house; hospice on board; patient seems to be comfortable at this time
--- NOTE | 2020-05-08 19:42 | DS ---
DISCHARGE SUMMARY DATE OF : 05/07/2020 CHIEF COMPLAINT: Hypovolemic shock. HISTORY OF PRESENT ILLNESS AND PHYSICAL EXAMINATION: Details of this lady's history and physical can be found in her initial workup. LABORATORY STUDIES: While she was in the hospital she had numerous laboratory studies which can be found in the laboratory section of her chart. COURSE IN THE HOSPITAL: After admission she was placed on bedrest in ICU. She was hypotensive and remained so for most of her hospitalization. She presented with a gastrointestinal bleed and blood- loss anemia. She was initially able to be maintained off the ventilator, but eventually had to be intubated for ventilator support. Her diabetes was managed with insulin. In the hospital her renal failure was also managed and she was followed by Intensive Medicine, Cardiology and Nephrology. She ultimately was also seen by Neurology. For a period of time it looked like she may be able to improve. She was eventually able to be taken off of pressors. However, she never regained consciousness. Family requested that efforts be continued when it looked like she may be responding. However, she was made DNR and despite supportive efforts she did poorly. She eventually was extubated and was able to be managed on BiPAP, but she never regained consciousness. She on May 07, 2020. FINAL DIAGNOSES: 1. Hypovolemic shock. 2. Gastrointestinal bleed. 3. Blood-loss anemia. 4. Chronic congestive heart failure. 5. Acute diastolic and systolic heart failure. 6. Renal failure. 7. Insulin-dependent diabetes mellitus. 8. Morbid obesity. OPERATIONS: None. CONSULTATIONS: 1. Intensive Medicine. 2. Cardiology. 3. Nephrology. 4. Neurology. She was not improved. She . MMODL / IJN: [id number] /
== END 2020-05-07 03:20 | disposition expired | DRG 951 ==
LOC: EC 20:50 → 6NMEDSUR 21:27 → OBSVTOIN 05-06 13:47
PROVIDERS: ADMIT Hospitalist; ATTEND Hospitalist
DX: Z51.5 Encounter for palliative care (principal); Z68.45 Body mass index [BMI] 70 or greater, adult; K92.2 Gastrointestinal hemorrhage, unspecified; E11.22 Type 2 diabetes mellitus with diabetic chronic kidney disease; E11.649 Type 2 diabetes mellitus with hypoglycemia without coma; E78.5 Hyperlipidemia, unspecified; I12.9 Hypertensive chronic kidney disease with stage 1 through stage 4 chronic kidney disease, or unspecified chronic kidney disease; J44.9 Chronic obstructive pulmonary disease, unspecified; N18.30 Chronic kidney disease, stage 3 unspecified; R62.7 Adult failure to thrive; Z74.01 Bed confinement status; E66.01 Morbid (severe) obesity due to excess calories; K72.90 Hepatic failure, unspecified without coma; B19.20 Unspecified viral hepatitis C without hepatic coma; D69.6 Thrombocytopenia, unspecified; Z82.49 Family history of ischemic heart disease and other diseases of the circulatory system; Z79.82 Long term (current) use of aspirin; Z79.84 Long term (current) use of oral hypoglycemic drugs; Z79.899 Other long term (current) drug therapy; Z98.49 Cataract extraction status, unspecified eye
CPT/HCPCS: 94660; 96374; 96376; 99285